=== PATIENT | male | born 1935 | race Caucasian/White ===

== ENCOUNTER 2020-02-01 17:57 | Emergency (ER) | payer MEDICARE, SELFPAY ==
[2020-02-01 18:55] VITALS: BP 141/71; PULSE 53; RESP 14; TEMP 37.4; O2SAT 97
--- NOTE | 2020-02-01 20:03 | ED.SKABFB ---
HPI - Skin/Abscess/Foreign Bdy General Chief complaint: Skin/Abscess/Foreign Body Stated complaint: bug bite, left arm Source: patient Mode of arrival: ambulatory Limitations: no limitations History of Present Illness HPI narrative: Bit yesterday by an insect while picking vegetables in his garden yesterday. He had 2 puncture pena by several mm where he was bit. There was immediate swelling, pt describing a bump of about 4 mm high and several centimeters wide. This AM the bump is almost flat, it's minimally tender, but his forearm is bruised. He's wondering if he has an infection. He takes Xeralto for a. fib. He denies fever, chills pain in the forearm or arm. Related Data Home Medications Medication Instructions Recorded Confirmed diltiazem HCl 180 mg PO DAILY 02/01/20 02/01/20 hydrocortisone 1 applic TOPICAL PRN 02/01/20 02/01/20 hydroxyurea 500 mg PO DAILY 02/01/20 02/01/20 lisinopril 20 mg PO DAILY 02/01/20 02/01/20 metoprolol tartrate 25 mg PO BID 02/01/20 02/01/20 omeprazole 20 mg PO DAILY 02/01/20 02/01/20 oxybutynin chloride 10 mg PO BID 02/01/20 02/01/20 rivaroxaban [Xarelto] 15 mg PO DAILY 02/01/20 02/01/20 Allergies Allergy/AdvReac Type Severity Reaction Status Date / Time bee venom protein (honey bee) Allergy Unknown Verified 02/01/20 19:10 [bees] morphine Allergy Unknown Verified 02/01/20 19:10 Review of Systems Constitutional: Constitutional: Denies chills and Denies fever(s) [facility] Past Medical History Medical History (Updated 02/02/20 @ 00:00 by Background Daemon) Atrial fibrillation GERD (gastroesophageal reflux disease) Hypertension Exam Const: General: no acute distress Skin: Other: There is a palpable, minimally tender, 4 mm intradermal nodule over the left mid-radius. No eschar or puncture pena. There is no redness, warmth, tenderness or induration. Almost all of the left anterior forearm is ecchymotic with well demarcated borders. No red steaking of the left arm. Extrem: General: other (no left axillary lymph node. ) Course Vital Signs Vital signs: Vital Signs Temperature 37.4 C 02/01/20 18:55 Pulse Rate 53 L 02/01/20 18:55 Respiratory Rate 14 02/01/20 18:55 Blood Pressure 141/71 H 02/01/20 18:55 Pulse Oximetry 97 02/01/20 18:55 Temperature 37.4 C 02/01/20 18:55 Pulse Rate 53 L 02/01/20 18:55 Respiratory Rate 15 02/01/20 20:17 Blood Pressure 141/71 H 02/01/20 18:55 Pulse Oximetry 99 02/01/20 20:17 Discharge Plan Discharge Clinical Impression: Insect bites, Bruising Patient Disposition: Home, Self-Care Condition: Stable Instructions: Cellulitis (ED), Insect Bite or Sting (ED), Abscess (ED) Additional Instructions: Look for signs of infection. Return if worsening. Read information on cellulitis to know what to look for. See Dr. Watts at any point there is increased swelling, tenderness, pain or bruising Prescriptions: No Action hydroxyurea 500 mg capsule 500 mg PO DAILY RF: 0 diltiazem HCl 180 mg capsule,extended release 24hr 180 mg PO DAILY RF: 0 lisinopril 20 mg tablet 20 mg PO DAILY RF: 0 hydrocortisone 2.5 % cream with perineal applicator 1 applic topical PRN RF: 0 omeprazole 20 mg capsule,delayed release(DR/EC) 20 mg PO DAILY RF: 0 oxybutynin chloride 5 mg tablet 10 mg PO BID RF: 0 metoprolol tartrate 25 mg tablet 25 mg PO BID RF: 0 Xarelto 15 mg tablet 15 mg PO DAILY RF: 0 Follow-up/Referrals: Mac,Lakhwinder Sousa MD [Primary Care Provider] - Time of Disposition: 20:13 Discharge Date/Time: 02/01/20 20:23
[2020-02-01 20:17] VITALS: RESP 15; O2SAT 99
== END 2020-02-01 20:23 | disposition home or self-care (01) ==
PROVIDERS: Emergency Provider Family Medicine; PCP Internal Medicine
DX: T14.8XXA Other injury of unspecified body region, initial encounter (principal)
CPT/HCPCS: 99281

== ENCOUNTER 2023-03-01 14:01 | Inpatient (IN) | payer MEDICARE, SELFPAY ==
[2023-03-01] VITALS (49 sets, daily range): BP systolic 66–139; BP diastolic 33–90; PULSE 36–97; RESP 13–31; TEMP 35.4–36.6; O2SAT 92–100; BMI 24.3
--- NOTE | ~2023-03-01 | XR_ITS ---
XR chest 1V portable DATE: 03/04/2023 06:16 INDICATION: Intubation TECHNIQUE: Portable AP chest on 03/04/2023 at 0544 hours COMPARISON: 03/03/2023 portable AP chest at 0526 hours FINDINGS: ET tube in satisfactory position 2.3 cm above malgorzata. NG tube in gastric fundus. No central lines. There is cardiomegaly. There is pulmonary vascular redistribution suggesting pulmonary venous hyperte nsion. There is prominence of the minor fissure consistent with subpleural edema. Some Carlos B-lines are noted consistent with pulmonary interstitial edema. Aortic calcification. Mild infiltrate or atelectasis in the lower lung zones, greater on the left, improved on the left sin ce 03/03/2023 IMPRESSION: Interval congestive changes including subpleural and pulmonary interstitial edema Mild improvement of left lower lobe infiltrate or atelectasis Reviewed, dictated and finalized at location A. IMPRESSION: Interval congestive changes including subpleural and pulmonary inte rstitial edema Mild improvement of left lower lobe infiltrate or atelectasis
--- NOTE | ~2023-03-01 | XR_ITS ---
EXAMINATION: [id number] INDICATION: OG placement TECHNIQUE: Supine AP view of the abdomen is obtained. COMPARISON: None available FINDINGS: The OG tube ends in the stomach. Cardiomegaly is noted. There is mild pulmonary edema of th e visualized lung bases. A cardiac pacemaker lead from an IVC approach is noted. The bowel gas patter n is nonspecific. IMPRESSION: 1. OG tube in the stomach. Reviewed, dictated and finalized at location F. IMPRESSION: 1. OG tube in the stomach.
--- NOTE | ~2023-03-01 | XR_ITS ---
XR chest 1V portable 03/01/2023 15:52 Indication: Postintubation. Procedure: AP portable chest Comparison: No prior studies for comparison. Findings: Endotracheal tube tip 2.8 cm above the malgorzata. Cardiomegaly. Mild interstitial edema. No pl eural effusion or pneumothorax. Impression: 1: Cardiomegaly with mild interstitial edema. Reviewed, dictated and finalized at location L. Impression: 1: Cardiomegaly with mild interstitial edema.
--- NOTE | ~2023-03-01 | XR_ITS ---
Portable chest x-ray Comparison: 03/04/2023 Clinical History: Tube placement Findings: Previously noted support tubes have been removed. Lungs are clear, without focal consolida tion or pleural effusion. Cardiomediastinal silhouette is stable. Bones and soft tissues are unremar kable. Impression: Clear lungs. Reviewed, dictated and finalized at location . Impression: Clear lungs.
--- NOTE | ~2023-03-01 | US_ITS ---
EXAMINATION: US abdomen complete DATE: 03/07/2023 11:18 INDICATION: Pancytopenia TECHNIQUE: Multiple grayscale and Doppler ultrasound images of the abdomen were obtained. COMPARISON: None FINDINGS: Abdominal aorta is normal in caliber measuring 2.6 cm approximately, 2.0 cm mid aorta and 2.6 cm in t he distal aorta. This is proximal to mid inferior vena cava is normal. The pancreatic head and body a re normal in appearance. The pancreatic tail is not visualized. Liver has normal echogenicity and co ntour, with a smooth surface. No liver lesion identified. No intrahepatic biliary duct dilation suspe cted. Portal venous flow was seen in the hepatopetal, normal direction and has normal Doppler wavefor m. There are some hypoechoic sludge layering in the dependent aspect of the nondilated gallbladder. T here are couple tiny echogenic foci along the normal thickness gallbladder wall with posterior comet tail and twinkle artifact consistent with likely intramural cholesterol crystals in the setting of ad enomyomatosis. No shadowing cholelithiasis. Sonographic Yan sign was reported as negative by the s onographer. The common bile duct measures 2 mm in maximal diameter which is normal. The right kidney measures 10.0 x 4.8 x 5.3 cm and the left 10.0 x 5.1 x 6.1 cm. There is diffuse increased renal corti edi collection is seen consistent with medical renal disease. Bilateral anechoic renal cysts, the lar gest measuring 4.7 cm with some peripheral echogenic shadowing calcification at the left kidney. Ther e are a few additional echogenic and shadowing calcifications in the kidneys. There is indeterminate 2.0 cm hypoechoic lesion at the lower pole of the right kidney. There is no hydronephrosis. IMPRESSION: 1. Indeterminate 2.0 cm hypoechoic lesion in the right kidney which could represent either a solid re nal cell carcinoma or a complex cyst. Recommend further evaluation with pre and postcontrast MRI or C T. 2. Bilateral mild likely age-related renal atrophy with increased echogenicity consistent with medica l renal disease. 3. Gallbladder sludge and adenomyomatosis. Reviewed, dictated and finalized at location A. IMPRESSION: 1. Indeterminate 2.0 cm hypoechoic lesion in the right kidney which could repre sent either a solid renal cell carcinoma or a complex cyst. Recommend further e valuation with pre and postcontrast MRI or CT. 2. Bilateral mild likely age-related renal atrophy with increased echogenicity consistent with medical renal disease. 3. Gallbladder sludge and adenomyomatosis.
--- NOTE | ~2023-03-01 | US_ITS ---
EXAMINATION: US renal BI DATE: 03/02/2023 16:24 INDICATION: Acute kidney injury TECHNIQUE: Multiple grayscale and Doppler ultrasound images of the kidneys were obtained. COMPARISON: None. FINDINGS: The right kidney measures 9.5 x 5.2 x 5.4 cm. There are multiple cysts of the right kidney which measure up to 2.4 cm. The left kidney measures 10.6 x 5.3 x 6.1 cm. There is a 4.4 cm cyst of t he left kidney. The kidneys demonstrate increased parenchymal echogenicity. There is cortical thinnin g of the kidneys. There is no hydronephrosis. The bladder is decompressed by Chris catheter.. IMPRESSION: 1. Mild bilateral renal atrophy with medical renal disease. Reviewed, dictated and finalized at location F.
--- NOTE | ~2023-03-01 | XR_ITS ---
Portable chest x-ray Comparison: 03/01/2023 Clinical History: Respiratory failure Findings: Endotracheal tube and NG tube are in satisfactory positions. There is extensive hazy pulmo nary disease bilaterally, relatively sparing the lung apices. No pleural effusion. No pneumothorax. Cardiomediastinal silhouette is stable. Bones and soft tissues are unremarkable. Impression: Extensive hazy pulmonary disease. Correlate for pulmonary edema or infection. Support tubes, as above. Reviewed, dictated and finalized at location . Impression: Extensive hazy pulmonary disease. Correlate for pulmonary edema or infection. Support tubes, as above.
--- NOTE | ~2023-03-01 | XR_ITS ---
Portable chest x-ray Comparison: 03/05/2023 Clinical History: Respiratory failure Findings: Lungs are clear, without focal consolidation or pleural effusion. Cardiomediastinal silho uette is stable. Bones and soft tissues are unremarkable. Impression: Clear lungs. Reviewed, dictated and finalized at location . Impression: Clear lungs.
--- NOTE | ~2023-03-01 | XR_ITS ---
EXAMINATION: XR chest ET placement INDICATION: Endotracheal tube insertion TECHNIQUE: Portable AP chest at 1753 hours COMPARISON: 1548 hours FINDINGS: The endotracheal tube ends approximately 4 cm above the malgorzata. A nasogastric tube has been inserted which is in the stomach. Cardiomegaly is noted. There is a mild diffuse interstitial patter n. No pleural effusion or pneumothorax. There appears to be interval insertion of a pacemaker lead fr om an inferior vena cava approach. IMPRESSION: 1. Endotracheal tube approximately 4 cm above the malgorzata. 2. Inserted nasogastric tube in the stomach. 3. Cardiomegaly with mild pulmonary edema. Reviewed, dictated and finalized at location F.
--- NOTE | ~2023-03-01 | XR_ITS ---
XR chest 1V portable DATE: 03/03/2023 05:43 INDICATION: Respiratory failure TECHNIQUE: Portable AP chest on 03/03/2023 at 0526 hours COMPARISON: 03/02/2023 portable AP chest at 0528 hours FINDINGS: ET and NG tubes are unchanged in position, the NG tube overlying the gastric fundus. No central lines. Right ventricular lead entering from inferior vena cava. Cardiomegaly. Aortic calcification. There is left lower lobe infiltrate and/or atelectasis. There is otherwise improvement of bilateral p ulmonary infiltrates since 03/02/2023, suggesting probable mild improvement of pulmonary edema IMPRESSION: Probable interval mild improvement of pulmonary edema. Left lower lobe infiltrate and/atelectasis Cardiomegaly, aortic atherosclerosis Reviewed, dictated and finalized at location A.
--- NOTE | 2023-03-01 14:00 | ECG_ITS ---
Measurements Intervals [place] Rate: 36 P: MA: 0 QRS: -58 QRSD: 95 T: -27 QT: 526 QTc: 409 Interpretive Statements ATRIAL FIBRILLATION WITH SLOW VENTRICULAR RESPONSE LOW QRS VOLTAGE IN LIMB LEADS INCOMPLETE RIGHT BUNDLE BRANCH BLOCK BORDERLINE R WAVE PROGRESSION, ANTERIOR LEADS INFERIOR INFARCT, AGE INDETERMINATE T WAVE ABNORMALITY IN ANTERIOR LEADS- CONSIDER ISCHEMIA BASELINE ARTIFACT- I, II, III, V2-V6 ABNORMAL ECG NO PREVIOUS ECG AVAILABLE FOR COMPARISON Electronically Signed On 03-02-2023 6:28:28 CDT by Francis Pate D.O.
--- NOTE | 2023-03-01 14:14 | PC.NURSE ---
ERP orders for a 1mg of atropine to be administered IV push as pacer pads are applied to pt.
[2023-03-01] MEDS: ATROPINE SULFATE 1 MG/10 ML SYRINGE IV PUSH (14:17)
--- NOTE | 2023-03-01 14:20 | PC.NURSE ---
Pt was on NSS running at a slowed rate. Pt has received around 200mls. Due to low blood pressure ERP wants to continue the bag at 100mls/hr.
--- NOTE | 2023-03-01 14:36 | ED.SYNCOPE ---
HPI - Syncope General Chief Complaint: Syncope Stated Complaint: syncopal episode Time Seen by Provider: 03/01/23 14:09 History of Present Illness HPI narrative: Pt presents from home after apparent syncopal episode. Pt was minimally responsive on EMS arrival. Pt had HR in 30's and low BP. Pt given atropine x 1 dose and pressure improved and HR increased and pt became more responsive but then effects wore off. Pt has extensive cardiac history and is usually seen by Eder Cordoba per EMS. Related Data Home Medications Medication Instructions Recorded Confirmed diltiazem HCl 180 mg 180 mg PO DAILY 02/01/20 02/01/20 capsule,extended release 24 hr hydrocortisone 2.5 % topical cream 1 applic topical PRN 02/01/20 02/01/20 with perineal applicator hydroxyurea 500 mg capsule 500 mg PO DAILY 02/01/20 02/01/20 lisinopril 20 mg tablet 20 mg PO DAILY 02/01/20 02/01/20 metoprolol tartrate 25 mg tablet 25 mg PO BID 02/01/20 02/01/20 omeprazole 20 mg capsule,delayed 20 mg PO DAILY 02/01/20 02/01/20 release oxybutynin chloride 5 mg tablet 10 mg PO BID 02/01/20 02/01/20 rivaroxaban 15 mg tablet (Xarelto) 15 mg PO DAILY 02/01/20 02/01/20 Allergies Allergy/AdvReac Type Severity Reaction Status Date / Time bee venom protein (honey bee) Allergy Unknown Verified 03/01/23 14:22 [bees] morphine Allergy Unknown Verified 03/01/23 14:22 Review of Systems Review of Systems: ROS unobtainable: Yes unobtainable due to mental status [facility] Past Medical History Medical History Atrial fibrillation GERD (gastroesophageal reflux disease) Hypertension Exam Const: Nutritional Appearance: thin Limitations: altered mental status Other: minimall responsive Eyes: Pupils: Equal, round and reactive pupils present Chest: Chest palpation & inspection: normal inspection of the chest Resp: Auscultation: clear to auscultation bilaterally Cardio: Rate: bradycardic GI: GI Palp: Yes Soft to palpation Auscultation: normal bowel sounds Skin: General skin exam: pallor Neuro: General: no focal motor deficits Other: minimally responsive Extrem: General: normal to inspection and no clubbing, cyanosis or edema Course Vital Signs Vital signs: Vital Signs Temperature 97.6 F 03/01/23 14:03 Pulse Rate 42 L 03/01/23 14:03 Respiratory Rate 24 H 03/01/23 14:03 Blood Pressure 75/49 L 03/01/23 14:03 Pulse Oximetry 98 03/01/23 14:03 Oxygen Delivery Nasal Cannula 03/01/23 14:03 Oxygen Flow Rate 3 03/01/23 14:03 Temperature 97.6 F 03/01/23 14:03 Pulse Rate 80 03/01/23 17:45 Respiratory Rate 24 H 03/01/23 17:45 Blood Pressure 139/35 L 03/01/23 16:27 Pulse Oximetry 100 03/01/23 17:41 Oxygen Delivery Mechanical Ventilation 03/01/23 17:41 Oxygen Flow Rate 2 03/01/23 15:00 Fraction of Inspired Oxygen 70 03/01/23 17:41 MDM - Syncope MDM Narrative Medical decision making narrative: Pt having syncope and now minimally responsive Pt very hypotensive and HR is in 30's. Pacer pads placed. Pt given atropine 1 mg x 1 dose. Discussed with Bridget Bruner in bundle tier and labeler and she spoke with Dr Mireles about a pacemaker. She recommended starting low dose dopamine for now and she will see pt. Pt became less responsive. Pacer started and captured with rate in 70's. BP still low and pt minimally responsive and now patient in respiratory distress. Pt intubated by Luciana Woods with me standing by to assist if needed. Pt intubated easily (see procedure note). Pt K 6.2. Treated with Calcium Gluconate, sodium bicarb, Insulin 10 U, and D50 [address] Nguyen, recommended pacer and 1L bolus of fluid. Dr Mireles came and saw pt and took bundle tier and labeler for pacemaker then to ICU. Jennifer Woods also aware of pt and Agrees to admit for HM. Differential Diagnosis Differential diagnosis: Likely complete atrioventricular block and other
[2023-03-01] MEDS: DOPamine 400 MG/D5W 250 ML 400 MG/250 ML BAG 15.73 MG IV CONT (14:55)
--- NOTE | 2023-03-01 15:11 | PC.NURSE ---
Pt is being externally paced. ERP states that he wants to secure an airway and decides to intubate. 1512 25MCG of fentanyl IV push. ERP orders for 25mg of etomidate and 100 mg of succinylcholine. BVM is at bedside ready. 1516 pt is started to be bagged. 1518 Dentures have been removed and are being placed in a denture cup 1520 25mg of Etomidate IV push. 1521 100mg of succinylcholine IV push. 1522 7.5 e-tube 22 at the lips. Pt is having color change.
[2023-03-01] MEDS: fentaNYL CITRATE INJ (*CRX) 100 MCG/2 ML VIAL (15:12)
[2023-03-01 15:14] LABS: Basophils Absolute Auto 0.1 K/mm3 (0.0-0.1); Eosinophils Absolute Auto 0.2 K/mm3 (0-0.3); Eosinophils Percent Auto 1.5 % (0-4.4); Hemoglobin 8.2 g/dL (14.0-18.0); Immature Granulocyte Absolute 0.82 K/mm3 (0.00-0.031); Immature Granulocyte Percent A 7.2 % (0-0.5); Lymphocytes Absolute Auto 1.23 K/mm3 (0.9-3.2); Lymphocytes Percent Auto 10.7 % (18.3-44.2); Mean Corpuscular HGB Conc 30.4 g/dl (32-36); Mean Corpuscular Hemoglobin 34.3 pg (26-34); Mean Platelet Volume 11.4 fl (7.4-10.4); Monocytes Absolute Auto 0.9 K/mm3 (0.1-0.6); Monocytes Percent Auto 7.9 % (2.6-8.5); Neutrophils Absolute Auto 8.2 K/mm3 (1.3-6.7); Neutrophils Percent Auto 71.7 % (45.5-73.1); Nucleated Red Blood Cells Absolute Auto 0.3 K/mm3 (0.0-0.012); Nucleated Red Blood Cells Perc 2.5 % (0.0-0.2); Platelet Count Result 133 k/mm3 (150-375); Red Blood Count 2.39 M/mm3 (4.6-6.20); Red Cell Distribution Width 21.1 % (11.5-14.5); White Blood Count 11.5 K/mm3 (4.5-10.0)
[2023-03-01 15:17] LABS: NT Pro B Type Natriuretic Pept 8000 pg/mL (19.9-100); Troponin I < 0.012 ng/mL (0.000-0.034)
[2023-03-01 15:21] LABS: Alanine Aminotransferase 23 U/L (6-50); Albumin Level 3.6 g/dL (3.5-5.1); Alkaline Phosphatase 67 U/L (38-126); Anion Gap 16 mmol/L (8-16); Aspartate Amino Transferase 23 U/L (17-59); Bilirubin,Total 1.7 mg/dL (0.2-1.3); Blood Urea Nitrogen 43 mg/dL (9-20); Calcium 7.7 mg/dL (8.4-10.2); Carbon Dioxide 13 mmol/L (22-30); Chloride 101 mmol/L (98-107); Estimated CRCL calculation 19 ml/min; Estimated Glomerular Filt Rate 23; Glucose 216 mg/dL (65-110); Magnesium 2.3 mg/dL (1.6-2.3); Potassium 6.2 mmol/L (3.4-5.0); Sodium 130 mmol/L (137-145)
[2023-03-01] MEDS: RAPID SEQUENCE INTUBATION KIT 1 EACH (15:21)
[2023-03-01 15:32] LABS: INR 2.4; Prothrombin Time 27.6 Seconds (11.1-14.7)
--- NOTE | 2023-03-01 15:33 | PC.NURSE ---
1536 calcium gluconate 1000mg ivp 1537 Sodium bicarb 1amp 50meq ivp 1540 Dextrose 25gm ivp 1543 human insulin 10units IVP
[2023-03-01] MEDS: CALCIUM GLUCONATE 1,000 MG/10 ML VIAL 1000 MG (15:36)
[2023-03-01] MEDS: SODIUM BICARBONATE 8.4% 50 MEQ/50 ML SYRINGE (15:37)
[2023-03-01 15:38] LABS: Anisocytosis 1+ (NORMAL); Macrocytosis 1+ (NORMAL); Ovalocytes 1+ (NORMAL); Platelet Estimate Decreased (Adequate); Schistocytes None Seen (NORMAL)
[2023-03-01] MEDS: DEXTROSE 50% 25 GM/50 ML SYRINGE (15:40)
[2023-03-01] MEDS: INSULIN HUMAN REGULAR (*BKC) 100 UNITS/ML 10 UNITS (15:43)
--- NOTE | 2023-03-01 15:54 | PM.CNCAR ---
Assessment and Plan Assessment and plan (1) Atrial fibrillation: Code(s): I48.91 - Unspecified atrial fibrillation Status: Acute Assessment and Plan: History of atrial fibrillation on diltiazem and metoprolol for rate control. He comes to the hospital following a syncopal episode and was bradycardic and hypotensive. He is hyperkalemic with K+ 6.2 which may be contributing to his bradycardia. However, as he is hemodynamically unstable with MAPs in the 50's despite dopamine gtt, will proceed with transvenous pacemaker. After correction of electrolytes and observing his clinical course over the weekend will determine if permanent pacemaker is indicated. Last dose DOAC this morning. History of Present Illness History of Present Illness Consult date/time: 03/01/23 15:54 Requesting physician: Tori Barker III, DO Consult reason: Other (syncope, bradycardia) Reason For Visit: syncopal episode Narrative: Mr. Greene is an 87 year old male with a history of atrial fibrillation/flutter. He follows with [facility], Dr. Serrano. He comes to the hospital today after having a syncopal event at home. In the emergency department he was noted to be bradycardic with a heart rate in the 30's. EKG demonstrates atrial fibrillation with slow ventricular response. Because of this any hypotension he was started on a dopamine drip and had improvement of his heart rate, but blood pressure remains soft. He is now intubated at the time of this consultation, so details surrounding his syncope are unknown to me at this time. Cardiology is being asked to see him for consideration of transvenous pacing. Review of Systems Review of Systems: ROS unobtainable: Yes unobtainable due to endotracheal tube PMFSH Past Medical History Medical History Atrial fibrillation GERD (gastroesophageal reflux disease) Hypertension Meds Home Medications and Allergies Home Medications Medication Instructions Recorded Confirmed Type diltiazem HCl 180 mg 180 mg PO DAILY 02/01/20 02/01/20 History capsule,extended release 24 hr hydrocortisone 2.5 % topical cream 1 applic topical PRN 02/01/20 02/01/20 History with perineal applicator hydroxyurea 500 mg capsule 500 mg PO DAILY 02/01/20 02/01/20 History lisinopril 20 mg tablet 20 mg PO DAILY 02/01/20 02/01/20 History metoprolol tartrate 25 mg tablet 25 mg PO BID 02/01/20 02/01/20 History omeprazole 20 mg capsule,delayed 20 mg PO DAILY 02/01/20 02/01/20 History release oxybutynin chloride 5 mg tablet 10 mg PO BID 02/01/20 02/01/20 History rivaroxaban 15 mg tablet (Xarelto) 15 mg PO DAILY 02/01/20 02/01/20 History Allergies Allergy/AdvReac Type Severity Reaction Status Date / Time bee venom protein (honey bee) Allergy Unknown Verified 03/01/23 14:22 [bees] morphine Allergy Unknown Verified 03/01/23 14:22 Vital Signs Vital Signs - 24 hr 03/01/23 14:03 03/01/23 14:55 03/01/23 15:06 Temperature 36.4 C Pulse Rate 42 L 53 L 69 Respiratory Rate 24 H Blood Pressure 75/49 L 66/45 L Pulse Oximetry 98 Oxygen Delivery Nasal Cannula Oxygen Flow Rate 3 03/01/23 15:24 03/01/23 15:48 03/01/23 15:51 Temperature Pulse Rate 39 L 55 L 58 L Respiratory Rate 16 Blood Pressure 68/33 L 84/39 L 86/56 L Pulse Oximetry Oxygen Delivery Oxygen Flow Rate 03/01/23 14:20 03/01/23 14:30 03/01/23 14:32 Temperature Pulse Rate 39 L 37 L 36 L Respiratory Rate 27 H 21 H 26 H Blood Pressure 66/45 L Pulse Oximetry 100 99 96 Oxygen Delivery Oxygen Flow Rate 03/01/23 14:51 03/01/23 15:00 03/01/23 15:16 Temperature Pulse Rate 61 55 L 52 L Respiratory Rate 30 H 31 H 26 H Blood Pressure Pulse Oximetry Oxygen Delivery Oxygen Flow Rate 03/01/23 15:30 03/01/23 15:32 03/01/23 15:45 Temperature Pulse Rate 65 70 64 Respiratory Rate 13 20 22 H Blood Pr
[2023-03-01] MEDS: SODIUM CHLORIDE 0.9% IV 1,000 ML 999 ML IV CONT (15:57)
--- NOTE | 2023-03-01 16:07 | PC.NURSE ---
Pt is bucking and seems uncomfortable with the etube. RN reports to ERP who orders for 3mg of versed IVP. RN confirms order and administers 3mg of versed IVP at 1609.
[2023-03-01] MEDS: MIDAZOLAM HCL (*CRX) 2 MG/2 ML VIAL 3 MG IV PUSH (16:09)
--- NOTE | 2023-03-01 17:12 | P.PCNCC_ITS ---
Cardiac Cath Procedure Note Date of procedure:: 03/01/23 Performing physician:: CATHETERIZATION LABORATORY REPORT Procedure Date: 03/01/2023 Online Merchandiser: Bella Mireles M.D., [facility]? Referring Physician: Dr. Barker ([facility]) ? Anesthesia: Versed and Fentanyl were ordered and given in my presence at 16:54, procedure ended at 17:07. Supervision of nurse monitored moderate sedation with Versed and Fentanyl was provided for 13 minutes. Total of Versed 2mg and Fentanyl 50mcg were administered by the Regional Retail Sales Manager RN Benita Khan. Pre-op Diagnosis: Bradycardia, slow atrial fibrillation Post-op Diagnosis: Successful placement of temporary transvenous pacer Procedure(s): 1. Moderate sedation 2. Ultrasound-guided access of the right femoral vein 3. Placement of temporary transvenous pacer Access Site: Right femoral vein Brief History and Clinical Indications: Patient is an 87 year old male referred for temporary transvenous pacer for bradycardia. All risks, benefits and alternatives to temporary transvenous pacer was discussed at length with the patient's family. Risk of complications including but not limited to bleeding, infection, arrhythmia, blood loss, groin hematoma, emergency surgery, and even were discussed with the patient's family and all questions were answered. The patient's family understood and wished to proceed. Time out called, patient name, date of , medical record number, allergies, procedure performed, identify Online Merchandiser, patient and staff member concurred with accurate data, procedure carried on. Description of Procedure: Informed consent signed and placed in the chart. Patient transferred to mobile lab technician room. Prepped and draped in usual sterile fashion. 2% lidocaine injected subcutaneously in right groin area. Right femoral vein was accessed using micropuncture technique under ultrasound guidance. 5-FR sheath placed. 5F transvenous pacer was advanced into the right ventricle and connected to the pacer box. Appropriate capture confirmed. Ventricular rate set at 80bpm. The pacer loses capture at 8mA, set at 9mA. The sheath was sutured in place. ? Assessment: Successful placement of temporary transvenous pacer Post Operative Condition: Stable No significant blood loss Disposition: ICU Plan: The patient will be transferred to the ICU. The above findings were discussed with the Project Associate. Obtain daily CXRs while transvenous pacer is in place. ? Bella Mireles M.D. Interventional Cardiology
[2023-03-01] MEDS: FENTANYL 2,500MCG/NS250ML(*CRX 2,500 MCG/250 ML BAG IV CONT (17:45)
--- NOTE | 2023-03-01 19:16 | PC.NURSE ---
This patient, Wes Greene, was admitted to Intensive Care Unit-5. Patient/family oriented to hospital policies and general routines including ID bracelet, bed and alarms, visiting hours, pain management, procedures, bathroom and other care routines, personal items, smoking policy, room service/diet, and visiting hours. Information on how to activate the Rapid Response Team has been discussed. Patient/Family are encouraged to report perceived risks to care and to ask questions if they do not understand what they are told or what they should do.
[2023-03-01] MEDS: MINERAL OIL/WHITE PETROLATUM OINTMENT 1 APPLIC EACH EYE (20:38)
[2023-03-01 21:42] LABS: Troponin I < 0.012 ng/mL (0.000-0.034)
[2023-03-01 23:23] LABS: Glucose Point of Care 98 mg/dl (65-105)
[2023-03-02] VITALS (29 sets, daily range): BP systolic 92–134; BP diastolic 45–78; PULSE 80–111; RESP 14–15; TEMP 36.3–37.2; O2SAT 91–100; BMI 25.4
--- NOTE | 2023-03-02 | ECHO_ITS ---
Patient Info Name: Wes Greene Age: 87 years : 1935 Gender: Male Ht: 70 in Wt: 177 lbs BSA: 2.00 m2 HR: 100 bpm BP: 96 / 63 mmHg Heart Rhythm: Paced Technical Quality: Fair Exam Date: 03/02/2023 9:38 AM Exam Location: [facility] Patient Status: Inpatient Admit Date: 03/01/2023 Staff Ordering Physician: Justino Atkins MD Pairer: Peggy Antoine RDCS Attending Provider: Drake Dennis MD Exam Type: CA echo dop color flow w con Study Info Indications - ?clot - CHF R00.1 - Bradycardia, unspecified Complete two-dimensional, color flow and Doppler transthoracic echocardiogram is performed with contrast to opacify the left ventricle and to improve the deliniation of the left ventricle endocardial borders. Contrast/Agitated Saline Contrast/Ag. Saline: Definity Amount: 3.00 ml Administered By: Peggy Antoine RDCS Existing IV Access: Yes IV Access Condition: patent with no signs of infiltration Summary 1. Four-chamber cardiac dilation with moderate left and right ventricular systolic dysfunction. 2. Moderate biatrial dilation. 3. Calcified mitral valve annulus. 4. Sclerotic but not stenotic aortic valve. 5. Small amount of MR. 6. Transvenous pacemaker lead is seen in the IVC, RA, RV. Left Ventricle Left ventricular chamber dimension is moderately enlarged. Left ventricular systolic function is moderately reduced, estimated at 30-35%. The left ventricular diastolic function is indeterminate. Right Ventricle Right ventricular chamber dimension is moderately enlarged. Right ventricular systolic function is reduced. Linear artifact in right ventricle suggestive of catheter(s), pacemaker lead(s), or ICD lead(s). Left Atria Left atrial chamber dimension is moderately enlarged. Right Atria Right atrial chamber dimension is moderately enlarged. Linear artifact in the right atrium suggestive of catheter(s), pacemaker lead(s), or ICD lead(s). Aortic Valve The aortic valve is trileaflet. There is mild aortic valve sclerosis. Pulmonic Valve The pulmonic valve is not well visualized. Mitral Valve The mitral valve has normal leaflets. There is mild mitral valve regurgitation. Tricuspid Valve The tricuspid valve leaflets are normal. Pericardium/Pleural The pericardium appears normal. Aorta The aortic root size at the sinus of Valsalva is normal. Left Ventricular Outflow Tract Name Value Normal LVOT 2D LVOT Diameter 2.03 cm LVOT Doppler LVOT Peak Gradient 2 mmHg LVOT Mean Gradient 1 mmHg LVOT VTI 10.94 cm LVOT VTI/AV VTI Ratio 0.54 LVOT Stroke Volume 35.55 ml LVOT CO 3.48 l/min LVOT CI 1.74 L/min/m2 Pulmonic Valve Name Value Normal RVOT Doppler
[2023-03-02 03:58] LABS: Hematocrit 23.8 % (42.0-52.0); Hemoglobin 7.5 g/dL (14.0-18.0); Immature Platelet Fraction Pct 3.7 % (0.9-11.2); Mean Corpuscular HGB Conc 31.5 g/dl (32-36); Mean Corpuscular Hemoglobin 33.8 pg (26-34); Mean Corpuscular Volume 107.2 fl (80-100); Mean Platelet Volume 9.6 fl (7.4-10.4); Platelet Count Result 125 k/mm3 (150-375); Red Blood Count 2.22 M/mm3 (4.6-6.20); Red Cell Distribution Width 20.6 % (11.5-14.5); White Blood Count 5.7 K/mm3 (4.5-10.0)
[2023-03-02 04:07] LABS: Anion Gap 10 mmol/L (8-16); Blood Urea Nitrogen 50 mg/dL (9-20); Calcium 7.6 mg/dL (8.4-10.2); Carbon Dioxide 21 mmol/L (22-30); Chloride 102 mmol/L (98-107); Estimated CRCL calculation 17 ml/min; Estimated Glomerular Filt Rate 20; Glucose 80 mg/dL (65-110); Magnesium 2.2 mg/dL (1.6-2.3); Phosphorus 6.5 mg/dL (2.5-4.5); Potassium 5.7 mmol/L (3.4-5.0); Sodium 133 mmol/L (137-145)
[2023-03-02 05:20] LABS: Base Excess ABG -5.3 mEq/l (+/-2.0); Carboxyhemoglobin 0.3 % THb (0-2.0); Device VENTILATOR; Fractional Inspired Oxygen 35 %; HCO3 ABG 20.6 mEq/l (22.0-26.0); Methemoglobin ABG 0.5 %THb (0-1.5); Modified Allen's Test Pass; Oxygen Content ABG 12.8 %vol (16.0-22.0); Oxygen Saturation ABG 96.3 % (95.0-100.0); Oxyhemoglobin 93.6 % THb (90.0-100.0); PCO2 ABG 41.7 mmHg (35.0-45.0); PO2 ABG 91.1 mmHg (80.0-100.0); Reduced Hemoglobin 5.6 %THb (0-5.0); Site Drawn RIGHT RADIAL; Total Hemoglobin 9.6 g/dL (12.0-18.0); pH ABG 7.311 (7.350-7.450)
[2023-03-02 05:21] LABS: Arterial Blood Gas PEEP 5 cmH2O; Arterial Blood Gas Tidal Volume 480 ml; Arterial Blood Gas Vent Mode CMV; Arterial Blood Gas Ventilator rate 14 /MIN
[2023-03-02 06:00] LABS: Add Urine Microscopic? YES; Appearance Urine Cloudy (Clear); Bacteria Urine None Seen /hpf; Bilirubin Urine 1+ (Negative); Blood Urine 2+ (Negative); Color Urine Dark Yellow (Yellow); Glucose Urine UA Negative (Negative); Hyaline Casts Urine Present /lpf; Ketones Urine Trace mg/dL (Negative); Leukocyte Esterase Ur 2+ LEU/UL (NEGATIVE); Mucus Urine Present /lpf; Nitrate Urine Negative (Negative); Non Pathogenic Casts >20; Protein Urine Trace mg/dL (Negative); Specific Grav Ur 1.017 (1.001-1.035); Squamous Epithelial Cell Urine Many /hpf (Few); WBC Clumps Urine Present /HPF; WBC Urine 51-100 /hpf (0-3)
--- NOTE | 2023-03-02 08:36 | PM.IMHP ---
H&P: HPI History of Present Illness Date/Time: 03/02/23 08:36 Chief Complaint: Syncope Narrative: 87yo male with AFib on anticoagulation, HTN and GERD brought in by EMS for syncopal episode. Patient is currently intubated and sedated so hx unable to be provided. No EMS report but notes in the chart states that EMS responded for syncopal episode and patient had poor color. BP 90/52 and heart rate 30. Glucose was 328. Atropine 0.5mg was given once and heart rate improved to 50. His condition improved and patient became more responsive until the affects of the atrophy more off. He does take diltiazem and metoprolol at home. He is brought to the ED for evaluation. In the ED, his blood pressure was 75/49 and pulse was 42. He was tachypneic and was 98% on 3 L. blood pressure dropped to 66/45. Pacer pads were placed. He was given atropine 1 mg. Cardiology was consulted pre pacemaker. Dopamine was started. External pacemaker was captured with rate of 70. However blood pressure remained low and developed respiratory distress. Patient was intubated in the emergency room. Patient's potassium was 6.2 and this was treated appropriately. He had metabolic acidosis and anion gap of 16. He was noted to have renal failure. Baseline creatinine is unknown. Patient was given IV fluid bolus. He was taken to the starch factory laborer for temporary pacemaker placement. Patient was admitted to the ICU post temporary pacemaker placement. Spoke with daughter by phone. Patient has been in and out of hospitals over the past month. His most recent hospitalization was on February 02 for blood loss anemia at [facility]. Hemoglobin was 7.2. EGD and colonoscopy performed without clear source. Daughter states the procedure which sounds like a RAYMOND and that they ?found a blood clot? in that the physician told the family that they would not want to shock the heart because of this reason. She also mentions that the heart was working ?at 30%?. Patient does have chronic CHF. He also has coronary disease with history of NV but no stents. Family is also with the patient does have underlying kidney disease. Patient was discharged on February 09. Since that time he has been in to the ED 3 separate times for CHF symptoms. His most recent ED visit was 911 at [facility] where he was found to have high potassium which was treated. He was discharged home. Patient has been very tired with lack of energy. On the day of admission, while eating lunch, patient was became lethargic and then unresponsive when EMS was called. This been no fever or chills. Patient has been having feelings of impending doom. Review of Systems Review of Systems: ROS unobtainable: Yes unobtainable due to endotracheal tube and unobtainable due to medical condition PMFSH Past Medical History Medical History (Updated 03/03/23 @ 09:33 by Pedrito Nguyen MD) Atrial fibrillation CAD (coronary artery disease) CHF (congestive heart failure) CKD (chronic kidney disease) GERD (gastroesophageal reflux disease) Hypertension Surgical History Surgical History Surgical history unknown Family History Family History Other Family history unknown Social History Social History Social History: Lives at home with . Full code. Smoking status: Current every day smoker Tobacco type: pipe Alcohol intake: current Drinks per week: 1 Substance use: never Substance use type: does not use Spiritual care concerns: No Meds Home Medications and Allergies Home Medications Medication Instructions Recorded Confirmed Type diltiazem HCl 180 mg 240 mg PO DAILY 02/01/20 03/01/23 History capsule,extended release 24 hr hydroxyurea 500 mg capsule 500 mg PO DAILY 02/01/20 03/01/23 History lisinopril 20 mg tablet 20 m
--- NOTE | 2023-03-02 08:53 | ECG_ITS ---
Measurements Intervals [address] Rate: 101 P: HI: 0 QRS: -63 QRSD: 92 T: 48 QT: 367 QTc: 477 Interpretive Statements ECTOPIC ATRIAL TACHYCARDIA LOW QRS VOLTAGE IN LIMB LEADS INCOMPLETE RIGHT BUNDLE BRANCH BLOCK INFERIOR INFARCT, AGE INDETERMINATE BORDERLINE ST-T WAVE ABNORMALITY- HIGH LATERAL LEADS BASELINE ARTIFACT- I, II, III, AVR, AVL, AVF, V1-V6 ABNORMAL ECG COMPARED TO ECG 03/01/2023 14:09:41 ECTOPIC ATRIAL TACHYCARDIA NOW PRESENT Electronically Signed On 03-02-2023 10:42:41 CDT by Francis Pate D.O.
[2023-03-02] MEDS: PANTOPRAZOLE SODIUM IV 40 MG VIAL IV PUSH ×2 (09:54→20:30)
[2023-03-02] MEDS: DEXTROSE 50% 25 GM/50 ML SYRINGE IV PUSH (09:54)
[2023-03-02] MEDS: SODIUM ZIRCONIUM CYCLOSILICATE 10 GM POWD.PACK FEED TUBE ×2 (09:54→17:25)
[2023-03-02] MEDS: FUROSEMIDE INJ 100 MG/10 ML VIAL 80 MG IV PUSH (09:54)
[2023-03-02] MEDS: INSULIN HUMAN REGULAR (*BKC) 100 UNITS/ML 10 UNITS IV PUSH (09:55)
[2023-03-02] MEDS: MINERAL OIL/WHITE PETROLATUM OINTMENT 1 APPLIC EACH EYE ×2 (09:55→20:28)
[2023-03-02 09:56] LABS: Iron 41 ug/dL (49-181)
[2023-03-02 10:05] LABS: Percent Iron Saturation 17 % (20-50)
--- NOTE | 2023-03-02 10:08 | P.CONNP_ITS ---
Assessment and Plan Assessment and plan (1) DENISHA (acute kidney injury): Code(s): N17.9 - Acute kidney failure, unspecified Status: Acute Assessment and Plan: * secondary to shock/hypotension in association with bradycardia * hemodynamics better sp IVFs and pacing * follow-up on urine studies, renal ultrasound, and CPK level * remains at risk for requiring CUTTER OPERATOR ASBESTOS SHINGLE/dialysis * follow trend of repeat labs and UOP (2) Stage 3b chronic kidney disease: Code(s): N18.32 - Chronic kidney disease, stage 3b Status: Chronic Assessment and Plan: * present since 2020 from review of electronic records (from [facility] and [facility]) * baseline creatinine runs ~ 1.4 - 1.9mg/dl * more recently (last several months with recent hospitalizations), running closer to 1.6 - 1.9mg/dl * presumably secondary to HTN, vascular disease, BPH, and recent diagnosed cardiomyopathy in January 2023 (EF 30 - 35%) (3) Hyperkalemia: Code(s): E87.5 - Hyperkalemia Status: Acute Assessment and Plan: * due to DENISHA/ARF, metabolic acidosis, and SENIA-I use * s/p medical management * follow trend of repeatK+ levels (4) Acute respiratory failure: Code(s): J96.00 - Acute respiratory failure, unspecified whether with hypoxia or hypercapnia Status: Acute Assessment and Plan: * presumably due to shock/hypotension and pulmonary edema/CHF * intubated and on mechanical ventilation * agree with diuresis as tolerated by hemodynamics * weaning once more stable (5) Bradycardia: Code(s): R00.1 - Bradycardia, unspecified Status: Acute Assessment and Plan: * as noted on presentation * complicated by diltiazem and metoprolol use prior to admission * s/p transvenous pacemaker placement * Cardiology following (6) CHF (congestive heart failure): Code(s): I50.9 - Heart failure, unspecified Status: Acute Assessment and Plan: * acute on chronic issue * echo on previous hospitalization noted - EF 30 - 35%Acute on chronic congestive heart failure * repeat echo ordered * diuresis as tolerated (7) Shock: Code(s): R57.9 - Shock, unspecified Status: Acute Assessment and Plan: * significant/severe hypotension felt to be cardiogenic in etiology from bradycardia and congestive heart failure * improvement in bradycardia has resulted in improvement in blood pressure * no need for vasopressor therapy at this time * follow trend of hemodynamics (8) Anemia: Code(s): D64.9 - Anemia, unspecified Status: Acute Assessment and Plan: * due to acute illness coupled with chronic issue and CKD * noted on previous admission to OSH * s/p EGD with esophagitis + gastritis * complicated by need for anticoagulation due to left atrial thrombus * follow H/H * on anticoagulation with heparin gtt (9) UTI (urinary tract infection): Code(s): N39.0 - Urinary tract infection, site not specified Status: Acute Assessment and Plan: * suggestive by admission UA * follow culture data * on antibiotics Long and extensive discussion (greater than 20 min) with the patient's family at bedside regarding his acute kidney injury on top of his baseline kidney disease along with his other multitude of issues/problems as noted above along with extensive review of his records from here at [facility] as well as previous hospitalizations at [facility] as well as [facility] in [place]. I will continue to the patient with you while he
--- NOTE | 2023-03-02 10:08 | PM.CNNEP ---
Assessment and Plan Assessment and plan (1) DENISHA (acute kidney injury): Code(s): N17.9 - Acute kidney failure, unspecified Status: Acute Assessment and Plan: secondary to shock/hypotension in association with bradycardia hemodynamics better sp IVFs and pacing follow-up on urine studies, renal ultrasound, and CPK level remains at risk for requiring NEGATIVE SPOTTER/dialysis follow trend of repeat labs and UOP (2) Stage 3b chronic kidney disease: Code(s): N18.32 - Chronic kidney disease, stage 3b Status: Chronic Assessment and Plan: present since 2020 from review of electronic records (from [facility]) baseline creatinine runs ~ 1.4 - 1.9mg/dl more recently (last several months with recent hospitalizations), running closer to 1.6 - 1.9mg/dl presumably secondary to HTN, vascular disease, BPH, and recent diagnosed cardiomyopathy in January 2023 (EF 30 - 35%) (3) Hyperkalemia: Code(s): E87.5 - Hyperkalemia Status: Acute Assessment and Plan: due to DENISHA/ARF, metabolic acidosis, and SENIA-I use s/p medical management follow trend of repeatK+ levels (4) Acute respiratory failure: Code(s): J96.00 - Acute respiratory failure, unspecified whether with hypoxia or hypercapnia Status: Acute Assessment and Plan: presumably due to shock/hypotension and pulmonary edema/CHF intubated and on mechanical ventilation agree with diuresis as tolerated by hemodynamics weaning once more stable (5) Bradycardia: Code(s): R00.1 - Bradycardia, unspecified Status: Acute Assessment and Plan: as noted on presentation complicated by diltiazem and metoprolol use prior to admission s/p transvenous pacemaker placement Cardiology following (6) CHF (congestive heart failure): Code(s): I50.9 - Heart failure, unspecified Status: Acute Assessment and Plan: acute on chronic issue echo on previous hospitalization noted - EF 30 - 35%Acute on chronic congestive heart failure repeat echo ordered diuresis as tolerated (7) Shock: Code(s): R57.9 - Shock, unspecified Status: Acute Assessment and Plan: significant/severe hypotension felt to be cardiogenic in etiology from bradycardia and congestive heart failure improvement in bradycardia has resulted in improvement in blood pressure no need for vasopressor therapy at this time follow trend of hemodynamics (8) Anemia: Code(s): D64.9 - Anemia, unspecified Status: Acute Assessment and Plan: due to acute illness coupled with chronic issue and CKD noted on previous admission to OSH s/p EGD with esophagitis + gastritis complicated by need for anticoagulation due to left atrial thrombus follow H/H on anticoagulation with heparin gtt (9) UTI (urinary tract infection): Code(s): N39.0 - Urinary tract infection, site not specified Status: Acute Assessment and Plan: suggestive by admission UA follow culture data on antibiotics Long and extensive discussion (greater than 20 min) with the patient's family at bedside regarding his acute kidney injury on top of his baseline kidney disease along with his other multitude of issues/problems as noted above along with extensive review of his records from here at [facility] as well as previous hospitalizations at [facility] as well as [facility] in [place]. I will continue to the patient with you while he remains hospitalized and make further recommendations as needed. Thank you for allowing me to participate in the care this patient. History of Present Illness Reason for Consult Consult date: 03/02/23 Reason for consult: acute renal failure (on chronic kidney disease) Chief Complaint Chief complaint: bradycardia,hypotension/renal failure,hyperkalemia History of Present Illness Narrative: All the information I have obtained is from review of th
[2023-03-02 10:27] LABS: Hematocrit 26.5 % (42.0-52.0); Hemoglobin 8.3 g/dL (14.0-18.0)
[2023-03-02 10:32] LABS: INR 1.5; Prothrombin Time 19.3 Seconds (11.1-14.7)
--- NOTE | 2023-03-02 10:35 | WPDCNINT ---
Assessment and Plan Assessment and plan (1) Acute respiratory failure: Code(s): J96.00 - Acute respiratory failure, unspecified whether with hypoxia or hypercapnia Status: Acute Assessment and Plan: Acute Respiratory failure secondary to cardiogenic shock and pulmonary edema Chest x-ray this morning shows bilateral hazy pulmonary disease Continue full mechanical ventilation support to prevent hypoxemia/hypercarbia and end organ damage. ABG reviewed Will start diuretics Weaning will depend on his hemodynamic status He has some wheezing on exam but this may be secondary to CHF or may patient have underlying COPD as patient does have heavy history of smoking in the past. Will order bronchodilators (2) Bradycardia: Code(s): R00.1 - Bradycardia, unspecified Status: Acute Assessment and Plan: Patient presented with atrial fibrillation with slow ventricular response. He was on extended release diltiazem and metoprolol as an outpatient. Status post transvenous pacemaker placement Patient now in sinus rhythm Monitor (3) CHF (congestive heart failure): Code(s): I50.9 - Heart failure, unspecified Status: Acute Assessment and Plan: Acute on chronic congestive heart failure patient's daughter reports EF of 30% on echocardiogram done on last admission Repeat echo ordered Lasix IV ordered (4) Thrombus of left atrial appendage: Code(s): I51.3 - Intracardiac thrombosis, not elsewhere classified Status: Acute Assessment and Plan: Darwin done at [facility] in [place] showed left atrial appendage thrombus as per records obtained from [facility]. He was discharged on Xarelto. I will start him on heparin infusion considering patient may need pacemaker or other invasive procedures like hemodialysis. Monitor hemoglobin closely. Protonix (5) Atrial fibrillation: Code(s): I48.91 - Unspecified atrial fibrillation Status: Acute Assessment and Plan: Currently in sinus rhythm Anticoagulation as below (6) Shock: Code(s): R57.9 - Shock, unspecified Status: Acute Assessment and Plan: Patient presented with shock which was likely cardiogenic from bradycardia and congestive heart failure With improvement in bradycardia his blood pressures improved Not requiring any vasopressors at this time Monitor (7) Acute on chronic renal failure: Code(s): N17.9 - Acute kidney failure, unspecified; N18.9 - Chronic kidney disease, unspecified Status: Acute Assessment and Plan: Patient's baseline creatinine is 1.7 and patient presented with creatinine of 2.2 which today has increased to 3.0. This is likely secondary to cardiogenic shock came in with. Blood pressures improved with IV fluids and pacing Check urine electrolytes renal ultrasound and CK level Monitor urine output electrolytes and creatinine Hyperkalemia treatment as below Nephrology consult Patient is at risk of requiring UI DEVELOPER DESIGNER (8) Hyperkalemia: Code(s): E87.5 - Hyperkalemia Status: Acute Assessment and Plan: Hyperkalemia secondary to DENISHA and metabolic acidosis. Potassium improved to 5.7 from 6.2 but still above normal range I ordered insulin D50, Lasix and Lokelma Recheck BMP later in the day (9) GERD (gastroesophageal reflux disease): Code(s): K21.9 - Gastro-esophageal reflux disease without esophagitis Status: Acute Assessment and Plan: Protonix IV (10) Anemia: Code(s): D64.9 - Anemia, unspecified Status: Acute Assessment and Plan: Patient appears to have chronic anemia and may have myeloproliferative disorder. Per records he had EGD which showed esophagitis and gastritis and had negative colonoscopy on 02/05. Will start anticoagulation at this time due to history of left atrial thrombus Workup for anemia has been ordered Serial hemoglobins will be checked Heparin infusion as long as maxime
[2023-03-02 11:08] LABS: Folic Acid > 20.0 ng/mL (2.76->20)
[2023-03-02] MEDS: HEPARIN SOD/D5W 100 UNITS/ML 25,000 UNITS/250 ML BAG 15 UNITS IV CONT (11:16)
[2023-03-02] MEDS: FENTANYL 2,500MCG/NS250ML(*CRX 2,500 MCG/250 ML BAG 17.5 MCG IV CONT (11:18)
[2023-03-02 11:28] LABS: Creatinine Urine 240.4 mg/dL
[2023-03-02 11:30] LABS: Sodium Urine Random 16 meq/L
[2023-03-02 11:53] LABS: Glucose Point of Care 115 mg/dl (65-105)
[2023-03-02 11:57] LABS: Creatine Kinase 84 U/L (55-170)
[2023-03-02] MEDS: PERFLUTREN LIPID MICROSPHERES 1.5 ML VIAL DILUTED TO 10 ML TOTAL VOLUME IV PUSH (12:02)
--- NOTE | 2023-03-02 12:14 | PM.PNCARD ---
Progress Note: A&P Assessment and Plan (1) Atrial fibrillation: Code(s): I48.91 - Unspecified atrial fibrillation Status: Acute Plan This is an 87-year-old man with a long history of atrial fibrillation presented with a syncopal event at home. He also apparently is known to have some LV systolic dysfunction. According to the family he is not known to have coronary artery disease. Patient's rhythm is no longer bradycardic with withdrawal of his diltiazem and beta-raghavendra. At the moment he does not likely require implantation of a pacemaker device. The temporary wire will be left in at least till tomorrow until he is stable for at least another 24 hours. Yrn Murphy MD [facility] Subjective Date/time seen: Date of service: 03/02/23 12:14 Interval history: Follow-up visit in this 87-year-old man with: 10-12 year history of atrial fibrillation who presented here yesterday with syncopal episode that occurred at home. He was brought here by ambulance and found to have AFib with slow ventricular response. Temporary transvenous pacemaker was placed from the right femoral vein. Patient was intubated and is in the ICU. According to the family he has a history of atrial fibrillation and a history of systolic left ventricular dysfunction that was identified during a recent hospitalization up in [place]. The patient remains intubated on ventilator support in the ICU. Current rhythm appears to be a regular atrial rhythm, there appeared to be P-wave was not clear that there sinus P waves. Pacemaker is sensing and pacing appropriately. Exam Const: Other: Intubated elderly man HENMT: Mouth: Yes moist mucous membranes Eyes: Sclera: sclerae normal Neck: Neck: supple and no JVD Resp: Other: Central rhonchi noted Cardio: Rate: regular rate Rhythm: regular rhythm GI: GI Palp: Yes Soft to palpation Auscultation: normal bowel sounds Skin: General skin exam: normal color Neuro: Other: Sedated on ventilator Objective Data Vital Signs Vital Signs: Vital Signs - 24 hr 03/01/23 14:03 03/01/23 14:55 03/01/23 15:06 Temperature 36.4 C Pulse Rate 42 L 53 L 69 Respiratory Rate 24 H Blood Pressure 75/49 L 66/45 L Pulse Oximetry 98 Oxygen Delivery Nasal Cannula Oxygen Flow Rate 3 Fraction of Inspired Oxygen 03/01/23 15:24 03/01/23 15:48 03/01/23 15:51 Temperature Pulse Rate 39 L 55 L 58 L Respiratory Rate 16 Blood Pressure 68/33 L 84/39 L 86/56 L Pulse Oximetry Oxygen Delivery Oxygen Flow Rate Fraction of Inspired Oxygen 03/01/23 15:55 03/01/23 15:56 03/01/23 14:20 Temperature Pulse Rate 58 L 45 L 39 L Respiratory Rate 18 27 H Blood Pressure 106/79 106/79 Pulse Oximetry 100 100 Oxygen Delivery Oxygen Flow Rate Fraction of Inspired Oxygen 03/01/23 14:30 03/01/23 14:32 03/01/23 14:51 Temperature Pulse Rate 37 L 36 L 61 Respiratory Rate 21 H 26 H 30 H Blood Pressure 66/45 L Pulse Oximetry 99 96 Oxygen Delivery Oxygen Flow Rate Fraction of Inspired Oxygen 03/01/23 15:00 03/01/23 15:16 03/01/23 15:30 Temperature Pulse Rate 55 L 52 L 65 Respiratory Rate 31 H 26 H 13 Blood Pressure Pulse Oximetry Oxygen Delivery Oxygen Flow Rate Fraction of Inspired Oxygen 03/01/23 15:32 03/01/23 15:45 03/01/23 15:46 Temperature Pulse Rate 70 64 55 L Respiratory Rate 20 22 H 25 H Blood Pressure 70/47 L 84/39 L Pulse Oximetry 100 Oxygen Delivery Oxygen Flow Rate Fraction of Inspired Oxygen 03/01/23 16:01 03/01/23 15:47 03/01/23 15:52 Temperature Pulse Rate 47 L 57 L 60 Respiratory Rate 22 H 16 Blood Pressure 111/90 86/56 L Pulse Oximetry Oxygen Delivery Oxygen Flow Rate Fraction of Inspired Oxygen 03/01/23 15:56 03/01/23 16:00 03/01/23 16:02 Temperature Pulse Rate 60 58 L 47 L Respiratory Rate 22 H 23 H 14 Blood Pressure 106/79 111/9
--- NOTE | 2023-03-02 12:15 | PM.IMHP ---
H&P: HPI History of Present Illness Date/Time: 03/02/23 12:15 Chief Complaint: Syncope Narrative: LATE ENTRY DUE TO DOWNTIME - seen on 03/01/23. 87 y/o M presented to ED with syncope and altered consciousness with PMH of A-Fib, GERD, and HTN. Limited HPI due to patient condition, information obtained through chart review. Patient arrived to ED intermittently responsive, bradycardiac in the 30's and hypotensive. Patient given atropine x1 with brief positive response, more awake and improvement in vitals. However effects were brief and patient became minimally responsive. Cardiology consulted, dobutamine gtt initiated, and transcutaneous pacing initiated - captured, rate of 70. Patient remained minimally responsive after interventions and patient was intubated. Sent to cath lab tech for transvenous pacing [facility] Past Medical History Medical History (Updated 03/02/23 @ 10:53 by Pedrito Nguyen MD) Atrial fibrillation CAD (coronary artery disease) CHF (congestive heart failure) CKD (chronic kidney disease) GERD (gastroesophageal reflux disease) Hypertension Surgical History Surgical History Surgical history unknown Family History Family History Other Family history unknown Social History Social History Social History: Lives at home with . Full code. Smoking status: Current every day smoker Tobacco type: pipe Alcohol intake: current Drinks per week: 1 Substance use: never Substance use type: does not use Spiritual care concerns: No Meds Home Medications and Allergies Home Medications Medication Instructions Recorded Confirmed Type diltiazem HCl 180 mg 240 mg PO DAILY 02/01/20 03/01/23 History capsule,extended release 24 hr hydroxyurea 500 mg capsule 500 mg PO DAILY 02/01/20 03/01/23 History lisinopril 20 mg tablet 20 mg PO DAILY 02/01/20 03/01/23 History metoprolol tartrate 25 mg tablet 100 mg PO BID 02/01/20 03/01/23 History omeprazole 20 mg capsule,delayed 20 mg PO DAILY 02/01/20 03/01/23 History release oxybutynin chloride 5 mg tablet 10 mg PO BID 02/01/20 03/01/23 History rivaroxaban 15 mg tablet (Xarelto) 15 mg PO DAILY 02/01/20 03/01/23 History amlodipine 5 mg tablet 5 mg PO DAILY 03/01/23 03/01/23 History ferrous sulfate 325 mg (65 mg 325 mg PO DAILY 03/01/23 03/01/23 History iron) tablet (Iron (ferrous sulfate)) tamsulosin 0.4 mg capsule 0.4 mg PO DAILY 03/01/23 03/01/23 History Allergies Allergy/AdvReac Type Severity Reaction Status Date / Time bee venom protein (honey bee) Allergy Unknown Verified 03/01/23 14:22 [bees] morphine Allergy Unknown Verified 03/01/23 14:22 Vital Signs Vital Signs - 24 hr 03/01/23 14:03 03/01/23 14:55 03/01/23 15:06 Temperature 97.6 F Pulse Rate 42 L 53 L 69 Respiratory Rate 24 H Blood Pressure 75/49 L 66/45 L Pulse Oximetry 98 Oxygen Delivery Nasal Cannula Oxygen Flow Rate 3 Fraction of Inspired Oxygen 03/01/23 15:24 03/01/23 15:48 03/01/23 15:51 Temperature Pulse Rate 39 L 55 L 58 L Respiratory Rate 16 Blood Pressure 68/33 L 84/39 L 86/56 L Pulse Oximetry Oxygen Delivery Oxygen Flow Rate Fraction of Inspired Oxygen 03/01/23 15:55 03/01/23 15:56 03/01/23 14:20 Temperature Pulse Rate 58 L 45 L 39 L Respiratory Rate 18 27 H Blood Pressure 106/79 106/79 Pulse Oximetry 100 100 Oxygen Delivery Oxygen Flow Rate Fraction of Inspired Oxygen 03/01/23 14:30 03/01/23 14:32 03/01/23 14:51 Temperature Pulse Rate 37 L 36 L 61 Respiratory Rate 21 H 26 H 30 H Blood Pressure 66/45 L Pulse Oximetry 99 96 Oxygen Delivery Oxygen Flow Rate Fraction of Inspired Oxygen 03/01/23 15:00 03/01/23 15:16 03/01/23 15:30 Temperature Pulse Rate 55 L 52 L 65 Respiratory Rate 31 H 26 H 13 Blood P
[2023-03-02 12:25] LABS: Ferritin > 2000.00 ng/mL (11.1-264)
--- NOTE | 2023-03-02 12:40 | PCDIET ---
Tube feedings recommendations: Vital AF 1.2 at 20 ml/hr advance by 10 ml q 4 hours to goal rate of 60 ml/hr. Tube feedings at goal rate providing 1584 kcals/99 gms protein/1160 ml water. Flush 30 ml q 4 hours. Will continue to monitor every 3 days.
--- NOTE | 2023-03-02 13:54 | IVDEFINITY ---
Prior to administration of IV Definity the patient was educated on the risks and benefits of the imaging enhancing agent including potential adverse side effects. The patient verbalized understanding. Allergies were verified. No exclusion criteria were identified and at least one of the following inclusion criteria were met: 1) physician request, 2) patient technically difficult to image (per the [employer] guidelines of two or more segments not discernable within the apical view), or 3) questionable left ventricular function. ?
[2023-03-02 14:58] LABS: Anion Gap 7 mmol/L (8-16); Blood Urea Nitrogen 53 mg/dL (9-20); Calcium 7.8 mg/dL (8.4-10.2); Carbon Dioxide 25 mmol/L (22-30); Chloride 102 mmol/L (98-107); Estimated CRCL calculation 17 ml/min; Estimated Glomerular Filt Rate 21; Glucose 96 mg/dL (65-110); Potassium 5.1 mmol/L (3.4-5.0); Sodium 134 mmol/L (137-145)
[2023-03-02 17:03] LABS: Hematocrit 26.1 % (42.0-52.0); Hemoglobin 8.2 g/dL (14.0-18.0)
[2023-03-02 17:12] LABS: Glucose Point of Care 115 mg/dl (65-105)
[2023-03-02 18:15] LABS: Partial Thromboplastin Time 149.6 SECONDS (22.3-36.8)
[2023-03-02] MEDS: IPRATROPIUM BR 0.02% INH SOLN 0.5 MG/2.5 ML VIAL INHALATION (20:45)
[2023-03-02] MEDS: ALBUTEROL SULFATE NEB 2.5 MG/3 ML INH INHALATION (20:45)
[2023-03-02 22:21] LABS: Hematocrit 24.7 % (42.0-52.0); Hemoglobin 7.7 g/dL (14.0-18.0)
[2023-03-02 23:55] LABS: Glucose Point of Care 114 mg/dl (65-105)
[2023-03-03] VITALS (50 sets, daily range): BP systolic 63–138; BP diastolic 43–89; PULSE 96–160; RESP 14–22; TEMP 37.2–37.9; O2SAT 92–99
[2023-03-03 00:57] LABS: Partial Thromboplastin Time 125.9 SECONDS (22.3-36.8)
[2023-03-03] MEDS: FENTANYL 2,500MCG/NS250ML(*CRX 2,500 MCG/250 ML BAG 17.5 MCG IV CONT (01:25)
[2023-03-03] MEDS: IPRATROPIUM BR 0.02% INH SOLN 0.5 MG/2.5 ML VIAL INHALATION ×3 (02:05→13:09)
[2023-03-03] MEDS: ALBUTEROL SULFATE NEB 2.5 MG/3 ML INH INHALATION ×3 (02:05→13:10)
[2023-03-03] MEDS: HEPARIN SOD/D5W 100 UNITS/ML 25,000 UNITS/250 ML BAG 11 UNITS IV CONT (04:22)
[2023-03-03 04:54] LABS: Basophils Absolute Auto 0.1 K/mm3 (0.0-0.1); Basophils Percent Auto 0.8 % (0.2-1.2); Eosinophils Absolute Auto 0.1 K/mm3 (0-0.3); Eosinophils Percent Auto 0.8 % (0-4.4); Immature Granulocyte Absolute 0.47 K/mm3 (0.00-0.031); Immature Granulocyte Percent A 7.2 % (0-0.5); Immature Platelet Fraction Pct 3.2 % (0.9-11.2); Lymphocytes Absolute Auto 0.26 K/mm3 (0.9-3.2); Mean Corpuscular Hemoglobin 34.2 pg (26-34); Mean Corpuscular Volume 106.8 fl (80-100); Monocytes Absolute Auto 0.7 K/mm3 (0.1-0.6); Monocytes Percent Auto 9.9 % (2.6-8.5); Neutrophils Absolute Auto 5.1 K/mm3 (1.3-6.7); Neutrophils Percent Auto 77.3 % (45.5-73.1); Nucleated Red Blood Cells Absolute Auto 0.1 K/mm3 (0.0-0.012); Platelet Count Result 121 k/mm3 (150-375); Red Blood Count 2.34 M/mm3 (4.6-6.20); Red Cell Distribution Width 20.3 % (11.5-14.5); White Blood Count 6.6 K/mm3 (4.5-10.0)
[2023-03-03 05:03] LABS: Alanine Aminotransferase 54 U/L (6-50); Albumin Level 3.4 g/dL (3.5-5.1); Alkaline Phosphatase 68 U/L (38-126); Anion Gap 9 mmol/L (8-16); Aspartate Amino Transferase 34 U/L (17-59); Bilirubin,Total 1.3 mg/dL (0.2-1.3); Blood Urea Nitrogen 51 mg/dL (9-20); Calcium 7.8 mg/dL (8.4-10.2); Carbon Dioxide 22 mmol/L (22-30); Chloride 102 mmol/L (98-107); Estimated CRCL calculation 20 ml/min; Estimated Glomerular Filt Rate 25; Glucose 97 mg/dL (65-110); Magnesium 2.3 mg/dL (1.6-2.3); Potassium 4.9 mmol/L (3.4-5.0); Sodium 133 mmol/L (137-145)
[2023-03-03 05:26] LABS: Poikilocytosis 1+ (NORMAL)
[2023-03-03 05:27] LABS: Anisocytosis 2+ (NORMAL); Tear Drop Cells 2+ (NORMAL)
[2023-03-03 05:28] LABS: Microcytosis 1+ (NORMAL); Schistocytes Rare (NORMAL)
[2023-03-03 05:57] LABS: Alveolar/Arterial O2 Gradient 71.3 mmHg; Arterial Blood Gas PEEP 5 cmH2O; Arterial Blood Gas Vent Mode CMV; Arterial Blood Gas Ventilator rate 14 /MIN; Base Excess ABG -2.8 mEq/l (+/-2.0); Carboxyhemoglobin 0.3 % THb (0-2.0); Device VENTILATOR; Fractional Inspired Oxygen 30 %; HCO3 ABG 22.5 mEq/l (22.0-26.0); Methemoglobin ABG 0.6 %THb (0-1.5); Modified Allen's Test Unable to perform; Oxygen Saturation ABG 96.9 % (95.0-100.0); Oxyhemoglobin 94.7 % THb (90.0-100.0); PCO2 ABG 41.3 mmHg (35.0-45.0); PO2 ABG 94.1 mmHg (80.0-100.0); PO2 FiO2 Ratio Arterial Blood 3.14 %; Reduced Hemoglobin 4.4 %THb (0-5.0); Site Drawn RIGHT RADIAL; Total Hemoglobin 8.9 g/dL (12.0-18.0); pH ABG 7.354 (7.350-7.450)
[2023-03-03 05:58] LABS: Arterial Blood Gas Tidal Volume 480 ml
[2023-03-03 07:23] LABS: Partial Thromboplastin Time 80.9 SECONDS (22.3-36.8)
[2023-03-03] MEDS: FUROSEMIDE INJ 100 MG/10 ML VIAL 80 MG IV PUSH (08:10)
[2023-03-03] MEDS: PANTOPRAZOLE SODIUM IV 40 MG VIAL IV PUSH ×2 (08:10→20:25)
[2023-03-03] MEDS: LORazepam INJ (*CRX) 2 MG/ML VIAL 1 MG IV PUSH ×2 (08:10→21:20)
--- NOTE | 2023-03-03 08:10 | ECG_ITS ---
Measurements Intervals Show Low Rate: 117 P: WA: 0 QRS: -46 QRSD: 86 T: 0 QT: 307 QTc: 429 Interpretive Statements ATRIAL FLUTTER/TACHYCARDIA WITH RAPID VENTRICULAR RESPONSE INCOMPLETE RIGHT BUNDLE BRANCH BLOCK DELAYED PRECORDIAL R/S TRANSITION LOW QRS VOLTAGE IN LIMB LEADS BORDERLINE ST-T WAVE ABNORMALITY- ANTEROLATERAL LEADS ABNORMAL ECG COMPARED TO ECG 03/02/2023 10:27:05 HEART RATE HAS INCREASED Electronically Signed On 03-03-2023 16:52:03 CDT by Francis Pate D.O.
--- NOTE | 2023-03-03 09:10 | PM.IMPN ---
Progress Note: A&P Assessment and Plan (1) Acute respiratory failure: Code(s): J96.00 - Acute respiratory failure, unspecified whether with hypoxia or hypercapnia Status: Acute Assessment and Plan: Patient brought in by EMS for syncopal episode. He developed respiratory distress in the ED requiring intubation on 03/01. Acute Respiratory failure secondary to cardiogenic shock, bradycardia and pulmonary edema. He had internal temporary PM placed and home metoprolol and diltiazem stopped. HR better and no longer requiriing pacer. Also being treated with intermittent Lasix. Chest x-ray this morning shows pulmonary edema with improvement. (imaging personally reviewed) ABG 7.35/41/94 on MV 30% FiO2. Continue full mechanical ventilation support and being managed by radiology interventional physician. Lasix given yesterday and again this morning. (2) Bradycardia: Code(s): R00.1 - Bradycardia, unspecified Status: Acute Assessment and Plan: Patient presented with atrial fibrillation with bradycardic response. Home meds include extended release diltiazem and metoprolol. Etiology unclear but felt related to his medications possibly made worse by the hyperkalemia.?? Atropine given in the field with good response but then worsened requiring temporary transvenous PM placement 03/01 Patient now in sinus rhythm vs AFlutter. EKG today reviewed personally and probably sinus Discussed with craps manager with plans for metoprolol. BP dropped this morning so metoprolol will not be given until this improves If able to toelrate low dose metoprolol, removed PM (3) CHF (congestive heart failure): Code(s): I50.9 - Heart failure, unspecified Status: Acute Assessment and Plan: Patient presents with Acute on chronic systolic congestive heart failure. Per notes from outside hospital showing RAYMOND Echo in January showing EF 30-35% with left atrial appendage thrombus. Repeat echo ordered. Lasix given yesterday and today but BP now has dropped. Proceed with more gentle diuresis once BP improved (4) Shock: Code(s): R57.9 - Shock, unspecified Status: Acute Assessment and Plan: Patient presented with shock felt related to cardiogenic shock from bradycardia and CHF. He was of dopamine but has since stopped. Blood pressures improved with improvement of bradycardia BP dropped this morning after dose of Lasix. Monitor. May need fluids. (5) Thrombus of left atrial appendage: Code(s): I51.3 - Intracardiac thrombosis, not elsewhere classified Status: Acute Assessment and Plan: RAYMOND Echo in January showing EF 30-35% with left atrial appendage thrombus done at [facility] in [place]. He was discharged on Xarelto. Xarelto held and he has been started on heparin infusion. Echo repeated (6) Atrial fibrillation: Code(s): I48.91 - Unspecified atrial fibrillation Status: Acute Assessment and Plan: As above. (7) Acute on chronic renal failure: Code(s): N17.9 - Acute kidney failure, unspecified; N18.9 - Chronic kidney disease, unspecified Status: Acute Assessment and Plan: Patient's baseline creatinine is 1.7 noted by old records. Cr elevated on admission and climbed to 3.0 due to shock, CHF, bradycardia. Renal US showing mild bilateral renal atrophy. TCK normal. Ashly 16, UCr 240. Nephrology consulted Good UOP. Cr better at 2.5 Follow urine output, electrolytes and renal function (8) Hyperkalemia: Code(s): E87.5 - Hyperkalemia Status: Acute Assessment and Plan: Hyperkalemia secondary to medications, shock, DENISHA/CKD and metabolic acidosis. Potassium was 6.2 and was treated appropriately. Potassium normal now. Follow (9) Anemia: Code(s): D64.9 - Anemia, unspecified Status: Acute Assessment and Plan: Hgb 8.2 on admisison. Patient appears to have chronic anemia and has myeloproliferative disorder.
--- NOTE | 2023-03-03 09:22 | PM.PNCARD ---
Progress Note: A&P Assessment and Plan (1) Atrial fibrillation: Code(s): I48.91 - Unspecified atrial fibrillation Status: Acute Assessment and Plan: Now with rapid ventricular response. On heparin. 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 Will be difficult to treat his tachycardia without having to protection of the pacemaker to prevent bradycardia and syncope. (2) Chronic anticoagulation: Code(s): Z79.01 - residential (current) use of anticoagulants Status: Acute Assessment and Plan: Continue heparin (3) Bradycardia: Code(s): R00.1 - Bradycardia, unspecified Status: Acute Assessment and Plan: Now resolved. Off of diltiazem and metoprolol. Discussed with hospitalist and ICU team. Will resume low-dose metoprolol 12.5 mg p.o. b.i.d.. I will DC his temporary pacer today. Plan He will need diuresis also. Subjective Date/time seen: 03/03/23 09:22 Interval history: Follow-up visit in this 87-year-old man with syncope: Date of service 03/03/2023: He still intubated sedated. He is not tachycardic and is likely in atrial flutter with rapid ventricular response. He is not pacing. Has little bit of lower extremity swelling also Review of Systems Review of Systems: ROS unobtainable: Yes unobtainable due to endotracheal tube Respiratory: Respiratory: Denies hemoptysis Gastrointestinal: Gastrointestinal: Denies hematochezia Exam Const: Orientation/consciousness: No patient oriented x3 Other: Intubated elderly man HENMT: Head: normal to inspection Mouth: Yes moist mucous membranes Other: OETT in place Eyes: General: appearance normal, both eyes and all related structures Sclera: sclerae normal Neck: Neck: normal visual inspection, supple and no JVD Carotids: normal carotid upstroke Resp: Effort & Inspection: normal respiratory effort Other: Central rhonchi noted Cardio: Rate: tachycardic Rhythm: abnormal rhythm GI: Auscultation: normal bowel sounds Skin: General skin exam: normal color Neuro: General: No patient oriented x3 Cranial nerves: Yes Equal, round and reactive pupils present Other: Sedated on ventilator Extrem: General: normal to inspection Psych: Appearance: grossly normal Mental Status: mental status grossly abnormal Objective Data Vital Signs Vital Signs: Vital Signs - 24 hr 09/15/23 10:00 03/02/23 11:09 03/02/23 11:18 Temperature Pulse Rate 102 H 100 99 Pulse Rate [Left Pedal (Dorsalis Pedis) Doppler] Pulse Rate [Right Pedal (Dorsalis Pedis) Doppler] Respiratory Rate 15 14 Blood Pressure Pulse Oximetry 97 Oxygen Delivery Mechanical Ventilation Fraction of Inspired Oxygen 30 03/02/23 11:18 03/02/23 10:00 03/02/23 12:00 Temperature 36.5 C 36.4 C Pulse Rate 99 102 H 93 Pulse Rate [Left Pedal (Dorsalis Pedis) Doppler] Pulse Rate [Right Pedal (Dorsalis Pedis) Doppler] Respiratory Rate 14 15 14 Blood Pressure 115/70 92/66 L Pulse Oximetry 97 100 Oxygen Delivery Fraction of Inspired Oxygen 03/02/23 10:00 03/02/23 12:00 03/02/23 12:00 Temperature Pulse Rate 105 H 91 Pulse Rate [Left Pedal (Dorsalis Pedis) Doppler] Pulse Rate [Right Pedal (Dorsalis Pedis) Doppler] Respiratory Rate Blood Pressure Pulse Oximetry 100 Oxygen Delivery Mechanical Ventilation Fraction of Inspired Oxygen 30 03/02/23 12:00 03/02/23 14:00 03/02/23 14:00 Temperature 36.6 C Pulse Rate 105 H 105 H Pulse Rate [Left Pedal (Dorsalis Pedis) Doppler] Pulse Rate [Right Pedal (Dorsalis Pedis) Doppler] Respiratory Rate 14 Blood Pressure 122/73 Pulse Oximetry 97 Oxygen Delivery Fraction of Inspired Oxygen 30 03/02/23 14:23 03/02/23 16:00 03/02/23 16:00 Temperature Pulse Rate 104 H 106 H Pulse Rate [Left Pedal (Dorsalis Pedis) Doppler] Pulse Rate [Right Pedal (Dorsalis Pedis) Doppler] Respiratory Rate
[2023-03-03] MEDS: MINERAL OIL/WHITE PETROLATUM OINTMENT 1 APPLIC EACH EYE ×2 (09:23→20:25)
--- NOTE | 2023-03-03 09:26 | WPDINTPN ---
Progress Note: A&P Assessment and Plan (1) Acute respiratory failure: Code(s): J96.00 - Acute respiratory failure, unspecified whether with hypoxia or hypercapnia Status: Acute Assessment and Plan: Acute Respiratory failure secondary to cardiogenic shock and pulmonary edema Chest x-ray this morning reviewed Continue full mechanical ventilation support to prevent hypoxemia/hypercarbia and end organ damage. ABG reviewed Continue diuretics Once transvenous pacemaker is removed I will attempt a weaning trial He has some wheezing on exam but this may be secondary to CHF or may patient have underlying COPD as patient does have heavy history of smoking in the past. Continue bronchodilators (2) Bradycardia: Code(s): R00.1 - Bradycardia, unspecified Status: Acute Assessment and Plan: Patient presented with atrial fibrillation with slow ventricular response. He was on extended release diltiazem and metoprolol as an outpatient. Status post transvenous pacemaker placement and heart rate is improved and he is not requiring any pacing at this time Patient now in sinus rhythm Cardiology plans to removed transvenous pacemaker today if patient can tolerate beta-raghavendra (3) CHF (congestive heart failure): Code(s): I50.9 - Heart failure, unspecified Status: Acute Assessment and Plan: Acute on chronic congestive heart failure patient's daughter reports EF of 30% on echocardiogram done on last admission TTE 03/02 1. Four-chamber cardiac dilation with moderate left and right ventricular systolic dysfunction. ? 2. Moderate biatrial dilation. ? 3. Calcified mitral valve annulus. ? 4. Sclerotic but not stenotic aortic valve. ? 5. Small amount of MR. ? 6. Transvenous pacemaker lead is seen in the IVC, RA, RV. Lasix IV ordered (4) Thrombus of left atrial appendage: Code(s): I51.3 - Intracardiac thrombosis, not elsewhere classified Status: Acute Assessment and Plan: RAYMOND done at [facility] in [place] showed left atrial appendage thrombus as per records obtained from [facility]. He was discharged on Xarelto. Patient was started on heparin infusion which will be continued at this time. TTE done yesterday did not show any thrombus. Monitor hemoglobin closely. Protonix (5) Atrial fibrillation: Code(s): I48.91 - Unspecified atrial fibrillation Status: Acute Assessment and Plan: Currently in sinus tachycardia Anticoagulation as below (6) Shock: Code(s): R57.9 - Shock, unspecified Status: Acute Assessment and Plan: Patient presented with shock which was likely cardiogenic from bradycardia and congestive heart failure With improvement in bradycardia his blood pressures improved This morning patient received Ativan and his blood pressure has dropped. Will give fluid bolus. May need a Constantino-Synephrine infusion Monitor (7) Acute on chronic renal failure: Code(s): N17.9 - Acute kidney failure, unspecified; N18.9 - Chronic kidney disease, unspecified Status: Acute Assessment and Plan: Patient's baseline creatinine is 1.7 and patient presented with creatinine of 2.2 which increased to 3.0. This is likely secondary to cardiogenic shock came in with. Blood pressures improved with IV fluids and pacing Renal ultrasound showed ?Mild bilateral renal atrophy with medical renal disease. Normal cK level Creatinine improved to 2.5 today. Improved urine output with diuretics Monitor urine output electrolytes and creatinine Hyperkalemia treatment as below Nephrology following Patient is at risk of requiring NET WEB DEVELOPER (8) Hyperkalemia: Code(s): E87.5 - Hyperkalemia Status: Acute Assessment and Plan: Hyperkalemia secondary to DENISHA and metabolic acidosis. Potassium improved to 5.7 from 6.2 but still above normal range 03/02 patient was given insulin D50, Lasix and Lokelma Hyperkalemia has resolved (9) GERD (
[2023-03-03] MEDS: ALBUMIN HUMAN 5% 250 ML IV CONT (09:46)
--- NOTE | 2023-03-03 11:13 | P.PNNP_ITS ---
Progress Note: A&P Assessment and Plan (1) DENISHA (acute kidney injury): Code(s): N17.9 - Acute kidney failure, unspecified Status: Acute Assessment and Plan: * Acute kidney injury * Renal ultrasound shows mild bilateral renal atrophy with medical renal disease. * Urine electrolytes are pre renal * Total CK is normal * Secondary to shock/hypotension in association with bradycardia and pre renal azotemia * Blood pressure did drop briefly this morning after some Ativan. Then received albumin in the blood pressure is back up to 100. * remains at risk for requiring VARNISH INSPECTOR/dialysis * Continue supportive care. * Labs in the morning (2) Stage 3b chronic kidney disease: Code(s): N18.32 - Chronic kidney disease, stage 3b Status: Chronic Assessment and Plan: * present since 2020 from review of electronic records (from [facility] and [facility]) * baseline creatinine runs ~ 1.4 - 1.9mg/dl * more recently (last several months with recent hospitalizations), running closer to 1.6 - 1.9mg/dl * presumably secondary to HTN, vascular disease, BPH, and recent diagnosed cardiomyopathy in January 2023 (EF 30 - 35%) (3) Hyperkalemia: Code(s): E87.5 - Hyperkalemia Status: Acute Assessment and Plan: * due to DENISHA/ARF, metabolic acidosis, and SENIA-I use * s/p medical management * Potassium down to normal now (4) Acute respiratory failure: Code(s): J96.00 - Acute respiratory failure, unspecified whether with hypoxia or hypercapnia Status: Acute Assessment and Plan: * presumably due to shock/hypotension and pulmonary edema/CHF * intubated and on mechanical ventilation * agree with diuresis as tolerated by hemodynamics * He received a dose of Lasix this morning. * weaning once more stable (5) Bradycardia: Code(s): R00.1 - Bradycardia, unspecified Status: Acute Assessment and Plan: * as noted on presentation * complicated by diltiazem and metoprolol use prior to admission * s/p transvenous pacemaker placement * Cardiology following (6) CHF (congestive heart failure): Code(s): I50.9 - Heart failure, unspecified Status: Acute Assessment and Plan: * acute on chronic issue * echo on previous hospitalization noted - EF 30 - 35%Acute on chronic congestive heart failure * repeat echo again shows 30-35% ejection fraction. * diuresis as tolerated (7) Shock: Code(s): R57.9 - Shock, unspecified Status: Acute Assessment and Plan: * Gradually improved. (8) Anemia: Code(s): D64.9 - Anemia, unspecified Status: Acute Assessment and Plan: * due to acute illness coupled with chronic issue and CKD * noted on previous admission to OSH * s/p EGD with esophagitis + gastritis * complicated by need for anticoagulation due to left atrial thrombus * Hemoglobin stable at around 8. * Check another 1 tomorrow. (9) UTI (urinary tract infection): Code(s): N39.0 - Urinary tract infection, site not specified Status: Acute Assessment and Plan: * suggestive by admission UA * Urine culture pending. * on ceftriaxone Subjective Date/time seen: 03/03/23 11:13 Interval history: and daughter are in the room. The patient is sedated and on the ventilator. Exam Narrative: WDWN male in NAD on the ventilator and sedated skin no rash head ncat lungs mildly coarse upper airway noise. cor reg no rub abd BS+ non
--- NOTE | 2023-03-03 11:13 | PM.PNNEP ---
Progress Note: A&P Assessment and Plan (1) DENISHA (acute kidney injury): Code(s): N17.9 - Acute kidney failure, unspecified Status: Acute Assessment and Plan: Acute kidney injury Renal ultrasound shows mild bilateral renal atrophy with medical renal disease. Urine electrolytes are pre renal Total CK is normal Secondary to shock/hypotension in association with bradycardia and pre renal azotemia Blood pressure did drop briefly this morning after some Ativan. Then received albumin in the blood pressure is back up to 100. remains at risk for requiring RESPIRATORY THERAPY MANAGER/dialysis Continue supportive care. Labs in the morning (2) Stage 3b chronic kidney disease: Code(s): N18.32 - Chronic kidney disease, stage 3b Status: Chronic Assessment and Plan: present since 2020 from review of electronic records (from [facility]) baseline creatinine runs ~ 1.4 - 1.9mg/dl more recently (last several months with recent hospitalizations), running closer to 1.6 - 1.9mg/dl presumably secondary to HTN, vascular disease, BPH, and recent diagnosed cardiomyopathy in January 2023 (EF 30 - 35%) (3) Hyperkalemia: Code(s): E87.5 - Hyperkalemia Status: Acute Assessment and Plan: due to DENISHA/ARF, metabolic acidosis, and SENIA-I use s/p medical management Potassium down to normal now (4) Acute respiratory failure: Code(s): J96.00 - Acute respiratory failure, unspecified whether with hypoxia or hypercapnia Status: Acute Assessment and Plan: presumably due to shock/hypotension and pulmonary edema/CHF intubated and on mechanical ventilation agree with diuresis as tolerated by hemodynamics He received a dose of Lasix this morning. weaning once more stable (5) Bradycardia: Code(s): R00.1 - Bradycardia, unspecified Status: Acute Assessment and Plan: as noted on presentation complicated by diltiazem and metoprolol use prior to admission s/p transvenous pacemaker placement Cardiology following (6) CHF (congestive heart failure): Code(s): I50.9 - Heart failure, unspecified Status: Acute Assessment and Plan: acute on chronic issue echo on previous hospitalization noted - EF 30 - 35%Acute on chronic congestive heart failure repeat echo again shows 30-35% ejection fraction. diuresis as tolerated (7) Shock: Code(s): R57.9 - Shock, unspecified Status: Acute Assessment and Plan: Gradually improved. (8) Anemia: Code(s): D64.9 - Anemia, unspecified Status: Acute Assessment and Plan: due to acute illness coupled with chronic issue and CKD noted on previous admission to OSH s/p EGD with esophagitis + gastritis complicated by need for anticoagulation due to left atrial thrombus Hemoglobin stable at around 8. Check another 1 tomorrow. (9) UTI (urinary tract infection): Code(s): N39.0 - Urinary tract infection, site not specified Status: Acute Assessment and Plan: suggestive by admission UA Urine culture pending. on ceftriaxone Subjective Date/time seen: 03/03/23 11:13 Interval history: and daughter are in the room. The patient is sedated and on the ventilator. Exam Narrative: WDWN male in NAD on the ventilator and sedated skin no rash head ncat lungs mildly coarse upper airway noise. cor reg no rub abd BS+ nontender and soft ext 1+ bilateral edema. Objective Data Vital Signs Vital Signs: Vital Signs - 24 hr 03/02/23 11:18 03/02/23 11:18 03/02/23 12:00 Temperature 97.6 F Pulse Rate 99 99 93 Pulse Rate [Left Pedal (Dorsalis Pedis) Doppler] Pulse Rate [Right Pedal (Dorsalis Pedis) Doppler] Respiratory Rate 14 14 14 Blood Pressure 92/66 L Pulse Oximetry 100 Oxygen Delivery Fraction of Inspired Oxygen 03/02/23 12:00 03/02/23 12:00 03/02/23 12:00 Temperature Pulse Rate 91 Pulse Rate [Left Peda
[2023-03-03 12:40] LABS: Glucose Point of Care 94 mg/dl (65-105)
--- NOTE | 2023-03-03 13:21 | PC.NURSE ---
At 1300 Dr. Cobian at bedside to disconnect transvenous pacemaker and remove pacer from sheath. Dr. Cobian disconnected pacer and removed pacer from sheath at 1303 without complications. RN at bedside monitoring patient. Sheath remains in place.
[2023-03-03 13:28] LABS: Partial Thromboplastin Time 79.2 SECONDS (22.3-36.8)
[2023-03-03] MEDS: METOPROLOL TARTRATE 12.5 MG TABLET PO ×2 (13:39→20:25)
[2023-03-03] MEDS: dexmedeTOMIDine 400 MCG/100 ML 400 MCG/100 ML BAG IV CONT (14:20)
[2023-03-03 18:29] LABS: Glucose Point of Care 115 mg/dl (65-105)
--- NOTE | 2023-03-03 20:25 | ECG_ITS ---
Measurements Intervals [place] Rate: 138 P: SC: 0 QRS: -60 QRSD: 94 T: 38 QT: 313 QTc: 475 Interpretive Statements ATRIAL FIBRILLATION WITH RAPID VENTRICULAR RESPONSE LOW QRS VOLTAGE IN LIMB LEADS INCOMPLETE RIGHT BUNDLE BRANCH BLOCK DELAYED PRECORDIAL R/S TRANSITION INFERIOR INFARCT, AGE INDETERMINATE BORDERLINE ST-T WAVE ABNORMALITY- ANTEROLAT/HIGH LAT LEADS BASELINE ARTIFACT- I, II, V2 ABNORMAL ECG COMPARED TO ECG 03/03/2023 09:05:16 ATRIAL FIBRILLATION NOW PRESENT MYOCARDIAL INFARCT FINDING NOW PRESENT Electronically Signed On 03-04-2023 7:46:15 CDT by Francis Pate D.O.
[2023-03-03 23:56] LABS: Glucose Point of Care 122 mg/dl (65-105)
[2023-03-04] VITALS (36 sets, daily range): BP systolic 101–129; BP diastolic 61–74; PULSE 92–121; RESP 11–24; TEMP 37.1–37.6; O2SAT 94–99
[2023-03-04] MEDS: HEPARIN SOD/D5W 100 UNITS/ML 25,000 UNITS/250 ML BAG 11 UNITS IV CONT (02:12)
[2023-03-04] MEDS: dexmedeTOMIDine 400 MCG/100 ML 400 MCG/100 ML BAG 8.02 MCG IV CONT (03:48)
[2023-03-04 04:20] LABS: Hematocrit 22.8 % (42.0-52.0); Hemoglobin 7.1 g/dL (14.0-18.0); Immature Platelet Fraction Pct 2.9 % (0.9-11.2); Mean Corpuscular HGB Conc 31.1 g/dl (32-36); Mean Corpuscular Hemoglobin 33.8 pg (26-34); Mean Corpuscular Volume 108.6 fl (80-100); Mean Platelet Volume 11.5 fl (7.4-10.4); Platelet Count Result 90 k/mm3 (150-375); Red Cell Distribution Width 20.6 % (11.5-14.5)
[2023-03-04 04:33] LABS: Partial Thromboplastin Time 96.4 SECONDS (22.3-36.8)
[2023-03-04 04:36] LABS: Alanine Aminotransferase 38 U/L (6-50); Albumin Level 3.3 g/dL (3.5-5.1); Alkaline Phosphatase 65 U/L (38-126); Anion Gap 5 mmol/L (8-16); Aspartate Amino Transferase 26 U/L (17-59); Bilirubin,Total 1.2 mg/dL (0.2-1.3); Blood Urea Nitrogen 50 mg/dL (9-20); Calcium 7.8 mg/dL (8.4-10.2); Carbon Dioxide 30 mmol/L (22-30); Chloride 100 mmol/L (98-107); Estimated CRCL calculation 23 ml/min; Estimated Glomerular Filt Rate 29; Glucose 148 mg/dL (65-110); Magnesium 2.3 mg/dL (1.6-2.3); Potassium 4.4 mmol/L (3.4-5.0); Sodium 135 mmol/L (137-145)
[2023-03-04 05:05] LABS: Alveolar/Arterial O2 Gradient 68.1 mmHg; Base Excess ABG 1.6 mEq/l (+/-2.0); Carboxyhemoglobin 0.4 % THb (0-2.0); Fractional Inspired Oxygen 30 %; HCO3 ABG 27.1 mEq/l (22.0-26.0); Methemoglobin ABG 0.5 %THb (0-1.5); Oxygen Content ABG 16.2 %vol (16.0-22.0); Oxygen Saturation ABG 96.9 % (95.0-100.0); Oxyhemoglobin 94.9 % THb (90.0-100.0); PCO2 ABG 46.1 mmHg (35.0-45.0); PO2 ABG 91.6 mmHg (80.0-100.0); PO2 FiO2 Ratio Arterial Blood 3.05 %; Reduced Hemoglobin 4.2 %THb (0-5.0); Total Hemoglobin 12.1 g/dL (12.0-18.0); pH ABG 7.387 (7.350-7.450)
[2023-03-04 05:06] LABS: Device VENTILATOR; Modified Allen's Test Pass; Site Drawn RIGHT RADIAL
[2023-03-04 05:09] LABS: Arterial Blood Gas PEEP 5 cmH2O; Arterial Blood Gas Tidal Volume 480 ml; Arterial Blood Gas Vent Mode CMV; Arterial Blood Gas Ventilator rate 14 /MIN
--- NOTE | 2023-03-04 07:37 | WPDINTPN ---
Progress Note: A&P Assessment and Plan (1) Acute respiratory failure: Code(s): J96.00 - Acute respiratory failure, unspecified whether with hypoxia or hypercapnia Status: Acute Assessment and Plan: Acute Respiratory failure secondary to cardiogenic shock and pulmonary edema Chest x-ray this morning reviewed Continue full mechanical ventilation support to prevent hypoxemia/hypercarbia and end organ damage. ABG reviewed Continue diuretics Will plan for sedation holiday and weaning trial today Continue bronchodilators (2) Bradycardia: Code(s): R00.1 - Bradycardia, unspecified Status: Acute Assessment and Plan: Patient presented with atrial fibrillation with slow ventricular response. He was on extended release diltiazem and metoprolol as an outpatient. Status post transvenous pacemaker placement and heart rate is improved and he is not requiring any pacing at this time Patient now in sinus rhythm 03/03 transvenous pacemaker removed. Patient started on a beta-raghavendra (3) CHF (congestive heart failure): Code(s): I50.9 - Heart failure, unspecified Status: Acute Assessment and Plan: Acute on chronic congestive heart failure patient's daughter reports EF of 30% on echocardiogram done on last admission TTE 03/02 1. Four-chamber cardiac dilation with moderate left and right ventricular systolic dysfunction. ? 2. Moderate biatrial dilation. ? 3. Calcified mitral valve annulus. ? 4. Sclerotic but not stenotic aortic valve. ? 5. Small amount of MR. ? 6. Transvenous pacemaker lead is seen in the IVC, RA, RV. Lasix IV ordered (4) Thrombus of left atrial appendage: Code(s): I51.3 - Intracardiac thrombosis, not elsewhere classified Status: Acute Assessment and Plan: RAYMOND done at [facility] in [place] showed left atrial appendage thrombus as per records obtained from [facility]. He was discharged on Xarelto. Patient was started on heparin infusion which will be continued at this time. TTE done yesterday did not show any thrombus. Monitor hemoglobin closely. Protonix (5) Atrial fibrillation: Code(s): I48.91 - Unspecified atrial fibrillation Status: Acute Assessment and Plan: Currently in sinus tachycardia Anticoagulation as below (6) Shock: Code(s): R57.9 - Shock, unspecified Status: Acute Assessment and Plan: Patient presented with shock which was likely cardiogenic from bradycardia and congestive heart failure With improvement in bradycardia his blood pressures improved 03/03 This morning patient received Ativan and his blood pressure has dropped. Blood pressure improved with a small fluid bolus. Monitor (7) Acute on chronic renal failure: Code(s): N17.9 - Acute kidney failure, unspecified; N18.9 - Chronic kidney disease, unspecified Status: Acute Assessment and Plan: Patient's baseline creatinine is 1.7 and patient presented with creatinine of 2.2 which increased to 3.0. This is likely secondary to cardiogenic shock came in with. Blood pressures improved with IV fluids and pacing Renal ultrasound showed ?Mild bilateral renal atrophy with medical renal disease. Normal cK level Creatinine appears to have improved and stabilized at 2.5 at this time. Improved urine output with diuretics Monitor urine output electrolytes and creatinine Hyperkalemia resolved treatment Nephrology following Patient is at risk of requiring SHOE REPAIRER (8) Hyperkalemia: Code(s): E87.5 - Hyperkalemia Status: Acute Assessment and Plan: Hyperkalemia secondary to DENISHA and metabolic acidosis. Potassium improved to 5.7 from 6.2 but still above normal range 03/02 patient was given insulin D50, Lasix and Lokelma Hyperkalemia has resolved (9) GERD (gastroesophageal reflux disease): Code(s): K21.9 - Gastro-esophageal reflux disease without esophagitis Status: Acute Assessment and Pl
--- NOTE | 2023-03-04 08:45 | PM.PNCARD ---
Progress Note: A&P Assessment and Plan (1) Atrial fibrillation: Code(s): I48.91 - Unspecified atrial fibrillation Status: Acute Assessment and Plan: Now with rapid ventricular response. On heparin. 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 Will be difficult to treat his tachycardia without having to protection of the pacemaker to prevent bradycardia and syncope. Low-dose metoprolol has been started. DC venous sheath today. Heparin on hold temporarily in order to pull sheath (2) Chronic anticoagulation: Code(s): Z79.01 - [facility] (current) use of anticoagulants Status: Acute Assessment and Plan: Continue heparin (3) Bradycardia: Code(s): R00.1 - Bradycardia, unspecified Status: Acute Assessment and Plan: Now resolved. Off of diltiazem and metoprolol. Discussed with hospitalist and ICU team. Continue low-dose metoprolol 12.5 mg p.o. b.i.d.. Subjective Date/time seen: 03/04/23 08:45 Interval history: Follow-up visit in this 87-year-old man with syncope: Date of service 03/03/2023: He still intubated sedated. He is not tachycardic and is likely in atrial flutter with rapid ventricular response. He is not pacing. Has little bit of lower extremity swelling also Date of service 03/04/2023: Still intubated and sedated. Blood pressures are stable. Rate is consistently in the 1 teens. Review of Systems Review of Systems: ROS unobtainable: Yes unobtainable due to endotracheal tube Respiratory: Respiratory: Denies hemoptysis Gastrointestinal: Gastrointestinal: Denies hematochezia Exam Const: Orientation/consciousness: No patient oriented x3 Other: Intubated elderly man HENMT: Head: normal to inspection Mouth: Yes moist mucous membranes Other: OETT in place Eyes: General: appearance normal, both eyes and all related structures Sclera: sclerae normal Pupils: Equal, round and reactive pupils present Neck: Neck: normal visual inspection, supple and no JVD Carotids: normal carotid upstroke Resp: Effort & Inspection: normal respiratory effort Other: Central rhonchi noted Cardio: Rate: regular rate and tachycardic Rhythm: regular rhythm and abnormal rhythm GI: Auscultation: normal bowel sounds Skin: General skin exam: normal color Neuro: General: No patient oriented x3 Cranial nerves: Yes Equal, round and reactive pupils present Other: Sedated on ventilator Extrem: General: normal to inspection Psych: Appearance: grossly normal Mental Status: mental status grossly abnormal Objective Data Vital Signs Vital Signs: Vital Signs - 24 hr 03/03/23 09:00 03/03/23 09:10 03/03/23 09:11 Temperature Pulse Rate Respiratory Rate Blood Pressure 66/46 L 63/43 L 67/47 L Pulse Oximetry Oxygen Delivery Fraction of Inspired Oxygen 03/03/23 09:20 03/03/23 09:40 03/03/23 10:00 Temperature 37.2 C Pulse Rate 116 H 107 H Respiratory Rate 14 14 Blood Pressure 76/52 L 91/56 L Pulse Oximetry 96 Oxygen Delivery Fraction of Inspired Oxygen 03/03/23 10:30 03/03/23 09:46 03/03/23 10:10 Temperature Pulse Rate 115 H 115 H Respiratory Rate Blood Pressure 105/70 83/53 L Pulse Oximetry 96 Oxygen Delivery Mechanical Ventilation Fraction of Inspired Oxygen 30 03/03/23 12:00 03/03/23 12:00 03/03/23 13:20 Temperature 37.3 C Pulse Rate 114 H Respiratory Rate 14 Blood Pressure 96/56 L Pulse Oximetry 94 Oxygen Delivery Fraction of Inspired Oxygen 30 30 03/03/23 13:39 03/03/23 13:40 03/03/23 13:40 Temperature Pulse Rate 123 H 117 H 118 H Respiratory Rate 14 Blood Pressure 119/68 Pulse Oximetry Oxygen Delivery Fraction of Inspired Oxygen 03/03/23 14:20 03/03/23 13:10 03/03/23 13:10 Temperature Pulse Rate 117 H 122 H 122 H Respiratory Rate 14 14 Blood Pressure Pulse Oximetry 94 Oxygen Delivery Mechanica
[2023-03-04] MEDS: FUROSEMIDE INJ 40 MG/4 ML VIAL IV PUSH (08:49)
[2023-03-04] MEDS: METOPROLOL TARTRATE 25 MG TABLET PO ×2 (08:49→21:17)
[2023-03-04] MEDS: PANTOPRAZOLE SODIUM IV 40 MG VIAL IV PUSH ×2 (08:49→21:17)
[2023-03-04] MEDS: MINERAL OIL/WHITE PETROLATUM OINTMENT 1 APPLIC EACH EYE (08:50)
[2023-03-04 11:48] LABS: Alveolar/Arterial O2 Gradient 117.3 mmHg; Base Excess ABG 1.1 mEq/l (+/-2.0); Fractional Inspired Oxygen 30 %; HCO3 ABG 25.4 mEq/l (22.0-26.0); Oxygen Content ABG 10.5 %vol (16.0-22.0); PCO2 ABG 39.4 mmHg (35.0-45.0); PO2 ABG 50.3 mmHg (80.0-100.0); PO2 FiO2 Ratio Arterial Blood 1.68 %; pH ABG 7.428 (7.350-7.450)
[2023-03-04 11:50] LABS: Device VENTILATOR; Modified Allen's Test Pass; Oxygen Saturation ABG 86.7 % (95.0-100.0); Site Drawn LEFT RADIAL
[2023-03-04 11:51] LABS: Arterial Blood Gas PEEP 5 cmH2O; Arterial Blood Gas Pressure Support 5 cmH2O; Arterial Blood Gas Vent Mode SPONTANEOUS
--- NOTE | 2023-03-04 12:01 | P.PNNP_ITS ---
Progress Note: A&P Assessment and Plan (1) DENISHA (acute kidney injury): Code(s): N17.9 - Acute kidney failure, unspecified Status: Acute Assessment and Plan: * Acute kidney injury * Renal ultrasound shows mild bilateral renal atrophy with medical renal disease. * Urine electrolytes are pre renal * Total CK is normal * Secondary to shock/hypotension in association with bradycardia and pre renal azotemia * Blood pressure is better. * Continue supportive care. * Creatinine has improved with the better blood pressure. He has a good urine output. Creatinine not quite back down to baseline. * Check labs in the morning (2) Stage 3b chronic kidney disease: Code(s): N18.32 - Chronic kidney disease, stage 3b Status: Chronic Assessment and Plan: * present since 2020 from review of electronic records (from [facility] and [facility]) * baseline creatinine runs ~ 1.4 - 1.9mg/dl * more recently (last several months with recent hospitalizations), running closer to 1.6 - 1.9mg/dl * presumably secondary to HTN, vascular disease, BPH, and recent diagnosed cardiomyopathy in January 2023 (EF 30 - 35%) (3) Hyperkalemia: Code(s): E87.5 - Hyperkalemia Status: Acute Assessment and Plan: * Resolved (4) Acute respiratory failure: Code(s): J96.00 - Acute respiratory failure, unspecified whether with hypoxia or hypercapnia Status: Acute Assessment and Plan: * presumably due to shock/hypotension and pulmonary edema/CHF * intubated and on mechanical ventilation * Getting Lasix 40mg IV per day. * Intake/output is negative. And the creatinine is better. (5) Bradycardia: Code(s): R00.1 - Bradycardia, unspecified Status: Acute Assessment and Plan: * as noted on presentation * complicated by diltiazem and metoprolol use prior to admission * s/p transvenous pacemaker placement * Now in a flutter with a mildly high heart rate. * Cardiology following (6) CHF (congestive heart failure): Code(s): I50.9 - Heart failure, unspecified Status: Acute Assessment and Plan: * acute on chronic issue * echo on previous hospitalization noted - EF 30 - 35%Acute on chronic congestive heart failure * repeat echo again shows 30-35% ejection fraction. * diuresis as tolerated. Getting routine loop diuretics. (7) Shock: Code(s): R57.9 - Shock, unspecified Status: Acute Assessment and Plan: * Gradually improved. (8) Anemia: Code(s): D64.9 - Anemia, unspecified Status: Acute Assessment and Plan: * due to acute illness coupled with chronic issue and CKD * noted on previous admission to OSH * s/p EGD with esophagitis + gastritis * complicated by need for anticoagulation due to left atrial thrombus * Hemoglobin lower today at 7.1. * Will check a reticulocyte count and start EPO. * Check another 1 tomorrow. (9) UTI (urinary tract infection): Code(s): N39.0 - Urinary tract infection, site not specified Status: Acute Assessment and Plan: * suggestive by admission UA * Urine culture pending. * on ceftriaxone Subjective Date/time seen: 03/04/23 12:01 Interval history: , granddaughter, and daughter are in the room. The patient is sedated and on the ventilator. Exam 2 Narrative: WDWN male in NAD on the ventilator and sedated skin no rash or subQ nodules head ncat lungs mildly coarse upper airway noise. cor r
--- NOTE | 2023-03-04 12:01 | PM.PNNEP ---
Progress Note: A&P Assessment and Plan (1) DENISHA (acute kidney injury): Code(s): N17.9 - Acute kidney failure, unspecified Status: Acute Assessment and Plan: Acute kidney injury Renal ultrasound shows mild bilateral renal atrophy with medical renal disease. Urine electrolytes are pre renal Total CK is normal Secondary to shock/hypotension in association with bradycardia and pre renal azotemia Blood pressure is better. Continue supportive care. Creatinine has improved with the better blood pressure. He has a good urine output. Creatinine not quite back down to baseline. Check labs in the morning (2) Stage 3b chronic kidney disease: Code(s): N18.32 - Chronic kidney disease, stage 3b Status: Chronic Assessment and Plan: present since 2020 from review of electronic records (from [facility] and [facility]) baseline creatinine runs ~ 1.4 - 1.9mg/dl more recently (last several months with recent hospitalizations), running closer to 1.6 - 1.9mg/dl presumably secondary to HTN, vascular disease, BPH, and recent diagnosed cardiomyopathy in January 2023 (EF 30 - 35%) (3) Hyperkalemia: Code(s): E87.5 - Hyperkalemia Status: Acute Assessment and Plan: Resolved (4) Acute respiratory failure: Code(s): J96.00 - Acute respiratory failure, unspecified whether with hypoxia or hypercapnia Status: Acute Assessment and Plan: presumably due to shock/hypotension and pulmonary edema/CHF intubated and on mechanical ventilation Getting Lasix 40mg IV per day. Intake/output is negative. And the creatinine is better. (5) Bradycardia: Code(s): R00.1 - Bradycardia, unspecified Status: Acute Assessment and Plan: as noted on presentation complicated by diltiazem and metoprolol use prior to admission s/p transvenous pacemaker placement Now in a flutter with a mildly high heart rate. Cardiology following (6) CHF (congestive heart failure): Code(s): I50.9 - Heart failure, unspecified Status: Acute Assessment and Plan: acute on chronic issue echo on previous hospitalization noted - EF 30 - 35%Acute on chronic congestive heart failure repeat echo again shows 30-35% ejection fraction. diuresis as tolerated. Getting routine loop diuretics. (7) Shock: Code(s): R57.9 - Shock, unspecified Status: Acute Assessment and Plan: Gradually improved. (8) Anemia: Code(s): D64.9 - Anemia, unspecified Status: Acute Assessment and Plan: due to acute illness coupled with chronic issue and CKD noted on previous admission to OSH s/p EGD with esophagitis + gastritis complicated by need for anticoagulation due to left atrial thrombus Hemoglobin lower today at 7.1. Will check a reticulocyte count and start EPO. Check another 1 tomorrow. (9) UTI (urinary tract infection): Code(s): N39.0 - Urinary tract infection, site not specified Status: Acute Assessment and Plan: suggestive by admission UA Urine culture pending. on ceftriaxone Subjective Date/time seen: 03/04/23 12:01 Interval history: , granddaughter, and daughter are in the room. The patient is sedated and on the ventilator. Exam Narrative: WDWN male in NAD on the ventilator and sedated skin no rash or subQ nodules head ncat lungs mildly coarse upper airway noise. cor reg no rub gallop abd BS+ nontender and soft ext 1+ bilateral pre sacral edema. Objective Data Vital Signs Vital Signs: Vital Signs - 24 hr 03/03/23 13:20 03/03/23 13:39 03/03/23 13:40 Temperature Pulse Rate 123 H 117 H Respiratory Rate Blood Pressure 119/68 Pulse Oximetry Oxygen Delivery Fraction of Inspired Oxygen 30 03/03/23 13:40 03/03/23 14:20 03/03/23 13:10 Temperature Pulse Rate 118 H 117 H 122 H Respiratory Rate 14 14 Blood Pressure Pulse Oximetry 94 Oxygen Delive
--- NOTE | 2023-03-04 12:08 | PC.NURSE ---
Patient extubated at 1200 per RT per MD verbal orders. RN at bedside. Patient placed on 4L NC. Oxygen saturations 96%.
[2023-03-04 12:36] LABS: Glucose Point of Care 154 mg/dl (65-105)
[2023-03-04 14:26] LABS: Hematocrit 24.2 % (42.0-52.0); Hemoglobin 7.7 g/dL (14.0-18.0); Immature Platelet Fraction Pct 2.9 % (0.9-11.2); Mean Corpuscular HGB Conc 31.8 g/dl (32-36); Mean Corpuscular Hemoglobin 33.9 pg (26-34); Mean Corpuscular Volume 106.6 fl (80-100); Mean Platelet Volume 10.8 fl (7.4-10.4); Platelet Count Result 89 k/mm3 (150-375); Red Blood Count 2.27 M/mm3 (4.6-6.20); Red Cell Distribution Width 20.2 % (11.5-14.5)
[2023-03-04 14:35] LABS: Anion Gap 7 mmol/L (8-16); Blood Urea Nitrogen 45 mg/dL (9-20); Calcium 8.3 mg/dL (8.4-10.2); Carbon Dioxide 29 mmol/L (22-30); Chloride 99 mmol/L (98-107); Estimated CRCL calculation 26 ml/min; Estimated Glomerular Filt Rate 34; Glucose 143 mg/dL (65-110); Potassium 4.2 mmol/L (3.4-5.0); Sodium 135 mmol/L (137-145)
--- NOTE | 2023-03-04 15:14 | PM.IMPN ---
Progress Note: A&P Assessment and Plan (1) Acute respiratory failure: Code(s): J96.00 - Acute respiratory failure, unspecified whether with hypoxia or hypercapnia Status: Acute Assessment and Plan: Patient brought in by EMS for syncopal episode. He developed respiratory distress in the ED requiring intubation on 03/01. Acute Respiratory failure secondary to cardiogenic shock, bradycardia and pulmonary edema. He had internal temporary PM placed. and home metoprolol and diltiazem stopped. HR better and no longer requiring pacer and this was removed 03/03. Tolerating Lasix. Chest x-ray this morning before extubation shows congestive changes. ABG 7.43/39/50 on MV during spontaneous trial - extubated today. Discussed with chimney builder. (2) Bradycardia: Code(s): R00.1 - Bradycardia, unspecified Status: Acute Assessment and Plan: Patient presented with atrial fibrillation with bradycardic response.? Home meds include extended release diltiazem and metoprolol. Etiology unclear but felt related to his medications possibly made worse by the hyperkalemia.?? Atropine given in the field with good response but then worsened requiring temporary transvenous PM placement 03/01 Patient in AFib/Flutter. HR improved and no longer requiring pacemaker which was remove 03/03. Metoprolol added 03/03 and advanced. Continue to advance medications to control rate. Remains on Heparin drip (3) CHF (congestive heart failure): Code(s): I50.9 - Heart failure, unspecified Status: Acute Assessment and Plan: Patient presents with Acute on chronic systolic congestive heart failure. Per notes from outside hospital showing RAYMOND Echo in January showing EF 30-35% with left atrial appendage thrombus. Echo here showing 4-chamber dilatoin with moderate LV and RV systolic dysfunction, EF30-35% and indeterminate diast fxn Lasix given intermittently. Renal function tolerating this. Lasix now scheduled. No obvious thrombus seen but does not exclude this. Continue Heparin drip. (4) Shock: Code(s): R57.9 - Shock, unspecified Status: Acute Assessment and Plan: Patient presented with shock felt related to cardiogenic shock from bradycardia and CHF. He was of dopamine but weaned off quickly Blood pressures improved with improvement of bradycardia BP dropped yesterday morning after dose of Lasix but was transient Continue to monitor (5) Thrombus of left atrial appendage: Code(s): I51.3 - Intracardiac thrombosis, not elsewhere classified Status: Acute Assessment and Plan: RAYMOND Echo in January showing EF 30-35% with left atrial appendage thrombus done at [facility] in [place].?Echo here as mentioned above. He was discharged on Xarelto. Xarelto held and he has been started on heparin infusion. Follow (6) Atrial fibrillation: Code(s): I48.91 - Unspecified atrial fibrillation Status: Acute Assessment and Plan: As above. (7) Acute on chronic renal failure: Code(s): N17.9 - Acute kidney failure, unspecified; N18.9 - Chronic kidney disease, unspecified Status: Acute Assessment and Plan: Patient's baseline creatinine is 1.7 noted by old records. Cr elevated on admission and climbed to 3.0 due to shock, CHF, bradycardia. Renal US showing mild bilateral renal atrophy.? TCK normal. Ashly 16, UCr 240. Nephrology consulted [facility]. Cr better at 1.9 Follow urine output, electrolytes and renal function (8) Hyperkalemia: Code(s): E87.5 - Hyperkalemia Status: Acute Assessment and Plan: Hyperkalemia secondary to medications, shock, DENISHA/CKD and metabolic acidosis.? Potassium was 6.2 and was treated appropriately. May have contributed to his bradycardia. Potassium normal now. Follow (9) Anemia: Code(s): D64.9 - Anemia, unspecified Status: Acute Assessment and Plan: Hgb 8.2 on admisison. Patient appear
[2023-03-04 19:05] LABS: Glucose Point of Care 145 mg/dl (65-105)
[2023-03-04] MEDS: MELATONIN 5 MG TABLET PO (23:54)
[2023-03-05] VITALS (24 sets, daily range): BP systolic 111–134; BP diastolic 59–92; PULSE 91–138; RESP 14–20; TEMP 35.9–37.3; O2SAT 91–99
[2023-03-05 01:57] LABS: Glucose Point of Care 156 mg/dl (65-105)
[2023-03-05 04:37] LABS: Hematocrit 22.9 % (42.0-52.0); Hemoglobin 7.3 g/dL (14.0-18.0); Immature Platelet Fraction Pct 3.2 % (0.9-11.2); Immature Reticulocyte Fraction 28.1 % (3.0-15.9); Mean Corpuscular HGB Conc 31.9 g/dl (32-36); Mean Corpuscular Hemoglobin 34.1 pg (26-34); Mean Platelet Volume 10.6 fl (7.4-10.4); Platelet Count Result 77 k/mm3 (150-375); Red Blood Count 2.14 M/mm3 (4.6-6.20); Red Cell Distribution Width 19.9 % (11.5-14.5); Reticulocyte Hemoglobin Conten 31.4 pg (28.2-35.7); Reticulocyte Percent 3.87 % (0.7-4.3); Reticulocytes Absolute 0.08 M/mm3 (0.02-0.1)
[2023-03-05 04:47] LABS: Alanine Aminotransferase 32 U/L (6-50); Albumin Level 3.3 g/dL (3.5-5.1); Alkaline Phosphatase 64 U/L (38-126); Anion Gap 3 mmol/L (8-16); Aspartate Amino Transferase 21 U/L (17-59); Bilirubin,Total 1.3 mg/dL (0.2-1.3); Blood Urea Nitrogen 41 mg/dL (9-20); Calcium 8.2 mg/dL (8.4-10.2); Carbon Dioxide 33 mmol/L (22-30); Chloride 99 mmol/L (98-107); Estimated CRCL calculation 28 ml/min; Estimated Glomerular Filt Rate 36; Glucose 113 mg/dL (65-110); Magnesium 2.2 mg/dL (1.6-2.3); Potassium 3.8 mmol/L (3.4-5.0); Sodium 135 mmol/L (137-145)
[2023-03-05] MEDS: METOPROLOL TARTRATE 25 MG TABLET PO ×3 (06:35→21:49)
[2023-03-05 06:40] LABS: Glucose Point of Care 127 mg/dl (65-105)
[2023-03-05 07:02] LABS: Partial Thromboplastin Time 41.4 SECONDS (22.3-36.8)
[2023-03-05] MEDS: HEPARIN SODIUM 5,000 UNITS/ML VIAL 6500 UNITS IV PUSH (07:10)
[2023-03-05] MEDS: PANTOPRAZOLE SODIUM IV 40 MG VIAL IV PUSH ×2 (08:45→21:49)
[2023-03-05] MEDS: FUROSEMIDE INJ 40 MG/4 ML VIAL IV PUSH (08:46)
[2023-03-05] MEDS: EPOETIN ALFA-EPBX 10,000 UNITS/ML VIAL 10000 UNITS SUB-Q (09:33)
--- NOTE | 2023-03-05 09:53 | WPDINTPN ---
Progress Note: A&P Assessment and Plan (1) Acute respiratory failure: Code(s): J96.00 - Acute respiratory failure, unspecified whether with hypoxia or hypercapnia Status: Acute Assessment and Plan: Acute Respiratory failure secondary to cardiogenic shock and pulmonary edema 03/04 extubated after a successful weaning trial. Patient has done well and is on nasal cannula. Continue to wean oxygen chest x-ray this morning reviewed which show significant improvement pulmonary edema Continue diuretics as he still has lower extremity edema Continue bronchodilators Incentive spirometry (2) Bradycardia: Code(s): R00.1 - Bradycardia, unspecified Status: Acute Assessment and Plan: Patient presented with atrial fibrillation with slow ventricular response. He was on extended release diltiazem and metoprolol as an outpatient. Status post transvenous pacemaker placement and heart rate is improved and he is not requiring any pacing at this time Patient now in sinus rhythm 03/03 transvenous pacemaker removed. Patient started on a beta-raghavendra Currently in AFib with controlled ventricular rate. Continue p.o. beta-raghavendra (3) CHF (congestive heart failure): Code(s): I50.9 - Heart failure, unspecified Status: Acute Assessment and Plan: Acute on chronic congestive heart failure patient's daughter reports EF of 30% on echocardiogram done on last admission TTE 03/02 1. Four-chamber cardiac dilation with moderate left and right ventricular systolic dysfunction. ? 2. Moderate biatrial dilation. ? 3. Calcified mitral valve annulus. ? 4. Sclerotic but not stenotic aortic valve. ? 5. Small amount of MR. ? 6. Transvenous pacemaker lead is seen in the IVC, RA, RV. Lasix IV ordered (4) Thrombus of left atrial appendage: Code(s): I51.3 - Intracardiac thrombosis, not elsewhere classified Status: Acute Assessment and Plan: RAYMOND done at [facility] in [place] showed left atrial appendage thrombus as per records obtained from [facility]. He was discharged on Xarelto. Patient was started on heparin infusion which will be continued at this time. TTE done yesterday did not show any thrombus. Monitor hemoglobin closely. Protonix Will discuss with Cardiology regarding switching him back to Xarelto (5) Atrial fibrillation: Code(s): I48.91 - Unspecified atrial fibrillation Status: Acute Assessment and Plan: Rate control. Continue metoprolol Anticoagulation as below (6) Shock: Code(s): R57.9 - Shock, unspecified Status: Acute Assessment and Plan: Patient presented with shock which was likely cardiogenic from bradycardia and congestive heart failure With improvement in bradycardia his blood pressures improved 03/03 This morning patient received Ativan and his blood pressure has dropped. Blood pressure improved with a small fluid bolus. Monitor Resolved and blood pressure adequate at this time (7) Acute on chronic renal failure: Code(s): N17.9 - Acute kidney failure, unspecified; N18.9 - Chronic kidney disease, unspecified Status: Acute Assessment and Plan: Patient's baseline creatinine is 1.7 and patient presented with creatinine of 2.2 which increased to 3.0. This is likely secondary to cardiogenic shock came in with. Blood pressures improved with IV fluids and pacing Renal ultrasound showed ?Mild bilateral renal atrophy with medical renal disease. Normal cK level Creatinine appears to be improving and close to baseline. Improved urine output with diuretics Monitor urine output electrolytes and creatinine Hyperkalemia resolved treatment Nephrology following (8) Hyperkalemia: Code(s): E87.5 - Hyperkalemia Status: Acute Assessment and Plan: Hyperkalemia secondary to DENISHA and metabolic acidosis. Potassium improved to 5.7 from 6.2 but still above normal range 03/02 patient was given insul
--- NOTE | 2023-03-05 10:08 | PM.PNNEP ---
Progress Note: A&P Assessment and Plan (1) DENISHA (acute kidney injury): Code(s): N17.9 - Acute kidney failure, unspecified Status: Acute Assessment and Plan: slow and steady improvement presumably secondary to shock/hypotension in association with bradycardia and pre renal azotemia evaluation to date: renal ultrasound shows mild bilateral renal atrophy with medical renal disease urine electrolytes are pre renal total CK is normal reasonable urine output at this time follow trend of repeat labs and UOP continue supportive therapy (2) Stage 3b chronic kidney disease: Code(s): N18.32 - Chronic kidney disease, stage 3b Status: Chronic Assessment and Plan: present since 2020 from review of electronic records (from [facility] and [facility]) baseline creatinine runs ~ 1.4 - 1.9mg/dl more recently (last several months with recent hospitalizations), running closer to 1.6 - 1.9mg/dl presumably secondary to HTN, vascular disease, BPH, and recent diagnosed cardiomyopathy in January 2023 (EF 30 - 35%) (3) Acute respiratory failure: Code(s): J96.00 - Acute respiratory failure, unspecified whether with hypoxia or hypercapnia Status: Acute Assessment and Plan: resolved -- extubated presumably due to shock/hypotension and pulmonary edema/CHF diuresis as needed (4) Bradycardia: Code(s): R00.1 - Bradycardia, unspecified Status: Resolved Assessment and Plan: resolved back on low dose metoprololas noted on presentation (5) Atrial fibrillation: Code(s): I48.91 - Unspecified atrial fibrillation Status: Acute Assessment and Plan: rate control strategy on anticoagulation Cardiology following (6) CHF (congestive heart failure): Code(s): I50.9 - Heart failure, unspecified Status: Acute Assessment and Plan: acute on chronic issue echo on previous hospitalization noted -- EF 30 - 35% repeat echo again shows 30-35% ejection fraction again diuresis as tolerated (7) Anemia: Code(s): D64.9 - Anemia, unspecified Status: Acute Assessment and Plan: due to acute illness coupled with chronic issue and CKD noted on previous admission to OSH s/p EGD with esophagitis + gastritis complicated by need for anticoagulation due to left atrial thrombus follow H/H Will continue to follow. Subjective Date/time seen: 03/05/23 10:08 Interval history: Follow-up acute kidney injury/acute renal failure on chronic kidney disease. Extubated yesterday and weaned to room air earlier today; good urine output noted with diuretic therapy with improvement in renal function/creatinine; overall, he seems to be feeling better in general, issues/events overnight or earlier this morning. Exam Narrative: General: elderly but WD/WN male in NAD Heart: normal S1 and S2; no rub Lungs: coarse breath sounds Abdomen: soft, nontender, nondistended, positive bowel sounds Extremities: no cyanosis or clubbing; 1+ edema Skin: warm and dry Objective Data Vital Signs Vital Signs: Vital Signs Temp Pulse Pulse Resp BP Pulse Ox O2 Del Method 03/05/23 10:00 98.8 F 125 H 18 123/92 H 92 03/05/23 09:53 Room Air 03/05/23 08:15 94 Room Air 03/05/23 08:00 96 Nasal Cannula 03/05/23 08:28 93 Room Air 03/05/23 08:14 94 Nasal Cannula 03/05/23 07:46 98.6 F 109 H 16 124/83 94 03/05/23 06:00 98.4 F 100 16 111/67 91 03/05/23 06:35 104 H 03/05/23 06:00 115 H 03/05/23 04:00 107 H 03/05/23 04:00 98.2 F 96 15 119/59 L 94 03/05/23 02:00 92 03/05/23 02:00 98.2 F 92 14 113/65 93 03/05/23 00:00 93 03/05/23 00:00 98.8 F 91 15 121/62 95 03/04/23 22:00 102 H 03/04/23 20:00 120 H 03/04/23 22:00 99.0 F 102 H 12 117/74 95 03/04/23 21:17 107 H 03/04/23 20:00 99.0 F
--- NOTE | 2023-03-05 10:08 | P.PNNP_ITS ---
Progress Note: A&P Assessment and Plan (1) DENISHA (acute kidney injury): Code(s): N17.9 - Acute kidney failure, unspecified Status: Acute Assessment and Plan: * slow and steady improvement * presumably secondary to shock/hypotension in association with bradycardia and pre renal azotemia * evaluation to date: * renal ultrasound shows mild bilateral renal atrophy with medical renal disease * urine electrolytes are pre renal * total CK is normal * reasonable urine output at this time * follow trend of repeat labs and UOP * continue supportive therapy (2) Stage 3b chronic kidney disease: Code(s): N18.32 - Chronic kidney disease, stage 3b Status: Chronic Assessment and Plan: * present since 2020 from review of electronic records (from [facility]) * baseline creatinine runs ~ 1.4 - 1.9mg/dl * more recently (last several months with recent hospitalizations), running closer to 1.6 - 1.9mg/dl * presumably secondary to HTN, vascular disease, BPH, and recent diagnosed cardiomyopathy in January 2023 (EF 30 - 35%) (3) Acute respiratory failure: Code(s): J96.00 - Acute respiratory failure, unspecified whether with hypoxia or hypercapnia Status: Acute Assessment and Plan: * resolved -- extubated * presumably due to shock/hypotension and pulmonary edema/CHF * diuresis as needed (4) Bradycardia: Code(s): R00.1 - Bradycardia, unspecified Status: Resolved Assessment and Plan: * resolved * back on low dose metoprololas noted on presentation (5) Atrial fibrillation: Code(s): I48.91 - Unspecified atrial fibrillation Status: Acute Assessment and Plan: * rate control strategy * on anticoagulation * Cardiology following (6) CHF (congestive heart failure): Code(s): I50.9 - Heart failure, unspecified Status: Acute Assessment and Plan: * acute on chronic issue * echo on previous hospitalization noted -- EF 30 - 35% * repeat echo again shows 30-35% ejection fraction again * diuresis as tolerated (7) Anemia: Code(s): D64.9 - Anemia, unspecified Status: Acute Assessment and Plan: * due to acute illness coupled with chronic issue and CKD * noted on previous admission to OSH * s/p EGD with esophagitis + gastritis * complicated by need for anticoagulation due to left atrial thrombus * follow H/H Will continue to follow. Subjective Date/time seen: 03/05/23 10:08 Interval history: Follow-up acute kidney injury/acute renal failure on chronic kidney disease. Extubated yesterday and weaned to room air earlier today; good urine output noted with diuretic therapy with improvement in renal function/creatinine; overall, he seems to be feeling better in general, issues/events overnight or earlier this morning. Exam Narrative: General: elderly but WD/WN male in NAD Heart: normal S1 and S2; no rub Lungs: coarse breath sounds Abdomen: soft, nontender, nondistended, positive bowel sounds Extremities: no cyanosis or clubbing; 1+ edema Skin: warm and dry Objective Data Vital Signs Vital Signs: Vital Signs Temp Pulse Pulse Resp BP Pulse Ox O2 Del Method 03/05/23 10:00 98.8 F 125 H 18 123/92 H 92 03/05/23 09:53 Room Air 03/05/23 08:15 94 Room Air 03/05/23 08:00
--- NOTE | 2023-03-05 10:25 | PM.PNCARD ---
Progress Note: A&P Assessment and Plan (1) Atrial fibrillation: Code(s): I48.91 - Unspecified atrial fibrillation Status: Acute Assessment and Plan: Now with rapid ventricular response. On heparin, but will shift back to DOAC today. 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 Will be difficult to treat his tachycardia without having to protection of the pacemaker to prevent bradycardia and syncope. I discussed this with the patient and family members at the bedside. Patient verbalizes understanding. Low-dose metoprolol has been started and is being tolerated, no bradycardia or pauses on telemetry. OK to downgrade to IMU (2) Chronic anticoagulation: Code(s): Z79.01 - [facility] (current) use of anticoagulants Status: Acute Assessment and Plan: Shift back to Xarelto (3) Bradycardia: Code(s): R00.1 - Bradycardia, unspecified Status: Acute Assessment and Plan: Now resolved. As above, tolerating low dose metoprolol 25mg q8h with no bradycardia. Subjective Date/time seen: 03/05/23 10:25 Interval history: Cardiology follow up for bradycardia He was extubated and is breathing comfortably on room air. Denies any chest pain or palpitations. He remains in atrial fibrillation with rate generally controlled around 100-110. Review of Systems Review of Systems: All systems reviewed & are unremarkable except as noted in HPI and below Respiratory: Respiratory: Denies hemoptysis Gastrointestinal: Gastrointestinal: Denies hematochezia Exam Const: General: comfortable, no acute distress, alert and awake Orientation/consciousness: patient oriented x3 HENMT: Head: normal to inspection Mouth: Yes moist mucous membranes Eyes: General: appearance normal, both eyes and all related structures Sclera: sclerae normal Pupils: Equal, round and reactive pupils present Neck: Neck: normal visual inspection, supple and no JVD Carotids: normal carotid upstroke Resp: Effort & Inspection: normal respiratory effort Auscultation: clear to auscultation bilaterally, no crackles, no rales and no rhonchi Cardio: Rate: regular rate and tachycardic Rhythm: abnormal rhythm irregularly irregular GI: Auscultation: normal bowel sounds Skin: General skin exam: normal color Neuro: General: patient oriented x3 Cranial nerves: Yes Equal, round and reactive pupils present Extrem: General: normal to inspection Psych: Appearance: grossly normal Mental Status: mental status grossly normal Objective Data Vital Signs Vital Signs: Vital Signs - 24 hr 03/04/23 10:46 03/04/23 10:50 03/04/23 12:13 Temperature Pulse Rate 119 H 121 H 120 H Respiratory Rate 15 11 L Blood Pressure Pulse Oximetry 96 Oxygen Delivery Mechanical Ventilation Oxygen Flow Rate Fraction of Inspired Oxygen 30 03/04/23 12:00 03/04/23 12:00 03/04/23 12:00 Temperature 37.6 C Pulse Rate 119 H 119 H Respiratory Rate 16 Blood Pressure 129/71 Pulse Oximetry 96 96 Oxygen Delivery Nasal Cannula Oxygen Flow Rate 4 Fraction of Inspired Oxygen 03/04/23 13:13 03/04/23 12:00 03/04/23 14:13 Temperature Pulse Rate 118 H 106 H Respiratory Rate 15 12 Blood Pressure Pulse Oximetry 96 Oxygen Delivery Nasal Cannula Oxygen Flow Rate 4 Fraction of Inspired Oxygen 03/04/23 14:00 03/04/23 14:30 03/04/23 14:00 Temperature 37.3 C Pulse Rate 118 H 106 H 119 H Respiratory Rate 14 Blood Pressure 124/74 Pulse Oximetry 97 Oxygen Delivery Oxygen Flow Rate Fraction of Inspired Oxygen 03/04/23 16:00 03/04/23 15:13 03/04/23 16:13 Temperature Pulse Rate 109 H 119 H 98 Respiratory Rate 15 12 Blood Pressure Pulse Oximetry Oxygen Delivery Oxygen Flow Rate Fraction of Inspired Oxygen 03/04/23 17:13 03/04/23 18:00 03/04/23 16:00 Temperature 37.2 C Pulse Rate 102 H 99 96 Respiratory Rate 12 13 Blood Pressu
--- NOTE | 2023-03-05 10:50 | ECG_ITS ---
Measurements Intervals [place] Rate: 125 P: [place]: 0 QRS: -53 QRSD: 95 T: 48 QT: 308 QTc: 445 Interpretive Statements ATRIAL FLUTTER/TACHYCARDIA WITH RAPID VENTRICULAR RESPONSE LEFT AXIS DEVIATION INCOMPLETE RIGHT BUNDLE BRANCH BLOCK BORDERLINE R WAVE PROGRESSION, ANTERIOR LEADS BORDERLINE ST-T WAVE ABNORMALITY- HIGH LATERAL LEADS ABNORMAL ECG COMPARED TO ECG 03/03/2023 20:34:36 ATRIAL FLUTTER NOW PRESENT Electronically Signed On 03-05-2023 12:13:36 CDT by Francis Pate D.O.
--- NOTE | 2023-03-05 12:15 | PCFNICU ---
ICU Rounding Note: Pt current nutrition is Heart healthy diet. Nutrition recommendation: Continue with curent orders for heart healthy diet. Will add supplement later if needed. Last recorded weight is 75.7 kg. Bowel Motility: No BMs are charted at this time. Labs Reviewed: Hgb 7.3, Hct 22.9, Alb 3.3, Na 135, GFR 36, BUN 41, Cre 1.8 Meds Noted: Lasix, protonix Skin: WNL Additional Notes: Was extubated yesterday 02/01/23. Clear liquids this morning, advanced to heart healthy diet for lunch. Pt was eating lunch with good appetite when seen. Has never tried Ensure and does not want to unless he is not eating. He wants coffee. Following daily in ICU rounds. Will reassess every Sunday and Sunday. Every 5 days
[2023-03-05 13:24] LABS: Partial Thromboplastin Time 106.8 SECONDS (22.3-36.8)
--- NOTE | 2023-03-05 14:06 | PM.IMPN ---
Progress Note: A&P Assessment and Plan (1) Acute respiratory failure: Code(s): J96.00 - Acute respiratory failure, unspecified whether with hypoxia or hypercapnia Status: Acute Assessment and Plan: Patient brought in by EMS for syncopal episode. He developed respiratory distress in the ED requiring intubation on 03/01. Acute Respiratory failure secondary to cardiogenic shock, bradycardia and pulmonary edema. He had internal temporary PM placed and home metoprolol and diltiazem stopped. HR better and no longer requiring pacer and this was removed 03/03. Tolerating Lasix. Extubated 03/04. Weaned to room air now. Chest x-ray this morning is clear. Discussed with harp regulator. (2) Bradycardia: Code(s): R00.1 - Bradycardia, unspecified Status: Resolved Assessment and Plan: Patient presented with atrial fibrillation with bradycardic response.? Home meds include extended release diltiazem and metoprolol. 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 Atropine given in the field with good response but then worsened requiring temporary transvenous PM placement 03/01 Patient in AFib/Flutter. HR improved and no longer requiring pacemaker which was remove 03/03. Metoprolol added 03/03 and advanced. Continue to advance medications to control rate. On Heparin drip which will be changed to Xarelto. (3) CHF (congestive heart failure): Code(s): I50.9 - Heart failure, unspecified Status: Acute Assessment and Plan: Patient presents with acute on chronic systolic congestive heart failure. Per notes from outside hospital showing [facility] Echo in January showing EF 30-35% with left atrial appendage thrombus. Echo here showing 4-chamber dilation with moderate LV and RV systolic dysfunction, EF30-35% and indeterminate diast fxn Lasix intermittent and now scheduled. Renal function tolerating this. CXR clear but with mild pedal edema No obvious thrombus seen by echo but does not exclude this. Continue Heparin drip. Stop lasix? (4) Shock: Code(s): R57.9 - Shock, unspecified Status: Acute Assessment and Plan: Patient presented with shock felt related to cardiogenic shock from bradycardia and CHF. He was of dopamine but weaned off quickly Blood pressures improved with improvement of bradycardia Continue to monitor (5) Thrombus of left atrial appendage: Code(s): I51.3 - Intracardiac thrombosis, not elsewhere classified Status: Acute Assessment and Plan: [facility] Echo in January showing EF 30-35% with left atrial appendage thrombus done at [facility] in [place].?Echo here as mentioned above. He was discharged on Xarelto. Xarelto held and he has been started on heparin infusion. Changing back to Xarelto Follow (6) Atrial fibrillation: Code(s): I48.91 - Unspecified atrial fibrillation Status: Acute Assessment and Plan: As above. (7) Acute on chronic renal failure: Code(s): N17.9 - Acute kidney failure, unspecified; N18.9 - Chronic kidney disease, unspecified Status: Acute Assessment and Plan: Patient's baseline creatinine is 1.7 noted by old records. Cr elevated on admission and climbed to 3.0 due to shock, CHF, bradycardia. Renal US showing mild bilateral renal atrophy.? TCK normal. Ashly 16, UCr 240. Nephrology consulted Good UOP of 3200mL. Cr better at 1.8 Follow urine output, electrolytes and renal function (8) Hyperkalemia: Code(s): E87.5 - Hyperkalemia Status: Acute Assessment and Plan: Hyperkalemia secondary to medications, shock, DENISHA/CKD and metabolic acidosis.? Potassium was 6.2 and was treated appropriately. May have contributed to his bradycardia. Potassium normal now. Follow (9) Myeloproliferative disorder: Code(s): D47.1 - Chronic myeloproliferati
[2023-03-05] MEDS: RIVAROXABAN 15 MG TABLET PO (16:29)
--- NOTE | 2023-03-05 20:10 | PC.NURSE ---
This patient, Wes Greene, was received from [ICU 5 ] on 03/05/23 at 2009. Patient/family oriented to unit policies and routines
--- NOTE | 2023-03-05 20:10 | PC.NURSE ---
María Elena, the patient's daughter was notified of move to room 214. She acknowledged the move and thanked this RN.
[2023-03-05] MEDS: MELATONIN 5 MG TABLET PO (21:49)
[2023-03-06] VITALS (20 sets, daily range): BP systolic 101–120; BP diastolic 52–75; PULSE 101–127; RESP 18–20; TEMP 35.8–36.4; O2SAT 97–100
[2023-03-06 05:03] LABS: Hematocrit 23.4 % (42.0-52.0); Hemoglobin 7.5 g/dL (14.0-18.0); Immature Platelet Fraction Pct 2.7 % (0.9-11.2); Mean Corpuscular HGB Conc 32.1 g/dl (32-36); Mean Corpuscular Hemoglobin 33.8 pg (26-34); Mean Corpuscular Volume 105.4 fl (80-100); Mean Platelet Volume 8.7 fl (7.4-10.4); Platelet Count Result 74 k/mm3 (150-375); Red Blood Count 2.22 M/mm3 (4.6-6.20); Red Cell Distribution Width 19.2 % (11.5-14.5); White Blood Count 4.3 K/mm3 (4.5-10.0)
[2023-03-06] MEDS: METOPROLOL TARTRATE 25 MG TABLET PO (05:10)
[2023-03-06 05:13] LABS: Alanine Aminotransferase 28 U/L (6-50); Albumin Level 3.4 g/dL (3.5-5.1); Alkaline Phosphatase 65 U/L (38-126); Anion Gap 4 mmol/L (8-16); Aspartate Amino Transferase 22 U/L (17-59); Bilirubin,Total 1.4 mg/dL (0.2-1.3); Blood Urea Nitrogen 34 mg/dL (9-20); Calcium 8.3 mg/dL (8.4-10.2); Carbon Dioxide 32 mmol/L (22-30); Chloride 99 mmol/L (98-107); Estimated CRCL calculation 33 ml/min; Estimated Glomerular Filt Rate 44; Glucose 119 mg/dL (65-110); Magnesium 2.1 mg/dL (1.6-2.3); Potassium 3.7 mmol/L (3.4-5.0); Sodium 135 mmol/L (137-145)
[2023-03-06] MEDS: guaiFENesin/DEXTROMETHORPHAN 10 ML UDC 5 ML PO ×3 (05:18→20:11)
--- NOTE | 2023-03-06 10:02 | P.PNNP_ITS ---
Progress Note: A&P Assessment and Plan (1) DENISHA (acute kidney injury): Code(s): N17.9 - Acute kidney failure, unspecified Status: Acute Assessment and Plan: * slow improvement (back to baseline) * presumably secondary to shock/hypotension in association with bradycardia and pre-renal azotemia * evaluation to date: * renal ultrasound shows mild bilateral renal atrophy with medical renal disease * urine electrolytes are pre renal * total CK is normal * reasonable urine output * follow trend of repeat labs and UOP * continue supportive therapy (2) Stage 3b chronic kidney disease: Code(s): N18.32 - Chronic kidney disease, stage 3b Status: Chronic Assessment and Plan: * present since 2020 from review of electronic records (from [facility]) * baseline creatinine runs ~ 1.4 - 1.9mg/dl * more recently (last several months with recent hospitalizations), running closer to 1.6 - 1.9mg/dl * presumably secondary to HTN, vascular disease, BPH, and recent diagnosed cardiomyopathy in January 2023 (EF 30 - 35%) (3) Acute respiratory failure: Code(s): J96.00 - Acute respiratory failure, unspecified whether with hypoxia or hypercapnia Status: Acute Assessment and Plan: * resolved * presumably due to shock/hypotension and pulmonary edema/CHF * diuresis as needed (4) Bradycardia: Code(s): R00.1 - Bradycardia, unspecified Status: Resolved Assessment and Plan: * resolved * back on low dose metoprolol (5) Atrial fibrillation: Code(s): I48.91 - Unspecified atrial fibrillation Status: Acute Assessment and Plan: * rate control strategy * on anticoagulation * Cardiology following (6) CHF (congestive heart failure): Code(s): I50.9 - Heart failure, unspecified Status: Acute Assessment and Plan: * acute on chronic issue * echo on previous hospitalization noted -- EF 30 - 35% * repeat echo again shows 30-35% ejection fraction again * diuresis as tolerated (7) Anemia: Code(s): D64.9 - Anemia, unspecified Status: Acute Assessment and Plan: * due to acute illness coupled with chronic issue and CKD * noted on previous admission to OSH * s/p EGD with esophagitis + gastritis * complicated by need for anticoagulation due to left atrial thrombus * follow H/H Not much else to add -- will continue to follow intermittently. Subjective Date/time seen: 03/06/23 10:02 Interval history: Follow-up acute kidney injury/acute renal failure on chronic kidney disease. Transferred out of the ICU yesterday; respiratory status/breathing remains stable and he voices no other complaints other than mild fatigue/weakness on my visit; renal function stable if not improved; no other issues/events overnight; family at bedside and we discussed the situation. Exam Narrative: General: elderly but WD/WN male in NAD Heart: normal S1 and S2; no rub Lungs: clear anteriorly Abdomen: soft, nontender, nondistended, positive bowel sounds Extremities: no cyanosis or clubbing; trace edema Skin: warm and intact Objective Data Vital Signs Vital Signs: Vital Signs Temp Pulse Resp BP Pulse Ox O2 Del Method FiO2 03/06/23 08:19 97.0 F L 112 H 18 117/63 100 03/06/23 06:00 106 H 03/06/23 05:10 118 H
--- NOTE | 2023-03-06 10:02 | PM.PNNEP ---
Progress Note: A&P Assessment and Plan (1) DENISHA (acute kidney injury): Code(s): N17.9 - Acute kidney failure, unspecified Status: Acute Assessment and Plan: slow improvement (back to baseline) presumably secondary to shock/hypotension in association with bradycardia and pre-renal azotemia evaluation to date: renal ultrasound shows mild bilateral renal atrophy with medical renal disease urine electrolytes are pre renal total CK is normal reasonable urine output follow trend of repeat labs and UOP continue supportive therapy (2) Stage 3b chronic kidney disease: Code(s): N18.32 - Chronic kidney disease, stage 3b Status: Chronic Assessment and Plan: present since 2020 from review of electronic records (from [facility]) baseline creatinine runs ~ 1.4 - 1.9mg/dl more recently (last several months with recent hospitalizations), running closer to 1.6 - 1.9mg/dl presumably secondary to HTN, vascular disease, BPH, and recent diagnosed cardiomyopathy in January 2023 (EF 30 - 35%) (3) Acute respiratory failure: Code(s): J96.00 - Acute respiratory failure, unspecified whether with hypoxia or hypercapnia Status: Acute Assessment and Plan: resolved presumably due to shock/hypotension and pulmonary edema/CHF diuresis as needed (4) Bradycardia: Code(s): R00.1 - Bradycardia, unspecified Status: Resolved Assessment and Plan: resolved back on low dose metoprolol (5) Atrial fibrillation: Code(s): I48.91 - Unspecified atrial fibrillation Status: Acute Assessment and Plan: rate control strategy on anticoagulation Cardiology following (6) CHF (congestive heart failure): Code(s): I50.9 - Heart failure, unspecified Status: Acute Assessment and Plan: acute on chronic issue echo on previous hospitalization noted -- EF 30 - 35% repeat echo again shows 30-35% ejection fraction again diuresis as tolerated (7) Anemia: Code(s): D64.9 - Anemia, unspecified Status: Acute Assessment and Plan: due to acute illness coupled with chronic issue and CKD noted on previous admission to OSH s/p EGD with esophagitis + gastritis complicated by need for anticoagulation due to left atrial thrombus follow H/H Not much else to add -- will continue to follow intermittently. Subjective Date/time seen: 03/06/23 10:02 Interval history: Follow-up acute kidney injury/acute renal failure on chronic kidney disease. Transferred out of the ICU yesterday; respiratory status/breathing remains stable and he voices no other complaints other than mild fatigue/weakness on my visit; renal function stable if not improved; no other issues/events overnight; family at bedside and we discussed the situation. Exam Narrative: General: elderly but WD/WN male in NAD Heart: normal S1 and S2; no rub Lungs: clear anteriorly Abdomen: soft, nontender, nondistended, positive bowel sounds Extremities: no cyanosis or clubbing; trace edema Skin: warm and intact Objective Data Vital Signs Vital Signs: Vital Signs Temp Pulse Resp BP Pulse Ox O2 Del Method FiO2 03/06/23 08:19 97.0 F L 112 H 18 117/63 100 03/06/23 06:00 106 H 03/06/23 05:10 118 H 03/06/23 05:08 96.9 F L 118 H 20 114/75 99 03/06/23 04:00 Room Air 03/06/23 04:00 118 H 03/06/23 02:00 122 H 03/05/23 23:00 98 Room Air 21 03/06/23 00:00 111 H 03/06/23 00:00 Room Air 03/05/23 23:28 96.7 F L 106 H 20 119/75 99 03/05/23 22:00 123 H 03/05/23 20:00 125 H 03/05/23 21:49 124 H 03/05/23 20:10 Room Air 03/05/23 20:10 97.4 F L 101 H 18 134/59 L 97 03/05/23 18:00 113 H 03/05/23 16:00 97 03/05/23 16:00 92 Room Air 21 03/05/23 16:00 99.1 F 97 19 130/81 92 03/05/23 14:00 123
[2023-03-06] MEDS: PANTOPRAZOLE 40 MG TABLET PO (10:16)
[2023-03-06] MEDS: FUROSEMIDE 40 MG TABLET PO (10:16)
--- NOTE | 2023-03-06 10:26 | PM.PNCARD ---
Progress Note: A&P Assessment and Plan (1) Atrial fibrillation: Code(s): I48.91 - Unspecified atrial fibrillation Status: Acute Assessment and Plan: Now with rapid ventricular response. 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 Will be difficult to treat his tachycardia without having to protection of the pacemaker to prevent bradycardia and syncope. This was discussed this with the patient and family members at the bedside yesterday. Low-dose metoprolol has been started and is being tolerated, no bradycardia or pauses on telemetry. HR generally in the 120's - 130's today. Will increase metoprolol to 37.5mg q8h. (2) Chronic anticoagulation: Code(s): Z79.01 - intermediate (current) use of anticoagulants Status: Acute Assessment and Plan: Continue Xarelto (3) Bradycardia: Code(s): R00.1 - Bradycardia, unspecified Status: Resolved Assessment and Plan: Now resolved. As above, tolerating metoprolol with no bradycardia. Subjective Date/time seen: 03/06/23 10:26 Interval history: Cardiology follow up for bradycardia He was extubated and is breathing comfortably on room air. Denies any chest pain or palpitations. He remains in atrial fibrillation with rate generally controlled around 100-110. Date of service 03/06/2023: Continues to feel well. No palpitations, shortness of breath, chest pain, syncope. Review of Systems Review of Systems: All systems reviewed & are unremarkable except as noted in HPI and below Exam Const: General: comfortable, no acute distress, alert and awake Orientation/consciousness: patient oriented x3 Other: Intubated elderly man HENMT: Head: normal to inspection Mouth: Yes moist mucous membranes Other: OETT in place Eyes: General: appearance normal, both eyes and all related structures Sclera: sclerae normal Pupils: Equal, round and reactive pupils present Neck: Neck: normal visual inspection, supple and no JVD Carotids: normal carotid upstroke Resp: Effort & Inspection: normal respiratory effort Auscultation: clear to auscultation bilaterally, no crackles, no rales and no rhonchi Other: Cardio: Rate: regular rate and tachycardic Rhythm: regular rhythm and abnormal rhythm irregularly irregular GI: Auscultation: normal bowel sounds Skin: General skin exam: normal color Neuro: General: patient oriented x3 Cranial nerves: Yes Equal, round and reactive pupils present Other: Sedated on ventilator Extrem: General: normal to inspection Psych: Appearance: grossly normal Mental Status: mental status grossly normal Objective Data Vital Signs Vital Signs: Vital Signs - 24 hr 03/05/23 10:54 03/05/23 12:00 03/05/23 13:07 Temperature 37.2 C Pulse Rate 125 H Pulse Rate [With Activity During Therapy Session] 138 H Respiratory Rate 16 Blood Pressure 123/66 Pulse Oximetry 93 93 Oxygen Delivery Room Air Room Air Fraction of Inspired Oxygen 03/05/23 13:43 03/05/23 12:00 03/05/23 12:00 Temperature Pulse Rate 124 H 125 H Pulse Rate [With Activity During Therapy Session] Respiratory Rate Blood Pressure Pulse Oximetry 93 Oxygen Delivery Room Air Fraction of Inspired Oxygen 03/05/23 14:00 03/05/23 16:00 03/05/23 16:00 Temperature 37.3 C Pulse Rate 123 H 97 Pulse Rate [With Activity During Therapy Session] Respiratory Rate 19 Blood Pressure 130/81 Pulse Oximetry 92 92 Oxygen Delivery Room Air Fraction of Inspired Oxygen 03/05/23 16:00 03/05/23 18:00 03/05/23 20:10 Temperature 36.3 C L Pulse Rate 97 113 H 101 H Pulse Rate [With Activity During Therapy Session] Respiratory Rate 18 Blood Pressure 134/59 L Pulse Oximetry 97 Oxygen Delivery Fraction of Inspired Oxygen 03/05/23 20:10 03/05/23 21:49 03/05/23 20:00 Temperature Pulse Rate 124 H 125 H Pulse Rate [With Activity During T
[2023-03-06] MEDS: METOPROLOL TARTRATE 12.5 MG TABLET 37.5 MG PO ×2 (14:21→22:02)
--- NOTE | 2023-03-06 14:39 | PM.IMPN ---
Progress Note: A&P Assessment and Plan (1) Acute respiratory failure: Code(s): J96.00 - Acute respiratory failure, unspecified whether with hypoxia or hypercapnia Status: Acute Assessment and Plan: Patient brought in by EMS for syncopal episode. He developed respiratory distress in the ED requiring intubation on 03/01. Acute Respiratory failure secondary to cardiogenic shock, bradycardia and pulmonary edema. He had internal temporary PM placed and home metoprolol and diltiazem stopped. HR better and no longer requiring pacer and this was removed 03/03. Tolerating Lasix. Extubated 03/04. Weaned to room air now. Chest x-ray this morning is clear. Discussed with fisher lobster. (2) Bradycardia: Code(s): R00.1 - Bradycardia, unspecified Status: Resolved Assessment and Plan: Patient presented with atrial fibrillation with bradycardic response.? Home meds include extended release diltiazem and metoprolol. 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 Atropine given in the field with good response but then worsened requiring temporary transvenous PM placement 03/01 Patient in AFib/Flutter. HR improved and no longer requiring pacemaker which was remove 03/03. Metoprolol added 03/03 and advanced. Continue to advance medications to control rate. On Heparin drip which was changed to Xarelto. (3) CHF (congestive heart failure): Code(s): I50.9 - Heart failure, unspecified Status: Acute Assessment and Plan: Patient presents with acute on chronic systolic congestive heart failure. Per notes from outside hospital showing [facility] Echo in January showing EF 30-35% with left atrial appendage thrombus. Echo here showing 4-chamber dilation with moderate LV and RV systolic dysfunction, EF30-35% and indeterminate diast fxn Lasix intermittent and now scheduled. Renal function tolerating this. CXR clear but with mild pedal edema No obvious thrombus seen by echo but does not exclude this. Changed to Xarelto. Change Lasix to oral route (family state the patietn was recently started on scheduled Lasix) Monitor renal function closely. (4) Shock: Code(s): R57.9 - Shock, unspecified Status: Acute Assessment and Plan: Patient presented with shock felt related to cardiogenic shock from bradycardia and CHF. He was of dopamine but weaned off quickly Blood pressures improved with improvement of bradycardia Continue to monitor (5) Thrombus of left atrial appendage: Code(s): I51.3 - Intracardiac thrombosis, not elsewhere classified Status: Acute Assessment and Plan: [facility] Echo in January showing EF 30-35% with left atrial appendage thrombus done at [facility] in [place].?Echo here as mentioned above. He was discharged on Xarelto. Xarelto held and he was started on heparin infusion. More stable. Changed back to Xarelto Follow (6) Atrial fibrillation: Code(s): I48.91 - Unspecified atrial fibrillation Status: Acute Assessment and Plan: As above. (7) Acute on chronic renal failure: Code(s): N17.9 - Acute kidney failure, unspecified; N18.9 - Chronic kidney disease, unspecified Status: Acute Assessment and Plan: Patient's baseline creatinine is 1.7 noted by old records. Cr elevated on admission and climbed to 3.0 due to shock, CHF, bradycardia. Renal US showing mild bilateral renal atrophy.? TCK normal. Ashly 16, UCr 240. Nephrology consulted Good UOP of 2900mL. Cr better at 1.5 Follow urine output, electrolytes and renal function (8) Hyperkalemia: Code(s): E87.5 - Hyperkalemia Status: Acute Assessment and Plan: Hyperkalemia secondary to medications, shock, DENISHA/CKD and metabolic acidosis.? Potassium was 6.2 and was treated appropriately. May have contributed to his bradycardia. Jenna
[2023-03-06] MEDS: RIVAROXABAN 15 MG TABLET PO (18:22)
--- NOTE | 2023-03-06 18:35 | PDONCCN ---
HPI - Date of Consult Date/Time: 03/06/23 18:35 Requesting Physician: Drake Dennis MD Primary Care Provider: Lakhwinder Watts, - Consult Narrative Reason for consult: Pancytopenia Narrative: Wes Greene is a 87 year old male with history of chronic atrial fibrillation, GERD and hypertension brought into the hospital by EMS for syncopal episode. According to the he was having lower abdominal pain without any melena hematochezia. On arrival to the ER he was found to be hypotensive with bradycardia. Patient was taken to the pathology laboratory director for temporary pacemaker placement. Patient was subsequently admitted to ICU. Patient was subsequently intubated due to respiratory distress. His WBC was elevated at 11.5 and hemoglobin was 8.2. Platelet count was 315673 which subsequently dropped to 74,000. Creatinine was elevated at 2.7. Echo showed EF of 30-35% with left atrial appendage thrombus. He was already on anticoagulation therapy for AFib. He was started on Xarelto. Patient denies any history of bone marrow disorder but the chart review showed there is a possibility of myeloproliferative disorder and use of hydroxyurea in the past. Patient is now feeling better. CBC showed low platelet and hemoglobin but stable. Review of Systems - Review of Systems All systems reviewed & are unremarkable except as noted in [facility] and [facility] Medical History: Medical History (Last Updated 03/05/23 @ 14:16 by Justino Atkins MD) Atrial fibrillation CAD (coronary artery disease) CHF (congestive heart failure) CKD (chronic kidney disease) GERD (gastroesophageal reflux disease) Hypertension Myeloproliferative disorder Surgical History: Surgical History (Last Reviewed 03/02/23 @ 10:37 by Pedrito Nguyen MD) Surgical history unknown Family History: Family History (Last Reviewed 03/02/23 @ 10:37 by Pedrito Nguyen MD) Other Family history unknown - Social History Social History: Social History (Last Reviewed 03/02/23 @ 10:37 by Pedrito Nguyen MD) Alcohol Use: Alcohol intake: current Drinks per week: 1 Substance Use: Substance use: never Substance use type: does not use Others: Spiritual care concerns: No Smoking Status: Smoking status: Current every day smoker Tobacco type: pipe Exam - Vital Signs Vital Signs - 24 hr 03/05/23 20:10 03/05/23 20:10 03/05/23 21:49 Temperature 36.3 C L Pulse Rate 101 H 124 H Respiratory Rate 18 Blood Pressure 134/59 L Pulse Oximetry 97 Oxygen Delivery Room Air Fraction of Inspired Oxygen 03/05/23 20:00 03/05/23 22:00 03/05/23 23:28 Temperature 35.9 C L Pulse Rate 125 H 123 H 106 H Respiratory Rate 20 Blood Pressure 119/75 Pulse Oximetry 99 Oxygen Delivery Fraction of Inspired Oxygen 03/06/23 00:00 03/06/23 00:00 03/05/23 23:00 Temperature Pulse Rate 111 H Respiratory Rate Blood Pressure Pulse Oximetry 98 Oxygen Delivery Room Air Room Air Fraction of Inspired Oxygen 21 03/06/23 02:00 03/06/23 04:00 03/06/23 04:00 Temperature Pulse Rate 122 H 118 H Respiratory Rate Blood Pressure Pulse Oximetry Oxygen Delivery Room Air Fraction of Inspired Oxygen 03/06/23 05:08 03/06/23 05:10 03/06/23 06:00 Temperature 36.1 C L Pulse Rate 118 H 118 H 106 H Respiratory Rate 20 Blood Pressure 114/75 Pulse Oximetry 99 Oxygen Delivery Fraction of Inspired Oxygen 03/06/23 08:19 03/06/23 11:58 03/06/23 14:21 Temperature 36.1 C L 35.8 C L Pulse Rate 112 H 115 H 127 H Respiratory Rate 18 18 Blood Pressure 117/63 110/69 Pulse Oximetry 100 100 Oxygen Delivery Fraction of Inspired Oxygen 03/06/23 08:00 03/06/23 10:00 03/06/23 12:00 Temperature Pulse Rate 121 H 122 H 122 H Respiratory Rate Blood Pressure Pulse Oximetry Oxygen Delivery Fraction of Inspired Oxygen 03/06/23 16:35 Tem
[2023-03-06] MEDS: MELATONIN 5 MG TABLET PO (22:02)
[2023-03-07] VITALS (16 sets, daily range): BP systolic 107–125; BP diastolic 55–71; PULSE 70–127; RESP 18–22; TEMP 35.8–36.6; O2SAT 99–100
[2023-03-07 05:17] LABS: Hematocrit 23.5 % (42.0-52.0); Hemoglobin 7.5 g/dL (14.0-18.0); Immature Platelet Fraction Pct 3.5 % (0.9-11.2); Mean Corpuscular HGB Conc 31.9 g/dl (32-36); Mean Corpuscular Hemoglobin 33.9 pg (26-34); Mean Corpuscular Volume 106.3 fl (80-100); Platelet Count Result 78 k/mm3 (150-375); Red Blood Count 2.21 M/mm3 (4.6-6.20); Red Cell Distribution Width 19.5 % (11.5-14.5)
[2023-03-07 05:26] LABS: Alanine Aminotransferase 28 U/L (6-50); Albumin Level 3.5 g/dL (3.5-5.1); Alkaline Phosphatase 65 U/L (38-126); Anion Gap 3 mmol/L (8-16); Aspartate Amino Transferase 26 U/L (17-59); Bilirubin,Total 1.4 mg/dL (0.2-1.3); Blood Urea Nitrogen 30 mg/dL (9-20); Calcium 8.5 mg/dL (8.4-10.2); Carbon Dioxide 34 mmol/L (22-30); Chloride 99 mmol/L (98-107); Estimated CRCL calculation 32 ml/min; Estimated Glomerular Filt Rate 44; Glucose 107 mg/dL (65-110); Magnesium 2.1 mg/dL (1.6-2.3); Potassium 3.6 mmol/L (3.4-5.0); Sodium 136 mmol/L (137-145)
[2023-03-07] MEDS: METOPROLOL TARTRATE 12.5 MG TABLET 37.5 MG PO (05:38)
--- NOTE | 2023-03-07 08:30 | PM.IMPN ---
Progress Note: A&P Assessment and Plan (1) Acute respiratory failure: Code(s): J96.00 - Acute respiratory failure, unspecified whether with hypoxia or hypercapnia Status: Acute Assessment and Plan: Patient brought in by EMS for syncopal episode. He developed respiratory distress in the ED requiring intubation on 03/01. Acute Respiratory failure secondary to cardiogenic shock, bradycardia and pulmonary edema. He had internal temporary PM placed and home metoprolol and diltiazem stopped. HR better and no longer requiring pacer and this was removed 03/03. Tolerating Lasix. Extubated 03/04. Weaned to room air now. Chest x-ray 03/06 clear Discussed with sales consultant insurance. Resolved (2) Bradycardia: Code(s): R00.1 - Bradycardia, unspecified Status: Resolved Assessment and Plan: Patient presented with atrial fibrillation with bradycardic response.? Home meds include extended release diltiazem and metoprolol. 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 Atropine given in the field with good response but then worsened requiring temporary transvenous PM placement 03/01 Patient in AFib/Flutter. HR improved and no longer requiring pacemaker which was remove 03/03. Metoprolol added 03/03 and advanced. Continue to advance medications to control rate. On Heparin drip which was changed to Xarelto. Resolved, now tachycardic (3) CHF (congestive heart failure): Code(s): I50.9 - Heart failure, unspecified Status: Acute Assessment and Plan: Patient presents with acute on chronic systolic congestive heart failure. Per notes from outside hospital showing [facility] Echo in January showing EF 30-35% with left atrial appendage thrombus. Echo here showing 4-chamber dilation with moderate LV and RV systolic dysfunction, EF30-35% and indeterminate diast fxn Lasix intermittent and now scheduled. Renal function tolerating this. CXR clear but with mild pedal edema No obvious thrombus seen by echo but does not exclude this. Changed to Xarelto. Change Lasix to oral route (family state the patient was recently started on scheduled Lasix) Monitor renal function closely. (4) Shock: Code(s): R57.9 - Shock, unspecified Status: Acute Assessment and Plan: Patient presented with shock felt related to cardiogenic shock from bradycardia and CHF. He was of dopamine but weaned off quickly Blood pressures improved with improvement of bradycardia Continue to monitor (5) Thrombus of left atrial appendage: Code(s): I51.3 - Intracardiac thrombosis, not elsewhere classified Status: Acute Assessment and Plan: [facility] Echo in January showing EF 30-35% with left atrial appendage thrombus done at [facility] in [place].?Echo here as mentioned above. He was discharged on Xarelto. Xarelto held and he was started on heparin infusion. More stable. Changed back to Xarelto Follow (6) Atrial fibrillation: Code(s): I48.91 - Unspecified atrial fibrillation Status: Acute Assessment and Plan: As above. (7) Acute on chronic renal failure: Code(s): N17.9 - Acute kidney failure, unspecified; N18.9 - Chronic kidney disease, unspecified Status: Acute Assessment and Plan: Patient's baseline creatinine is 1.7 noted by old records. Cr elevated on admission and climbed to 3.0 due to shock, CHF, bradycardia. Renal US showing mild bilateral renal atrophy.? TCK normal. Ashly 16, UCr 240. Nephrology consulted Good UOP of 2900mL. Cr better at 1.5, unchanged 03/07 Follow urine output, electrolytes and renal function (8) Hyperkalemia: Code(s): E87.5 - Hyperkalemia Status: Acute Assessment and Plan: Hyperkalemia secondary to medications, shock, DENISHA/CKD and metabolic acidosis.? Potassium was 6.2 and was treated appropriately. M
[2023-03-07] MEDS: EPOETIN ALFA-EPBX 10,000 UNITS/ML VIAL 10000 UNITS SUB-Q (11:05)
[2023-03-07] MEDS: FUROSEMIDE 40 MG TABLET PO (11:06)
[2023-03-07] MEDS: TAMSULOSIN HCL 0.4 MG CAPSULE PO (11:06)
[2023-03-07] MEDS: PANTOPRAZOLE 40 MG TABLET PO (11:06)
[2023-03-07] MEDS: HYDROXYUREA (*CHEMO) 500 MG CAPSULE PO (11:06)
--- NOTE | 2023-03-07 11:43 | PM.PNCARD ---
Progress Note: A&P Assessment and Plan (1) Atrial fibrillation: Code(s): I48.91 - Unspecified atrial fibrillation Status: Acute Assessment and Plan: Now with rapid ventricular response. 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 Will be difficult to treat his tachycardia without having to protection of the pacemaker to prevent bradycardia and syncope. This was discussed this with the patient and family members at the bedside. Will increase his metoprolol to 100 mg p.o. b.i.d. his heart rate is typically elevated. While in atrial flutter, heart rate is consistently in the 120s. He does deteriorate atrial fibrillation at times but heart rate is better controlled while in AFib (2) Chronic anticoagulation: Code(s): Z79.01 - roasterman (current) use of anticoagulants Status: Acute Assessment and Plan: Continue Xarelto (3) Bradycardia: Code(s): R00.1 - Bradycardia, unspecified Status: Resolved Assessment and Plan: Now resolved. As above, tolerating metoprolol with no bradycardia. Subjective Date/time seen: 03/07/23 11:43 Interval history: Cardiology follow up for bradycardia He was extubated and is breathing comfortably on room air. Denies any chest pain or palpitations. He remains in atrial fibrillation with rate generally controlled around 100-110. Date of service 03/07/2023: Continues to feel well. Anxious to go home. Recovering nicely at this point. No palpitations, shortness of breath, chest pain, syncope. Review of Systems Review of Systems: All systems reviewed & are unremarkable except as noted in HPI and below Cardiovascular: Cardiovascular: Denies chest pain Respiratory: Respiratory: Denies hemoptysis and Denies dyspnea on exertion Gastrointestinal: Gastrointestinal: Denies hematochezia Exam Const: General: comfortable, no acute distress, alert and awake Orientation/consciousness: patient oriented x3 HENMT: Head: normal to inspection Mouth: Yes moist mucous membranes Eyes: General: appearance normal, both eyes and all related structures Sclera: sclerae normal Neck: Neck: normal visual inspection, supple and no JVD Carotids: normal carotid upstroke Resp: Effort & Inspection: normal respiratory effort Auscultation: clear to auscultation bilaterally, no crackles, no rales and no rhonchi Other: Cardio: Rate: regular rate and tachycardic Rhythm: abnormal rhythm irregularly irregular GI: Auscultation: normal bowel sounds Skin: General skin exam: normal color Neuro: General: patient oriented x3 Speech: normal speech Other: Sedated on ventilator Extrem: General: normal to inspection Psych: Appearance: grossly normal Mental Status: mental status grossly normal Objective Data Vital Signs Vital Signs: Vital Signs - 24 hr 03/06/23 11:58 03/06/23 14:21 03/06/23 12:00 Temperature 35.8 C L Pulse Rate 115 H 127 H 122 H Respiratory Rate 18 Blood Pressure 110/69 Pulse Oximetry 100 Oxygen Delivery 03/06/23 16:35 03/06/23 14:00 03/06/23 16:00 Temperature 35.8 C L Pulse Rate 101 H 126 H 123 H Respiratory Rate 18 Blood Pressure 104/65 Pulse Oximetry 100 Oxygen Delivery 03/06/23 18:00 03/06/23 20:00 03/06/23 22:02 Temperature 36.3 C L Pulse Rate 118 H 110 H 127 H Respiratory Rate 18 Blood Pressure 120/70 Pulse Oximetry 100 Oxygen Delivery 03/06/23 20:00 03/06/23 22:00 03/06/23 20:00 Temperature Pulse Rate 119 H 127 H Respiratory Rate Blood Pressure Pulse Oximetry Oxygen Delivery Room Air 03/06/23 23:34 03/07/23 00:00 03/07/23 00:00 Temperature 36.4 C Pulse Rate 105 H 89 Respiratory Rate 18 Blood Pressure 101/52 L Pulse Oximetry 97 Oxygen Delivery Room Air 03/07/23 04:00 03/07/23 02:00 03/07/23 04:00 Temperature 36.6 C Pulse Rate 102 H 96 121 H Respiratory Rate 18 Blood Pressure 107/59 L Pulse Oxi
[2023-03-07] MEDS: FERROUS SULFATE 325 MG TABLET DR BY MOUTH (16:03)
[2023-03-07] MEDS: guaiFENesin/DEXTROMETHORPHAN 10 ML UDC 5 ML PO (16:03)
[2023-03-07] MEDS: RIVAROXABAN 15 MG TABLET PO (16:03)
[2023-03-07] MEDS: METOPROLOL TARTRATE 50 MG TAB 100 MG PO (20:49)
[2023-03-08] VITALS (17 sets, daily range): BP systolic 101–120; BP diastolic 62–78; PULSE 106–124; RESP 16–20; TEMP 35.8–36.5; O2SAT 98–100
[2023-03-08 05:58] LABS: Hematocrit 21.6 % (42.0-52.0); Immature Platelet Fraction Pct 3.6 % (0.9-11.2); Mean Corpuscular HGB Conc 31.5 g/dl (32-36); Mean Corpuscular Hemoglobin 33.3 pg (26-34); Mean Corpuscular Volume 105.9 fl (80-100); Mean Platelet Volume 9.2 fl (7.4-10.4); Platelet Count Result 82 k/mm3 (150-375); Red Blood Count 2.04 M/mm3 (4.6-6.20); Red Cell Distribution Width 19.1 % (11.5-14.5)
[2023-03-08 06:32] LABS: Alanine Aminotransferase 25 U/L (6-50); Albumin Level 3.3 g/dL (3.5-5.1); Alkaline Phosphatase 58 U/L (38-126); Anion Gap 4 mmol/L (8-16); Aspartate Amino Transferase 23 U/L (17-59); Bilirubin,Total 1.4 mg/dL (0.2-1.3); Blood Urea Nitrogen 28 mg/dL (9-20); Calcium 8.2 mg/dL (8.4-10.2); Carbon Dioxide 31 mmol/L (22-30); Chloride 100 mmol/L (98-107); Estimated CRCL calculation 30 ml/min; Estimated Glomerular Filt Rate 41; Glucose 99 mg/dL (65-110); Potassium 3.8 mmol/L (3.4-5.0); Sodium 135 mmol/L (137-145)
[2023-03-08 06:42] LABS: Hemoglobin 6.8 g/dL (14.0-18.0)
[2023-03-08 06:55] LABS: Band Neutrophils Percent 5 % (0-6); Basophils Percent Manual 2 % (0-1); Eosinophils Absolute Manual 0.05 K/mm3 (0.02-0.5); Eosinophils Percent Manual 1 % (0-4); Metamyelocytes Percent 2 %; Monocytes Percent Manual 4 % (3-9); Neutrophils Absolute Manual 4.35 K/mm3 (1.3-6.7); Neutrophils Percent Manual 82 % (46-73); Total Cells Counted 100
[2023-03-08 06:56] LABS: Anisocytosis 3+ (NORMAL); Large Platelets Present; Platelet Estimate Decreased (Adequate); Tear Drop Cells 1+ (NORMAL)
[2023-03-08 06:57] LABS: Hypochromasia 1+ (NORMAL); Ovalocytes 1+ (NORMAL); Schistocytes None Seen (NORMAL)
[2023-03-08] MEDS: TAMSULOSIN HCL 0.4 MG CAPSULE PO (09:14)
[2023-03-08] MEDS: FUROSEMIDE 40 MG TABLET PO (09:15)
[2023-03-08] MEDS: FERROUS SULFATE 325 MG TABLET DR BY MOUTH (09:15)
[2023-03-08] MEDS: METOPROLOL TARTRATE 50 MG TAB 100 MG PO (09:15)
[2023-03-08] MEDS: PANTOPRAZOLE 40 MG TABLET PO (09:15)
[2023-03-08] MEDS: HYDROXYUREA (*CHEMO) 500 MG CAPSULE PO (09:21)
--- NOTE | 2023-03-08 10:28 | PCNWS ---
Weekly nutritional screen. Patient is tolerating current Heart healthy diet with adequate intake at 50-100%. No nutritional needs at this time.
--- NOTE | 2023-03-08 11:14 | PM.IMPN ---
Progress Note: A&P Assessment and Plan (1) Acute respiratory failure: Code(s): J96.00 - Acute respiratory failure, unspecified whether with hypoxia or hypercapnia Status: Acute Assessment and Plan: Patient brought in by EMS for syncopal episode. He developed respiratory distress in the ED requiring intubation on 03/01. Acute Respiratory failure secondary to cardiogenic shock, bradycardia and pulmonary edema. He had internal temporary PM placed and home metoprolol and diltiazem stopped. HR better and no longer requiring pacer and this was removed 03/03. Tolerating Lasix. Extubated 03/04. Weaned to room air now. Chest x-ray 03/06 clear Discussed with bundle tier. Resolved (2) Bradycardia: Code(s): R00.1 - Bradycardia, unspecified Status: Resolved Assessment and Plan: Patient presented with atrial fibrillation with bradycardic response.? Home meds include extended release diltiazem and metoprolol. 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 Atropine given in the field with good response but then worsened requiring temporary transvenous PM placement 03/01 Patient in AFib/Flutter. HR improved and no longer requiring pacemaker which was remove 03/03. Metoprolol added 03/03 and advanced. Continue to advance medications to control rate. On Heparin drip which was changed to Xarelto. Resolved, now tachycardic, appreciate cardiology consultation, continuing to manage medications, likely need pacemaker, refer to EP at discharge (3) CHF (congestive heart failure): Code(s): I50.9 - Heart failure, unspecified Status: Acute Assessment and Plan: Patient presents with acute on chronic systolic congestive heart failure. Per notes from outside hospital showing [facility] Echo in January showing EF 30-35% with left atrial appendage thrombus. Echo here showing 4-chamber dilation with moderate LV and RV systolic dysfunction, EF30-35% and indeterminate diast fxn Lasix intermittent and now scheduled. Renal function tolerating this. CXR clear but with mild pedal edema No obvious thrombus seen by echo but does not exclude this. Changed to Xarelto. Change Lasix to oral route (family state the patient was recently started on scheduled Lasix) Monitor renal function closely. (4) Shock: Code(s): R57.9 - Shock, unspecified Status: Acute Assessment and Plan: Patient presented with shock felt related to cardiogenic shock from bradycardia and CHF. He was of dopamine but weaned off quickly Blood pressures improved with improvement of bradycardia Continue to monitor (5) Thrombus of left atrial appendage: Code(s): I51.3 - Intracardiac thrombosis, not elsewhere classified Status: Acute Assessment and Plan: [facility] Echo in January showing EF 30-35% with left atrial appendage thrombus done at [facility] in [place].?Echo here as mentioned above. He was discharged on Xarelto. Xarelto held and he was started on heparin infusion. More stable. Changed back to Xarelto Follow (6) Atrial fibrillation: Code(s): I48.91 - Unspecified atrial fibrillation Status: Acute Assessment and Plan: As above. (7) Acute on chronic renal failure: Code(s): N17.9 - Acute kidney failure, unspecified; N18.9 - Chronic kidney disease, unspecified Status: Acute Assessment and Plan: Patient's baseline creatinine is 1.7 noted by old records. Cr elevated on admission and climbed to 3.0 due to shock, CHF, bradycardia. Renal US showing mild bilateral renal atrophy.? TCK normal. Ashly 16, UCr 240. Nephrology consulted Good UOP of 2900mL. Cr better at 1.5, unchanged 03/07 Follow urine output, electrolytes and renal function (8) Hyperkalemia: Code(s): E87.5 - Hyperkalemia Status: Acute Assessment and Plan: Hyperkalemi
--- NOTE | 2023-03-08 11:24 | PM.PNCARD ---
Progress Note: A&P Assessment and Plan (1) Atrial fibrillation: Code(s): I48.91 - Unspecified atrial fibrillation Status: Acute Assessment and Plan: Now with rapid ventricular response. 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 Will be difficult to treat his tachycardia without having to protection of the pacemaker to prevent bradycardia and syncope. This was discussed this with the patient and family members at the bedside. Discussion with patient, , and daughter at the bedside regarding EP follow up as he will likely need ICD as well because of his low EF. He would like to follow up with Dr. Parkinson. Will send referral. Will increase his metoprolol to 125 mg p.o. b.i.d. his heart rate is typically elevated. While in atrial flutter, heart rate is consistently in the 120s. 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 As above, tolerating metoprolol with no bradycardia. Subjective Date/time seen: 03/08/23 11:24 Interval history: Cardiology follow up for bradycardia He was extubated and is breathing comfortably on room air. Denies any chest pain or palpitations. He remains in atrial fibrillation with rate generally controlled around 100-110. Date of service 03/07/2023: Continues to feel well. Anxious to go home. Recovering nicely at this point. No palpitations, shortness of breath, chest pain, syncope. Date of service 03/08/2023: Feels well. No palpitations, chest pain, shortness of breath. No syncope or pre-syncope. Review of Systems Review of Systems: All systems reviewed & are unremarkable except as noted in HPI and below ROS unobtainable: Yes unobtainable due to endotracheal tube Cardiovascular: Cardiovascular: Denies chest pain and Denies dyspnea on exertion Respiratory: Respiratory: Denies hemoptysis and Denies dyspnea on exertion Gastrointestinal: Gastrointestinal: Denies hematochezia Exam Const: General: comfortable, no acute distress, alert and awake Orientation/consciousness: patient oriented x3 Other: Intubated elderly man HENMT: Head: normal to inspection Mouth: Yes moist mucous membranes Other: OETT in place Eyes: General: appearance normal, both eyes and all related structures Sclera: sclerae normal Pupils: Equal, round and reactive pupils present Neck: Neck: normal visual inspection, supple and no JVD Carotids: normal carotid upstroke Resp: Effort & Inspection: normal respiratory effort Auscultation: clear to auscultation bilaterally, no crackles, no rales and no rhonchi Other: Cardio: Rate: regular rate and tachycardic Rhythm: regular rhythm and abnormal rhythm irregularly irregular GI: Auscultation: normal bowel sounds Skin: General skin exam: normal color Neuro: General: patient oriented x3 Cranial nerves: Yes Equal, round and reactive pupils present Speech: normal speech Other: Sedated on ventilator Extrem: General: normal to inspection Psych: Appearance: grossly normal Mental Status: mental status grossly normal Objective Data Vital Signs Vital Signs: Vital Signs - 24 hr 03/07/23 11:39 03/07/23 12:00 03/07/23 14:00 Temperature 35.8 C L Pulse Rate 110 H 105 H 126 H Respiratory Rate 20 Blood Pressure 125/71 Pulse Oximetry 100 Oxygen Delivery 03/07/23 16:00 03/07/23 18:00 03/07/23 16:00 Temperature 36.1 C L Pulse Rate 108 H 127 H 100 Respiratory Rate 20 Blood Pressure 108/66 Pulse Oximetry 99 Oxygen Delivery 03/07/23 20:00 03/07/23 20:49 03/07/23 20:00 Temperature 36.4 C L Pulse Rate 111 H 123 H 114 H Respiratory Rate 20 Blood Pressure 109/55 L Pulse Oximetry 100 Oxygen Delivery 03/07/23 20:00
[2023-03-08 11:51] LABS: Hematocrit 25.6 % (42.0-52.0); Hemoglobin 7.7 g/dL (14.0-18.0)
--- NOTE | 2023-03-08 12:28 | PC.NURSE ---
Notified Dr. Dominguez of the repeat H&H results of .01/09.6. RN had not given blood yet at the time of the redraw. New order to hold the blood transfusion at this moment. Blood bank notified.
[2023-03-08] MEDS: RIVAROXABAN 15 MG TABLET PO (17:37)
[2023-03-08] MEDS: MELATONIN 5 MG TABLET PO (20:44)
[2023-03-08] MEDS: METOPROLOL TARTRATE 25 MG TABLET 125 MG PO (20:44)
[2023-03-09] VITALS (9 sets, daily range): BP systolic 105–116; BP diastolic 66–70; PULSE 82–123; RESP 18–20; TEMP 35.7–36.6; O2SAT 97–100
[2023-03-09 05:15] LABS: Basophils Absolute Auto 0.1 K/mm3 (0.0-0.1); Basophils Percent Auto 0.9 % (0.2-1.2); Eosinophils Absolute Auto 0.1 K/mm3 (0-0.3); Eosinophils Percent Auto 1.7 % (0-4.4); Immature Granulocyte Absolute 0.34 K/mm3 (0.00-0.031); Immature Granulocyte Percent A 6.4 % (0-0.5); Immature Platelet Fraction Pct 3.8 % (0.9-11.2); Lymphocytes Absolute Auto 0.23 K/mm3 (0.9-3.2); Lymphocytes Percent Auto 4.3 % (18.3-44.2); Mean Corpuscular HGB Conc 31.8 g/dl (32-36); Mean Corpuscular Volume 106.8 fl (80-100); Mean Platelet Volume 9.1 fl (7.4-10.4); Monocytes Absolute Auto 0.4 K/mm3 (0.1-0.6); Monocytes Percent Auto 8.3 % (2.6-8.5); Neutrophils Absolute Auto 4.1 K/mm3 (1.3-6.7); Neutrophils Percent Auto 78.4 % (45.5-73.1); Nucleated Red Blood Cells Absolute Auto 0.1 K/mm3 (0.0-0.012); Nucleated Red Blood Cells Perc 2.3 % (0.0-0.2); Platelet Count Result 95 k/mm3 (150-375); Red Blood Count 2.06 M/mm3 (4.6-6.20); Red Cell Distribution Width 19.1 % (11.5-14.5); White Blood Count 5.3 K/mm3 (4.5-10.0)
[2023-03-09 05:30] LABS: Alanine Aminotransferase 23 U/L (6-50); Albumin Level 3.4 g/dL (3.5-5.1); Alkaline Phosphatase 56 U/L (38-126); Anion Gap 5 mmol/L (8-16); Aspartate Amino Transferase 23 U/L (17-59); Bilirubin,Total 1.4 mg/dL (0.2-1.3); Blood Urea Nitrogen 28 mg/dL (9-20); Calcium 8.3 mg/dL (8.4-10.2); Carbon Dioxide 29 mmol/L (22-30); Chloride 101 mmol/L (98-107); Estimated CRCL calculation 30 ml/min; Estimated Glomerular Filt Rate 41; Glucose 97 mg/dL (65-110); Sodium 135 mmol/L (137-145)
[2023-03-09 05:43] LABS: Polychromasia 1+ (NORMAL)
[2023-03-09 05:44] LABS: Anisocytosis 2+ (NORMAL); Hypochromasia 1+ (NORMAL); Tear Drop Cells 2+ (NORMAL)
[2023-03-09 05:45] LABS: Schistocytes Rare (NORMAL)
[2023-03-09] MEDS: HYDROXYUREA (*CHEMO) 500 MG CAPSULE PO (09:04)
[2023-03-09] MEDS: PANTOPRAZOLE 40 MG TABLET PO (09:04)
[2023-03-09] MEDS: METOPROLOL TARTRATE 25 MG TABLET 125 MG PO (09:04)
[2023-03-09] MEDS: TAMSULOSIN HCL 0.4 MG CAPSULE PO (09:04)
[2023-03-09] MEDS: FUROSEMIDE 40 MG TABLET PO (09:05)
[2023-03-09] MEDS: FERROUS SULFATE 325 MG TABLET DR BY MOUTH (09:05)
[2023-03-09] MEDS: EPOETIN ALFA-EPBX 10,000 UNITS/ML VIAL 10000 UNITS SUB-Q (09:08)
--- NOTE | 2023-03-09 11:48 | PM.PNCARD ---
Progress Note: A&P Assessment and Plan (1) Atrial fibrillation: Code(s): I48.91 - Unspecified atrial fibrillation Status: Acute Assessment and Plan: Now with rapid ventricular response. 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 Will be difficult to treat his tachycardia without having to protection of the pacemaker to prevent bradycardia and syncope. This was discussed this with the patient and family members at the bedside. Discussion with patient, , and daughter at the bedside regarding EP follow up as he will likely need ICD as well because of his low EF. He would like to follow up with Dr. Parkinson. Will send referral. Continue metoprolol to 125 mg p.o. b.i.d. HR generally not elevating above 120, acceptable for discharge in this situation pending referral to EP for consideration for pacemaker implantation and aim to avoid bradycardia given presentation. 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 As above, tolerating metoprolol with no bradycardia. Subjective Date/time seen: 03/09/23 11:48 Interval history: Cardiology follow up for bradycardia He was extubated and is breathing comfortably on room air. Denies any chest pain or palpitations. He remains in atrial fibrillation with rate generally controlled around 100-110. Date of service 03/07/2023: Continues to feel well. Anxious to go home. Recovering nicely at this point. No palpitations, shortness of breath, chest pain, syncope. Date of service 03/08/2023: Feels well. No palpitations, chest pain, shortness of breath. No syncope or pre-syncope. Date of service 03/09/2023: Continues to feel well. No complaints. Wants to go home. Review of Systems Review of Systems: All systems reviewed & are unremarkable except as noted in HPI and below ROS unobtainable: Yes unobtainable due to endotracheal tube Cardiovascular: Cardiovascular: Denies chest pain and Denies dyspnea on exertion Respiratory: Respiratory: Denies hemoptysis and Denies dyspnea on exertion Gastrointestinal: Gastrointestinal: Denies hematochezia Exam Const: General: comfortable, no acute distress, alert and awake Orientation/consciousness: patient oriented x3 Other: Intubated elderly man HENMT: Head: normal to inspection Mouth: Yes moist mucous membranes Other: OETT in place Eyes: General: appearance normal, both eyes and all related structures Sclera: sclerae normal Pupils: Equal, round and reactive pupils present Neck: Neck: normal visual inspection, supple and no JVD Carotids: normal carotid upstroke Resp: Effort & Inspection: normal respiratory effort Auscultation: clear to auscultation bilaterally, no crackles, no rales and no rhonchi Other: Cardio: Rate: regular rate and tachycardic Rhythm: regular rhythm and abnormal rhythm irregularly irregular GI: Auscultation: normal bowel sounds Skin: General skin exam: normal color Neuro: General: patient oriented x3 Cranial nerves: Yes Equal, round and reactive pupils present Speech: normal speech Other: Sedated on ventilator Extrem: General: normal to inspection Psych: Appearance: grossly normal Mental Status: mental status grossly normal Objective Data Vital Signs Vital Signs: Vital Signs - 24 hr 03/08/23 12:00 03/08/23 12:00 03/08/23 16:00 Temperature 36.2 C L Pulse Rate 121 H 123 H Respiratory Rate 18 Blood Pressure 115/69 Pulse Oximetry 98 100 Oxygen Delivery Room Air 03/08/23 14:00 03/08/23 16:00 03/08/23 16:00 Temperature Pulse Rate 111 H 122 H Respiratory Rate Blood Pressure Pulse Oximetry 100 Oxygen Delivery Room Air 03/08/23 18:00 03/08/23 19:19
--- NOTE | 2023-03-09 13:11 | PM.DS ---
DS: Admitting Diagnosis Discharge Date 03/09/23 Admitting Diagnosis Shortness of breath DS: Discharge Diagnosis Discharge Diagnosis (1) Acute respiratory failure: Code(s): J96.00 - Acute respiratory failure, unspecified whether with hypoxia or hypercapnia Status: Acute Assessment and Plan: Patient brought in by EMS for syncopal episode. He developed respiratory distress in the ED requiring intubation on 03/01. Acute Respiratory failure secondary to cardiogenic shock, bradycardia and pulmonary edema. He had internal temporary PM placed and home metoprolol and diltiazem stopped. HR better and no longer requiring pacer and this was removed 03/03. Tolerating Lasix. Extubated 03/04. Weaned to room air now. Chest x-ray 03/06 clear Discussed with loft worker apprentice. Resolved (2) Bradycardia: Code(s): R00.1 - Bradycardia, unspecified Status: Resolved Assessment and Plan: Patient presented with atrial fibrillation with bradycardic response.? Home meds include extended release diltiazem and metoprolol. 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 Atropine given in the field with good response but then worsened requiring temporary transvenous PM placement 03/01 Patient in AFib/Flutter. HR improved and no longer requiring pacemaker which was remove 03/03. Metoprolol added 03/03 and advanced. Continue to advance medications to control rate. On Heparin drip which was changed to Xarelto. Resolved, now tachycardic, appreciate cardiology consultation, continuing to manage medications, likely need pacemaker, refer to EP at discharge (3) CHF (congestive heart failure): Code(s): I50.9 - Heart failure, unspecified Status: Acute Assessment and Plan: Patient presents with acute on chronic systolic congestive heart failure. Per notes from outside hospital showing [facility] Echo in January showing EF 30-35% with left atrial appendage thrombus. Echo here showing 4-chamber dilation with moderate LV and RV systolic dysfunction, EF30-35% and indeterminate diast fxn Lasix intermittent and now scheduled. Renal function tolerating this. CXR clear but with mild pedal edema No obvious thrombus seen by echo but does not exclude this. Changed to Xarelto. Change Lasix to oral route (family state the patient was recently started on scheduled Lasix) Monitor renal function closely. (4) Shock: Code(s): R57.9 - Shock, unspecified Status: Acute Assessment and Plan: Patient presented with shock felt related to cardiogenic shock from bradycardia and CHF. He was of dopamine but weaned off quickly Blood pressures improved with improvement of bradycardia Continue to monitor (5) Thrombus of left atrial appendage: Code(s): I51.3 - Intracardiac thrombosis, not elsewhere classified Status: Acute Assessment and Plan: [facility] Echo in January showing EF 30-35% with left atrial appendage thrombus done at [facility] in [place].?Echo here as mentioned above. He was discharged on Xarelto. Xarelto held and he was started on heparin infusion. More stable. Changed back to Xarelto Follow (6) Atrial fibrillation: Code(s): I48.91 - Unspecified atrial fibrillation Status: Acute Assessment and Plan: As above. (7) Acute on chronic renal failure: Code(s): N17.9 - Acute kidney failure, unspecified; N18.9 - Chronic kidney disease, unspecified Status: Acute Assessment and Plan: Patient's baseline creatinine is 1.7 noted by old records. Cr elevated on admission and climbed to 3.0 due to shock, CHF, bradycardia. Renal US showing mild bilateral renal atrophy.? TCK normal. Ashly 16, UCr 240. Nephrology consulted Good UOP of 2900mL. Cr better at 1.5, unchanged 03/07 Follow urine output, electrolytes and renal function (8) Hyperkalemia:
[2023-03-10 13:40] LABS: Heparin Induced Platelet Antib Negative (Negative)
== END 2023-03-09 14:51 | disposition home health service (06) | DRG 260 ==
LOC: ANHED 16:08 → ANHICU 16:23 → ANHIMU 03-05 20:11
PROVIDERS: Internal Medicine; Internal Medicine Hematology & Oncology; Admitting Provider Hospitalist; Emergency Provider Emergency Medicine; PCP Internal Medicine; Visit Provider Student in an Organized Health Care Education/Training Program
PROC: 02HK3JZ Insertion of Pacemaker Lead into Right Ventricle, Percutaneous Approach (ICD-10-PCS; CPT 33210; principal; 2023-03-01 16:20)
DX: R00.1 Bradycardia, unspecified (principal); I50.23 Acute on chronic systolic (congestive) heart failure; J96.00 Acute respiratory failure, unspecified whether with hypoxia or hypercapnia; R57.0 Cardiogenic shock; I13.0 Hypertensive heart and chronic kidney disease with heart failure and stage 1 through stage 4 chronic kidney disease, or unspecified chronic kidney disease; N17.9 Acute kidney failure, unspecified; N39.0 Urinary tract infection, site not specified; D47.1 Chronic myeloproliferative disease; E87.21 Acute metabolic acidosis; T50.995A Adverse effect of other drugs, medicaments and biological substances, initial encounter; I48.91 Unspecified atrial fibrillation; Z23 Encounter for immunization; I48.92 Unspecified atrial flutter; I95.9 Hypotension, unspecified; N18.32 Chronic kidney disease, stage 3b; I51.3 Intracardiac thrombosis, not elsewhere classified; E87.5 Hyperkalemia; K21.9 Gastro-esophageal reflux disease without esophagitis; I25.10 Atherosclerotic heart disease of native coronary artery without angina pectoris; D63.1 Anemia in chronic kidney disease; D69.59 Other secondary thrombocytopenia; F17.210 Nicotine dependence, cigarettes, uncomplicated; Z79.01 Long term (current) use of anticoagulants; I25.2 Old myocardial infarction
CPT/HCPCS: 31500; 33210; 36415; 36600; 71045; 76700; 76775; 80048; 80053; 81001; 82375; 82550; 82570; 82607; 82728; 82746; 82805; 82948; 83050; 83540; 83550; 83735; 83880; 84100; 84300; 84484; 85014; 85018; 85025; 85027; 85046; 85055; 85610; 85730; 86022; 86850; 86900; 86901; 86923; 87040; 87086; 90471; 90694; 93005; 94003; 94640; 94667; 96365; 96375; 97110; 97116; 97161; 97165; 97530; 97535; 99291; A9270; C1894; C8929; C9113; G0008; J0330; J0461; J0612; J0696; J1265; J1644; J1815; J1940; J2060; J2250; J3010; J7030; J7040; P9041; Q5105; Q9957

== ENCOUNTER 2023-06-25 10:49 | Outpatient (RCR) | payer MEDICARE, SELFPAY ==
[2023-04-02 10:43] LABS: Hemoglobin 7.1 g/dL (12.4-15.3); Mean Corpuscular HGB Conc 30.9 g/dL (32.0-36.0); Mean Corpuscular Hemoglobin 33.5 pg (27.0-31.0); Mean Corpuscular Volume 108.5 fL (78.0-102.0); Mean Platelet Volume 10.4 fl (8.7-11.0); Platelet Count Result 114 K/mm3 (150-420); Red Blood Count 2.12 M/mm3 (4.70-6.10); Red Cell Distribution Width 20.6 % (11.6-14.4); White Blood Count 3.4 K/mm3 (4.8-10.8)
[2023-04-02 11:08] LABS: Band Neutrophils Percent 2 % (0-6); Basophils Percent Manual 0 % (0-1); Eosinophils Absolute Manual 0.06 K/mm3 (0.02-0.5); Eosinophils Percent Manual 2 % (1-6); Lymphocytes Percent Manual 6 % (18-44); Monocytes Absolute Manual 0.23 K/mm3 (0.1-0.90); Monocytes Percent Manual 7 % (3-9); Neutrophils Absolute Manual 2.89 K/mm3 (1.3-6.7); Neutrophils Percent Manual 83 % (46-73); Platelet Estimate Adequate (Adequate); Total Cells Counted 100
[2023-04-02 11:47] LABS: Ferritin 186 ng/mL (26-388); Iron 63 ug/dL (65-175); Percent Iron Saturation 30 % (12-57)
[2023-05-01 08:28] LABS: Hematocrit 24.8 % (37.0-46.0); Hemoglobin 7.7 g/dL (12.4-15.3); Mean Corpuscular Hemoglobin 32.4 pg (27.0-31.0); Mean Corpuscular Volume 104.2 fL (78.0-102.0); Mean Platelet Volume 9.9 fl (8.7-11.0); Platelet Count Result 130 K/mm3 (150-420); Red Blood Count 2.38 M/mm3 (4.70-6.10); Red Cell Distribution Width 19.6 % (11.6-14.4); White Blood Count 6.6 K/mm3 (4.8-10.8)
[2023-05-01 08:49] LABS: Band Neutrophils Percent 3 % (0-6); Basophils Percent Manual 0 % (0-1); Eosinophils Absolute Manual 0.13 K/mm3 (0.02-0.5); Eosinophils Percent Manual 2 % (1-6); Lymphocytes Absolute Manual 0.79 K/mm3 (1.1-4.5); Lymphocytes Percent Manual 12 % (18-44); Metamyelocytes Percent 1 %; Monocytes Absolute Manual 0.59 K/mm3 (0.1-0.90); Monocytes Percent Manual 9 % (3-9); Myelocytes Percent 0 %; Neutrophils Absolute Manual 5.01 K/mm3 (1.3-6.7); Neutrophils Percent Manual 73 % (46-73); Platelet Estimate Adequate (Adequate); Total Cells Counted 100
[2023-05-01 08:50] LABS: Nucleated Red Blood Cells 4 %
[2023-05-01 09:10] LABS: Ferritin 308 ng/mL (26-388); Iron 45 ug/dL (65-175); Percent Iron Saturation 25 % (12-57)
[2023-05-04 09:27] LABS: Transferrin 141 mg/dL (188-341)
[2023-05-07 16:05] LABS: Basophils Absolute Auto 0.03 K/mm3 (0.00-0.10); Basophils Percent Auto 0.6 % (0.0-1.0); Hematocrit 25.2 % (37.0-46.0); Hemoglobin 7.8 g/dL (12.4-15.3); Lymphocytes Absolute Auto 0.31 K/mm3 (1.10-4.50); Lymphocytes Percent Auto 6.2 % (18.0-42.0); Mean Corpuscular Hemoglobin 32.4 pg (27.0-31.0); Mean Corpuscular Volume 104.6 fL (78.0-102.0); Monocytes Percent Auto 10.1 % (2.0-11.0); Neutrophils Absolute Auto 3.6 K/mm3 (1.7-7.2); Neutrophils Percent Auto 73.1 % (50.0-70.0); Nucleated Red Blood Cells Absolute Auto 0.23 K/mm3 (0.00-0.00); Nucleated Red Blood Cells Perc 4.6 % (0-0.0); Platelet Count Result 136 K/mm3 (150-420); Red Blood Count 2.41 M/mm3 (4.70-6.10); Red Cell Distribution Width 19.4 % (11.6-14.4)
[2023-05-14 14:29] LABS: Hematocrit 25.4 % (37.0-46.0); Hemoglobin 7.8 g/dL (12.4-15.3); Immature Platelet Fraction Pct 3.2 % (1.0-7.0); Mean Corpuscular HGB Conc 30.7 g/dL (32.0-36.0); Mean Corpuscular Volume 104.1 fL (78.0-102.0); Mean Platelet Volume 9.5 fl (8.7-11.0); Platelet Count Result 118 K/mm3 (150-420); Red Blood Count 2.44 M/mm3 (4.70-6.10); Red Cell Distribution Width 19.8 % (11.6-14.4); White Blood Count 4.2 K/mm3 (4.8-10.8)
[2023-05-14 14:58] LABS: Ferritin 214 ng/mL (26-388); Iron 46 ug/dL (65-175); Percent Iron Saturation 26 % (12-57)
[2023-05-14 15:14] LABS: Band Neutrophils Percent 4 % (0-6); Basophils Percent Manual 0 % (0-1); Eosinophils Percent Manual 0 % (1-6); Lymphocytes Absolute Manual 0.54 K/mm3 (1.1-4.5); Lymphocytes Percent Manual 13 % (18-44); Metamyelocytes Percent 2 %; Monocytes Absolute Manual 0.16 K/mm3 (0.1-0.90); Monocytes Percent Manual 4 % (3-9); Myelocytes Percent 3 %; Neutrophils Absolute Manual 3.27 K/mm3 (1.3-6.7); Neutrophils Percent Manual 74 % (46-73); Nucleated Red Blood Cells 5 %; Platelet Estimate Adequate (Adequate); Total Cells Counted 100
[2023-05-17 10:05] LABS: Transferrin 144 mg/dL (188-341)
[2023-05-29 09:50] LABS: Basophils Absolute Auto 0.01 K/mm3 (0.00-0.10); Basophils Percent Auto 0.2 % (0.0-1.0); Eosinophils Absolute Auto 0.08 K/mm3 (0.02-0.50); Eosinophils Percent Auto 1.8 % (1.0-6.0); Hemoglobin 8.1 g/dL (12.4-15.3); Immature Granulocyte Absolute 0.38 K/mm3 (0.00-0.00); Immature Granulocyte Percent A 8.6 % (0.0-0.0); Immature Platelet Fraction Pct 3.8 % (1.0-7.0); Lymphocytes Absolute Auto 0.34 K/mm3 (1.10-4.50); Lymphocytes Percent Auto 7.7 % (18.0-42.0); Mean Corpuscular HGB Conc 31.2 g/dL (32.0-36.0); Mean Corpuscular Hemoglobin 31.3 pg (27.0-31.0); Mean Corpuscular Volume 100.4 fL (78.0-102.0); Mean Platelet Volume 9.8 fl (8.7-11.0); Monocytes Absolute Auto 0.45 K/mm3 (0.10-0.90); Monocytes Percent Auto 10.2 % (2.0-11.0); Neutrophils Absolute Auto 3.2 K/mm3 (1.7-7.2); Neutrophils Percent Auto 71.5 % (50.0-70.0); Nucleated Red Blood Cells Absolute Auto 0.14 K/mm3 (0.00-0.00); Nucleated Red Blood Cells Perc 3.2 % (0-0.0); Platelet Count Result 99 K/mm3 (150-420); Red Blood Count 2.59 M/mm3 (4.70-6.10); Red Cell Distribution Width 20.3 % (11.6-14.4); White Blood Count 4.4 K/mm3 (4.8-10.8)
[2023-06-25 11:17] LABS: Hematocrit 26.8 % (37.0-46.0); Immature Platelet Fraction Pct 3.7 % (1.0-7.0); Mean Corpuscular HGB Conc 29.9 g/dL (32.0-36.0); Mean Corpuscular Hemoglobin 29.4 pg (27.0-31.0); Mean Corpuscular Volume 98.5 fL (78.0-102.0); Mean Platelet Volume 10.2 fl (8.7-11.0); Platelet Count Result 85 K/mm3 (150-420); Red Blood Count 2.72 M/mm3 (4.70-6.10); Red Cell Distribution Width 20.1 % (11.6-14.4); White Blood Count 3.8 K/mm3 (4.8-10.8)
[2023-06-25 11:27] LABS: Band Neutrophils Percent 3 % (0-6); Lymphocytes Percent Manual 8 % (18-44); Metamyelocytes Percent 2 %; Monocytes Absolute Manual 0.49 K/mm3 (0.1-0.90); Monocytes Percent Manual 13 % (3-9); Myelocytes Percent 2 %; Neutrophils Absolute Manual 2.85 K/mm3 (1.3-6.7); Neutrophils Percent Manual 72 % (46-73); Nucleated Red Blood Cells 2 %; Platelet Estimate Decreased (Adequate); Total Cells Counted 100
[2023-06-25 12:16] LABS: Ferritin 178 ng/mL (26-388); Iron 35 ug/dL (65-175); Percent Iron Saturation 20 % (12-57)
[2023-06-27 19:42] LABS: Transferrin 135 mg/dL (188-341)
== END 2023-07-01 23:59 | disposition home or self-care (01) ==
LOC: CHSLAB 10:49
PROVIDERS: PCP Internal Medicine; Visit Provider Internal Medicine
DX: D47.1 Chronic myeloproliferative disease (principal); D47.3 Essential (hemorrhagic) thrombocythemia; D75.89 Other specified diseases of blood and blood-forming organs
CPT/HCPCS: 36415; 82728; 83540; 83550; 84466; 85025; 85055

== ENCOUNTER 2023-08-10 21:32 | Emergency (ER) | payer MEDICARE, SELFPAY ==
[2023-08-10] VITALS (7 sets, daily range): BP systolic 90–99; BP diastolic 49–58; PULSE 110–116; RESP 16–35; TEMP 36.6; O2SAT 90–94
--- NOTE | 2023-08-10 23:27 | PC.NURSE ---
pt family at bedside and verbalized that patient did have an ulcer in january 2023 that was treated in [facility].
[2023-08-11] VITALS (11 sets, daily range): BP systolic 90–116; BP diastolic 54–74; PULSE 68–201; RESP 0–29; O2SAT 92–97
--- NOTE | 2023-08-11 00:40 | PC.NURSE ---
ok to hold afrin per erp dr bolton
[2023-08-11 01:22] LABS: Basophils Percent Auto 0.5 % (0.2-1.2); Eosinophils Absolute Auto 0.1 K/mm3 (0-0.3); Eosinophils Percent Auto 2.2 % (0-4.4); Hematocrit 26.8 % (42.0-52.0); Immature Granulocyte Absolute 0.48 K/mm3 (0.00-0.031); Immature Granulocyte Percent A 8.6 % (0-0.5); Immature Platelet Fraction Pct 4.1 % (0.9-11.2); Lymphocytes Absolute Auto 0.22 K/mm3 (0.9-3.2); Mean Corpuscular HGB Conc 29.9 g/dl (32-36); Mean Corpuscular Hemoglobin 28.7 pg (26-34); Mean Corpuscular Volume 96.1 fl (80-100); Mean Platelet Volume 9.5 fl (7.4-10.4); Monocytes Absolute Auto 0.8 K/mm3 (0.1-0.6); Monocytes Percent Auto 13.7 % (2.6-8.5); Nucleated Red Blood Cells Absolute Auto 0.3 K/mm3 (0.0-0.012); Nucleated Red Blood Cells Perc 5.4 % (0.0-0.2); Platelet Count Result 58 k/mm3 (150-375); Red Blood Count 2.79 M/mm3 (4.6-6.20); Red Cell Distribution Width 21.6 % (11.5-14.5); White Blood Count 5.6 K/mm3 (4.5-10.0)
[2023-08-11 01:31] LABS: Alanine Aminotransferase 12 U/L (6-50); Albumin Level 3.5 g/dL (3.5-5.1); Alkaline Phosphatase 93 U/L (38-126); Anion Gap 6 mmol/L (8-16); Aspartate Amino Transferase 21 U/L (17-59); Bilirubin,Total 2.2 mg/dL (0.2-1.3); Blood Urea Nitrogen 37 mg/dL (9-20); Calcium 8.3 mg/dL (8.4-10.2); Carbon Dioxide 26 mmol/L (22-30); Chloride 104 mmol/L (98-107); Estimated CRCL calculation 29 ml/min; Estimated Glomerular Filt Rate 38; Glucose 117 mg/dL (65-110); Potassium 4.9 mmol/L (3.4-5.0); Sodium 136 mmol/L (137-145)
[2023-08-11 02:10] LABS: Anisocytosis 1+ (NORMAL); Platelet Estimate Decreased (Adequate); Polychromasia 1+ (NORMAL); Schistocytes Rare (NORMAL); Tear Drop Cells 2+ (NORMAL)
--- NOTE | 2023-08-11 04:16 | ED.GENADULT ---
HPI - General Adult General Chief complaint: Epistaxis Stated complaint: spitting blood Time Seen by Provider: 08/11/23 00:36 History of Present Illness HPI narrative: This is an 87-year-old male presenting ED with chief of coughing up blood. Patient has had frequent nose bleeds over the last several months. Originally were unable to get the bleeding controlled. By time he arrived in the emergency department the bleeding had stopped. No other complaints this time. Related Data Home Medications Medication Instructions Recorded Confirmed hydroxyurea 500 mg capsule 500 mg PO DAILY 02/01/20 03/01/23 omeprazole 20 mg capsule,delayed 20 mg PO DAILY 02/01/20 03/01/23 release oxybutynin chloride 5 mg tablet 10 mg PO BID 02/01/20 03/01/23 rivaroxaban 15 mg tablet (Xarelto) 15 mg PO DAILY 02/01/20 03/01/23 ferrous sulfate 325 mg (65 mg 325 mg PO DAILY 03/01/23 03/01/23 iron) tablet (Iron (ferrous sulfate)) tamsulosin 0.4 mg capsule 0.4 mg PO DAILY 03/01/23 03/01/23 docusate sodium 50 mg capsule mg PO 08/10/23 (Stool Softener) metoprolol succinate 50 mg 50 mg PO DAILY 08/10/23 tablet,extended release 24 hr multivitamin tablet 08/10/23 spironolactone 25 mg tablet 25 mg PO DAILY 08/10/23 Allergies Allergy/AdvReac Type Severity Reaction Status Date / Time bee venom protein (honey bee) Allergy Unknown Verified 08/10/23 21:43 [bees] morphine Allergy Unknown Verified 08/10/23 21:43 [facility] Past Medical History Medical History (Updated 08/11/23 @ 04:22 by Ernie Rubio MD) Atrial fibrillation CAD (coronary artery disease) CHF (congestive heart failure) CKD (chronic kidney disease) GERD (gastroesophageal reflux disease) Hypertension Myeloproliferative disorder Surgical History Surgical History (Updated 03/06/23 @ 18:43 by Taj Lubin MD) Surgical history unknown Family History Family History Other Family history unknown Social History Social History Social History: Lives at home with . Full code. Smoking status: Current every day smoker Tobacco type: pipe Alcohol intake: current Drinks per week: 1 Substance use: never Substance use type: does not use Spiritual care concerns: No Exam Narrative: APPEARANCE: No apparent distress. Head: atraumatic. EYES: EOMI, NOSE: Atraumatic NECK: Trachea midline RESPIRATORY: No increased rate of breathing , clear to auscultation CARDIOVASCULAR: irregular and tachycardic, no peripheral edema ABDOMINAL: Non-distended MUSCULOSKELETAl: No obvious deformities NEURO: Alert. Moving 4/4 extremities SKIN:: Warm, dry. Normal color PSYCHIATRIC: Normal affect Course Vital Signs Vital signs: Vital Signs Temperature 97.9 F 08/10/23 21:33 Pulse Rate 110 H 08/10/23 21:33 Respiratory Rate 16 08/10/23 21:33 Blood Pressure 99/54 L 08/10/23 21:33 Pulse Oximetry 90 08/10/23 21:33 Oxygen Delivery Room Air 08/10/23 21:33 Temperature 97.9 F 08/10/23 21:33 Pulse Rate 112 H 08/11/23 00:46 Respiratory Rate 27 H 08/11/23 00:46 Blood Pressure 116/68 08/11/23 01:21 Pulse Oximetry 97 08/11/23 00:46 Oxygen Delivery Room Air 08/10/23 21:33 Medical Decision Making [facility] Narrative Medical decision making narrative: -Course: 87-year-old male on Eliquis presenting for nose bleeds. Patient's symptoms had resolved by time he arrived to the emergency department. He was initially tachycardic. After speaking with family he has been persistently tachycardic for quite some time has been on escalating doses of metoprolol. They are not concerned about his elevated heart rate at this time. Patient's hemoglobin is 8.0. this is in line with previous studies. Patient gets weekly hemoglobins and has appointment next . Patient will be discharged to a monitored setting return if his condition
== END 2023-08-11 04:52 | disposition home or self-care (01) ==
PROVIDERS: Emergency Provider Emergency Medicine; PCP Internal Medicine
DX: R04.0 Epistaxis (principal); D64.9 Anemia, unspecified; I48.91 Unspecified atrial fibrillation; I25.10 Atherosclerotic heart disease of native coronary artery without angina pectoris; I13.0 Hypertensive heart and chronic kidney disease with heart failure and stage 1 through stage 4 chronic kidney disease, or unspecified chronic kidney disease; N18.9 Chronic kidney disease, unspecified; I50.9 Heart failure, unspecified; D47.1 Chronic myeloproliferative disease; K21.9 Gastro-esophageal reflux disease without esophagitis; F17.290 Nicotine dependence, other tobacco product, uncomplicated; Z79.01 Long term (current) use of anticoagulants
CPT/HCPCS: 36415; 80053; 85025; 85055; 99284

== ENCOUNTER 2023-10-02 09:42 | Outpatient (RCR) | payer MEDICARE, SELFPAY ==
[2023-07-10 11:20] LABS: Hematocrit 27.9 % (37.0-46.0); Hemoglobin 8.2 g/dL (12.4-15.3); Immature Platelet Fraction Pct 3.3 % (1.0-7.0); Mean Corpuscular HGB Conc 29.4 g/dL (32.0-36.0); Mean Corpuscular Hemoglobin 28.7 pg (27.0-31.0); Mean Corpuscular Volume 97.6 fL (78.0-102.0); Mean Platelet Volume 9.7 fl (8.7-11.0); Platelet Count Result 65 K/mm3 (150-420); Red Blood Count 2.86 M/mm3 (4.70-6.10); Red Cell Distribution Width 20.9 % (11.6-14.4); White Blood Count 4.6 K/mm3 (4.8-10.8)
[2023-07-10 11:57] LABS: Band Neutrophils Percent 1 % (0-6); Basophils Absolute Manual 0.18 K/mm3 (0-0.1); Basophils Percent Manual 4 % (0-1); Eosinophils Absolute Manual 0.04 K/mm3 (0.02-0.5); Eosinophils Percent Manual 1 % (1-6); Lymphocytes Absolute Manual 0.41 K/mm3 (1.1-4.5); Lymphocytes Percent Manual 9 % (18-44); Monocytes Absolute Manual 0.36 K/mm3 (0.1-0.90); Monocytes Percent Manual 8 % (3-9); Neutrophils Absolute Manual 3.45 K/mm3 (1.3-6.7); Neutrophils Percent Manual 74 % (46-73); Total Cells Counted 100
[2023-07-10 11:58] LABS: Anisocytosis 2+ (NORMAL); Metamyelocytes Percent 1 %; Myelocytes Percent 2 %; Nucleated Red Blood Cells 9 %; Platelet Estimate Decreased (Adequate); Polychromasia 1+ (NORMAL)
[2023-07-10 11:59] LABS: Schistocytes None Seen (NORMAL); Tear Drop Cells 1+ (NORMAL)
[2023-07-10 12:45] LABS: Ferritin 155 ng/mL (26-388); Iron 63 ug/dL (65-175); Percent Iron Saturation 38 % (12-57)
[2023-07-12 20:01] LABS: Transferrin 142 mg/dL (188-341)
[2023-07-24 16:18] LABS: Hematocrit 28.3 % (37.0-46.0); Hemoglobin 8.4 g/dL (12.4-15.3); Immature Platelet Fraction Pct 3.9 % (1.0-7.0); Mean Corpuscular HGB Conc 29.7 g/dL (32.0-36.0); Mean Corpuscular Hemoglobin 28.2 pg (27.0-31.0); Mean Platelet Volume 11.4 fl (8.7-11.0); Platelet Count Result 71 K/mm3 (150-420); Red Blood Count 2.98 M/mm3 (4.70-6.10); Red Cell Distribution Width 21.4 % (11.6-14.4); White Blood Count 4.4 K/mm3 (4.8-10.8)
[2023-07-24 17:08] LABS: Ferritin 144 ng/mL (26-388); Iron 45 ug/dL (65-175); Percent Iron Saturation 26 % (12-57)
[2023-07-24 17:10] LABS: Band Neutrophils Percent 1 % (0-6); Basophils Percent Manual 0 % (0-1); Eosinophils Percent Manual 0 % (1-6); Lymphocytes Absolute Manual 0.44 K/mm3 (1.1-4.5); Lymphocytes Percent Manual 10 % (18-44); Metamyelocytes Percent 7 %; Monocytes Absolute Manual 0.52 K/mm3 (0.1-0.90); Monocytes Percent Manual 12 % (3-9); Myelocytes Percent 7 %; Neutrophils Absolute Manual 2.81 K/mm3 (1.3-6.7); Neutrophils Percent Manual 63 % (46-73); Nucleated Red Blood Cells 10 %; Platelet Estimate Decreased (Adequate); Total Cells Counted 100
[2023-07-27 19:49] LABS: Transferrin 148 mg/dL (188-341)
[2023-08-07 15:53] LABS: Hematocrit 30.5 % (37.0-46.0); Immature Platelet Fraction Pct 3.3 % (1.0-7.0); Mean Corpuscular HGB Conc 29.5 g/dL (32.0-36.0); Mean Corpuscular Hemoglobin 28.1 pg (27.0-31.0); Mean Corpuscular Volume 95.3 fL (78.0-102.0); Mean Platelet Volume 9.5 fl (8.7-11.0); Platelet Count Result 65 K/mm3 (150-420); Red Cell Distribution Width 21.5 % (11.6-14.4); White Blood Count 5.7 K/mm3 (4.8-10.8)
[2023-08-07 16:26] LABS: Ferritin 128 ng/mL (26-388); Iron 49 ug/dL (65-175); Percent Iron Saturation 30 % (12-57)
[2023-08-07 17:16] LABS: Band Neutrophils Percent 1 % (0-6); Basophils Absolute Manual 0.05 K/mm3 (0-0.1); Basophils Percent Manual 1 % (0-1); Eosinophils Percent Manual 0 % (1-6); Lymphocytes Absolute Manual 0.91 K/mm3 (1.1-4.5); Lymphocytes Percent Manual 16 % (18-44); Metamyelocytes Percent 3 %; Monocytes Absolute Manual 0.28 K/mm3 (0.1-0.90); Monocytes Percent Manual 5 % (3-9); Myelocytes Percent 3 %; Neutrophils Percent Manual 71 % (46-73); Nucleated Red Blood Cells 10 %; Platelet Estimate Decreased (Adequate); Total Cells Counted 100
[2023-08-12 08:20] LABS: Transferrin 150 mg/dL (188-341)
[2023-08-21 16:37] LABS: Hematocrit 27.6 % (37.0-46.0); Hemoglobin 8.2 g/dL (12.4-15.3); Immature Platelet Fraction Pct 3.9 % (1.0-7.0); Mean Corpuscular HGB Conc 29.7 g/dL (32.0-36.0); Mean Corpuscular Hemoglobin 28.1 pg (27.0-31.0); Mean Corpuscular Volume 94.5 fL (78.0-102.0); Mean Platelet Volume 9.7 fl (8.7-11.0); Platelet Count Result 59 K/mm3 (150-420); Red Blood Count 2.92 M/mm3 (4.70-6.10); Red Cell Distribution Width 21.5 % (11.6-14.4); White Blood Count 5.7 K/mm3 (4.8-10.8)
[2023-08-21 17:44] LABS: Total Cells Counted 100
[2023-08-21 17:45] LABS: Band Neutrophils Percent 3 % (0-6); Basophils Absolute Manual 0.17 K/mm3 (0-0.1); Basophils Percent Manual 3 % (0-1); Eosinophils Absolute Manual 0.22 K/mm3 (0.02-0.5); Eosinophils Percent Manual 4 % (1-6); Lymphocytes Absolute Manual 0.57 K/mm3 (1.1-4.5); Lymphocytes Percent Manual 10 % (18-44); Metamyelocytes Percent 6 %; Monocytes Absolute Manual 0.22 K/mm3 (0.1-0.90); Monocytes Percent Manual 4 % (3-9); Myelocytes Percent 4 %; Neutrophils Absolute Manual 3.93 K/mm3 (1.3-6.7); Neutrophils Percent Manual 66 % (46-73); Nucleated Red Blood Cells 3 %
[2023-08-21 17:46] LABS: Atypical Lymphocytes Present; Ferritin 140 ng/mL (26-388); Iron 47 ug/dL (65-175); Percent Iron Saturation 28 % (12-57); Platelet Estimate Decreased (Adequate)
[2023-08-25 20:36] LABS: Transferrin 150 mg/dL (188-341)
[2023-09-04 16:52] LABS: Basophils Absolute Auto 0.05 K/mm3 (0.00-0.10); Basophils Percent Auto 0.9 % (0.0-1.0); Eosinophils Absolute Auto 0.18 K/mm3 (0.02-0.50); Eosinophils Percent Auto 3.3 % (1.0-6.0); Hematocrit 26.4 % (37.0-46.0); Hemoglobin 7.9 g/dL (12.4-15.3); Immature Granulocyte Absolute 0.79 K/mm3 (0.00-0.00); Immature Granulocyte Percent A 14.5 % (0.0-0.0); Immature Platelet Fraction Pct 4.5 % (1.0-7.0); Lymphocytes Absolute Auto 0.25 K/mm3 (1.10-4.50); Lymphocytes Percent Auto 4.6 % (18.0-42.0); Mean Corpuscular HGB Conc 29.9 g/dL (32-36); Mean Corpuscular Hemoglobin 28.1 pg (27.0-31.0); Mean Platelet Volume 10.7 fl (8.7-11.0); Monocytes Absolute Auto 0.74 K/mm3 (0.10-0.90); Monocytes Percent Auto 13.6 % (2.0-11.0); Neutrophils Absolute Auto 3.45 K/mm3 (1.70-7.20); Neutrophils Percent Auto 63.1 % (50.0-70.0); Nucleated Red Blood Cells Absolute Auto 0.62 K/mm3 (0.00-0.00); Nucleated Red Blood Cells Perc 11.4 % (0-0.0); Platelet Count Result 51 K/mm3 (150-420); Red Blood Count 2.81 M/mm3 (4.70-6.10); Red Cell Distribution Width 21.4 % (11.6-14.4); White Blood Count 5.5 K/mm3 (4.8-10.8)
[2023-09-04 17:43] LABS: Alanine Aminotransferase 14 U/L (16-63); Alkaline Phosphatase 91 U/L (46-116); Anion Gap 9 mmol/L (8-16); Aspartate Amino Transferase 16 U/L (15-37); Bilirubin,Total 1.9 mg/dL (0.00-1.00); Blood Urea Nitrogen 31 mg/dL (7-18); Calcium 7.7 mg/dL (8.5-10.1); Carbon Dioxide 27 mmol/L (21-32); Chloride 104 mmol/L (98-108); Estimated Glomerular Filt Rate 31; Ferritin 147 ng/mL (26-388); Glucose 118 mg/dL (70-99); Iron 41 ug/dL (65-175); Osmolality Calculated 297 mOsm/kg (285-295); Percent Iron Saturation 23 % (12-57); Potassium 4.4 mmol/L (3.5-5.1); Sodium 140 mmol/L (136-145); Total Protein 5.5 g/dL (6.4-8.2)
[2023-09-07 10:08] LABS: Transferrin 148 mg/dL (188-341)
[2023-09-17 09:47] LABS: Hematocrit 27.2 % (37.0-46.0); Immature Platelet Fraction Pct 3.4 % (1.0-7.0); Mean Corpuscular HGB Conc 29.4 g/dL (32-36); Mean Corpuscular Hemoglobin 28.3 pg (27.0-31.0); Mean Corpuscular Volume 96.1 fL (78.0-102.0); Mean Platelet Volume 8.3 fl (8.7-11.0); Platelet Count Result 45 K/mm3 (150-420); Red Blood Count 2.83 M/mm3 (4.70-6.10); Red Cell Distribution Width 21.6 % (11.6-14.4); White Blood Count 5.6 K/mm3 (4.8-10.8)
[2023-09-17 10:33] LABS: Ferritin 152 ng/mL (26-388); Iron 32 ug/dL (65-175); Percent Iron Saturation 20 % (12-57)
[2023-09-17 10:35] LABS: Band Neutrophils Percent 2 % (0-6); Basophils Percent Manual 0 % (0-1); Eosinophils Absolute Manual 0.05 K/mm3 (0.02-0.50); Eosinophils Percent Manual 1 % (1-6); Lymphocytes Absolute Manual 0.22 K/mm3 (1.1-4.5); Lymphocytes Percent Manual 4 % (18-44); Metamyelocytes Percent 2 %; Monocytes Absolute Manual 0.78 K/mm3 (0.1-0.90); Monocytes Percent Manual 14 % (3-9); Myelocytes Percent 2 %; Neutrophils Absolute Manual 4.31 K/mm3 (1.3-6.7); Neutrophils Percent Manual 75 % (46-73); Total Cells Counted 100
[2023-09-17 10:36] LABS: Nucleated Red Blood Cells 1 %; Platelet Estimate Decreased (Adequate)
[2023-09-19 20:06] LABS: Transferrin 141 mg/dL (188-341)
[2023-10-02 10:10] LABS: Hematocrit 27.3 % (37.0-46.0); Hemoglobin 8.2 g/dL (12.4-15.3); Immature Platelet Fraction Pct 4.2 % (1.0-7.0); Mean Corpuscular Hemoglobin 28.7 pg (27.0-31.0); Mean Corpuscular Volume 95.5 fL (78.0-102.0); Mean Platelet Volume 8.9 fl (8.7-11.0); Platelet Count Result 44 K/mm3 (150-420); Red Blood Count 2.86 M/mm3 (4.70-6.10); Red Cell Distribution Width 21.5 % (11.6-14.4); White Blood Count 5.3 K/mm3 (4.8-10.8)
[2023-10-02 10:32] LABS: Band Neutrophils Percent 2 % (0-6); Basophils Percent Manual 0 % (0-1); Eosinophils Absolute Manual 0.15 K/mm3 (0.02-0.50); Eosinophils Percent Manual 3 % (1-6); Lymphocytes Absolute Manual 0.53 K/mm3 (1.1-4.5); Lymphocytes Percent Manual 10 % (18-44); Monocytes Absolute Manual 0.53 K/mm3 (0.1-0.90); Monocytes Percent Manual 10 % (3-9); Neutrophils Percent Manual 66 % (46-73); Total Cells Counted 100
[2023-10-02 10:33] LABS: Myelocytes Percent 9 %; Nucleated Red Blood Cells 5 %; Platelet Estimate Decreased (Adequate); Promyelocytes Percent 1 %
[2023-10-02 10:45] LABS: Ferritin 162 ng/mL (26-388); Iron 50 ug/dL (65-175); Percent Iron Saturation 29 % (12-57)
[2023-10-04 10:24] LABS: Transferrin 140 mg/dL (188-341)
== END 2023-10-08 23:59 | disposition home or self-care (01) ==
LOC: CHSLAB 09:42
PROVIDERS: PCP Internal Medicine; Visit Provider Internal Medicine
DX: D47.1 Chronic myeloproliferative disease (principal); D47.3 Essential (hemorrhagic) thrombocythemia; D75.89 Other specified diseases of blood and blood-forming organs
CPT/HCPCS: 36415; 80053; 82728; 83540; 83550; 84466; 85025; 85055

== ENCOUNTER 2023-10-23 21:03 | Emergency (ER) | payer MEDICARE, SELFPAY ==
--- NOTE | ~2023-10-23 | XR_ITS ---
EXAMINATION: XR chest 1V portable Exam Date/Time: 10/23/2023 21:21 CDT HISTORY: cp Comparison: None. RESULT: Lines, tubes, and devices: None. Lungs and pleura: Slight rightward rotation. Mild diffuse reticular opacities. Left basilar scar. In creasing subsegmental and streaky right basilar opacities. Minimal bilateral costophrenic angle blunt ing Multiple skin folds create additional opacification of the right chest. Cardiomediastinal silhouette: Stable. Other: No acute osseous or upper abdominal finding. IMPRESSION: Subsegmental right basilar atelectasis/consolidation. Mild interstitial edema. Possible minimal bilat eral pleural effusions. Reviewed, dictated and finalized at location K. IMPRESSION: Subsegmental right basilar atelectasis/consolidation. Mild interstitial edema. Possible minimal bilateral pleural effusions.
[2023-10-23 21:03] VITALS: BP 104/69; PULSE 110; RESP 20; TEMP 37.2; O2SAT 95
--- NOTE | 2023-10-23 21:09 | ED.CHESTPAIN ---
HPI - Chest Pain General Chief Complaint: Chest Pain Stated Complaint: indigestion, unable to lay down Time Seen by Provider: 10/23/23 21:08 Source: patient and family Mode of arrival: ambulatory Limitations: no limitations History of Present Illness HPI narrative: Patient is an 88-year-old male with some right sided chest discomfort this evening after eating dinner. It hurts with breathing. Minimal cough and minimal shortness of breath. He is not having chest pain per se but having chest discomfort on the right side with breathing. MD complaint: chest discomfort Pertinent past history: coronary artery disease ( No stents or CABG) Onset (ago): hour(s) (3) Timing of current episode: episodic Prior episodes: No Onset: after eating Pain location: right chest and epigastric Pain radiation: none Severity: mild Pain scale (0-10): 2 Quality: tightness and dull Relieving factors: nothing Exacerbating factors: inspiration Context: other ( coronary disease, AFib, anemia, thrombocytopenia, CHF, GERD) Treatment prior to arrival: none Risk Factors Thoracic aortic dissection risk factors: none Related Data Home Medications Medication Instructions Recorded Confirmed hydroxyurea 500 mg capsule 500 mg PO DAILY 02/01/20 10/23/23 omeprazole 20 mg capsule,delayed 20 mg PO DAILY 02/01/20 10/23/23 release oxybutynin chloride 5 mg tablet 10 mg PO BID 02/01/20 10/23/23 rivaroxaban 15 mg tablet (Xarelto) 15 mg PO DAILY 02/01/20 10/23/23 ferrous sulfate 325 mg (65 mg 325 mg PO DAILY 03/01/23 10/23/23 iron) tablet (Iron (ferrous sulfate)) tamsulosin 0.4 mg capsule 0.4 mg PO DAILY 03/01/23 10/23/23 docusate sodium 50 mg capsule 50 mg PO PRN 08/10/23 10/23/23 (Stool Softener) metoprolol succinate 50 mg 50 mg PO DAILY 08/10/23 10/23/23 tablet,extended release 24 hr multivitamin 1 tablet PO DAILY 08/10/23 10/23/23 spironolactone 25 mg tablet 25 mg PO DAILY 08/10/23 10/23/23 Allergies Allergy/AdvReac Type Severity Reaction Status Date / Time bee venom protein (honey bee) Allergy Unknown Verified 10/23/23 21:50 [bees] morphine Allergy Unknown Verified 10/23/23 21:50 Review of Systems Review of Systems: All systems reviewed & are unremarkable except as noted in HPI and below Constitutional: Constitutional: Reports no additional constitutional complaints Eyes: Eyes: Reports no additional eye complaints ENT: Reports system reviewed and no additional complaints, except as documented Cardiovascular: Cardiovascular: Reports no additional cardiovascular complaints Respiratory: Respiratory: Reports no additional respiratory complaints Gastrointestinal: Gastrointestinal: Reports no additional gastrointestinal complaints Genitourinary: Genitourinary: Reports no additional male genitourinary complaints Musculoskeletal: Musculoskeletal: Reports no additional musculoskeletal complaints Integumentary/Breasts: Skin/Breast: Reports system reviewed and no additional complaints, except as docu Neurologic: Reports system reviewed and no additional complaints, except as documented Psychiatric: Psychiatric: Reports no additional psychiatric complaints Endocrine: Endocrine: Reports no additional endocrine complaints Hematologic/Lymphatic: Hematologic/Lymphatic: Reports no additional hematologic/lymphatic complaints Allergic/Immunologic: Allergic/Immunologic: Reports no additional allergic/immunologic complaints PMFSH Past Medical History Medical History Atrial fibrillation CAD (coronary artery disease) CHF (congestive heart failure) CKD (chronic kidney disease) GERD (gastroesophageal reflux disease) Hypertension Myeloproliferative disorder Surgical History Surgical History Surgical history unknown Family History Family History Other Family history unkno
--- NOTE | 2023-10-23 21:11 | ECG_ITS ---
SEE SCANNED COPY FOR CONFIRMED REPORT MTDD
[2023-10-23 21:42] LABS: Hematocrit 29.2 % (37.0-46.0); Hemoglobin 8.8 g/dL (12.4-15.3); Mean Corpuscular HGB Conc 30.1 g/dL (32-36); Mean Corpuscular Hemoglobin 28.4 pg (27.0-31.0); Mean Corpuscular Volume 94.2 fL (78.0-102.0); Platelet Count Result 49 K/mm3 (150-420); Red Cell Distribution Width 21.6 % (11.6-14.4)
[2023-10-23 21:52] LABS: Appearance Urine Clear (Clear); Bilirubin Urine Negative (Negative); Blood Urine Negative (Negative); Color Urine Yellow (Yellow); Glucose Urine UA Negative (Negative); Ketones Urine Negative (Negative); Leukocyte Esterase Ur Trace LEU/UL (Negative); Nitrate Urine Negative (Negative); Protein Urine Negative (Negative); Specific Grav Ur <= 1.005 (1.010-1.020)
[2023-10-23 21:59] LABS: Add Urine Microscopic? YES; Bacteria Urine Trace /hpf; RBC Urine 0-2 /hpf (0-2); Squamous Epithelial Cell Urine Rare /hpf (Few)
[2023-10-23 22:00] LABS: Band Neutrophils Percent 6 % (0-6); Basophils Percent Manual 0 % (0-1); Eosinophils Absolute Manual 0.14 K/mm3 (0.02-0.50); Eosinophils Percent Manual 2 % (1-6); Lymphocytes Absolute Manual 0.42 K/mm3 (1.1-4.5); Lymphocytes Percent Manual 6 % (18-44); Metamyelocytes Percent 4 %; Monocytes Percent Manual 10 % (3-9); Myelocytes Percent 2 %; Neutrophils Absolute Manual 5.32 K/mm3 (1.3-6.7); Neutrophils Percent Manual 70 % (46-73); Total Cells Counted 100
[2023-10-23 22:01] LABS: Nucleated Red Blood Cells 5 %; Platelet Estimate Decreased (Adequate)
[2023-10-23 22:02] LABS: Alanine Aminotransferase 12 U/L (16-63); Alkaline Phosphatase 85 U/L (46-116); Anion Gap 9 mmol/L (4-12); Aspartate Amino Transferase 15 U/L (15-37); Bilirubin,Total 2.2 mg/dL (0.00-1.00); Blood Urea Nitrogen 34 mg/dL (7-18); Calcium 8.4 mg/dL (8.5-10.1); Carbon Dioxide 27 mmol/L (21-32); Chloride 101 mmol/L (98-108); Estimated CRCL calculation 20 ml/min; Estimated Glomerular Filt Rate 28; Glucose 117 mg/dL (70-99); Lipase 11 U/L (16-77); NT Pro B Type Natriuretic Pept 16453 pg/mL (0-450); Osmolality Calculated 292 mOsm/kg (285-295); Potassium 5.1 mmol/L (3.5-5.1); Sodium 137 mmol/L (136-145); Troponin I 5.8 ng/L (0.00-60.4)
--- NOTE | 2023-10-23 22:15 | ECG_ITS ---
SEE SCANNED COPY FOR CONFIRMED REPORT MTDD
[2023-10-23 22:48] LABS: Magnesium 2.1 mg/dL (1.8-2.4)
[2023-10-23] MEDS: FUROSEMIDE INJ 20 MG/2 ML VIAL 10 MG IV PUSH (23:20)
[2023-10-23] MEDS: AZITHROMYCIN 500 MG/NS 250 ML 500 MG/250 ML BAG 250 MG IVPB (23:22)
[2023-10-23 23:51] LABS: Troponin I 5.3 ng/L (0.00-60.4)
[2023-10-24] VITALS (61 sets, daily range): BP systolic 94–118; BP diastolic 62–88; PULSE 103–114; RESP 8–32; O2SAT 92–100
[2023-10-24] MEDS: ONDANSETRON INJ 4 MG/2 ML VIAL IV PUSH (00:25)
--- NOTE | 2023-10-24 00:37 | ECG_ITS ---
SEE SCANNED COPY FOR CONFIRMED REPORT MTDD
--- NOTE | 2023-10-24 01:14 | PC.NURSE ---
Spoke in detail with patient, and daughter about code status. Patient states that he currently wants to be a DNR. Patient and family educated on differences in code status, all persons agree that patient will be a DNR unless otherwise stated. Patient understands prognosis and education provided by HAYLEE Goyal.
[2023-10-24 03:00] LABS: Troponin I 4.9 ng/L (0.00-60.4)
[2023-10-24] MEDS: PANTOPRAZOLE 40 MG TABLET PO (06:36)
[2023-10-24] MEDS: SPIRONOLACTONE 25 MG TABLET PO (06:36)
[2023-10-24] MEDS: TAMSULOSIN HCL 0.4 MG CAPSULE PO (06:36)
[2023-10-24] MEDS: FUROSEMIDE INJ 20 MG/2 ML VIAL IV PUSH (06:37)
--- NOTE | 2023-10-24 07:12 | PC.NURSE ---
assumed care. report received from destiny marvin
--- NOTE | 2023-10-24 07:31 | PC.NURSE ---
resting on hospital bed. call light is in reach. patient currently denies any needs. right sided chest pain. alert and oriented x 4. verbalized understanding to call out when needing assitance.
--- NOTE | 2023-10-24 08:10 | PC.NURSE ---
breakfast taken to room by pato Lester
--- NOTE | 2023-10-24 08:13 | PC.NURSE ---
spoke with pharmacy. they will bring down medications as per MAR
[2023-10-24] MEDS: RIVAROXABAN 15 MG TABLET PO (08:29)
[2023-10-24] MEDS: HYDROXYUREA (*CHEMO) 500 MG CAPSULE PO (08:30)
--- NOTE | 2023-10-24 08:31 | PC.NURSE ---
sitting on the side of the bed eating breakfast. meds taken without difficulty. denies any needs. call light is in reach
--- NOTE | 2023-10-24 10:11 | PC.NURSE ---
patient called out. patient started to bleed from left elbow. states i dont know what happened. i saw a spot of blood on the floor and realized it was my arm . pressure applied with gauze. when bleeding stopped, placed non adherent dressing with coban to keep dressing in place. continues to sit on the side of the bed. denies any other needs
--- NOTE | 2023-10-24 10:40 | PC.NURSE ---
family member has arrived and is at the bedside
--- NOTE | 2023-10-24 11:00 | PC.NURSE ---
daughter requested and update on transfer. spoke with Cheng FRIEND, powerhouse electrician at [facility]. No change at this time. Unknown what time patient will get bed for transfer. Daughter has been notified. No other needs voiced.
--- NOTE | 2023-10-24 11:05 | PC.NURSE ---
while talking with patient, he reports that he no longer takes hydroxyurea 500mg. i haven't been on that for several months now . looked at pharmacy list and saw that it was last refilled end of September. Updated daughter and patient on the refill. 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 I didn't even think about that. I have two full bottles of that at home . Next placed call to Dr Watts's office. Confirmation was made that he is no longer taking Hydroxyurea. Requested that a med list be faxed to our department to verify all home medications.
--- NOTE | 2023-10-24 11:57 | PC.NURSE ---
lunch tray taken to room. daughter continues to be at the bedside. call light is in reach. denies any other needs
--- NOTE | 2023-10-24 13:54 | PC.NURSE ---
dressing to left elbow started to become saturated with blood. new pressure dressing placed. held in place with coban. patient denies that the coban is too tight
--- NOTE | 2023-10-24 14:03 | PC.NURSE ---
Nurse from Dr Watts's office called back. She reports that the Hydroxyurea was prescribed by patients lab instructor. Sees Consuelo SANCHEZ at [phone]. Will call and clarify
--- NOTE | 2023-10-24 14:10 | PC.NURSE ---
spoke with at [facility]. She reports that Hydroxyurea has been discontinued since March 2023 due to anemia. Medication has been removed from med list.
--- NOTE | 2023-10-24 15:20 | PC.NURSE ---
patient called out. stateshe needs to go to the regular bathroom to have a bowel movement. patient ambulated with cane and assist of the RN to restroom. instructed to pull assist cord when he is finished
--- NOTE | 2023-10-24 15:43 | PC.NURSE ---
ambulated back to room with cane and this rn. requested new depends. given.
--- NOTE | 2023-10-24 16:16 | PC.NURSE ---
daughter and patients have arrived. resting on hospital bed. denies any needs. call light in reach
--- NOTE | 2023-10-24 16:49 | PC.NURSE ---
and daughter have left for the evening. patient requested decaf coffee. given. sitting up on the side of the bed. call light in reach
--- NOTE | 2023-10-24 16:56 | PC.NURSE ---
Spoke with Cheng FRIEND at [facility]. No plans for a bed at [facility]
--- NOTE | 2023-10-24 17:03 | ED.PROGRESS ---
Subjective Date/time seen: 10/24/23 (0700) I received report on this patient at shift change. Patient is 88 y/o male who presented to the ED for right lower chest pain. He was found to have pneumonia. He was given Rocephin and Zithromax and arrangements for transfer to [facility] made. Awaiting bed assignment. PE: decreased breath sounds, no acute distress. No complaints at this time. CBC: H/H 8.8/29.2, Plt 49; wbc 7 with 63 S, 5 L, 14 M CMP: Na 137, K 4.1, Cl 101, CO2 27, Glc 117, BUN 34, Cr 2.24; LFT's normal; eGFR 28 TNI: 5.8 / 2 Hr TNI: 5.3 / 5 Hr TNI: 4.9 EKG: BNP: 16,453 Lactic: 1 M.1 Lipase: 11 UA: SG <1.005, 4-6 wbc, trace LE CXR: R basilar atelect/consolidation, mild interstitial edema, trace pleural effusion *multiple calls to [place] throughout day for update. Still on hold (1700) patient states he has been feeling good all day. No complaints. His right lower chest pains are gone. He has no shortness of breath. Patient advised still on hold for transfer and he will be staying in ED tonight. Patient states that is fine. PE: decreased breath sounds, no respiratory distress Tx: will continue IV Rocephin and Zithromax and await transfer. I believe if patient continues to rest comfortably without complaints by tomorrow morning, he can probably go home and treat outpatient. He will have received 48 hours of IV antibiotics, has no O2 requirement and no complaints. No vomiting or diarrhea. He is eating well. Review of Systems Review of Systems All systems reviewed & are unremarkable except as noted in HPI and below Constitutional Constitutional: Reports as per HPI and Reports no additional constitutional complaints Eyes Eyes: Reports as per HPI and Reports no additional eye complaints ENT Reports system reviewed and no additional complaints, except as documented Cardiovascular Cardiovascular: Reports as per HPI and Denies chest pain Respiratory Respiratory: Reports as per HPI, Reports no additional respiratory complaints and Denies dyspnea Gastrointestinal Gastrointestinal: Reports as per HPI, Reports no additional gastrointestinal complaints, Denies diarrhea, Denies nausea and Denies vomiting Genitourinary Genitourinary: Reports no additional male genitourinary complaints Musculoskeletal Musculoskeletal: Reports no additional musculoskeletal complaints Integumentary/Breasts Skin/Breast: Reports system reviewed and no additional complaints, except as docu Neurologic Reports system reviewed and no additional complaints, except as documented Psychiatric Psychiatric: Reports no additional psychiatric complaints Exam Const General: comfortable and no acute distress HENMT Mouth: Yes moist mucous membranes Eyes Pupils: Equal, round and reactive pupils present EOM: EOMs intact bilaterally Neck Neck: supple and no JVD Resp Effort & Inspection: normal respiratory effort Auscultation: clear to auscultation bilaterally and diminished lung sounds Cardio Rate: regular rate Rhythm: regular rhythm GI Inspection: non-distended GI Palp: Yes Soft to palpation and No Tenderness to palpation present (GI) Skin General skin exam: normal color Neuro Speech: normal speech Motor exam (neuro): 5/5 motor strength present throughout Sensory Exam: normal sensation Extrem General: normal to inspection Psych Mental Status: mental status grossly normal Affect: normal affect Objective Data Vital Signs Vital Signs: Vital Signs - 24 hr 10/24/23 07:15 10/24/23 07:30 10/24/23 08:00 Pulse Rate 109 H 106 H 109 H Respiratory Rate 26 H 26 H 24 H Blood Pressure 96/64 L 99/68 L Pulse Oximetry 94 96 Oxygen Delivery 10/24/23 09:15 10/24/23 09:45 10/24/23 10:15 Pulse Rate 111 H 110 H 110 H Respiratory Rate 20 22 H 23 H Blood Pressure Pulse Oximetry 93 96 94 Oxygen Delivery 10/24/23 10:30 10/24/23 10:45 10/24/23 11:00 Pulse Rate 108 H 109 H 110 H Respiratory Rate 27 H 24 H 23 H Blood
--- NOTE | 2023-10-24 17:05 | PC.NURSE ---
Dinner tray taken to room
--- NOTE | 2023-10-24 17:54 | PC.NURSE ---
patient placed back on cardiac cath tech. denture cup given
[2023-10-24] MEDS: oxyBUTYnin CHLORIDE 5 MG TABLET 10 MG PO (18:14)
--- NOTE | 2023-10-24 18:38 | PC.NURSE ---
helped patient get his flannel shirt off so he could start getting ready for bed. asked ot have air in room turned down. done.
--- NOTE | 2023-10-24 18:59 | PC.NURSE ---
report given to destiny marvin
[2023-10-24] MEDS: AZITHROMYCIN 500 MG/NS 250 ML 500 MG/250 ML BAG 250 MG IVPB (23:01)
[2023-10-25] VITALS (21 sets, daily range): BP systolic 92–100; BP diastolic 63–65; PULSE 95–118; RESP 17–37; TEMP 36.9; O2SAT 92–99
--- NOTE | 2023-10-25 07:32 | PC.NURSE ---
spoke with daughter, no opposition to DCing this patient at this time. She will have him follow up with his asp net c developer once DC.
--- NOTE | 2023-10-25 07:44 | PC.NURSE ---
report from yon dixon. resumed care. introduced self to pt. no needs at this time. awaiting breakfast and daughter arrival for discharge. call norton in reach.
--- NOTE | 2023-10-30 13:00 | PC.NURSE ---
FINAL BLOOD CULTURE RESULTS X2: NO GROWTH AFTER 5 DAYS
== END 2023-10-25 08:20 | disposition home or self-care (01) ==
PROVIDERS: Emergency Medicine; Emergency Provider Emergency Medicine; PCP Internal Medicine
DX: J18.9 Pneumonia, unspecified organism (principal); I50.9 Heart failure, unspecified; N39.0 Urinary tract infection, site not specified; R07.9 Chest pain, unspecified; I48.91 Unspecified atrial fibrillation; I25.10 Atherosclerotic heart disease of native coronary artery without angina pectoris; N18.9 Chronic kidney disease, unspecified; K21.9 Gastro-esophageal reflux disease without esophagitis; I13.0 Hypertensive heart and chronic kidney disease with heart failure and stage 1 through stage 4 chronic kidney disease, or unspecified chronic kidney disease; F17.210 Nicotine dependence, cigarettes, uncomplicated
CPT/HCPCS: 36415; 71045; 80053; 81001; 83605; 83690; 83735; 83880; 84484; 85025; 85055; 87040; 93005; 96365; 96366; 96368; 96375; 96376; 99284; A9270; J0456; J0696; J1940; J2405

== ENCOUNTER 2023-11-26 10:37 | Outpatient (RCR) | payer MEDICARE, SELFPAY ==
[2023-10-15 11:37] LABS: Hematocrit 27.3 % (37.0-46.0); Immature Platelet Fraction Pct 3.9 % (1.0-7.0); Mean Corpuscular HGB Conc 29.3 g/dL (32-36); Mean Corpuscular Hemoglobin 28.4 pg (27.0-31.0); Mean Corpuscular Volume 96.8 fL (78.0-102.0); Mean Platelet Volume 9.2 fl (8.7-11.0); Platelet Count Result 42 K/mm3 (150-420); Red Blood Count 2.82 M/mm3 (4.70-6.10); Red Cell Distribution Width 21.6 % (11.6-14.4); White Blood Count 5.1 K/mm3 (4.8-10.8)
[2023-10-15 12:21] LABS: Band Neutrophils Percent 1 % (0-6); Basophils Absolute Manual 0.05 K/mm3 (0-0.1); Basophils Percent Manual 1 % (0-1); Eosinophils Percent Manual 0 % (1-6); Hypochromasia 2+; Lymphocytes Percent Manual 6 % (18-44); Metamyelocytes Percent 2 %; Monocytes Absolute Manual 0.86 K/mm3 (0.1-0.90); Monocytes Percent Manual 17 % (3-9); Myelocytes Percent 6 %; Neutrophils Absolute Manual 3.41 K/mm3 (1.3-6.7); Neutrophils Percent Manual 66 % (46-73); Nucleated Red Blood Cells 9 %; Platelet Estimate Decreased (Adequate); Polychromasia 1+; Promyelocytes Percent 1 %; Total Cells Counted 100
[2023-10-15 12:42] LABS: Ferritin 165 ng/mL (26-388); Iron 34 ug/dL (65-175)
[2023-10-15 15:03] LABS: Percent Iron Saturation 19 % (12-57)
[2023-10-17 11:44] LABS: Transferrin 140 mg/dL (188-341)
[2023-11-13 11:46] LABS: Hematocrit 25.6 % (37.0-46.0); Hemoglobin 7.8 g/dL (12.4-15.3); Immature Platelet Fraction Pct 3.5 % (1.0-7.0); Mean Corpuscular HGB Conc 30.5 g/dL (32-36); Mean Corpuscular Volume 95.2 fL (78.0-102.0); Mean Platelet Volume 9.4 fl (8.7-11.0); Platelet Count Result 48 K/mm3 (150-420); Red Blood Count 2.69 M/mm3 (4.70-6.10); Red Cell Distribution Width 21.6 % (11.6-14.4); White Blood Count 5.4 K/mm3 (4.8-10.8)
[2023-11-13 12:24] LABS: Ferritin 253 ng/mL (26-388); Iron 67 ug/dL (65-175); Percent Iron Saturation 36 % (12-57)
[2023-11-13 13:14] LABS: Band Neutrophils Percent 2 % (0-6); Eosinophils Percent Manual 2 % (1-6); Lymphocytes Absolute Manual 0.59 K/mm3 (1.1-4.5); Lymphocytes Percent Manual 11 % (18-44); Monocytes Absolute Manual 0.37 K/mm3 (0.1-0.90); Monocytes Percent Manual 7 % (3-9); Myelocytes Percent 7 %; Neutrophils Absolute Manual 3.94 K/mm3 (1.3-6.7); Neutrophils Percent Manual 71 % (46-73); Platelet Estimate Decreased (Adequate); Total Cells Counted 100
[2023-11-19 14:12] LABS: Transferrin 162 (L) mg/dL
[2023-11-26 11:28] LABS: Ferritin 315 ng/mL (26-388); Iron 61 ug/dL (65-175); Percent Iron Saturation 35 % (12-57)
[2023-11-26 13:26] LABS: Hematocrit 23.4 % (37.0-46.0); Immature Platelet Fraction Pct 4.7 % (1.0-7.0); Mean Corpuscular HGB Conc 29.9 g/dL (32-36); Mean Corpuscular Volume 97.1 fL (78.0-102.0); Mean Platelet Volume 8.8 fl (8.7-11.0); Platelet Count Result 37 K/mm3 (150-420); Red Blood Count 2.41 M/mm3 (4.70-6.10); Red Cell Distribution Width 22.2 % (11.6-14.4); White Blood Count 5.1 K/mm3 (4.8-10.8)
[2023-11-26 13:41] LABS: Total Cells Counted 100
[2023-11-26 13:42] LABS: Band Neutrophils Percent 0 % (0-6); Basophils Absolute Manual 0.05 K/mm3 (0-0.1); Basophils Percent Manual 1 % (0-1); Eosinophils Absolute Manual 0.15 K/mm3 (0.02-0.50); Eosinophils Percent Manual 3 % (1-6); Lymphocytes Absolute Manual 0.56 K/mm3 (1.1-4.5); Lymphocytes Percent Manual 11 % (18-44); Metamyelocytes Percent 3 %; Monocytes Percent Manual 6 % (3-9); Myelocytes Percent 3 %; Neutrophils Absolute Manual 3.72 K/mm3 (1.3-6.7); Neutrophils Percent Manual 73 % (46-73)
[2023-11-26 13:43] LABS: Platelet Estimate Decreased (Adequate)
[2023-11-28 11:12] LABS: Transferrin 135 mg/dL (188-341)
== END 2024-01-13 23:59 | disposition home or self-care (01) ==
LOC: CHSLAB 10:37
PROVIDERS: PCP Internal Medicine; Visit Provider Internal Medicine
DX: D47.1 Chronic myeloproliferative disease (principal); D47.3 Essential (hemorrhagic) thrombocythemia; D75.89 Other specified diseases of blood and blood-forming organs
CPT/HCPCS: 36415; 82728; 83540; 83550; 84466; 85025; 85055

== ENCOUNTER 2023-12-04 19:18 | Observation (INO) | payer MEDICARE, SELFPAY ==
[2023-12-04] VITALS (8 sets, daily range): BP systolic 98–111; BP diastolic 59–72; PULSE 103–112; RESP 16–30; TEMP 36.8–37; O2SAT 98–100
--- NOTE | ~2023-12-04 | XR_ITS ---
EXAMINATION: XR chest 1V portable Exam Date/Time: 12/04/2023 19:39 CDT HISTORY: sob Comparison: None. RESULT: Lines, tubes, and devices: None. Lungs and pleura: Graded opacification in the right mid and lower lung. Obscuration of the right hem idiaphragm. Mild right costophrenic angle blunting with minor fissure fluid. Cardiomediastinal silhouette: Stable. Other: No acute osseous or upper abdominal finding. IMPRESSION: Small right pleural effusion, likely with adjacent atelectasis. Infection is not excluded Reviewed, dictated and finalized at location K. IMPRESSION: Small right pleural effusion, likely with adjacent atelectasis. Infection is no t excluded
--- NOTE | ~2023-12-04 | BM_ITS ---
EXAMINATION: CCL bone marrow asp w bx diag DATE: 12/07/2023 12:04 INDICATION: Anemia and thrombocytopenia. TECHNIQUE: A time-out was performed to verify the patient's name, date of , and procedure to b e performed. The procedure including the risks, benefits, and alternatives was discussed with the pat ient. Risks discussed included bleeding and infection. The patient understood the risks and agreed to proceed. The skin overlying the left ilium was prepped and draped in usual sterile fashion. Anesth etic was administered with 1% lidocaine subcutaneously. An 11 gauge needle was inserted into the iliu m with fluoroscopic guidance. Bone marrow was aspirated. An 8 gauge needle was then inserted into the ilium with fluoroscopic guidance. A core bone marrow biopsy was obtained. There were no immediate co mplications. Fluoroscopy exposure time was 0.0 minutes. The total number of images was 28. FINDINGS: Real-time fluoroscopy demonstrates a marker overlying the left posterior superior iliac spi ne. IMPRESSION: 1. Fluoro-guided bone marrow aspiration. 2. Fluoro-guided bone marrow core biopsy. Reviewed, dictated and finalized at location A.
--- NOTE | 2023-12-04 19:33 | ECG_ITS ---
Test Date: 2023-12-04 19:37:46 Measurements Intervals Natalia Rate: 110 P: -90 MN: 147 QRS: 254 QRSD: 102 T: 127 QT: 348 QTc: 472 Interpretive Statements ATRIAL FIBRILLATION MARKED RIGHT AXIS DEVIATION [QRS AXIS > 100] LOW QRS VOLTAGE IN EXTREMITY LEADS [QRS DEFLECTION < 0.5 mV IN LIMB LEADS] INCOMPLETE RIGHT BUNDLE BRANCH BLOCK [90+ ms QRS DURATION, TERMINAL R IN V1/V2, 40+ ms S IN I/aVL/V4/V5/V6] INFERIOR MYOCARDIAL INFARCTION , PROBABLY OLD [40+ ms Q WAVE AND/OR ST/T ABNORMALITY IN II/aVF] No previous ECG available for comparison Electronically Signed On 12-05-2023 14:36:51 CDT by Bella Mireles M.D.
[2023-12-04 19:56] LABS: Hemoglobin 7.1 g/dL (14.0-18.0); Immature Platelet Fraction Pct 4.6 % (0.9-11.2); Mean Corpuscular HGB Conc 32.3 g/dl (32-36); Mean Corpuscular Hemoglobin 31.3 pg (26-34); Mean Corpuscular Volume 96.9 fl (80-100); Mean Platelet Volume 9.7 fl (7.4-10.4); Platelet Count Result 29 k/mm3 (150-375); Red Blood Count 2.27 M/mm3 (4.6-6.20); Red Cell Distribution Width 22.1 % (11.5-14.5); White Blood Count 4.8 K/mm3 (4.5-10.0)
[2023-12-04 20:04] LABS: Alanine Aminotransferase 9 U/L (6-50); Albumin Level 3.3 g/dL (3.5-5.1); Alkaline Phosphatase 82 U/L (38-126); Anion Gap 9 mmol/L (4-12); Aspartate Amino Transferase 17 U/L (17-59); Bilirubin,Total 2.1 mg/dL (0.2-1.3); Blood Urea Nitrogen 40 mg/dL (9-20); Calcium 8.1 mg/dL (8.4-10.2); Carbon Dioxide 21 mmol/L (22-30); Chloride 109 mmol/L (98-107); Estimated CRCL calculation 23 ml/min; Estimated Glomerular Filt Rate 30; Glucose 117 mg/dL (65-110); Potassium 4.4 mmol/L (3.4-5.0); Sodium 139 mmol/L (137-145)
[2023-12-04 20:10] LABS: Lymphocytes Absolute Manual 0.38 K/mm3 (1.1-4.5); Lymphocytes Percent Manual 8 % (18-44); Monocytes Absolute Manual 0.72 K/mm3 (0.1-0.90); Monocytes Percent Manual 15 % (3-9); Neutrophils Percent Manual 69 % (46-73); Total Cells Counted 100
[2023-12-04 20:11] LABS: Anisocytosis 2+; Metamyelocytes Percent 3 %; Myelocytes Percent 5 %; Nucleated Red Blood Cells 7 %; Ovalocytes 1+; Platelet Estimate Decreased (Adequate); Schistocytes None Seen
[2023-12-04 20:16] LABS: NT Pro B Type Natriuretic Pept 18400 pg/mL (19.9-100); Troponin I < 0.012 ng/mL (0.000-0.034)
[2023-12-04] MEDS: FUROSEMIDE INJ 40 MG/4 ML VIAL IV PUSH (20:37)
--- NOTE | 2023-12-04 20:41 | ED.GENADULT ---
HPI - General Adult General Chief complaint: Shortness of Breath/Dyspnea Stated complaint: edema to legs Time Seen by Provider: 12/04/23 20:01 History of Present Illness HPI narrative: patient a 8-year-old gentleman the department chief complaint of shortness of breath weakness and increasing peripheral edema. Patient has history of peripheral edema and congestive heart failure sees cardiology at our facility patient reports that he has been having increasing peripheral edema to the point that his legs have been weeping fluid from them patient also has noticed that his abdomen has become progressively more distended of the family reports that they thought his abdomen was full of blood but it sounds more like the patient has had ascites from his congestive heart failure. The patient has history of anemia and is followed by Hematology and [facility] patient has had outpatient iron infusion and also blood transfusion recently. Related Data Home Medications Medication Instructions Recorded Confirmed omeprazole 20 mg capsule,delayed 20 mg PO DAILY 02/01/20 12/04/23 release oxybutynin chloride 5 mg tablet 10 mg PO BID 02/01/20 12/04/23 rivaroxaban 15 mg tablet (Xarelto) 15 mg PO DAILY 02/01/20 12/04/23 ferrous sulfate 325 mg (65 mg 325 mg PO DAILY 03/01/23 12/04/23 iron) tablet (Iron (ferrous sulfate)) tamsulosin 0.4 mg capsule 0.4 mg PO DAILY 03/01/23 12/04/23 docusate sodium 50 mg capsule 50 mg PO PRN 08/10/23 12/04/23 (Stool Softener) metoprolol succinate 50 mg 50 mg PO DAILY 08/10/23 12/04/23 tablet,extended release 24 hr multivitamin 1 tablet PO DAILY 08/10/23 12/04/23 spironolactone 25 mg tablet 25 mg PO DAILY 08/10/23 12/04/23 amlodipine 5 mg tablet 5 mg PO DAILY 12/04/23 12/04/23 diltiazem HCl 240 mg 240 mg PO DAILY 12/04/23 12/04/23 capsule,extended release 24 hr, controlled Allergies Allergy/AdvReac Type Severity Reaction Status Date / Time bee venom protein (honey bee) Allergy Unknown Verified 12/04/23 22:45 [bees] morphine Allergy Unknown Verified 12/04/23 22:45 naproxen AdvReac Unknown Verified 06/18/24 22:45 Review of Systems Review of Systems: A 10 system review of systems was completed on the patient and is negative except for what is stated in the HPI. Nursing and ancillary documentation was reviewed. [facility] Past Medical History Medical History Atrial fibrillation CAD (coronary artery disease) CHF (congestive heart failure) CKD (chronic kidney disease) GERD (gastroesophageal reflux disease) Hypertension Myeloproliferative disorder Surgical History Surgical History Surgical history unknown Family History Family History Other Family history unknown Social History Social History Social History: Lives at home with . Full code. Smoking status: Current some day smoker Tobacco type: pipe Alcohol intake: former Drinks per week: 1 Substance use: never Substance use type: does not use Do You Feel Safe in your Home?: Yes Lack of Transportation: No Lack of Food: Never True Current Housing: I Have Housing Concerned About Future Housing: No Difficulty Paying Gas/Electric Bills: No Difficulty Paying for Meds: No Currently Unemployed: No Education: High School Diploma/GED Difficulty w/ Childcare or Family Care: No Spiritual care concerns: No Exam Narrative: GENERAL: Well-appearing, well-nourished, and in no acute distress. HEAD: Normocephalic, atraumatic. EYES: PERRLA and EOMI. ENT: Nares clear, no rhinorrhea or epistaxis. Mucous membranes moist. NECK: Supple. CHEST: Clear to auscultation. No respiratory distress. HEART: Regular rate and rhythm. No murmur heard. Normal peripheral pulses. ABDOMEN: Soft, nontender,
[2023-12-04 21:20] LABS: Appearance Urine Clear (Clear); Bacteria Urine None Seen /hpf; Bilirubin Urine Negative (Negative); Blood Urine 2+ (Negative); Color Urine Yellow (Yellow); Glucose Urine UA Negative (Negative); Ketones Urine Negative (Negative); Leukocyte Esterase Ur Trace LEU/UL (Negative); Nitrate Urine Negative (Negative); Non Pathogenic Casts 0-2; Protein Urine Negative (Negative); RBC Urine 21-50 /hpf (0-2); Squamous Epithelial Cell Urine None Seen /hpf (Few); Urobilinogen Urine 0.2 mg/dL (<2.0); pH Urine 5.5 (5.0-9.0)
[2023-12-04 21:25] LABS: Add Urine Microscopic? YES
--- NOTE | 2023-12-04 22:48 | PM.IMHP ---
H&P: HPI History of Present Illness Date/Time: 12/04/23 22:48 Chief Complaint: Shortness of breath leg swelling Narrative: Patient is 88-year-old male admitted the hospital history of shortness of breath and increased lower extremity swelling. Patient has history of congestive heart failure with reduced ejection fraction seen by Cardiology routinely. Patient states the shortness of breath no worse the last few days he also has noted some weeping fluid from the extremity and also felt that his abdominal girth has increased. Patient has history of anemia and follows a gypsum calciner at [place] and has had transfusion in the past. At the emergency room patient noted to have hemoglobin of 7.1 and also the chest x-ray showed pleural effusion. Patient denies fever chills nausea vomiting diarrhea no chest pain no orthopnea no dizziness no palpitation. Patient has history of atrial fibrillation and is on Xarelto denies any hematuria Review of Systems Review of Systems: All systems reviewed & are unremarkable except as noted in HPI and below PMFSH Past Medical History Medical History Atrial fibrillation CAD (coronary artery disease) CHF (congestive heart failure) CKD (chronic kidney disease) GERD (gastroesophageal reflux disease) Hypertension Myeloproliferative disorder Surgical History Surgical History Surgical history unknown Family History Family History Other Family history unknown Social History Social History Social History: Lives at home with . Full code. Smoking status: Current some day smoker Tobacco type: pipe Alcohol intake: former Drinks per week: 1 Substance use: never Substance use type: does not use Do You Feel Safe in your Home?: Yes Lack of Transportation: No Lack of Food: Never True Current Housing: I Have Housing Concerned About Future Housing: No Difficulty Paying Gas/Electric Bills: No Difficulty Paying for Meds: No Currently Unemployed: No Education: High School Diploma/GED Difficulty w/ Childcare or Family Care: No Spiritual care concerns: No Meds Home Medications and Allergies Home Medications Medication Instructions Recorded Confirmed Type omeprazole 20 mg capsule,delayed 20 mg PO DAILY 02/01/20 12/04/23 History release oxybutynin chloride 5 mg tablet 10 mg PO BID 02/01/20 12/04/23 History rivaroxaban 15 mg tablet (Xarelto) 15 mg PO DAILY 02/01/20 12/04/23 History ferrous sulfate 325 mg (65 mg 325 mg PO DAILY 03/01/23 12/04/23 History iron) tablet (Iron (ferrous sulfate)) tamsulosin 0.4 mg capsule 0.4 mg PO DAILY 03/01/23 12/04/23 History furosemide 40 mg tablet 40 mg PO DAILY 1 month #30 tabs 03/09/23 12/04/23 Rx metoprolol succinate 200 mg 250 mg PO DAILY 1 month #38 tabs 03/09/23 12/04/23 Rx tablet,extended release 24 hr pantoprazole 40 mg tablet,delayed 40 mg PO QAM 1 month #30 tabs 03/09/23 12/04/23 Rx release docusate sodium 50 mg capsule 50 mg PO PRN 08/10/23 12/04/23 History (Stool Softener) metoprolol succinate 50 mg 50 mg PO DAILY 08/10/23 12/04/23 History tablet,extended release 24 hr multivitamin 1 tablet PO DAILY 08/10/23 12/04/23 History spironolactone 25 mg tablet 25 mg PO DAILY 08/10/23 12/04/23 History amlodipine 5 mg tablet 5 mg PO DAILY 12/04/23 12/04/23 History diltiazem HCl 240 mg 240 mg PO DAILY 12/04/23 12/04/23 History capsule,extended release 24 hr, controlled Allergies Allergy/AdvReac Type Severity Reaction Status Date / Time bee venom protein (honey bee) Allergy Unknown Verified 12/04/23 22:45 [bees] morphine Allergy Unknown Verified 12/04/23 22:45 naproxen AdvReac Unknown Verified 12/04/23 22:45 Vital Signs Vital Signs - 24
[2023-12-05] VITALS (18 sets, daily range): BP systolic 84–124; BP diastolic 54–86; PULSE 47–111; RESP 14–22; TEMP 35.9–36.7; O2SAT 97–100
--- NOTE | 2023-12-05 06:00 | ECHO_ITS ---
Patient Info Name: Wes Greene Age: 88 years : 1935 Gender: Male Ht: 70 in Wt: 159 lbs BSA: 1.89 m2 HR: 94 bpm BP: 111 / 66 mmHg Technical Quality: Fair Exam Date: 12/05/2023 8:09 AM Exam Location: Echo Lab Patient Status: Outpatient Admit Date: 12/04/2023 Staff Ordering Physician: Justino Ambrose MD Nursing Student: Henry Cooper RDCS Attending Provider: Fran Otoole MD Referring Physician: Halie LAL; Exam Type: CA echo doppler color flow Study Info Indications R06.00 - Dyspnea, unspecified I50.20 - Unspecified systolic (congestive) heart failure Complete two-dimensional, color flow and Doppler transthoracic echocardiogram is performed. Summary 1. Left ventricular chamber dimension is normal. 2. Left ventricular systolic function is moderately reduced, estimated at 35-40%. 3. Right ventricular chamber dimension is normal. 4. Right ventricular systolic function is reduced. 5. Left atrial chamber dimension is moderately enlarged. 6. Right atrial chamber dimension is severely enlarged. 7. There is moderate to severe mitral valve regurgitation. 8. There is moderate to severe tricuspid valve regurgitation. 9. There is mild pulmonic regurgitation. 10. There is small anterior pericardial effusion. Left Ventricle Left ventricular chamber dimension is normal. Left ventricular systolic function is moderately reduced, estimated at 35-40%. There is no increased left ventricular wall thickness. Left ventricular septal wall motion is abnormal with septal motion related to bundle branch block. The left ventricular diastolic function is indeterminate. Right Ventricle Right ventricular chamber dimension is normal. Right ventricular systolic function is reduced. Left Atria Left atrial chamber dimension is moderately enlarged. Right Atria Right atrial chamber dimension is severely enlarged. Atrial Septum Intact interatrial septum visualized by color flow imaging. Aortic Valve The aortic valve is trileaflet. There is moderate aortic valve sclerosis. There is no aortic valve stenosis. There is no aortic valve regurgitation. Pulmonic Valve The pulmonic valve is not well visualized. There is mild pulmonic regurgitation. Mitral Valve There is moderate to severe mitral valve regurgitation. The mitral valve annulus is mildly calcified. Tricuspid Valve There is moderate to severe tricuspid valve regurgitation. Pericardium/Pleural There is small anterior pericardial effusion. Inferior Vena Cava Normal inferior vena cava with >50% collapse upon inspiration consistent with normal right atrial pressure, 3 mmHg. Aorta The aortic root size at the sinus of Valsalva is normal. Left Ventricular Outflow Tract Name Value Normal LVOT 2D LVOT Diameter 2.0 cm LVOT Doppler LVOT Peak Gradient 4 mmHg LVOT Mean Gradient 2 mmHg LVOT VTI 15 cm LVOT VTI/AV VTI Ratio 0.7 LVOT Stroke Volume 49 ml LVOT CO 4.4 l/min LVOT CI 2.4 l/min/m2 Pulmonic Valve --------
[2023-12-05 08:56] LABS: Hematocrit 21.7 % (42.0-52.0); Immature Platelet Fraction Pct 4.9 % (0.9-11.2); Mean Corpuscular HGB Conc 31.8 g/dl (32-36); Mean Corpuscular Hemoglobin 30.9 pg (26-34); Mean Corpuscular Volume 97.3 fl (80-100); Platelet Count Result 26 k/mm3 (150-375); Red Blood Count 2.23 M/mm3 (4.6-6.20); Red Cell Distribution Width 22.4 % (11.5-14.5); White Blood Count 4.9 K/mm3 (4.5-10.0)
[2023-12-05 09:05] LABS: Alanine Aminotransferase 7 U/L (6-50); Albumin Level 3.3 g/dL (3.5-5.1); Alkaline Phosphatase 63 U/L (38-126); Anion Gap 8 mmol/L (4-12); Aspartate Amino Transferase 16 U/L (17-59); Bilirubin,Total 2.2 mg/dL (0.2-1.3); Blood Urea Nitrogen 42 mg/dL (9-20); Calcium 8.1 mg/dL (8.4-10.2); Carbon Dioxide 24 mmol/L (22-30); Chloride 108 mmol/L (98-107); Estimated CRCL calculation 24 ml/min; Estimated Glomerular Filt Rate 32; Glucose 89 mg/dL (65-110); Potassium 4.2 mmol/L (3.4-5.0); Sodium 140 mmol/L (137-145)
[2023-12-05] MEDS: dilTIAZem HCL CD 240 MG CAP.24HR PO (09:06)
[2023-12-05] MEDS: SPIRONOLACTONE 25 MG TABLET PO (09:07)
[2023-12-05] MEDS: PANTOPRAZOLE 40 MG TABLET PO (09:07)
[2023-12-05] MEDS: TAMSULOSIN HCL 0.4 MG CAPSULE PO (09:07)
[2023-12-05] MEDS: oxyBUTYnin CHLORIDE 5 MG TABLET 10 MG PO ×2 (09:07→16:08)
[2023-12-05] MEDS: FERROUS SULFATE 325 MG TABLET DR PO (09:07)
[2023-12-05] MEDS: RIVAROXABAN 15 MG TABLET PO (09:07)
[2023-12-05] MEDS: BUMETANIDE INJ 1 MG/4 ML VIAL IV PUSH ×2 (09:08→16:08)
[2023-12-05 09:11] LABS: Hemoglobin 6.9 g/dL (14.0-18.0)
[2023-12-05 09:13] LABS: NT Pro B Type Natriuretic Pept 19600 pg/mL (19.9-100)
[2023-12-05] MEDS: METOPROLOL SUCCINATE EXT REL 100 MG TABCR 200 MG PO (10:20)
[2023-12-05 10:23] LABS: Folic Acid > 20.0 ng/mL (2.76->20)
--- NOTE | 2023-12-05 11:13 | PM.CNCAR ---
Assessment and Plan Assessment and plan (1) Acute on chronic heart failure with reduced ejection fraction and diastolic dysfunction: Code(s): I50.43 - Acute on chronic combined systolic (congestive) and diastolic (congestive) heart failure Status: Acute Assessment and Plan: Echocardiogram pending for re-evaluation of LVEF. Continue with IV Bumex. Please monitor strict I/Os. Continue Metoprolol. Continue Spironolactone. Will start low-dose Entresto and Jardiance and see how he tolerates this. Unable to undergo FOOT CASTER-D due to prohibitive risk from thrombocytopenia despite getting platelet transfusions (2) Atrial fibrillation: Code(s): I48.91 - Unspecified atrial fibrillation Status: Acute Assessment and Plan: Permanent atrial fibrillation pursuing rate control strategy. Unable to undergo FOOT CASTER-D and AV víctor ablation due to prohibitive risk from thrombocytopenia despite getting platelet transfusions. Continue Metoprolol and Diltiazem. Continue Xarelto for anticoagulation. (3) 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 Status: Acute Assessment and Plan: Has anemia and thrombocytopenia. Transfuse for Hgb <7. (4) Hypertension: Code(s): I10 - Essential (primary) hypertension Status: Acute Assessment and Plan: Stable. Continue Metoprolol, Diltiazem, Spironolactone. Stop Amlodipine. Will be starting Entresto instead. (5) CKD (chronic kidney disease): Code(s): N18.9 - Chronic kidney disease, unspecified Status: Acute Assessment and Plan: Closely monitor renal function given IV diuresis and addition of heart failure GDMT. (6) Chronic anticoagulation: Code(s): Z79.01 - shelter (current) use of anticoagulants Status: Acute Assessment and Plan: Continue Xarelto. History of Present Illness History of Present Illness Consult date/time: 12/05/23 11:13 Requesting physician: Justino Ambrose MD Consult reason: congestive heart failure Reason For Visit: edema to legs Narrative: This is an 88 year old patient who I see in clinic. He has a history of: 1. Heart failure with reduced LVEF of 30-35%. Unable to undergo FOOT CASTER-D and AV víctor ablation due to prohibitive risk from thrombocytopenia despite getting platelet transfusions 2. Permanent atrial fibrillation / atrial flutter on Xarelto 3. 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 History of left atrial appendage thrombus noted on [facility] in January 2023 5. Chronic kidney disease 6. Hypertension 7. History of GI bleeding 8. Myeloproliferative disorder with anemia and thrombocytopenia requiring intermittent blood transfusions Patient presented to [place] for worsening lower extremity edema and abdominal distension. We had last seen him in the office on November 13, 2023 and recommended paracentesis to help alleviate his ascites, however, not a candidate for outpatient paracentesis due to significant anemia and thrombocytopenia. Patient admitted for CHF. Has been started on IV Bumex and has had appropriate urine output in response. Reports that his abdomen does not feel as tight. Workup thus far shows: Hgb 7.1 Plt 29 SCr 2.1 NT pro BNP of 18,400 CXR with small pleural effusion Review of Systems Review of Systems: All systems reviewed & are unremarkable except as noted in HPI and below (HPI) PMFSH Past Medical History Medical History Atrial fibrillation CAD (coronary artery disease) CHF (congestive heart failure) CKD (chronic kidney disease) GERD (gastroesophageal reflux disease) Hypertension Myeloproliferative disorder Surgical History Surgical History Surgical history unknown Fam
[2023-12-05] MEDS: EMPAGLIFLOZIN 10 MG TABLET PO (12:01)
--- NOTE | 2023-12-05 12:29 | PDONCCN ---
[facility] - Date of Consult Date/Time: 12/05/23 12:29 Requesting Physician: Fran Otoole MD Primary Care Provider: Lakhwinder Watts, - Consult Narrative Reason for consult: Anemia and thrombocytopenia Narrative: Wes Greene is a 88 year old male with history of atrial fibrillation, chronic kidney disease, congestive heart failure and hypertension brought into the hospital with shortness of breath and increased patient has been seeing Dr. Husain in [place] for his anemia and thrombocytopenia. I have discussed this case with patient daughter María Elena in detail today. Patient is not able to give me much history about his hematology diagnosis. And he has been getting Procrit for a month duration his blood counts started dropping stuff last year. His hemoglobin his platelet was about 30,000. Last week he received iron infusion cell. Recent labs showed hemoglobin of 6.9 [place] [address]. He denies any easy a. Patient is on Xarelto for atrial fibrillation as well. Patient had abdominal ultrasound done in February of last year that showed normal liver and spleen. Review of Systems - Review of Systems All systems reviewed & are unremarkable except as noted in [facility] and [facility] Medical History: Medical History (Last Reviewed 12/05/23 @ 11:33 by Bella Mireles MD) Atrial fibrillation CAD (coronary artery disease) CHF (congestive heart failure) CKD (chronic kidney disease) GERD (gastroesophageal reflux disease) Hypertension Myeloproliferative disorder Surgical History: Surgical History (Last Reviewed 12/05/23 @ 11:33 by Bella Mireles MD) Surgical history unknown Family History: Family History (Last Reviewed 12/05/23 @ 11:33 by Bella Mireles MD) Other Family history unknown - Social History Social History: Social History (Last Reviewed 12/05/23 @ 11:33 by Bella Mireles MD) Alcohol Use: Alcohol intake: former Drinks per week: 1 Substance Use: Substance use: never Substance use type: does not use Others: Spiritual care concerns: No Smoking Status: Smoking status: Current some day smoker Tobacco type: pipe Social Determinants of Health: Do You Feel Safe in your Home?: Yes Has the Lack of Transportation Kept You From Medical Appointments or From Getting Medications?: No Within the Past 12 Months, Were You Worried Whether Your Food Would Run Out Before You Got Money to Buy More?: Never True What is Your Housing Situation Today?: I Have Housing Are You Worried That in the Next 2 Months, You May Not Have Your Own Housing to Live In?: No Do You Have Trouble Paying Your Heating Or Electricity Bill?: No Do You Have Trouble Paying For Medicines?: No Are You Currently Unemployed and Looking for Work?: No Highest Level of Education Completed: High School Diploma/GED Do You Have Trouble With Childcare or the Care of a Family Member?: No Exam - Vital Signs Vital Signs - 24 hr 12/04/23 19:19 12/04/23 19:34 12/04/23 19:53 Temperature 37.0 C Pulse Rate 110 H 112 H Respiratory Rate 22 H 28 H Blood Pressure 99/59 L 103/66 Pulse Oximetry 100 98 Oxygen Delivery Room Air Room Air 12/04/23 20:33 12/04/23 20:42 12/04/23 21:01 Temperature Pulse Rate 103 H 111 H 110 H Respiratory Rate 26 H 21 H 30 H Blood Pressure 98/68 L 100/64 110/66 Pulse Oximetry 98 99 99 Oxygen Delivery 12/04/23 21:50 12/04/23 22:30 12/04/23 22:51 Temperature 36.8 C Pulse Rate 109 H 109 H 109 H Respiratory Rate 22 H 16 Blood Pressure 106/72 111/66 Pulse Oximetry 100 99 Oxygen Delivery 12/05/23 00:03 12/05/23 04:01 12/05/23 06:00 Temperature 36.2 C L Pulse Rate 100 94 111 H Respiratory Rate 16 Blood Pressure 113/75 Pulse Oximetry 99 Oxygen Delivery 12/05/23 08:55 12/05/23 10:20 12/05/23 08:00 Temperature Pulse Rate 111 H 97 Respiratory Rate Blood Pressure Pulse Oximetry 98
[2023-12-05] MEDS: EPOETIN ALFA-EPBX 20,000 UNITS/ML VIAL 20000 UNITS SUB-Q (13:13)
--- NOTE | 2023-12-05 14:07 | PM.IMPN ---
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 on Xarelto, last dose was 0900 on 12/04--on hold for bone marrow biopsy Usually on metoprolol 300 mg daily and diltiazem 240 mg daily Blood pressure lower, metoprolol decreased to 200 mg daily for now Cardiology adding low dose Entresto starting 12/04 2100 (5) Thrombocytopenia: Code(s): D69.6 - Thrombocytopenia, unspecified Status: Acute Assessment and Plan: PLT 26 on 12/04 am labs (6) Chronic anticoagulation: Code(s): Z79.01 - wafer cutter (current) use of anticoagulants Status: Acute Assessment and Plan: on Xarelto, last dose was 0900 on 12/04--on hold for bone marrow biopsy (7) Acute on chronic anemia: Code(s): D64.9 - Anemia, unspecified Status: Acute Assessment and Plan: HGB 6.9 on 12/04 am labs 1 unit PRBC ordered by Dr. Lubin Plan Heart failure with reduced ejection fraction. EKG reviewed Chest x-ray reviewed TTE EF of 35% Daily weights Consider SGLT2 inhibitors if okay with Cards Loop diuretics as indicate Cardiology consulted Patient educated about titrating diuretics at home based on weight blood pressure and symptoms. Optimize blood pressure < 130/80 Fall risk assessment Pneumonia and flu vaccine advised Routine follow-up with the primary care physician and director digital catalogue recommended AFIB Optimize ARNI/ SENIA-inhibitor/Beta-blockers, continue metoprolol and spironolactone statin and antiplatelet therapy Xarelto Monitor for RVR and SOB Keeping BMI less than 25 Advised low-salt low carb diet. EDEMA Chronic venous insufficiency Recommended leg elevation, exercise, compression therapy. Watch for local infections and wound care CKD stage III cause heart failure/anemia serum creatinine 2.1 Avoid nephrotoxic drugs. Monitor antihypertensive drug therapy. Avoid NSAIDs. Routine CMP monitoring GFR. Monitor electrolytes especially potassium. Pharmacy does medications. ANEMIA Hgb POA secondary to myeloproliferative disorder No reports of bleeding Iron study TIBC and ferritin noted Hgb f/U daily H&H 7.07/09 Tranfuse if hemoglobin less than 7 Continue iron supplement p.o. Time Spent With Patient Time with patient: Greater than 35 minutes Subjective Date/time seen: 12/05/23 14:07 Interval history: Patient admitted due to swelling and dyspnea. He is feeling some improvement after diuresis. Hemoglobin and platelets low. Cardiology consulted on admit. Heme/Onc consulted for guidance, history of myeloproliferative disorder. Dr. Lubin ordered PRBC transfusion and wants Bone Marrow biopsy. Patient received Xarelto this morning and platelet count was 26. Xarelto on hold now. No active signs of bleeding. Heme/Onc also ordered epoetin. Recent iron studies show normal saturation, slight decrease iron levels and TIBC. Cardiology started Entresto which
[2023-12-05] MEDS: SACUBITRIL/VALSARTAN 12-13 MG TABLET 1 TAB PO (20:15)
[2023-12-05] MEDS: ACETAMINOPHEN 325 MG TABLET 650 MG PO (23:30)
[2023-12-06] VITALS (10 sets, daily range): BP systolic 84–99; BP diastolic 52–69; PULSE 53–100; RESP 12–16; TEMP 36–37.2; O2SAT 98–100
[2023-12-06 07:14] LABS: Hematocrit 24.7 % (42.0-52.0); Hemoglobin 7.8 g/dL (14.0-18.0); Immature Platelet Fraction Pct 5.3 % (0.9-11.2); Mean Corpuscular HGB Conc 31.6 g/dl (32-36); Mean Corpuscular Volume 101.2 fl (80-100); Mean Platelet Volume 9.8 fl (7.4-10.4); Platelet Count Result 27 k/mm3 (150-375); Red Blood Count 2.44 M/mm3 (4.6-6.20); Red Cell Distribution Width 22.9 % (11.5-14.5)
[2023-12-06 07:34] LABS: Alanine Aminotransferase 8 U/L (6-50); Albumin Level 3.6 g/dL (3.5-5.1); Alkaline Phosphatase 66 U/L (38-126); Anion Gap 11 mmol/L (4-12); Aspartate Amino Transferase 16 U/L (17-59); Bilirubin,Total 2.6 mg/dL (0.2-1.3); Blood Urea Nitrogen 46 mg/dL (9-20); Carbon Dioxide 23 mmol/L (22-30); Chloride 105 mmol/L (98-107); Estimated CRCL calculation 22 ml/min; Estimated Glomerular Filt Rate 28; Glucose 91 mg/dL (65-110); Potassium 4.3 mmol/L (3.4-5.0); Sodium 139 mmol/L (137-145)
[2023-12-06 07:48] LABS: Band Neutrophils Percent 4 % (0-6); Blastocytes 1 %; Metamyelocytes Percent 2 %; Monocytes Absolute Manual 0.55 K/mm3 (0.1-0.90); Monocytes Percent Manual 11 % (3-9); Neutrophils Absolute Manual 3.65 K/mm3 (1.3-6.7); Neutrophils Percent Manual 69 % (46-73); Nucleated Red Blood Cells 5 %; Promyelocytes Percent 1 %; Total Cells Counted 100
[2023-12-06 07:49] LABS: Ovalocytes 1+; Platelet Estimate Decreased (Adequate); Poikilocytosis 1+; Schistocytes None Seen
[2023-12-06 07:50] LABS: Hypochromasia 1+; Tear Drop Cells 2+
--- NOTE | 2023-12-06 08:22 | PM.IMPN ---
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: Code(s): I50.43 - Acute on chronic combined systolic (congestive) and diastolic (congestive) heart failure Status: Acute Assessment and Plan: IV Bumex 1 g BID Usually on metoprolol 300 mg daily and diltiazem 240 mg daily Blood pressure lower, metoprolol decreased to 200 mg daily for now Cardiology adding Jardiance starting 12/04 @ 1200 and low dose Entresto starting 12/04 @ 2100 12/05: Blood pressures in the 80s to 90s systolic over 50s, asymptomatic Atrial fibrillation on telemetry heart rate 40s to 110s consistent with history of tachy-khadra syndrome (2) 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 Status: Acute Assessment and Plan: Bone Marrow biopsy ordered by Dr. Lubin 12/05: Spoke to Dr. Husain at [facility] in [place], no need for bone marrow biopsy at this time. History of myelofibrosis. Transfuse HGB under 7. 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 due to thrombocytopenia on Xarelto, last dose was 0900 on 12/04--on hold for bone marrow biopsy Usually on metoprolol 300 mg daily and diltiazem 240 mg daily Blood pressure lower, metoprolol decreased to 200 mg daily for now Cardiology adding low dose Entresto starting 12/04 2099 (5) Thrombocytopenia: Code(s): D69.6 - Thrombocytopenia, unspecified Status: Acute Assessment and Plan: PLT 26 on 12/04 am labs 12/05: PLT 27 am labs (6) Chronic anticoagulation: Code(s): Z79.01 - [facility] (current) use of anticoagulants Status: Acute Assessment and Plan: on Xarelto, last dose was 0900 on 12/04--on hold for bone marrow biopsy (7) Acute on chronic anemia: Code(s): D64.9 - Anemia, unspecified Status: Acute Assessment and Plan: HGB 6.9 on 12/04 am labs 1 unit PRBC ordered by Dr. Lubin 12/05: HGB 7.8 post transfusion Plan Heart failure with reduced ejection fraction. EKG reviewed Chest x-ray reviewed TTE EF of 35% Daily weights Consider SGLT2 inhibitors if okay with Cards Loop diuretics as indicate Cardiology consulted Patient educated about titrating diuretics at home based on weight blood pressure and symptoms. Optimize blood pressure < 130/80 Fall risk assessment Pneumonia and flu vaccine advised Routine follow-up with the primary care physician and trimming cutter machine recommended AFIB Optimize ARNI/ SENIA-inhibitor/Beta-blockers, continue metoprolol and spironolactone statin and antiplatelet therapy Xarelto Monitor for RVR and SOB Keeping BMI less than 25 Advised low-salt low carb diet. EDEMA Chronic venous insufficiency Recommended leg elevation, exercise, compression therapy. Watch for local infections and wound care CKD stage III cause heart failure/anemia serum creatinine 2.1 Avoid nephrotoxic drugs. Monitor antihypertensive drug therapy. Avoid NSAIDs. Routine CMP monitoring GFR. Monitor electrolytes especially potassium. Pharmacy does medications. ANEMIA Hgb POA secondary to myeloproliferative disorder No reports of bleeding Iron study TIBC and ferritin noted Hgb f/U daily H&H 7.07/09 Tranfuse if hemoglobin less than 7 Continue iron supplement p.o. Time Spent With Patient Time with patient: Greater than 35 minutes Subjective Date/time seen: 12/06/23 08:22 Interval history: Patient reports that his swelling continues to improve. He does not have any lightheadedness or dizziness. His blood pressure has bee
[2023-12-06] MEDS: PANTOPRAZOLE 40 MG TABLET PO (08:25)
[2023-12-06] MEDS: SACUBITRIL/VALSARTAN 12-13 MG TABLET 1 TAB PO ×2 (08:25→20:07)
[2023-12-06] MEDS: dilTIAZem HCL CD 240 MG CAP.24HR PO (08:25)
[2023-12-06] MEDS: SPIRONOLACTONE 25 MG TABLET PO (08:25)
[2023-12-06] MEDS: EMPAGLIFLOZIN 10 MG TABLET PO (08:25)
[2023-12-06] MEDS: TAMSULOSIN HCL 0.4 MG CAPSULE PO (08:25)
[2023-12-06] MEDS: FERROUS SULFATE 325 MG TABLET DR PO (08:25)
[2023-12-06] MEDS: METOPROLOL SUCCINATE EXT REL 100 MG TABCR 200 MG PO (08:25)
[2023-12-06] MEDS: BUMETANIDE INJ 1 MG/4 ML VIAL IV PUSH ×2 (08:26→16:57)
[2023-12-06] MEDS: oxyBUTYnin CHLORIDE 5 MG TABLET 10 MG PO ×2 (08:26→16:57)
--- NOTE | 2023-12-06 15:20 | PM.PNCARD ---
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 Continue with IV Bumex. Please monitor strict I/Os. Continue Metoprolol. Continue Spironolactone. Started low-dose Entresto and Jardiance and will see how he tolerates this. Unable to undergo MIDDLE SCHOOL COACH-D due to prohibitive risk from thrombocytopenia despite getting platelet transfusions (2) Atrial fibrillation: Code(s): I48.91 - Unspecified atrial fibrillation Status: Acute Assessment and Plan: Permanent atrial fibrillation pursuing rate control strategy. Unable to undergo MIDDLE SCHOOL COACH-D and AV víctor ablation due to prohibitive risk from thrombocytopenia despite getting platelet transfusions. Continue Metoprolol and Diltiazem. Given his significant anemia requiring blood transfusion 12/04 and platelet count in the 20s, will discontinue Xarelto. (3) 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 Status: Acute Assessment and Plan: Has anemia and thrombocytopenia. Transfuse for Hgb <7. Oncology here has been consulted as well. (4) Hypertension: Code(s): I10 - Essential (primary) hypertension Status: Acute Assessment and Plan: Continue Metoprolol, Diltiazem, Spironolactone. Stopped Amlodipine. Started Entresto instead. (5) CKD (chronic kidney disease): Code(s): N18.9 - Chronic kidney disease, unspecified Status: Acute Assessment and Plan: Closely monitor renal function given IV diuresis and addition of heart failure GDMT. (6) Chronic anticoagulation: Code(s): Z79.01 - senior living (current) use of anticoagulants Status: Acute Assessment and Plan: Given his significant anemia requiring blood transfusion 12/04 and platelet count in the 20s, will discontinue Xarelto. Subjective Date/time seen: 12/06/23 15:20 Interval history: Reason for visit: CHF HPI: This is an 88 year old patient who I see in clinic. He has a history of: 1. Heart failure with reduced LVEF of 30-35%. Unable to undergo MIDDLE SCHOOL COACH-D and AV víctor ablation due to prohibitive risk from thrombocytopenia despite getting platelet transfusions 2. Permanent atrial fibrillation / atrial flutter on Xarelto 3. 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 History of left atrial appendage thrombus noted on RAYMOND in January 2023 5. Chronic kidney disease 6. Hypertension 7. History of GI bleeding 8. Myeloproliferative disorder with anemia and thrombocytopenia requiring intermittent blood transfusions Patient presented to [facility] for worsening lower extremity edema and abdominal distension. We had last seen him in the office on November 13, 2023 and recommended paracentesis to help alleviate his ascites, however, not a candidate for outpatient paracentesis due to significant anemia and thrombocytopenia. Patient admitted for CHF. Has been started on IV Bumex and has had appropriate urine output in response. Reports that his abdomen does not feel as tight. Workup thus far shows: Hgb 7.1. Plt 29. SCr 2.1. NT pro BNP of 18,400. CXR with small pleural effusion Date of service 12/05: Patient feels like his legs and belly are less swollen. Frequently urinating. Feels cold in the hospital. Review of Systems Review of Systems: All systems reviewed & are unremarkable except as noted in HPI and below (HPI) Exam Const: General: comfortable and no acute distress HENMT: Mouth: Yes moist mucous membranes Eyes: General: appearance normal, both eyes and all related structures Sclera: sclerae n
[2023-12-07] VITALS (10 sets, daily range): BP systolic 88–100; BP diastolic 50–63; PULSE 52–106; RESP 12–20; TEMP 36.2–36.6; O2SAT 98–100
[2023-12-07] MEDS: ACETAMINOPHEN 325 MG TABLET 650 MG PO (01:24)
[2023-12-07 06:49] LABS: Hematocrit 24.5 % (42.0-52.0); Hemoglobin 7.9 g/dL (14.0-18.0); Immature Platelet Fraction Pct 4.1 % (0.9-11.2); Mean Corpuscular HGB Conc 32.2 g/dl (32-36); Mean Corpuscular Hemoglobin 31.9 pg (26-34); Mean Corpuscular Volume 98.8 fl (80-100); Platelet Count Result 28 k/mm3 (150-375); Red Blood Count 2.48 M/mm3 (4.6-6.20); Red Cell Distribution Width 22.4 % (11.5-14.5); White Blood Count 4.7 K/mm3 (4.5-10.0)
[2023-12-07 06:53] LABS: Alanine Aminotransferase 8 U/L (6-50); Albumin Level 3.5 g/dL (3.5-5.1); Alkaline Phosphatase 64 U/L (38-126); Anion Gap 9 mmol/L (4-12); Aspartate Amino Transferase 15 U/L (17-59); Bilirubin,Total 2.1 mg/dL (0.2-1.3); Blood Urea Nitrogen 47 mg/dL (9-20); Carbon Dioxide 22 mmol/L (22-30); Chloride 105 mmol/L (98-107); Estimated CRCL calculation 20 ml/min; Estimated Glomerular Filt Rate 26; Glucose 87 mg/dL (65-110); Potassium 4.6 mmol/L (3.4-5.0); Sodium 136 mmol/L (137-145)
[2023-12-07 07:37] LABS: Anisocytosis 1+; Band Neutrophils Percent 4 % (0-6); Lymphocytes Absolute Manual 0.84 K/mm3 (1.1-4.5); Metamyelocytes Percent 2 %; Monocytes Absolute Manual 0.56 K/mm3 (0.1-0.90); Monocytes Percent Manual 12 % (3-9); Neutrophils Absolute Manual 3.14 K/mm3 (1.3-6.7); Neutrophils Percent Manual 63 % (46-73); Ovalocytes 1+; Platelet Estimate Decreased (Adequate); Promyelocytes Percent 1 %; Total Cells Counted 100
[2023-12-07 07:38] LABS: Schistocytes None Seen; Tear Drop Cells 1+
--- NOTE | 2023-12-07 11:06 | PM.IMPN ---
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: Code(s): I50.43 - Acute on chronic combined systolic (congestive) and diastolic (congestive) heart failure Status: Acute Assessment and Plan: IV Bumex 1 g BID Usually on metoprolol 300 mg daily and diltiazem 240 mg daily Blood pressure lower, metoprolol decreased to 200 mg daily for now Cardiology adding Jardiance starting 12/04 @ 1200 and low dose Entresto starting 12/04 @ 2100 12/05: Blood pressures in the 80s to 90s systolic over 50s, asymptomatic Atrial fibrillation on telemetry heart rate 40s to 110s consistent with history of tachy-khadra syndrome 12/06: Cardiology monitoring, patient currently on metoprolol 200 mg daily, diltiazem 240 mg daily Jardiance 10 mg daily, Entresto 12/13 mg b.i.d. spironolactone and IV Bumex 1 mg daily renal slowly worsening IV Bumex was decreased from twice daily to once daily Blood pressures have remained stable and patient asymptomatic with lower readings Discharge anticipated in 1-2 days (2) 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 Status: Acute Assessment and Plan: Bone Marrow biopsy ordered by Dr. Lubin 12/05: Spoke to Dr. Husain at [facility] in [place], no need for bone marrow biopsy at this time. History of myelofibrosis. Transfuse HGB under 7. 12/06: Dr. Lubin disagrees with Dr. Husain's management and wanted bone marrow biopsy for definitive dx. Patient's daughter agrees. 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 due to thrombocytopenia on Xarelto, last dose was 0900 on 12/04--on hold for bone marrow biopsy Usually on metoprolol 300 mg daily and diltiazem 240 mg daily Blood pressure lower, metoprolol decreased to 200 mg daily for now Cardiology adding low dose Entresto starting 12/04 2100 12/06: Xarelto permanently discontinued by Cardiology due to low platelet count and low hemoglobin (5) Thrombocytopenia: Code(s): D69.6 - Thrombocytopenia, unspecified Status: Acute Assessment and Plan: PLT 26 on 12/04 am labs 12/05: PLT 27 am labs 12/06: PLT 28 am labs (6) Chronic anticoagulation: Code(s): Z79.01 - joint terminal attack controller (current) use of anticoagulants Status: Acute Assessment and Plan: on Xarelto, last dose was 0900 on 12/04--on hold for bone marrow biopsy 12/06: Xarelto permanently discontinued by Cardiology (7) Acute on chronic anemia: Code(s): D64.9 - Anemia, unspecified Status: Acute Assessment and Plan: HGB 6.9 on 12/04 am labs 1 unit PRBC ordered by Dr. Lubin 12/05: HGB 7.8 post transfusion 12/06: HGB 7.9 Plan Heart failure with reduced ejection fraction. EKG reviewed Chest x-ray reviewed TTE EF of 35% Daily weights Consider SGLT2 inhibitors if okay with Cards Loop diuretics as indicate Cardiology consulted Patient educated about titrating diuretics at home based on weight blood pressure and symptoms. Optimize blood pressure < 130/80 Fall risk assessment Pneumonia and flu vaccine advised Routine follow-up with the primary care physician and final cigar and box examiner recommended AFIB Optimize ARNI/ SENIA-inhibitor/Beta-blockers, continue metoprolol and spironolactone statin and antiplatelet therapy Xarelto Monitor for RVR and SOB Keeping BMI less than 25 Advised low-salt low carb diet. EDEMA Chronic rhina
--- NOTE | 2023-12-07 12:28 | PM.PNCARD ---
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 He does have worsening renal function. IV Bumex was stopped but hospitalist but I am going to restart at a lower dose which is 1 mg IV daily rather than b.i.d.. Will need to closely monitor his renal function. He may not tolerate further diuretics or use of GDMT Continue Metoprolol. Continue Spironolactone. Started low-dose Entresto and Jardiance and will see how he tolerates this. Unable to undergo ELECTRICAL POWER STATION TECHNICIAN-D due to prohibitive risk from thrombocytopenia despite getting platelet transfusions (2) Atrial fibrillation: Code(s): I48.91 - Unspecified atrial fibrillation Status: Acute Assessment and Plan: Permanent atrial fibrillation pursuing rate control strategy. Unable to undergo ELECTRICAL POWER STATION TECHNICIAN-D and AV víctor ablation due to prohibitive risk from thrombocytopenia despite getting platelet transfusions. Continue Metoprolol and Diltiazem. Given his significant anemia requiring blood transfusion 12/04 and platelet count in the 20s, will discontinue Xarelto. (3) 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 Status: Acute Assessment and Plan: Has anemia and thrombocytopenia. Transfuse for Hgb <7. Oncology here has been consulted as well. (4) Hypertension: Code(s): I10 - Essential (primary) hypertension Status: Acute Assessment and Plan: Continue Metoprolol, Diltiazem, Spironolactone. Stopped Amlodipine. Started Entresto instead. (5) CKD (chronic kidney disease): Code(s): N18.9 - Chronic kidney disease, unspecified Status: Acute Assessment and Plan: Closely monitor renal function given IV diuresis and addition of heart failure GDMT. (6) Chronic anticoagulation: Code(s): Z79.01 - residential (current) use of anticoagulants Status: Acute Assessment and Plan: Given his significant anemia requiring blood transfusion 12/04 and platelet count in the 20s, will discontinue Xarelto. Subjective Date/time seen: 12/07/23 12:28 Interval history: Reason for visit: CHF HPI: This is an 88 year old patient who I see in clinic. He has a history of: 1. Heart failure with reduced LVEF of 30-35%. Unable to undergo ELECTRICAL POWER STATION TECHNICIAN-D and AV víctor ablation due to prohibitive risk from thrombocytopenia despite getting platelet transfusions 2. Permanent atrial fibrillation / atrial flutter on Xarelto 3. 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 History of left atrial appendage thrombus noted on RAYMOND in January 2023 5. Chronic kidney disease 6. Hypertension 7. History of GI bleeding 8. Myeloproliferative disorder with anemia and thrombocytopenia requiring intermittent blood transfusions Patient presented to [facility] for worsening lower extremity edema and abdominal distension. We had last seen him in the office on November 13, 2023 and recommended paracentesis to help alleviate his ascites, however, not a candidate for outpatient paracentesis due to significant anemia and thrombocytopenia. Patient admitted for CHF. Has been started on IV Bumex and has had appropriate urine output in response. Reports that his abdomen does not feel as tight. Workup thus far shows: Hgb 7.1. Plt 29. SCr 2.1. NT pro BNP of 18,400. CXR with small pleural effusion Date of service 12/05: Patient feels like his legs and belly are less swollen. Frequently urinating. Feels cold in the hospital. Date of service 12/07/2023: Had a bone marrow biopsy today. He is hungry but otherwise feeling ?pret
[2023-12-07] MEDS: oxyBUTYnin CHLORIDE 5 MG TABLET 10 MG PO (15:04)
[2023-12-07] MEDS: SPIRONOLACTONE 25 MG TABLET PO (15:05)
[2023-12-07] MEDS: MULTIVITAMINS THERAPEUTIC TAB (*BKC) 1 TABLET PO (15:05)
[2023-12-07] MEDS: EMPAGLIFLOZIN 10 MG TABLET PO (15:05)
[2023-12-07] MEDS: SACUBITRIL/VALSARTAN 12-13 MG TABLET 1 TAB PO (15:05)
[2023-12-07] MEDS: dilTIAZem HCL CD 240 MG CAP.24HR PO (15:05)
[2023-12-07] MEDS: PANTOPRAZOLE 40 MG TABLET PO (15:05)
[2023-12-07] MEDS: TAMSULOSIN HCL 0.4 MG CAPSULE PO (15:05)
[2023-12-07] MEDS: METOPROLOL SUCCINATE EXT REL 100 MG TABCR 200 MG PO (15:05)
[2023-12-07] MEDS: FERROUS SULFATE 325 MG TABLET DR PO (15:05)
[2023-12-08] VITALS: PULSE 63
[2023-12-08] MEDS: ACETAMINOPHEN 325 MG TABLET 650 MG PO (00:28)
[2023-12-08 04:00] VITALS: BP 86/54; PULSE 71; PULSE 72; RESP 16; TEMP 36.7; O2SAT 94
[2023-12-08 05:53] LABS: Hematocrit 23.8 % (42.0-52.0); Hemoglobin 7.5 g/dL (14.0-18.0); Immature Platelet Fraction Pct 4.4 % (0.9-11.2); Mean Corpuscular HGB Conc 31.5 g/dl (32-36); Mean Corpuscular Hemoglobin 31.1 pg (26-34); Mean Corpuscular Volume 98.8 fl (80-100); Mean Platelet Volume 9.8 fl (7.4-10.4); Platelet Count Result 33 k/mm3 (150-375); Red Blood Count 2.41 M/mm3 (4.6-6.20); Red Cell Distribution Width 22.4 % (11.5-14.5); White Blood Count 4.6 K/mm3 (4.5-10.0)
[2023-12-08 06:04] LABS: Alanine Aminotransferase 8 U/L (6-50); Albumin Level 3.1 g/dL (3.5-5.1); Alkaline Phosphatase 63 U/L (38-126); Anion Gap 4 mmol/L (4-12); Aspartate Amino Transferase 17 U/L (17-59); Bilirubin,Total 1.9 mg/dL (0.2-1.3); Blood Urea Nitrogen 48 mg/dL (9-20); Calcium 7.9 mg/dL (8.4-10.2); Carbon Dioxide 25 mmol/L (22-30); Chloride 106 mmol/L (98-107); Estimated CRCL calculation 19 ml/min; Estimated Glomerular Filt Rate 23; Glucose 85 mg/dL (65-110); Magnesium 1.9 mg/dL (1.6-2.3); Potassium 4.5 mmol/L (3.4-5.0); Sodium 135 mmol/L (137-145)
[2023-12-08 07:01] LABS: Band Neutrophils Percent 10 % (0-6); Basophils Absolute Manual 0.04 K/mm3 (0.0-0.1); Basophils Percent Manual 1 % (0-1); Eosinophils Absolute Manual 0.04 K/mm3 (0.02-0.50); Eosinophils Percent Manual 1 % (0-4); Lymphocytes Absolute Manual 0.59 K/mm3 (1.1-4.5); Metamyelocytes Percent 2 %; Monocytes Absolute Manual 0.13 K/mm3 (0.1-0.90); Monocytes Percent Manual 3 % (3-9); Myelocytes Percent 2 %; Neutrophils Absolute Manual 3.54 K/mm3 (1.3-6.7); Neutrophils Percent Manual 67 % (46-73); Promyelocytes Percent 1 %; Total Cells Counted 100
[2023-12-08 07:02] LABS: Nucleated Red Blood Cells 6 %
[2023-12-08 07:12] LABS: Anisocytosis 2+; Microcytosis 1+ (NORMAL); Platelet Estimate Decreased (Adequate)
[2023-12-08 07:13] LABS: Ovalocytes 1+; Schistocytes None Seen; Tear Drop Cells 1+
[2023-12-08 07:14] LABS: Polychromasia 1+
[2023-12-08 08:00] VITALS: BP 91/53; PULSE 84; RESP 14; TEMP 36.4; O2SAT 99
[2023-12-08] MEDS: oxyBUTYnin CHLORIDE 5 MG TABLET 10 MG PO (08:13)
[2023-12-08 08:14] VITALS: PULSE 91
[2023-12-08] MEDS: METOPROLOL SUCCINATE EXT REL 100 MG TABCR 200 MG PO (08:14)
[2023-12-08] MEDS: BUMETANIDE INJ 1 MG/4 ML VIAL IV PUSH (08:14)
[2023-12-08] MEDS: dilTIAZem HCL CD 240 MG CAP.24HR PO (08:14)
[2023-12-08] MEDS: PANTOPRAZOLE 40 MG TABLET PO (08:14)
[2023-12-08] MEDS: EMPAGLIFLOZIN 10 MG TABLET PO (08:15)
[2023-12-08] MEDS: FERROUS SULFATE 325 MG TABLET DR PO (08:15)
[2023-12-08] MEDS: SPIRONOLACTONE 25 MG TABLET PO (08:15)
[2023-12-08] MEDS: MULTIVITAMINS THERAPEUTIC TAB (*BKC) 1 TABLET PO (08:15)
[2023-12-08] MEDS: TAMSULOSIN HCL 0.4 MG CAPSULE PO (08:15)
[2023-12-08] MEDS: SACUBITRIL/VALSARTAN 12-13 MG TABLET 1 TAB PO (08:16)
--- NOTE | 2023-12-08 09:57 | PM.DS ---
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: Code(s): I50.43 - Acute on chronic combined systolic (congestive) and diastolic (congestive) heart failure Status: Acute (2) 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 Status: Acute (3) Stage 3b chronic kidney disease: Code(s): N18.32 - Chronic kidney disease, stage 3b Status: Chronic (4) Atrial fibrillation: Code(s): I48.91 - Unspecified atrial fibrillation Status: Acute (5) Thrombocytopenia: Code(s): D69.6 - Thrombocytopenia, unspecified Status: Acute (6) Chronic anticoagulation: Code(s): Z79.01 - halfway (current) use of anticoagulants Status: Acute (7) Acute on chronic anemia: Code(s): D64.9 - Anemia, unspecified Status: Acute DS: Summary Hospital Course Hospital Course: This is an 88 year old male patient being treated for 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 Husain. Patient experiencing dyspnea, swelling/weeping from legs and low HGB/low PLTs. Patient admitted for treatment of CHF, initiated on IV Bumex instead of oral furosemide. He received improvement in breathing on first day and near complete resolution of lower extremity edema on discharge. HGB dropped and Heme/onc was consulted to see if we needed to transfuse at 6.9. Dr. Lubin ordered transfusion and epoetin 20,000 units. Bone marrow biopsy also ordered for diagnosis verification. Echocardiogram was checked and EF 35-40%. Cardiology initiated Entresto and Jardiance for goal directed medical therapy for CHF. Blood pressure has been high 80s to low 100s systolic but patient has been asymptomatic with these blood pressures. Renal function has moderately worsened with heavy diuresis but will hopefully improve after resumption of oral furosemide. We will plan to get weekly renal function panel drawn after discharge. Additionally patient has follow up with Dr. Husain on Sunday. Status at Discharge Cognitive/behavioral status at discharge: awake, alert, oriented and pleasant Functional status at discharge: independent ambulation Overall status at discharge: patient is back to baseline Time Spent with Patient Time attestation: Total time spent providing and/or coordinating discharge services: 50 minutes Time spent: Greater than 30 minutes Exam Narrative: GENERAL: Seated upright, no acute distress HEAD: Normocephalic, atraumatic. NECK: Supple. No adenopathy, no masses. RESPIRATORY: respirations nonlabored. , no rales, wheezing. CARDIOVASCULAR: Regular rate and irregularly irregular rhythm without murmurs, Peripheral pulses 2+ and equal bilaterally. 1+ edema bilaterally with chronic venous changes ABDOMINAL: Soft, nontender, distended, no hepatosplenomegaly. Normoactive BS. MUSCULOSKELETAL: no Epigastric and no hypochondrial tenderness. Pressure dressing over posterior left hip bone marrow biopsy site SKIN: Warm, dry, Mild blood weeping around IV site, scattered bruises NEURO: A&O X3. Moves all extremities DS: Data Data Completed and Pending Pending studies at discharge: Pending at discharge 12/05/23 12:36 Bone Marrow [PTH] Routine 12/06/23 17:17 Bone Marrow [PTH] Routine Labs on day of discharge: Labs from last 24 hours 12/08/23 05:39 WBC 4.6 RBC 2.41 L Hgb 7.5 L Hct 23.8 L MCV 98.8 MCH 31.1 MCHC 31.5 L RDW 22.4 H Plt Count 33 L MPV 9.8 Immature Gran % (Auto) Not Reportable Neut % (Auto) Not Reportable Lymph % (Auto) Not Reportable Dougherty % (Auto) Not Reportable Eos % (Auto) Not Reportable Baso % (Auto) Not Reportable Lymph # (Auto) Not Reportable Dougherty # (Auto) Not Reportabl
--- NOTE | 2023-12-08 11:24 | PM.PNCARD ---
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 His medical regimen has been advanced and he is improving clinically. He has significant anemia and thrombocytopenia because of myelodysplastic syndrome. His anticoagulation has appropriately been stopped for that reason. Patient is pleased regarding this decision. He appears to be stable enough for discharge today follow-up is with my partner, Dr. Mireles in the office. Will ensure that appropriate follow-up is arranged in the office on Sunday when the office is open again. Subjective Date/time seen: Date of service: 12/08/23 11:24 Interval history: Reason for visit: CHF HPI: This is an 88 year old patient who I see in clinic. He has a history of: 1. Heart failure with reduced LVEF of 30-35%. 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 Permanent atrial fibrillation / atrial flutter on Xarelto 3. 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 History of left atrial appendage thrombus noted on RAYMOND in January 2023 5. Chronic kidney disease 6. Hypertension 7. History of GI bleeding 8. Myeloproliferative disorder with anemia and thrombocytopenia requiring intermittent blood transfusions Patient presented to [place] [facility] for worsening lower extremity edema and abdominal distension. We had last seen him in the office on November 13, 2023 and recommended paracentesis to help alleviate his ascites, however, not a candidate for outpatient paracentesis due to significant anemia and thrombocytopenia. Patient admitted for CHF. Has been started on IV Bumex and has had appropriate urine output in response. Reports that his abdomen does not feel as tight. Workup thus far shows: Hgb 7.1. Plt 29. SCr 2.1. NT pro BNP of 18,400. CXR with small pleural effusion Date of service 12/05: Patient feels like his legs and belly are less swollen. Frequently urinating. Feels cold in the hospital. Date of service 12/07/2023: Had a bone marrow biopsy today. He is hungry but otherwise feeling ?pretty good?. He has lower extremity edema but weeping has stopped. No chest pain Date of service 12/08/2023: Patient is feeling improved the last couple of days anticipating discharge later today. He is concerned about his who apparently fell last night was evaluated in the emergency room elsewhere. Exam Const: General: comfortable and no acute distress HENMT: Mouth: Yes moist mucous membranes Eyes: General: appearance normal, both eyes and all related structures Sclera: sclerae normal Resp: Effort & Inspection: normal respiratory effort Auscultation: clear to auscultation bilaterally Cardio: Rhythm: abnormal rhythm irregularly irregular Heart sounds: Murmur heart sound present systolic Other: Bilateral lower extremity edema GI: Inspection: distended Skin: Other: Bruising on arms Neuro: Speech: normal speech Psych: Mental Status: mental status grossly normal Affect: normal affect Objective Data Vital Signs Vital Signs: Vital Signs - 24 hr 12/07/23 12:00 12/07/23 15:05 12/07/23 16:00 Temperature 36.3 C L Pulse Rate 106 H 100 88 Respiratory Rate 18 Blood Pressure 100/60 Pulse Oximetry 100 Oxygen Delivery 12/07/23 20:00 12/07/23 20:00 12/07/23 23:
[2023-12-08 12:00] VITALS: BP 85/55; PULSE 71; PULSE 79; RESP 18; TEMP 36.4; O2SAT 100
[2023-12-08] MEDS: NEOMYCIN/POLYMYXIN/BACITRACIN OINTMENT PACKET 1 PACKET (14:00)
== END 2023-12-08 14:10 ==
LOC: ANHED 20:25 → ANH3MEDSUR 23:02
PROVIDERS: Nurse Practitioner; Radiology Diagnostic Radiology; Admitting Provider Internal Medicine; Emergency Provider Emergency Medicine; PCP Internal Medicine; Visit Provider Internal Medicine
DX: I50.43 Acute on chronic combined systolic (congestive) and diastolic (congestive) heart failure (principal); D61.9 Aplastic anemia, unspecified; D47.1 Chronic myeloproliferative disease; D75.839 Thrombocytosis, unspecified; Z79.01 Long term (current) use of anticoagulants; I25.10 Atherosclerotic heart disease of native coronary artery without angina pectoris; K21.9 Gastro-esophageal reflux disease without esophagitis; I13.0 Hypertensive heart and chronic kidney disease with heart failure and stage 1 through stage 4 chronic kidney disease, or unspecified chronic kidney disease; I48.91 Unspecified atrial fibrillation; N18.32 Chronic kidney disease, stage 3b
CPT/HCPCS: 36415; 36430; 38222; 71045; 80053; 81001; 82607; 82746; 83735; 83880; 84484; 85025; 85027; 85055; 86850; 86900; 86901; 86923; 87086; 87088; 88305; 88311; 88313; 88342; 93005; 93306; 96374; 96375; 96376; 99285; A9270; G0378; J1642; J1939; J1940; J7040; P9016; Q5105

== ENCOUNTER 2023-12-10 09:54 | Outpatient (CLI) | payer MEDICARE, SELFPAY ==
[2023-12-10 10:40] LABS: Anion Gap 11 mmol/L (4-12); Blood Urea Nitrogen 47 mg/dL (7-18); Calcium 7.6 mg/dL (8.5-10.1); Carbon Dioxide 24 mmol/L (21-32); Chloride 103 mmol/L (98-108); Estimated Glomerular Filt Rate 21; Glucose 94 mg/dL (70-99); Osmolality Calculated 298 mOsm/kg (285-295); Phosphorus 4.6 mg/dL (2.6-4.7); Potassium 4.6 mmol/L (3.5-5.1); Sodium 138 mmol/L (136-145)
[2023-12-10 16:45] LABS: Basophils Absolute Auto 0.05 K/mm3 (0.00-0.10); Basophils Percent Auto 0.7 % (0.0-1.0); Eosinophils Absolute Auto 0.22 K/mm3 (0.02-0.50); Eosinophils Percent Auto 3.3 % (1.0-6.0); Hematocrit 27.1 % (37.0-46.0); Hemoglobin 8.6 g/dL (12.4-15.3); Immature Granulocyte Absolute 0.82 K/mm3 (0.00-0.00); Immature Granulocyte Percent A 12.3 % (0.0-0.0); Lymphocytes Absolute Auto 0.44 K/mm3 (1.10-4.50); Lymphocytes Percent Auto 6.6 % (18.0-42.0); Mean Corpuscular HGB Conc 31.7 g/dL (32-36); Mean Corpuscular Hemoglobin 31.7 pg (27.0-31.0); Mean Platelet Volume 10.8 fl (8.7-11.0); Monocytes Absolute Auto 0.71 K/mm3 (0.10-0.90); Monocytes Percent Auto 10.6 % (2.0-11.0); Neutrophils Absolute Auto 4.44 K/mm3 (1.70-7.20); Neutrophils Percent Auto 66.5 % (50.0-70.0); Nucleated Red Blood Cells Absolute Auto 0.26 K/mm3 (0.00-0.00); Nucleated Red Blood Cells Perc 3.9 % (0-0.0); Platelet Count Result 47 K/mm3 (150-420); Red Blood Count 2.71 M/mm3 (4.70-6.10); Red Cell Distribution Width 22.1 % (11.6-14.4); White Blood Count 6.7 K/mm3 (4.8-10.8)
[2023-12-10 17:04] LABS: Ferritin 533 ng/mL (26-388); Iron 66 ug/dL (65-175); Percent Iron Saturation 46 % (12-57)
[2023-12-12 17:38] LABS: Transferrin 127 mg/dL (188-341)
== END 2023-12-10 09:55 | disposition home or self-care (01) ==
PROVIDERS: PCP Internal Medicine; Visit Provider Nurse Practitioner
DX: I50.43 Acute on chronic combined systolic (congestive) and diastolic (congestive) heart failure (principal); N18.32 Chronic kidney disease, stage 3b; D47.1 Chronic myeloproliferative disease; D47.3 Essential (hemorrhagic) thrombocythemia; D75.89 Other specified diseases of blood and blood-forming organs
CPT/HCPCS: 36415; 80069; 82728; 83540; 83550; 84466; 85025; 85055

== ENCOUNTER 2023-12-17 16:07 | Outpatient (RCR) | payer MEDICARE, SELFPAY ==
[2023-12-17 16:47] LABS: Hematocrit 23.6 % (37.0-46.0); Hemoglobin 7.5 g/dL (12.4-15.3); Immature Platelet Fraction Pct 3.3 % (1.0-7.0); Mean Corpuscular HGB Conc 31.8 g/dL (32-36); Mean Corpuscular Hemoglobin 31.1 pg (27.0-31.0); Mean Corpuscular Volume 97.9 fL (78.0-102.0); Platelet Count Result 25 K/mm3 (150-420); Red Blood Count 2.41 M/mm3 (4.70-6.10); Red Cell Distribution Width 21.3 % (11.6-14.4); White Blood Count 4.7 K/mm3 (4.8-10.8)
[2023-12-17 16:51] LABS: Mean Platelet Volume 8.9 fl (8.7-11.0)
[2023-12-17 17:06] LABS: Ferritin 455 ng/mL (26-388); Iron 44 ug/dL (65-175); Percent Iron Saturation 31 % (12-57)
[2023-12-17 17:34] LABS: Band Neutrophils Percent 6 % (0-6); Basophils Absolute Manual 0.04 K/mm3 (0-0.1); Basophils Percent Manual 1 % (0-1); Eosinophils Absolute Manual 0.14 K/mm3 (0.02-0.50); Eosinophils Percent Manual 3 % (1-6); Lymphocytes Absolute Manual 0.23 K/mm3 (1.1-4.5); Lymphocytes Percent Manual 5 % (18-44); Metamyelocytes Percent 3 %; Monocytes Absolute Manual 0.79 K/mm3 (0.1-0.90); Monocytes Percent Manual 17 % (3-9); Myelocytes Percent 4 %; Neutrophils Percent Manual 60 % (46-73); Promyelocytes Percent 1 %; Total Cells Counted 100
[2023-12-17 17:35] LABS: Hyperchromasia 2+; Nucleated Red Blood Cells 12 %; Platelet Estimate Decreased (Adequate); Poikilocytosis 1+
[2023-12-18 14:44] LABS: Transferrin 115 mg/dL (188-341)
== END 2024-03-16 23:59 | disposition home or self-care (01) ==
LOC: CHSLAB 16:07
PROVIDERS: PCP Internal Medicine; Visit Provider Internal Medicine
DX: D47.1 Chronic myeloproliferative disease (principal); D47.3 Essential (hemorrhagic) thrombocythemia; D75.89 Other specified diseases of blood and blood-forming organs
CPT/HCPCS: 36415; 82728; 83540; 83550; 84466; 85025; 85055

== ENCOUNTER 2024-01-07 16:19 | Outpatient (CLI) | payer MEDICARE, SELFPAY ==
[2024-01-07 16:38] LABS: Hematocrit 22.7 % (37.0-46.0); Immature Platelet Fraction Pct 4.7 % (1.0-7.0); Mean Corpuscular HGB Conc 30.8 g/dL (32-36); Mean Corpuscular Hemoglobin 29.5 pg (27.0-31.0); Mean Corpuscular Volume 95.8 fL (78.0-102.0); Red Blood Count 2.37 M/mm3 (4.70-6.10); Red Cell Distribution Width 20.4 % (11.6-14.4); White Blood Count 4.9 K/mm3 (4.8-10.8)
[2024-01-07 16:54] LABS: Platelet Count Result 19 K/mm3 (150-420)
[2024-01-07 17:14] LABS: Ferritin 696 ng/mL (26-388); Iron 60 ug/dL (65-175); Percent Iron Saturation 55 % (12-57)
[2024-01-07 18:04] LABS: Band Neutrophils Percent 1 % (0-6); Basophils Percent Manual 0 % (0-1); Eosinophils Percent Manual 0 % (1-6); Lymphocytes Absolute Manual 0.73 K/mm3 (1.1-4.5); Lymphocytes Percent Manual 15 % (18-44); Metamyelocytes Percent 2 %; Monocytes Absolute Manual 0.49 K/mm3 (0.1-0.90); Monocytes Percent Manual 10 % (3-9); Myelocytes Percent 1 %; Neutrophils Absolute Manual 3.38 K/mm3 (1.3-6.7); Neutrophils Percent Manual 68 % (46-73); Promyelocytes Percent 3 %; Total Cells Counted 100
[2024-01-07 18:05] LABS: Nucleated Red Blood Cells 3 %; Platelet Estimate Decreased (Adequate)
[2024-01-08 11:59] LABS: Transferrin 102 mg/dL (188-341)
== END 2024-01-07 16:20 | disposition home or self-care (01) ==
LOC: CHSLAB 16:21
PROVIDERS: PCP Internal Medicine; Visit Provider Internal Medicine
DX: D47.1 Chronic myeloproliferative disease (principal); D47.3 Essential (hemorrhagic) thrombocythemia; D75.89 Other specified diseases of blood and blood-forming organs
CPT/HCPCS: 36415; 82728; 83540; 83550; 84466; 85025; 85055

== ENCOUNTER 2024-01-11 16:14 | Inpatient (IN) | payer MEDICARE, SELFPAY ==
[2024-01-11] VITALS (16 sets, daily range): BP systolic 91–118; BP diastolic 46–73; PULSE 103–114; RESP 14–29; TEMP 36.4–36.9; O2SAT 97–100; BMI 21.6
--- NOTE | ~2024-01-11 | US_ITS ---
US renal BI 01/12/2024 12:51 Procedure: Realtime transabdominal ultrasound of the kidneys and bladder. Indication: Elevated creatinine Comparison: Ultrasound dated 03/07/2023 Findings: Renal echotexture is normal bilaterally without hydronephrosis, contour deforming mass or r enal calculus. The right kidney measures 9.7 cm and left kidney measures 9.2 cm. Bladder within norm al limits. There is ascites in all 4 quadrants. Impression: 1: Unremarkable renal ultrasound. No stones, masses or hydronephrosis. 2: Ascites. Reviewed, dictated and finalized at location B. Impression: 1: Unremarkable renal ultrasound. No stones, masses or hydronephrosis. 2: Ascites.
--- NOTE | ~2024-01-11 | US_ITS ---
EXAMINATION: US paracentesis abd w/image DATE: 01/14/2024 11:23 INDICATION: Ascites. TECHNIQUE: The procedure and its risks, benefits, and alternatives were discussed with the patient. P otential risks discussed included bleeding and infection. The skin was prepped and draped in sterile fashion. 1% lidocaine was used for local anesthesia. Under ultrasound guidance, a 5 Fr catheter with trochar was advanced into the ascites in the left lower quadrant. Fluid was aspirated. The catheter w as removed, and a dressing was applied. There were no immediate complications. FINDINGS: Ultrasound images demonstrate ascites and the catheter within the fluid. IMPRESSION: 1. Successful ultrasound-guided paracentesis yielding 5000 mL of clear, yellow fluid. Reviewed, dictated and finalized at location A.
--- NOTE | ~2024-01-11 | XR_ITS ---
EXAMINATION: XR chest 2V Exam Date/Time: 01/11/2024 17:03 CDT HISTORY: SOB Comparison: 12/04/2023. RESULT: Lines, tubes, and devices: None. Lungs and pleura: Right basilar scarring. Mild bilateral costophrenic angle blunting. Cardiomediastinal silhouette: Stable. Other: No acute osseous or upper abdominal finding. IMPRESSION: Small bilateral pleural effusions. Reviewed, dictated and finalized at location K.
--- NOTE | 2024-01-11 16:59 | ECG_ITS ---
Test Date: 2024-01-11 17:15:31 Measurements Intervals [place] Rate: 112 P: 0 LA: 0 QRS: -71 QRSD: 107 T: 61 QT: 345 QTc: 473 Interpretive Statements ATRIAL FLUTTER/TACHYCARDIA WITH RAPID VENTRICULAR RESPONSE LEFT AXIS DEVIATION INCOMPLETE RIGHT BUNDLE BRANCH BLOCK LOW QRS VOLTAGE IN LIMB LEADS ANTEROLATERAL INFARCT, AGE INDETERMINATE INFERIOR INFARCT, AGE INDETERMINATE BORDERLINE ST-T WAVE ABNORMALITY- HIGH LATERAL LEADS BASELINE WANDER- V1-V6 ABNORMAL ECG Compared to ECG 12/04/2023 19:37:46 NO SIGNIFICANT CHANGE Electronically Signed On 01-11-2024 20:49:14 CDT by Francis Pate D.O.
[2024-01-11 17:46] LABS: Hematocrit 25.9 % (42.0-52.0); Immature Platelet Fraction Pct 6.2 % (0.9-11.2); Mean Corpuscular HGB Conc 30.9 g/dl (32-36); Mean Corpuscular Hemoglobin 29.9 pg (26-34); Mean Corpuscular Volume 96.6 fl (80-100); Red Blood Count 2.68 M/mm3 (4.6-6.20); Red Cell Distribution Width 19.5 % (11.5-14.5); White Blood Count 4.7 K/mm3 (4.5-10.0)
[2024-01-11 17:54] LABS: INR 1.3; Partial Thromboplastin Time 33.9 Seconds (22.3-36.8); Prothrombin Time 16.4 Seconds (11.1-14.7)
[2024-01-11 17:56] LABS: Alanine Aminotransferase 9 U/L (6-50); Albumin Level 3.3 g/dL (3.5-5.1); Alkaline Phosphatase 66 U/L (38-126); Anion Gap 11 mmol/L (4-12); Aspartate Amino Transferase 15 U/L (17-59); Bilirubin,Total 1.1 mg/dL (0.2-1.3); Blood Urea Nitrogen 59 mg/dL (9-20); Calcium 8.1 mg/dL (8.4-10.2); Carbon Dioxide 18 mmol/L (22-30); Chloride 106 mmol/L (98-107); Estimated CRCL calculation 18 ml/min; Estimated Glomerular Filt Rate 22; Glucose 115 mg/dL (65-110); Potassium 5.4 mmol/L (3.4-5.0); Sodium 135 mmol/L (137-145)
[2024-01-11 18:07] LABS: Platelet Count Result 16 k/mm3 (150-375)
[2024-01-11 18:08] LABS: NT Pro B Type Natriuretic Pept 21600 pg/mL (19.9-100); Troponin I < 0.012 ng/mL (0.000-0.034)
[2024-01-11 18:14] LABS: Band Neutrophils Percent 2 % (0-6); Eosinophils Absolute Manual 0.09 K/mm3 (0.02-0.50); Eosinophils Percent Manual 2 % (0-4); Lymphocytes Absolute Manual 0.37 K/mm3 (1.1-4.5); Monocytes Absolute Manual 0.79 K/mm3 (0.1-0.90); Monocytes Percent Manual 17 % (3-9); Neutrophils Absolute Manual 3.43 K/mm3 (1.3-6.7); Neutrophils Percent Manual 71 % (46-73); Nucleated Red Blood Cells 7 %; Platelet Estimate Decreased (Adequate); Total Cells Counted 100
[2024-01-11 18:15] LABS: Schistocytes Rare
[2024-01-11 18:16] LABS: Anisocytosis 3+; Hypochromasia 1+
[2024-01-11 18:18] LABS: Polychromasia 1+
--- NOTE | 2024-01-11 18:44 | ED.SOB ---
HPI - SOB/Dyspnea General Chief Complaint: Shortness of Breath/Dyspnea Stated Complaint: sob, chf exacerbation Time Seen by Provider: 01/11/24 18:02 History of Present Illness HPI Narrative: This is an 88-year-old male with a past medical history significant for chronic AFib/flutter with CHF and reduced ejection fraction. He has a history of decompensated heart failure episodes requiring aggressive IV diuresis. Patient also has a myelo dysplastic syndrome and profound thrombocytopenia and anemia intermittently requiring transfusions. 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 On my initial encounter patient states he is having some abdominal distension with a minimal nauseousness but no chest pain, shortness of breath, oxygen requirement, headache, vision changes. He is urinating frequently without any difficulties denies any infectious symptoms. He has not had a flare of paracentesis in the past she has a profound thrombocytopenia. Related Data Home Medications Medication Instructions Recorded Confirmed oxybutynin chloride 5 mg tablet 10 mg PO BID 02/01/20 12/04/23 ferrous sulfate 325 mg (65 mg 325 mg PO DAILY 03/01/23 12/04/23 iron) tablet (Iron (ferrous sulfate)) tamsulosin 0.4 mg capsule 0.4 mg PO DAILY 03/01/23 12/04/23 docusate sodium 50 mg capsule 50 mg PO PRN 08/10/23 12/04/23 (Stool Softener) multivitamin 1 tablet PO DAILY 08/10/23 12/04/23 spironolactone 25 mg tablet 25 mg PO DAILY 08/10/23 12/04/23 diltiazem HCl 240 mg 240 mg PO DAILY 12/04/23 12/04/23 capsule,extended release 24 hr, controlled Allergies Allergy/AdvReac Type Severity Reaction Status Date / Time bee venom protein (honey bee) Allergy Unknown Verified 01/11/24 22:10 [bees] morphine Allergy Unknown Verified 12/04/23 22:45 naproxen AdvReac Unknown Verified 12/04/23 22:45 Review of Systems Review of Systems: As reviewed above in the HPI. [facility] Past Medical History Medical History Atrial fibrillation CAD (coronary artery disease) CHF (congestive heart failure) CKD (chronic kidney disease) GERD (gastroesophageal reflux disease) Hypertension Myeloproliferative disorder Surgical History Surgical History Surgical history unknown Family History Family History Mother Cerebrovascular accident Sibling Cerebrovascular accident Father Congestive heart failure Sibling Parkinson disease Sibling Diabetes mellitus Other Hypertension Social History Social History Social History: Lives at home with . Full code. Years smoked: 74 Smoking status: Current every day smoker Tobacco type: pipe Additional smoking assessment comments: 2 pipes per day, smoked cigarettes for a few years then quit Alcohol intake: former Drinks per week: 1 Substance use: never Substance use type: does not use Do You Feel Safe in your Home?: Yes Lack of Transportation: No Lack of Food: Never True Current Housing: I Have Housing Concerned About Future Housing: No Difficulty Paying Gas/Electric Bills: No Difficulty Paying for Meds: No Currently Unemployed: No Education: High School Diploma/GED Difficulty w/ Childcare or Family Care: No Spiritual care concerns: No Exam Narrative: GENERAL: [Well-appearing, well-nourished, and in no acute distress.] HEAD: [Normocephalic, atraumatic.] EYES: [PERRLA and EOMI.] ENT: Nares clear, no rhinorrhea or epistaxis. Mucous membranes moist. NECK: Supple. CHEST: [Clear to auscultation. No respiratory distress.] HEART: [Regular rate and rhythm]. No murmur heard. [Normal peripheral pulses
[2024-01-11] MEDS: BUMETANIDE INJ 1 MG/4 ML VIAL 2 MG IV PUSH (19:44)
--- NOTE | 2024-01-11 20:09 | PM.IMHP ---
H&P: HPI History of Present Illness Date/Time: 01/11/24 20:09 Chief Complaint: Abdominal distension Narrative: this is an 88-year-old male with past medical history significant for congestive heart failure, ejection fraction 35-40%, atrial fibrillation, myeloproliferative / myelodysplastic syndrome, chronic kidney disease, thrombocytopenia, GERD. Patient came to the emergency room due to worsening abdominal distension bilateral lower extremity edema, shortness of breath. Patient denies any fevers rigors chills nausea vomiting or diarrhea. Patient has generalized weakness as well. Preliminary [place]up [place] [address], creatinine 2.8, BUN 59, brain atretic peptide 26,800, bicarb is 18 EXAMINATION: XR chest 2V Exam Date/Time: 01/11/2024 17:03 CDT HISTORY: SOB Comparison: 12/04/2023. RESULT: Lines, tubes, and devices: None. Lungs and pleura: Right basilar scarring. Mild bilateral costophrenic angle blunting. Cardiomediastinal silhouette: Stable. Other: No acute osseous or upper abdominal finding. IMPRESSION: Small bilateral pleural effusions. Review of Systems Review of Systems: sob, abdominal pain, distention, b/l le swelling PMFSH Past Medical History Medical History Atrial fibrillation CAD (coronary artery disease) CHF (congestive heart failure) CKD (chronic kidney disease) GERD (gastroesophageal reflux disease) Hypertension Myeloproliferative disorder Surgical History Surgical History Surgical history unknown Family History Family History Mother Cerebrovascular accident Sibling Cerebrovascular accident Father Congestive heart failure Sibling Parkinson disease Sibling Diabetes mellitus Other Hypertension Social History Social History Social History: Lives at home with . Full code. Years smoked: 74 Smoking status: Current every day smoker Tobacco type: pipe Additional smoking assessment comments: 2 pipes per day, smoked cigarettes for a few years then quit Alcohol intake: never Drinks per week: 1 Substance use: never Substance use type: does not use Do You Feel Safe in your Home?: Yes Lack of Transportation: No Lack of Food: Never True Current Housing: I Have Housing Concerned About Future Housing: No Difficulty Paying Gas/Electric Bills: No Difficulty Paying for Meds: No Currently Unemployed: No Education: Decline to Answer Difficulty w/ Childcare or Family Care: No Spiritual care concerns: No Meds Home Medications and Allergies Home Medications Medication Instructions Recorded Confirmed Type oxybutynin chloride 5 mg tablet 10 mg PO BID 02/01/20 01/11/24 History tamsulosin 0.4 mg capsule 0.4 mg PO HS 03/01/23 01/11/24 History furosemide 40 mg tablet 40 mg PO DAILY 1 month #30 tabs 03/09/23 01/11/24 Rx pantoprazole 40 mg tablet,delayed 40 mg PO QAM 1 month #30 tabs 03/09/23 01/11/24 Rx release multivitamin 1 tablet PO DAILY 08/10/23 01/11/24 History spironolactone 25 mg tablet 25 mg PO DAILY 08/10/23 01/11/24 History diltiazem HCl 240 mg 240 mg PO DAILY 12/04/23 01/11/24 History capsule,extended release 24 hr, controlled empagliflozin 10 mg tablet 10 mg PO DAILY #30 tabs 12/08/23 01/11/24 Rx (Jardiance) metoprolol succinate 200 mg 200 mg PO DAILY #30 tabs 12/08/23 01/11/24 Rx tablet,extended release 24 hr sacubitril 24 mg-valsartan 26 mg 0.5 tablet PO Q12HR #30 tabs 12/08/23 01/11/24 Rx tablet (Entresto) hydroxyurea 500 mg capsule 500 mg PO DAILY 01/11/24 01/11/24 History Allergies Allergy/AdvReac Type Severity Reaction Status Date / Time bee venom protein (honey bee) Allergy Unknown Verified 01/11/24
--- NOTE | 2024-01-11 21:59 | ADMGEN ---
This patient, Wes Greene, was admitted to [facility]. Patient/family oriented to hospital policies and general routines including ID bracelet, bed and alarms, visiting hours, pain management, procedures, bathroom and other care routines, personal items, smoking policy, room service/diet, and visiting hours. Information on how to activate the Rapid Response Team has been discussed. Patient/Family are encouraged to report perceived risks to care and to ask questions if they do not understand what they are told or what they should do. Patient arrived to the unit at 2156.
[2024-01-12] VITALS (26 sets, daily range): BP systolic 77–111; BP diastolic 40–65; PULSE 53–119; RESP 18–24; TEMP 36.4–37.3; O2SAT 97–100
[2024-01-12] MEDS: SODIUM CHLORIDE 0.9% IV 1,000 ML 50 ML IV CONT (03:57)
[2024-01-12 06:42] LABS: Glucose Point of Care 94 mg/dl (65-105)
[2024-01-12] MEDS: EMPAGLIFLOZIN 10 MG TABLET PO (08:08)
[2024-01-12] MEDS: dilTIAZem HCL CD 240 MG CAP.24HR PO (08:08)
[2024-01-12] MEDS: FUROSEMIDE INJ 40 MG/4 ML VIAL IV PUSH ×2 (08:09→16:38)
[2024-01-12] MEDS: METOPROLOL SUCCINATE EXT REL 100 MG TABCR 200 MG PO (08:09)
[2024-01-12] MEDS: SPIRONOLACTONE 25 MG TABLET PO (08:09)
[2024-01-12] MEDS: oxyBUTYnin CHLORIDE 5 MG TABLET 10 MG PO ×2 (08:09→16:38)
[2024-01-12] MEDS: PANTOPRAZOLE 40 MG TABLET PO (08:09)
[2024-01-12] MEDS: SACUBITRIL/VALSARTAN 12-13 MG TABLET 1 TAB PO ×2 (08:10→20:10)
[2024-01-12] MEDS: HYDROXYUREA (*CHEMO) 500 MG CAPSULE PO (08:10)
[2024-01-12 10:30] LABS: Toxigenic C. Diff NEGATIVE (NEGATIVE)
--- NOTE | 2024-01-12 10:48 | PM.IMPN ---
Progress Note: A&P Assessment and Plan (1) Acute exacerbation of CHF (congestive heart failure): Code(s): I50.9 - Heart failure, unspecified Status: Acute Assessment and Plan: 01/12/24: Chest x-ray showing small bilateral pleural effusions ProBNP 62290 Troponin negative Patient was given 2 mg IV push Bumex while in the ED He was restarted on his metoprolol, Jardiance, Entresto, Lasix Last echo was reviewed from 12/05/2023 which shown moderately reduced LV systolic function with an estimated EF of 35-40%, reduced right ventricular systolic function, moderate to severe mitral and tricuspid valve regurgitation. Cardiology consulted as well for further input (2) Ascites: Code(s): R18.8 - Other ascites Status: Acute Assessment and Plan: 01/12/24: Renal ultrasound was unremarkable however showed a large amount of ascites in all 4 quadrants Will await Cardiology versus Nephrology recommendations (3) Thrombocytopenia: Code(s): D69.6 - Thrombocytopenia, unspecified Status: Acute Assessment and Plan: 01/12/24: Patient has myelodysplastic syndrome and chronic thrombocytopenia Platelet count initially 16, no platelets were given at this time Platelet count 15 Will transfuse 2 units of platelets today (4) 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 Status: Acute Assessment and Plan: 01/12/24: See above (5) Atrial fibrillation: Code(s): I48.91 - Unspecified atrial fibrillation Status: Acute Assessment and Plan: 01/12/24: Patient was taken off Xarelto due to his myelodysplastic syndrome and severe thrombocytopenia Continue metoprolol (6) GERD (gastroesophageal reflux disease): Code(s): K21.9 - Gastro-esophageal reflux disease without esophagitis Status: Acute Assessment and Plan: 01/12/24: Continue Protonix (7) CKD (chronic kidney disease): Code(s): N18.9 - Chronic kidney disease, unspecified Status: Acute Assessment and Plan: 01/12/24: Initial creatinine 2.8 Baseline appears to be 2.2-2.6 Nephrology was consulted and adding sodium bicarb and will try high dose diuretics for the next few days. Time Spent With Patient Time with patient: Greater than 35 minutes Subjective Date/time seen: 01/12/24 10:48 Interval history: Interval history: This is an 88-year-old male who presented to the hospital on 01/11/2024 with shortness of breath/dyspnea. Patient has a significant past medical history of AFib, coronary artery disease, congestive heart failure, chronic kidney disease, GERD, hypertension, myeloproliferation disorder likely am myelodysplastic syndrome. He is not on any anticoagulation due to his chronic thrombocytopenia. Workup in the hospital included chest x-ray showed small bilateral pleural effusions. Initial labs showed a normal white blood cell count of 4.7, hemoglobin 8.0, platelet count 16, INR 1.3, sodium 135, potassium 5.4, bicarb 18, creatinine 2.8, EGFR 22, troponin was negative, proBNP 02638. EKG today showed a flutter with RVR with a rate of 112, QTC 473. Last echo from 12/05/2023 was reviewed which shown moderately reduced LV systolic function with an estimated EF of 35-40% right atrium severely enlarged, moderate to severe mitral and tricuspid valve regurgitation. Patient was given 2 mg IV push of Bumex while in the ED. 01/12/24: Patient denies any fever, chills, nausea, vomiting, diarrhea, abdominal pain, chest pain. Patient endorses shortness of breath on occasion. Plt count 15, Hgb 7.7, ESR 47, Na+ 135, K+ 5.2, bicarb 19, Creatinine 2.70, eGFR 22, random cortisol 23.50, protein/ creatinine ratio 0.62 Renal US was unremarkable other than ascites noted in all 4 quadrants. Review of Systems Review of Systems: All systems reviewed & are unremarkable except as noted in HPI and below Constitutional: Constitutional: Reports as per H
--- NOTE | 2024-01-12 11:13 | PM.CNNEP ---
Assessment and Plan Assessment and plan (1) CKD (chronic kidney disease): Code(s): N18.9 - Chronic kidney disease, unspecified Status: Acute Assessment and Plan: The patient has chronic kidney disease. His baseline seems to run around 2. Last time he was in the hospital because of diuretics his creatinine roberth to 2.8. I am not sure what happened between that discharge and this admission but the creatinine is stable. His creatinine is probably from a combination of parenchymal kidney disease from hypertension, and vascular disease. I do not think he has an outpatient embalmer apprentice. There are other things that can cause kidney disease 2. Rhabdomyolysis, obstruction, inflammation, or interstitial nephritis are possible diagnoses. Will get serology and immunofix. In addition to the above, the patient has tricuspid regurg which leads to the ascites and swelling. Diuretics to use to decrease his symptoms of the ascites and the swelling but that leads to prerenal factors because of his heart. So part of the high creatinine is hemodynamic. It is possible that high venous pressures may lead to renal insufficiency. This is especially true in people with tricuspid regurg. He has mitral regurg as well as mild pulmonary hypertension. Decreasing these pressures can reduce the amount of tricuspid regurg which could possibly reduce the amount of ascites and swelling and also improve forward flow. So will try high-dose diuretics for couple of days and see if we can get the fluid burden down and pressures down and thus the creatinine down. I wonder if the patient would benefit from paracentesis. (2) CHF (congestive heart failure): Code(s): I50.9 - Heart failure, unspecified Status: Acute Assessment and Plan: The patient has mitral regurg, tricuspid regurg, high pulmonary pressures, and reduced LVEF. He sees Dr. Mireles as an outpatient He is on Entresto and metoprolol as well as spironolactone Diltiazem has a negative chronotropic effect and hit the patient's heart rate is already high. It also has a negative inotrope effect so I will not hold this. I will leave this issue up to Cardiology. (3) Hypertension: Code(s): I10 - Essential (primary) hypertension Status: Acute Assessment and Plan: Blood pressure is a little bit soft. (4) GERD (gastroesophageal reflux disease): Code(s): K21.9 - Gastro-esophageal reflux disease without esophagitis Status: Acute Assessment and Plan: The patient is on pantoprazole (5) Atrial fibrillation: Code(s): I48.91 - Unspecified atrial fibrillation Status: Acute Assessment and Plan: Heart rate is a little bit on the high side Consider Cardiology input (6) Hyperkalemia: Code(s): E87.5 - Hyperkalemia Status: Acute Assessment and Plan: Potassium is borderline high. Will treat acidosis and see if the potassium gets better (7) Metabolic acidosis: Code(s): E87.20 - Acidosis, unspecified Status: Acute Assessment and Plan: Will add sodium bicarb (8) Anemia: Code(s): D64.9 - Anemia, unspecified Status: Acute Assessment and Plan: Hemoglobin is 8. TSAT is okay. Will look for trending and consider Epogen if it drops History of Present Illness Reason for Consult Consult date: 01/12/24 Chief Complaint Chief complaint: sob, chf exacerbation History of Present Illness Narrative: Wes is a very pleasant 88-year-old gentleman who has multiple medical problems including chronic kidney disease with a baseline creatinine of around 2-2.8, myeloproliferative disorder, hypertension, GERD, congestive heart failure with mitral regurg, tricuspid regurg, and mildly reduced ejection fraction, coronary disease, atrial fibrillation on Eliquis, and current smoker per pipes. Patient says he has had swelling and a distended abdomen for a few months. Sometimes he gets worse some
[2024-01-12 12:04] LABS: Hematocrit 24.8 % (42.0-52.0); Hemoglobin 7.7 g/dL (14.0-18.0); Immature Platelet Fraction Pct 6.6 % (0.9-11.2); Mean Corpuscular Volume 96.5 fl (80-100); Red Blood Count 2.57 M/mm3 (4.6-6.20); Red Cell Distribution Width 19.6 % (11.5-14.5); White Blood Count 5.1 K/mm3 (4.5-10.0)
[2024-01-12 12:18] LABS: Alanine Aminotransferase 9 U/L (6-50); Albumin Level 3.2 g/dL (3.5-5.1); Alkaline Phosphatase 62 U/L (38-126); Anion Gap 10 mmol/L (4-12); Aspartate Amino Transferase 14 U/L (17-59); Bilirubin,Total 1.1 mg/dL (0.2-1.3); Blood Urea Nitrogen 57 mg/dL (9-20); Calcium 8.3 mg/dL (8.4-10.2); Carbon Dioxide 19 mmol/L (22-30); Chloride 106 mmol/L (98-107); Estimated CRCL calculation 16 ml/min; Estimated Glomerular Filt Rate 22; Glucose 96 mg/dL (65-110); Potassium 5.2 mmol/L (3.4-5.0); Sodium 135 mmol/L (137-145)
[2024-01-12 12:27] LABS: Creatine Kinase 25 U/L (55-170)
[2024-01-12 12:37] LABS: Complement C3 90 mg/dL (88-165)
--- NOTE | 2024-01-12 12:45 | PC.NURSE ---
YAAN Funes at bedside. Plan of care reviewed. 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 Plan of care reviewed for HR less than 50.
[2024-01-12 12:49] LABS: Creatinine Urine 25.7 mg/dL; Total Protein Urine Random 16 mg/dL; Ur Ttl Prot Creatinine Ratio 0.62 mg/mg (0-0.20); Urea Random Urine 184 MG/DL
[2024-01-12 12:50] LABS: Sodium Urine Random 125 meq/L
[2024-01-12 13:01] LABS: Platelet Count Result 15 k/mm3 (150-375)
[2024-01-12 13:05] LABS: Erythrocyte Sedimentation Rate 47 mm/hr (0-20)
[2024-01-12 13:30] LABS: Band Neutrophils Percent 4 % (0-6); Eosinophils Absolute Manual 0.05 K/mm3 (0.02-0.50); Eosinophils Percent Manual 1 % (0-4); Lymphocytes Absolute Manual 0.35 K/mm3 (1.1-4.5); Metamyelocytes Percent 1 %; Monocytes Absolute Manual 0.45 K/mm3 (0.1-0.90); Monocytes Percent Manual 9 % (3-9); Neutrophils Absolute Manual 4.18 K/mm3 (1.3-6.7); Neutrophils Percent Manual 78 % (46-73); Nucleated Red Blood Cells 3 %; Platelet Estimate Decreased (Adequate); Schistocytes None Seen; Total Cells Counted 100
[2024-01-12 13:31] LABS: Anisocytosis 2+; Hypochromasia 1+; Tear Drop Cells 1+
[2024-01-12] MEDS: SODIUM BICARBONATE TAB 650 MG TABLET 1300 MG PO (18:09)
[2024-01-12] MEDS: ALBUMIN HUMAN 25% 25 GM/100 ML 200 ML IVPB (20:08)
[2024-01-12] MEDS: TAMSULOSIN HCL 0.4 MG CAPSULE PO (20:10)
[2024-01-13] VITALS (34 sets, daily range): BP systolic 72–98; BP diastolic 35–58; PULSE 53–115; RESP 14–22; TEMP 36.3–37.1; O2SAT 95–100
[2024-01-13] MEDS: SODIUM CHLORIDE 0.9% IV 250 ML 125 ML (01:20)
[2024-01-13] MEDS: TUBING, BLOOD PLUM PUMP TUBING 1 EACH XX ×3 (01:20→11:06)
[2024-01-13 04:48] LABS: Basophils Percent Auto 0.9 % (0.2-1.2); Eosinophils Absolute Auto 0.1 K/mm3 (0-0.3); Eosinophils Percent Auto 2.4 % (0-4.4); Immature Granulocyte Absolute 0.36 K/mm3 (0.00-0.031); Immature Granulocyte Percent A 10.9 % (0-0.5); Immature Platelet Fraction Pct 2.5 % (0.9-11.2); Lymphocytes Percent Auto 6.1 % (18.3-44.2); Mean Corpuscular HGB Conc 31.4 g/dl (32-36); Mean Corpuscular Hemoglobin 30.3 pg (26-34); Mean Corpuscular Volume 96.5 fl (80-100); Mean Platelet Volume 11.4 fl (7.4-10.4); Monocytes Absolute Auto 0.5 K/mm3 (0.1-0.6); Monocytes Percent Auto 14.9 % (2.6-8.5); Neutrophils Absolute Auto 2.1 K/mm3 (1.3-6.7); Neutrophils Percent Auto 64.8 % (45.5-73.1); Nucleated Red Blood Cells Perc 5.8 % (0.0-0.2); Platelet Count Result 39 k/mm3 (150-375); Red Blood Count 1.98 M/mm3 (4.6-6.20); Red Cell Distribution Width 19.3 % (11.5-14.5); White Blood Count 3.3 K/mm3 (4.5-10.0)
[2024-01-13 05:08] LABS: Alanine Aminotransferase 11 U/L (6-50); Albumin Level 3.2 g/dL (3.5-5.1); Alkaline Phosphatase 63 U/L (38-126); Anion Gap 10 mmol/L (4-12); Aspartate Amino Transferase 15 U/L (17-59); Bilirubin,Total 1.3 mg/dL (0.2-1.3); Blood Urea Nitrogen 53 mg/dL (9-20); Calcium 8.3 mg/dL (8.4-10.2); Carbon Dioxide 19 mmol/L (22-30); Chloride 107 mmol/L (98-107); Estimated CRCL calculation 16 ml/min; Estimated Glomerular Filt Rate 20; Glucose 98 mg/dL (65-110); Phosphorus 4.1 mg/dL (2.5-4.5); Potassium 4.7 mmol/L (3.4-5.0); Sodium 136 mmol/L (137-145)
[2024-01-13 05:14] LABS: Hematocrit 19.1 % (42.0-52.0)
[2024-01-13 05:16] LABS: Anisocytosis 2+; Platelet Estimate Decreased (Adequate)
[2024-01-13 05:17] LABS: Poikilocytosis 1+
[2024-01-13 05:18] LABS: Schistocytes Rare
[2024-01-13] MEDS: SODIUM CHLORIDE 0.9% IV 250 ML 30 ML IV CONT (08:09)
--- NOTE | 2024-01-13 08:10 | P.PNIM_ITS ---
Progress Note: A&P Assessment and Plan (1) Acute exacerbation of CHF (congestive heart failure): Code(s): I50.9 - Heart failure, unspecified Status: Acute Assessment and Plan: 01/12/24: * Chest x-ray showing small bilateral pleural effusions * ProBNP 24171 * Troponin negative * Patient was given 2 mg IV push Bumex while in the ED * He was restarted on his metoprolol, Jardiance, Entresto, Lasix * Last echo was reviewed from 12/05/2023 which shown moderately reduced LV systolic function with an estimated EF of 35-40%, reduced right ventricular systolic function, moderate to severe mitral and tricuspid valve regu rgitation. * Cardiology consulted as well for further input 01/13/24: * Awaiting cardiology's recommendation * Creatinine today is worse at 3.0 despite efforts with Lasix 40 mg b.i.d. (2) Ascites: Code(s): R18.8 - Other ascites Status: Acute Assessment and Plan: 01/12/24: * Renal ultrasound was unremarkable however showed a large amount of ascites in all 4 quadrants * Will await Cardiology versus Nephrology recommendations 01/13/24: * Awaiting cardiology verses Nephrology recommendation * Last INR was 1.3 on 01/11/2024, platelet count 39 * ? Paracentesis tomorrow * Will check INR and platelet count in the morning (3) Thrombocytopenia: Code(s): D69.6 - Thrombocytopenia, unspecified Status: Acute Assessment and Plan: 01/12/24: * Patient has myelodysplastic syndrome and chronic thrombocytopenia * Platelet count initially 16, no platelets were given at this time * Platelet count 15 * Will transfuse 2 units of platelets today 01/12/24: * Platelet count 39 * Continue to trend (4) Anemia: Code(s): D64.9 - Anemia, unspecified Status: Acute Assessment and Plan: 01/13/24: * Hemoglobin today is 6.0, hematocrit 19.1 * Will give 2 units of blood today * Continue to trend (5) 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 Status: Acute Assessment and Plan: 01/12/24: * See above (6) Atrial fibrillation: Code(s): I48.91 - Unspecified atrial fibrillation Status: Acute Assessment and Plan: 01/12/24: * Patient was taken off Xarelto due to his myelodysplastic syndrome and severe thrombocytopenia * Continue metoprolol 01/13/24: * No change to current treatment plan (7) GERD (gastroesophageal reflux disease): Code(s): K21.9 - Gastro-esophageal reflux disease without esophagitis Status: Acute Assessment and Plan: 01/12/24: * Continue Protonix 01/13/24: * No change to current treatment plan (8) CKD (chronic kidney disease): Code(s): N18.9 - Chronic kidney disease, unspecified Status: Acute Assessment and Plan: 01/12/24: * Initial creatinine 2.8 * Baseline appears to be 2.2-2.6 * Nephrology was consulted and adding sodium bicarb and will try high dose diur etics for the next few days. 01/13/24: * Creatinine 3.0 today * Bicarb level 19 * Nephrology following Time Spent With Patient Time with patient: Greater than 35 minutes Subjective Date/time seen: 01/13/24 08:10 Interval history: Interval history: This is an 88-year-old male who presented to the hospital on 01/11/2024 with shortness of breath/dyspnea. Patient has a significant past medical history of AFib, coronary artery disease, congestive heart failure, chronic kidney disease, GERD, hypertension, myeloproliferation disorder lik
--- NOTE | 2024-01-13 08:10 | PM.IMPN ---
Progress Note: A&P Assessment and Plan (1) Acute exacerbation of CHF (congestive heart failure): Code(s): I50.9 - Heart failure, unspecified Status: Acute Assessment and Plan: 01/12/24: Chest x-ray showing small bilateral pleural effusions ProBNP 63783 Troponin negative Patient was given 2 mg IV push Bumex while in the ED He was restarted on his metoprolol, Jardiance, Entresto, Lasix Last echo was reviewed from 12/05/2023 which shown moderately reduced LV systolic function with an estimated EF of 35-40%, reduced right ventricular systolic function, moderate to severe mitral and tricuspid valve regurgitation. Cardiology consulted as well for further input 01/13/24: Awaiting cardiology's recommendation Creatinine today is worse at 3.0 despite efforts with Lasix 40 mg b.i.d. (2) Ascites: Code(s): R18.8 - Other ascites Status: Acute Assessment and Plan: 01/12/24: Renal ultrasound was unremarkable however showed a large amount of ascites in all 4 quadrants Will await Cardiology versus Nephrology recommendations 01/13/24: Awaiting cardiology verses Nephrology recommendation Last INR was 1.3 on 01/11/2024, platelet count 39 ? Paracentesis tomorrow Will check INR and platelet count in the morning (3) Thrombocytopenia: Code(s): D69.6 - Thrombocytopenia, unspecified Status: Acute Assessment and Plan: 01/12/24: Patient has myelodysplastic syndrome and chronic thrombocytopenia Platelet count initially 16, no platelets were given at this time Platelet count 15 Will transfuse 2 units of platelets today 01/12/24: Platelet count 39 Continue to trend (4) Anemia: Code(s): D64.9 - Anemia, unspecified Status: Acute Assessment and Plan: 01/13/24: Hemoglobin today is 6.0, hematocrit 19.1 Will give 2 units of blood today Continue to trend (5) 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 Status: Acute Assessment and Plan: 01/12/24: See above (6) Atrial fibrillation: Code(s): I48.91 - Unspecified atrial fibrillation Status: Acute Assessment and Plan: 01/12/24: Patient was taken off Xarelto due to his myelodysplastic syndrome and severe thrombocytopenia Continue metoprolol 01/13/24: No change to current treatment plan (7) GERD (gastroesophageal reflux disease): Code(s): K21.9 - Gastro-esophageal reflux disease without esophagitis Status: Acute Assessment and Plan: 01/12/24: Continue Protonix 01/13/24: No change to current treatment plan (8) CKD (chronic kidney disease): Code(s): N18.9 - Chronic kidney disease, unspecified Status: Acute Assessment and Plan: 01/12/24: Initial creatinine 2.8 Baseline appears to be 2.2-2.6 Nephrology was consulted and adding sodium bicarb and will try high dose diuretics for the next few days. 01/13/24: Creatinine 3.0 today Bicarb level 19 Nephrology following Time Spent With Patient Time with patient: Greater than 35 minutes Subjective Date/time seen: 01/13/24 08:10 Interval history: Interval history: This is an 88-year-old male who presented to the hospital on 01/11/2024 with shortness of breath/dyspnea. Patient has a significant past medical history of AFib, coronary artery disease, congestive heart failure, chronic kidney disease, GERD, hypertension, myeloproliferation disorder likely am myelodysplastic syndrome. He is not on any anticoagulation due to his chronic thrombocytopenia. Workup in the hospital included chest x-ray showed small bilateral pleural effusions. Initial labs showed a normal white blood cell count of 4.7, hemoglobin 8.0, platelet count 16, INR 1.3, sodium 135, potassium 5.4, bicarb 18, creatinine 2.8, EGFR 22, troponin was negative, proBNP 24397. EKG today showed a flutter with RVR with a rate of 112, QTC 473. Last echo from 12/05/2023 was reviewed [facility]
[2024-01-13] MEDS: SPIRONOLACTONE 25 MG TABLET PO (08:14)
[2024-01-13] MEDS: METOPROLOL SUCCINATE EXT REL 50 MG TABCR PO (08:14)
[2024-01-13] MEDS: dilTIAZem HCL CD 240 MG CAP.24HR PO (08:14)
[2024-01-13] MEDS: PANTOPRAZOLE 40 MG TABLET PO (08:14)
[2024-01-13] MEDS: SACUBITRIL/VALSARTAN 12-13 MG TABLET 1 TAB PO ×2 (08:14→20:24)
[2024-01-13] MEDS: oxyBUTYnin CHLORIDE 5 MG TABLET 10 MG PO ×2 (08:15→17:20)
[2024-01-13] MEDS: SODIUM BICARBONATE TAB 650 MG TABLET 1300 MG PO ×2 (08:15→17:20)
[2024-01-13] MEDS: EMPAGLIFLOZIN 10 MG TABLET PO (08:15)
[2024-01-13] MEDS: FUROSEMIDE INJ 40 MG/4 ML VIAL IV PUSH (08:16)
[2024-01-13 10:01] LABS: Albumin Level 3.2 g/dL (3.5-5.1)
--- NOTE | 2024-01-13 10:20 | PM.PNNEP ---
Progress Note: A&P Assessment and Plan (1) CKD (chronic kidney disease): Code(s): N18.9 - Chronic kidney disease, unspecified Status: Acute Assessment and Plan: The patient has chronic kidney disease. His baseline seems to run around 2. Last time he was in the hospital because of diuretics his creatinine roberth to 2.8. I am not sure what happened between that discharge and this admission but the creatinine is stable. CPK is low UA in November showed red cells and white cells. Urine culture was negative Will repeat Urine electrolytes were not pre renal but the patient has been on diuretics. Fractional excretion of urea was only 33% consistent with pre renal azotemia. Sed rate 47 and complement are normal His creatinine is probably from a combination of parenchymal kidney disease from hypertension, and vascular disease and chronic pre renal azotemia due to the cardiac issues. He received diuretics yesterday. He made over 2L without a change in his creatinine. Since it did not worsen I think we can continue the diuretics for now. (2) CHF (congestive heart failure): Code(s): I50.9 - Heart failure, unspecified Status: Acute Assessment and Plan: The patient has mitral regurg, tricuspid regurg, high pulmonary pressures, and reduced LVEF. He sees Dr. Mireles as an outpatient He is on Entresto and metoprolol as well as spironolactone Heart rate is much better Diltiazem is on hold (3) Hypertension: Code(s): I10 - Essential (primary) hypertension Status: Acute Assessment and Plan: Blood pressure is a little bit soft. Will see how he does without the diltiazem (4) GERD (gastroesophageal reflux disease): Code(s): K21.9 - Gastro-esophageal reflux disease without esophagitis Status: Acute Assessment and Plan: The patient is on pantoprazole (5) Atrial fibrillation: Code(s): I48.91 - Unspecified atrial fibrillation Status: Acute Assessment and Plan: Heart rate is a little bit on the high side Consider Cardiology input (6) Hyperkalemia: Code(s): E87.5 - Hyperkalemia Status: Acute Assessment and Plan: Potassium is normal today (7) Metabolic acidosis: Code(s): E87.20 - Acidosis, unspecified Status: Acute Assessment and Plan: CO2 is stable on sodium bicarb (8) Anemia: Code(s): D64.9 - Anemia, unspecified Status: Acute Assessment and Plan: Hemoglobin is 8. TSAT is okay. Hemoglobin dropped and he is getting a transfusion Will start some EPO. I am not sure it will work because of his bone marrow issues Will check a reticulocyte count for baseline Subjective Date/time seen: 01/13/24 10:20 Interval history: Wes is feeling about the same. He seems to be more energetic. He wants to get up but knows he needs help. Review of Systems Cardiovascular: Cardiovascular: Reports no additional cardiovascular complaints Respiratory: Respiratory: Reports no additional respiratory complaints Gastrointestinal: Gastrointestinal: Reports no additional gastrointestinal complaints Genitourinary: Genitourinary: Reports no additional male genitourinary complaints Exam Narrative: WDWN in NAD skin no rash or subcu nodule head ncat lungs clear cor reg no rub abd BS+ nontender and soft. Distended. ext 1 + bilateral edema. Objective Data Vital Signs Vital Signs: Vital Signs - 24 hr 01/12/24 11:30 01/12/24 12:00 01/12/24 12:00 Temperature 97.9 F Pulse Rate 110 H 95 Respiratory Rate 20 Blood Pressure 91/53 L Pulse Oximetry 100 99 Oxygen Delivery Room Air 01/12/24 14:00 01/12/24 15:52 01/12/24 16:00 Temperature 97.9 F Pulse Rate 53 L 64 69 Respiratory Rate 20 Blood Pressure 100/58 L Pulse Oximetry 100 Oxygen Delivery 01/12/24 16:00 01/12/24 18:00 01/12/24 18:34 Temperature 98.0 F Pulse Rate 101 H 89 Respiratory Rate 2
[2024-01-13 10:34] LABS: Immature Reticulocyte Fraction 23.2 % (3.0-15.9); Reticulocyte Hemoglobin Conten 28.8 pg (28.2-36.6); Reticulocyte Percent 2.52 % (0.7-4.3); Reticulocytes Absolute 0.05 10^6/uL (0.02-0.10)
[2024-01-13] MEDS: EPOETIN ALFA-EPBX 10,000 UNITS/ML VIAL 10000 UNITS SUB-Q (11:09)
--- NOTE | 2024-01-13 14:23 | PM.CNCAR ---
Assessment and Plan Assessment and plan (1) Atrial fibrillation: Code(s): I48.91 - Unspecified atrial fibrillation Status: Acute Plan Acute on chronic systolic heart failure ejection fraction 35% likely precipitated with anemia Moderate to severe mitral regurgitation Moderate severe tricuspid regurgitation CML Paroxysmal atrial fibrillation Plan DC IV Lasix start oral diuretic Lasix 40 mg p.o. b.i.d. Can use IV Lasix to maintain euvolemic status with blood transfusion Entresto 24-26 p.o. have a tablet b.i.d. DC diltiazem since it is contraindicated Restart metoprolol XL 25 mg daily when blood pressure permits History of Present Illness History of Present Illness Consult date/time: 01/13/24 14:23 Reason For Visit: sob, chf exacerbation Narrative: 88-year-old male patient with history of CML and chronic pancytopenia presented to the hospital with progressive weakness associated with shortness of breath that has been present for several days. He denies any chest pain. He was noted to have pancytopenia with worsening anemia started on blood transfusion. He has history of prior torque blood transfusions in the past. He had prior similar episodes in the past that partially improved with blood transfusion. Has history of chronic kidney disease. He was admitted with a diagnosis of possible CHF started was blood transfusion and received IV diuretic. His kidney function was stable after diuresis. He feels little bit better today. Review of Systems Review of Systems: All systems reviewed & are unremarkable except as noted in HPI and below PMFSH Past Medical History Medical History Atrial fibrillation CAD (coronary artery disease) CHF (congestive heart failure) CKD (chronic kidney disease) GERD (gastroesophageal reflux disease) Hypertension Myeloproliferative disorder Surgical History Surgical History Surgical history unknown Family History Family History Mother Cerebrovascular accident Sibling Cerebrovascular accident Father Congestive heart failure Sibling Parkinson disease Sibling Diabetes mellitus Other Hypertension Social History Social History Social History: Lives at home with . Full code. Years smoked: 74 Smoking status: Current every day smoker Tobacco type: pipe Additional smoking assessment comments: 2 pipes per day, smoked cigarettes for a few years then quit Alcohol intake: never Drinks per week: 1 Substance use: never Substance use type: does not use Do You Feel Safe in your Home?: Yes Lack of Transportation: No Lack of Food: Never True Current Housing: I Have Housing Concerned About Future Housing: No Difficulty Paying Gas/Electric Bills: No Difficulty Paying for Meds: No Currently Unemployed: No Education: Decline to Answer Difficulty w/ Childcare or Family Care: No Spiritual care concerns: No Meds Home Medications and Allergies Home Medications Medication Instructions Recorded Confirmed Type oxybutynin chloride 5 mg tablet 10 mg PO BID 02/01/20 01/11/24 History tamsulosin 0.4 mg capsule 0.4 mg PO HS 03/01/23 01/11/24 History furosemide 40 mg tablet 40 mg PO DAILY 1 month #30 tabs 03/09/23 01/11/24 Rx pantoprazole 40 mg tablet,delayed 40 mg PO QAM 1 month #30 tabs 03/09/23 01/11/24 Rx release multivitamin 1 tablet PO DAILY 08/10/23 01/11/24 History spironolactone 25 mg tablet 25 mg PO DAILY 08/10/23 01/11/24 History diltiazem HCl 240 mg 240 mg PO DAILY 12/04/23 01/11/24 History capsule,extended release 24 hr, controlled empagliflozin 10 mg tablet 10 mg PO DAILY #30 tabs 12/08/23 01/11/24 Rx (Jardiance) metoprolol succinate 200 mg 200 mg PO DAILY #30 tabs 12/08/23 01/11/24 Rx
[2024-01-13] MEDS: TAMSULOSIN HCL 0.4 MG CAPSULE PO (20:24)
[2024-01-14] VITALS (20 sets, daily range): BP systolic 73–100; BP diastolic 43–62; PULSE 85–119; RESP 14–20; TEMP 36.6–37.4; O2SAT 97–100
--- NOTE | 2024-01-14 04:14 | PC.NURSE ---
Patient's b/p 84/64. hr 117. Call placed to Dr. Holliday. no sob, dizziness, etc. awaiting return call
[2024-01-14 04:33] LABS: Basophils Absolute Auto 0.1 K/mm3 (0.0-0.1); Basophils Percent Auto 1.5 % (0.2-1.2); Eosinophils Absolute Auto 0.1 K/mm3 (0-0.3); Eosinophils Percent Auto 2.5 % (0-4.4); Hematocrit 27.8 % (42.0-52.0); Hemoglobin 9.1 g/dL (14.0-18.0); Immature Granulocyte Absolute 0.57 K/mm3 (0.00-0.031); Immature Platelet Fraction Pct 3.2 % (0.9-11.2); Lymphocytes Absolute Auto 0.33 K/mm3 (0.9-3.2); Lymphocytes Percent Auto 8.1 % (18.3-44.2); Mean Corpuscular HGB Conc 32.7 g/dl (32-36); Mean Corpuscular Hemoglobin 30.6 pg (26-34); Mean Corpuscular Volume 93.6 fl (80-100); Mean Platelet Volume 8.5 fl (7.4-10.4); Monocytes Absolute Auto 0.6 K/mm3 (0.1-0.6); Neutrophils Absolute Auto 2.4 K/mm3 (1.3-6.7); Neutrophils Percent Auto 59.9 % (45.5-73.1); Nucleated Red Blood Cells Perc 10.1 % (0.0-0.2); Platelet Count Result 30 k/mm3 (150-375); Red Blood Count 2.97 M/mm3 (4.6-6.20); Red Cell Distribution Width 18.5 % (11.5-14.5); White Blood Count 4.1 K/mm3 (4.5-10.0)
--- NOTE | 2024-01-14 04:36 | PC.NURSE ---
Received order for 250ml NS bolus. Bolus started.
[2024-01-14 04:40] LABS: INR 1.3; Prothrombin Time 16.6 Seconds (11.1-14.7)
[2024-01-14 04:41] LABS: Partial Thromboplastin Time 39.3 Seconds (22.3-36.8)
[2024-01-14 04:46] LABS: Alanine Aminotransferase 10 U/L (6-50); Albumin Level 3.4 g/dL (3.5-5.1); Alkaline Phosphatase 68 U/L (38-126); Anion Gap 10 mmol/L (4-12); Aspartate Amino Transferase 16 U/L (17-59); Bilirubin,Total 1.8 mg/dL (0.2-1.3); Blood Urea Nitrogen 54 mg/dL (9-20); Calcium 8.4 mg/dL (8.4-10.2); Carbon Dioxide 20 mmol/L (22-30); Chloride 106 mmol/L (98-107); Estimated CRCL calculation 15 ml/min; Estimated Glomerular Filt Rate 18; Glucose 100 mg/dL (65-110); Potassium 4.6 mmol/L (3.4-5.0); Sodium 136 mmol/L (137-145)
[2024-01-14 04:56] LABS: Anisocytosis 1+; Platelet Estimate Decreased (Adequate); Poikilocytosis 1+
[2024-01-14 04:57] LABS: Microcytosis 1+ (NORMAL); Ovalocytes 1+; Schistocytes Rare; Tear Drop Cells 1+
--- NOTE | 2024-01-14 07:53 | P.PNIM_ITS ---
Progress Note: A&P Assessment and Plan (1) Acute exacerbation of CHF (congestive heart failure): Code(s): I50.9 - Heart failure, unspecified Status: Acute Assessment and Plan: 01/12/24: * Chest x-ray showing small bilateral pleural effusions * ProBNP 09632 * Troponin negative * Patient was given 2 mg IV push Bumex while in the ED * He was restarted on his metoprolol, Jardiance, Entresto, Lasix * Last echo was reviewed from 12/05/2023 which shown moderately reduced LV systolic function with an estimated EF of 35-40%, reduced right ventricular systolic function, moderate to severe mitral and tricuspid valve regu rgitation. * Cardiology consulted as well for further input 01/13/24: * Awaiting cardiology's recommendation * Creatinine today is worse at 3.0 despite efforts with Lasix 40 mg b.i.d. 01/14/24: * Blood pressures are still running low however better than yesterday we will go ahead and restart metoprolol 25 mg extended release * Lasix 40 mg b.i.d. still on hold for now * Cardiology following, will await further instruction regarding low blood pressure readings and the use metoprolol versus ? Midodrine * Nephrology following as well (2) Ascites: Code(s): R18.8 - Other ascites Status: Acute Assessment and Plan: 01/12/24: * Renal ultrasound was unremarkable however showed a large amount of ascites in all 4 quadrants * Will await Cardiology versus Nephrology recommendations 01/13/24: * Awaiting cardiology verses Nephrology recommendation * Last INR was 1.3 on 01/11/2024, platelet count 39 * ? Paracentesis tomorrow * Will check INR and platelet count in the morning 01/14/24: * INR 1.3, platelet count 30 * Plan for paracentesis today at 10:30 a.m. (3) Thrombocytopenia: Code(s): D69.6 - Thrombocytopenia, unspecified Status: Acute Assessment and Plan: 01/12/24: * Patient has myelodysplastic syndrome and chronic thrombocytopenia * Platelet count initially 16, no platelets were given at this time * Platelet count 15 * Will transfuse 2 units of platelets today 01/13/24: * Platelet count 39 * Continue to trend 01/14/24: * Platelet count 30 * Continue to trend (4) Anemia: Code(s): D64.9 - Anemia, unspecified Status: Acute Assessment and Plan: 01/13/24: * Hemoglobin today is 6.0, hematocrit 19.1 * Will give 2 units of blood today * Continue to trend 01/14/24: * Hemoglobin 9.1, hematocrit 27.8 (5) 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 Status: Acute Assessment and Plan: 01/12/24: * See above * Chronic pancytopenia (6) Atrial fibrillation: Code(s): I48.91 - Unspecified atrial fibrillation Status: Acute Assessment and Plan: 01/12/24: * Patient was taken off Xarelto due to his myelodysplastic syndrome and severe thrombocytopenia * Continue metoprolol 01/13/24: * No change to current treatment plan (7) GERD (gastroesophageal reflux disease): Code(s): K21.9 - Gastro-esophageal reflux disease without esophagitis Status: Acute Assessment and Plan: 01/12/24: * Continue Protonix 01/13/24: * No change to current treatment plan (8) CKD (chronic kidney disease): Code(s): N18.9 - Chronic kidney disease, unspecified Status: Acute Assessment and Plan: 01/12/24: * Initial creatinine 2.8 * Baseline appears to be 2.2-2.6 * Nephrology was consulted and adding sodium bicarb and will
--- NOTE | 2024-01-14 07:53 | PM.IMPN ---
Progress Note: A&P Assessment and Plan (1) Acute exacerbation of CHF (congestive heart failure): Code(s): I50.9 - Heart failure, unspecified Status: Acute Assessment and Plan: 01/12/24: Chest x-ray showing small bilateral pleural effusions ProBNP 39652 Troponin negative Patient was given 2 mg IV push Bumex while in the ED He was restarted on his metoprolol, Jardiance, Entresto, Lasix Last echo was reviewed from 12/05/2023 which shown moderately reduced LV systolic function with an estimated EF of 35-40%, reduced right ventricular systolic function, moderate to severe mitral and tricuspid valve regurgitation. Cardiology consulted as well for further input 01/13/24: Awaiting cardiology's recommendation Creatinine today is worse at 3.0 despite efforts with Lasix 40 mg b.i.d. 01/14/24: Blood pressures are still running low however better than yesterday we will go ahead and restart metoprolol 25 mg extended release Lasix 40 mg b.i.d. still on hold for now Cardiology following, will await further instruction regarding low blood pressure readings and the use metoprolol versus ? Midodrine Nephrology following as well (2) Ascites: Code(s): R18.8 - Other ascites Status: Acute Assessment and Plan: 01/12/24: Renal ultrasound was unremarkable however showed a large amount of ascites in all 4 quadrants Will await Cardiology versus Nephrology recommendations 01/13/24: Awaiting cardiology verses Nephrology recommendation Last INR was 1.3 on 01/11/2024, platelet count 39 ? Paracentesis tomorrow Will check INR and platelet count in the morning 01/14/24: INR 1.3, platelet count 30 Plan for paracentesis today at 10:30 a.m. (3) Thrombocytopenia: Code(s): D69.6 - Thrombocytopenia, unspecified Status: Acute Assessment and Plan: 01/12/24: Patient has myelodysplastic syndrome and chronic thrombocytopenia Platelet count initially 16, no platelets were given at this time Platelet count 15 Will transfuse 2 units of platelets today 01/13/24: Platelet count 39 Continue to trend 01/14/24: Platelet count 30 Continue to trend (4) Anemia: Code(s): D64.9 - Anemia, unspecified Status: Acute Assessment and Plan: 01/13/24: Hemoglobin today is 6.0, hematocrit 19.1 Will give 2 units of blood today Continue to trend 01/14/24: Hemoglobin 9.1, hematocrit 27.8 (5) 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 Status: Acute Assessment and Plan: 01/12/24: See above Chronic pancytopenia (6) Atrial fibrillation: Code(s): I48.91 - Unspecified atrial fibrillation Status: Acute Assessment and Plan: 01/12/24: Patient was taken off Xarelto due to his myelodysplastic syndrome and severe thrombocytopenia Continue metoprolol 01/13/24: No change to current treatment plan (7) GERD (gastroesophageal reflux disease): Code(s): K21.9 - Gastro-esophageal reflux disease without esophagitis Status: Acute Assessment and Plan: 01/12/24: Continue Protonix 01/13/24: No change to current treatment plan (8) CKD (chronic kidney disease): Code(s): N18.9 - Chronic kidney disease, unspecified Status: Acute Assessment and Plan: 01/12/24: Initial creatinine 2.8 Baseline appears to be 2.2-2.6 Nephrology was consulted and adding sodium bicarb and will try high dose diuretics for the next few days. 01/13/24: Creatinine 3.0 today Bicarb level 19 Nephrology following 01/14/24: Creatinine 3.2 today Bicarb level 20 Nephrology following Time Spent With Patient Time with patient: 25 - 35 minutes Subjective Date/time seen: 01/14/24 07:53 Interval history: Interval history: This is an 88-year-old male who presented to the hospital on 01/11/2024 with shortness of breath/dyspnea. Patient has a significant past medical history of AFib, coronary
[2024-01-14] MEDS: oxyBUTYnin CHLORIDE 5 MG TABLET 10 MG PO (09:06)
[2024-01-14] MEDS: SPIRONOLACTONE 25 MG TABLET PO (09:07)
[2024-01-14] MEDS: HYDROXYUREA (*CHEMO) 500 MG CAPSULE PO (09:07)
[2024-01-14] MEDS: SODIUM BICARBONATE TAB 650 MG TABLET 1300 MG PO ×2 (09:07→18:14)
[2024-01-14] MEDS: SACUBITRIL/VALSARTAN 12-13 MG TABLET 1 TAB PO ×2 (09:07→20:13)
[2024-01-14] MEDS: PANTOPRAZOLE 40 MG TABLET PO (09:07)
[2024-01-14] MEDS: METOPROLOL SUCCINATE EXT REL 25 MG TABCR PO (09:08)
[2024-01-14] MEDS: EMPAGLIFLOZIN 10 MG TABLET PO (09:08)
--- NOTE | 2024-01-14 09:56 | PC.NURSE ---
Pleasant gentleman. Laying in bed on his left side. Complains of shoulder pain related to laying around too long . Assisted patient to sitting position on the side of the bed. Placed two new, clean gowns on and wrapped patients shoulder with warm blanket, as patient complained of I am always cold . Discussed plan of care with including paracentesis scheduled at this time for 1030am. Verbalizes understanding at this time. Discussed medications, and what they are intended for. Verbalizes understanding at this time, denies questions at this time. No acute distress noted at this time. 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
--- NOTE | 2024-01-14 11:51 | PM.PNCARD ---
Progress Note: A&P Assessment and Plan (1) CHF (congestive heart failure): Code(s): I50.9 - Heart failure, unspecified Status: Acute (2) Atrial fibrillation: Code(s): I48.91 - Unspecified atrial fibrillation Status: Acute Plan As stated previously patient has a very difficult combination of comorbidities regarding his management. His diltiazem which was previously being used for rate control despite his low ejection fraction has been stopped. His metoprolol has been markedly reduced and his heart rate is approximately 115 at this time. I will increase the metoprolol at least a 50 mg daily and watch his telemetry. It is obvious we are going to have to except a somewhat faster heart rate than ideally we would like for hemodynamic reasons if diltiazem is going to be stopped. Previously electrophysiology securities consultant has deemed him to be unacceptably high risk for AV node ablation which would be the other modality for rate control and treatment of his myopathy. Yrn Murphy MD [facility] Subjective Date/time seen: Date of service: 01/14/24 11:51 Interval history: Follow-up visit in this 88-year-old man with: Very complicated combination of problems including left ventricular systolic dysfunction, mitral and tricuspid valve regurgitation, chronic atrial fibrillation with difficult rate control and myelodysplastic syndrome with problematic anemia and thrombocytopenia. Patient admitted again last Sunday with symptoms of volume overload abdominal distention and shortness of breath. He is better following diuresis over the weekend. Diltiazem has been stopped by physician covering over the weekend. Metoprolol has been markedly reduced as well. He says he feels better and is breathing more comfortably. Exam Const: General: comfortable and no acute distress Other: Able to lie flat HENMT: Face/Nose/Sinus: Normal nares present and no epistaxis Mouth: Yes moist mucous membranes Eyes: Sclera: sclerae normal Pupils: Equal, round and reactive pupils present Neck: Neck: supple and no JVD Carotids: no bruits Resp: Auscultation: clear to auscultation bilaterally and lung sounds not diminished Other: No chest wall tenderness Cardio: Rate: regular rate Rhythm: regular rhythm Heart sounds: no gallops, no murmurs and no rubs GI: Auscultation: normal bowel sounds Skin: General skin exam: rashes and/or lesions noted, ecchymosis, no erythema and petechiae Other: Warm Neuro: Cranial nerves: Yes Equal, round and reactive pupils present Speech: normal speech Other: No obvious focal deficit or facial asymmetry Extrem: General: no edema Other: Good perfusion, there is no peripheral edema Objective Data Vital Signs Vital Signs: Vital Signs - 24 hr 01/13/24 11:53 01/13/24 13:35 01/13/24 12:30 Temperature 36.6 C 36.4 C L 36.3 C L Pulse Rate 87 53 L 70 Respiratory Rate 18 18 18 Blood Pressure 85/49 L 86/52 L 85/50 L Pulse Oximetry 100 97 98 Oxygen Delivery Fraction of Inspired Oxygen 01/13/24 14:00 01/13/24 15:56 01/13/24 16:00 Temperature 36.6 C Pulse Rate 54 L 54 L 60 Respiratory Rate 18 Blood Pressure 88/51 L Pulse Oximetry 95 Oxygen Delivery Fraction of Inspired Oxygen 01/13/24 18:00 01/13/24 19:48 01/13/24 19:56 Temperature 36.7 C Pulse Rate 56 L 64 64 Respiratory Rate 16 16 Blood Pressure 96/50 L Pulse Oximetry 100 100 Oxygen Delivery Room Air Fraction of Inspired Oxygen 01/13/24 20:00 01/13/24 22:00 01/13/24 23:23 Temperature 37.1 C Pulse Rate 68 115 H 69 Respiratory Rate 14 Blood Pressure 98/58 L Pulse Oximetry 99 Oxygen Delivery Fraction of Inspired Oxygen 01/14/24 00:00 01/14/24 00:00 01/14/24 02:00 Temperature Pulse Rate 111 H 111 H 115 H Respiratory Rate 14 Blood Pressure Pulse Oximetry 99 Oxygen Delivery Room Air Fraction of Inspired Oxygen 01/14/24 04
[2024-01-14 12:07] LABS: Appearance Peritoneal Fluid Clear (Clear); Color Peritoneal Fluid Yellow (Colorless); Source Peritoneal Fluid Peritoneal Fluid
[2024-01-14 12:13] LABS: Kappa\\Lambda Light Chains 1.42 (0.26-1.65); Lambda Light Chain 31.8 mg/L (5.7-26.3)
[2024-01-14 12:13] LABS: RBC Peritoneal Fluid < 2000 /uL (0-10000)
[2024-01-14 12:14] LABS: Mesothelial Cells Peritoneal Fluid 4 %; Neutrophils Peritoneal Fluid 30 % (0-25)
[2024-01-14 12:15] LABS: Macrophages Peritoneal Fluid 18 %; Monocytes Peritoneal Fluid 44 %
[2024-01-14 12:16] LABS: Nucleated Cells Peritoneal Flu 99 /uL (0-500)
[2024-01-14] MEDS: EPOETIN ALFA-EPBX 10,000 UNITS/ML VIAL 10000 UNITS SUB-Q (12:40)
--- NOTE | 2024-01-14 13:20 | PM.PNNEP ---
Progress Note: A&P Assessment and Plan (1) CKD (chronic kidney disease): Code(s): N18.9 - Chronic kidney disease, unspecified Status: Acute Assessment and Plan: The patient has chronic kidney disease. His baseline seems to run around 2. Last time he was in the hospital because of diuretics his creatinine roberth to 2.8. on admission this time his creatinine was 2.8 again but has risen to 3.2 since that CPK is low UA in November showed red cells and white cells. Urine culture was negative Will repeat Urine electrolytes were not pre renal but the patient has been on diuretics. Fractional excretion of urea was only 33% consistent with pre renal azotemia. Sed rate 47 and complement are normal His creatinine is probably from a combination of parenchymal kidney disease from hypertension, and vascular disease and chronic pre renal azotemia due to the cardiac issues. he received diuretics for a couple of days and now his blood pressure is a little soft. Blood pressure meds and cardiac meds are being adjusted. His diltiazem was stopped. His metoprolol was decreased. LAURA Perez is going to ask Cardiology if we should cut down on the Entresto or add midodrine. He probably needs a higher blood pressure for his kidneys to function well. (2) CHF (congestive heart failure): Code(s): I50.9 - Heart failure, unspecified Status: Acute Assessment and Plan: The patient has mitral regurg, tricuspid regurg, high pulmonary pressures, and reduced LVEF. He sees Dr. Mireles as an outpatient He is on Entresto and lower dose metoprolol as well as spironolactone Heart rate running 85-113. (3) Hypertension: Code(s): I10 - Essential (primary) hypertension Status: Acute Assessment and Plan: Blood pressure is soft. Further adjustments per Cardiology (4) GERD (gastroesophageal reflux disease): Code(s): K21.9 - Gastro-esophageal reflux disease without esophagitis Status: Acute Assessment and Plan: The patient is on pantoprazole (5) Atrial fibrillation: Code(s): I48.91 - Unspecified atrial fibrillation Status: Acute Assessment and Plan: Heart rate is variable cardiology is seeing the patient (6) Hyperkalemia: Code(s): E87.5 - Hyperkalemia Status: Acute Assessment and Plan: Potassium is normal today (7) Metabolic acidosis: Code(s): E87.20 - Acidosis, unspecified Status: Acute Assessment and Plan: CO2 is slowly better on sodium bicarb (8) Anemia: Code(s): D64.9 - Anemia, unspecified Status: Acute Assessment and Plan: Hemoglobin was 6. TSAT is okay. Hemoglobin dropped and he received transfusion. Now hemoglobin is up to 9.1. On EPO. reticulocyte ct is 2.52 Subjective Date/time seen: 01/14/24 13:20 Interval history: Wes is hungry. He is NPO for a paracentesis today. He did not eat any dinner. No chest pain or shortness of breath. Belly is distended. Exam Narrative: WDWN in NAD skin no rash or subcu nodule head ncat lungs clear bilaterally cor reg no rub or gallop abd BS+ nontender and soft. Distended. ext 1 + bilateral edema. Objective Data Vital Signs Vital Signs: Vital Signs - 24 hr 01/13/24 13:35 01/13/24 14:00 01/13/24 15:56 Temperature 97.5 F L 98 F Pulse Rate 53 L 54 L 54 L Respiratory Rate 18 18 Blood Pressure 86/52 L 88/51 L Pulse Oximetry 97 95 Oxygen Delivery Fraction of Inspired Oxygen 01/13/24 16:00 01/13/24 18:00 01/13/24 19:48 Temperature 98.0 F Pulse Rate 60 56 L 64 Respiratory Rate 16 Blood Pressure 96/50 L Pulse Oximetry 100 Oxygen Delivery Fraction of Inspired Oxygen 01/13/24 19:56 01/13/24 20:00 01/13/24 22:00 Temperature Pulse Rate 64 68 115 H Respiratory Rate 16 Blood Pressure Pulse Oximetry 100 Oxygen Delivery Room Air Fraction of Inspired Oxygen
[2024-01-14 13:41] LABS: Hepatitis B Surface Antigen Negative (Negative)
[2024-01-14 13:47] LABS: HAV RESULT Negative (Negative); Hepatitis B Core IgM Result Negative (Negative)
[2024-01-14 13:58] LABS: Hepatitis C Virus Antibody Negative (Negative)
[2024-01-14 17:01] LABS: Lymphocytes Peritoneal Fluid 4 %
--- NOTE | 2024-01-14 18:58 | PC.NURSE ---
blood pressure 73/53 right arm, and 82/51 in the left arm. Reported to Shantel (nurse practitioner). Orders received (see MAR). Patient is alert and oriented, denies any symptoms at this time.
[2024-01-14] MEDS: TAMSULOSIN HCL 0.4 MG CAPSULE PO (20:13)
[2024-01-14] MEDS: SODIUM CHLORIDE 0.9% IV 1,000 ML 250 ML IV CONT (20:13)
[2024-01-14 22:15] LABS: Hemoglobin 8.3 g/dL (14.0-18.0); Immature Platelet Fraction Pct 3.4 % (0.9-11.2); Mean Corpuscular HGB Conc 31.9 g/dl (32-36); Mean Corpuscular Hemoglobin 29.6 pg (26-34); Mean Corpuscular Volume 92.9 fl (80-100); Mean Platelet Volume 9.9 fl (7.4-10.4); Red Cell Distribution Width 18.4 % (11.5-14.5); White Blood Count 3.3 K/mm3 (4.5-10.0)
[2024-01-14] MEDS: ACETAMINOPHEN 325 MG TABLET 650 MG PO (22:16)
[2024-01-14 22:57] LABS: Platelet Count Result 23 k/mm3 (150-375)
[2024-01-14 23:04] LABS: Band Neutrophils Percent 5 % (0-6); Eosinophils Absolute Manual 0.06 K/mm3 (0.02-0.50); Eosinophils Percent Manual 2 % (0-4); Lymphocytes Absolute Manual 0.62 K/mm3 (1.1-4.5); Monocytes Absolute Manual 0.13 K/mm3 (0.1-0.90); Monocytes Percent Manual 4 % (3-9); Neutrophils Absolute Manual 2.47 K/mm3 (1.3-6.7); Neutrophils Percent Manual 70 % (46-73); Nucleated Red Blood Cells 9 %; Platelet Estimate Decreased (Adequate); Total Cells Counted 100
[2024-01-14 23:05] LABS: Anisocytosis 1+; Ovalocytes 1+; Polychromasia 1+; Tear Drop Cells 1+
[2024-01-14 23:06] LABS: Schistocytes Rare
[2024-01-15] VITALS (19 sets, daily range): BP systolic 78–95; BP diastolic 46–58; PULSE 87–120; RESP 18–24; TEMP 36.2–37.3; O2SAT 95–100
[2024-01-15 04:37] LABS: Hematocrit 25.2 % (42.0-52.0); Hemoglobin 8.2 g/dL (14.0-18.0); Immature Platelet Fraction Pct 3.1 % (0.9-11.2); Mean Corpuscular HGB Conc 32.5 g/dl (32-36); Mean Corpuscular Hemoglobin 30.5 pg (26-34); Mean Corpuscular Volume 93.7 fl (80-100); Mean Platelet Volume 9.9 fl (7.4-10.4); Red Blood Count 2.69 M/mm3 (4.6-6.20); Red Cell Distribution Width 18.5 % (11.5-14.5); White Blood Count 3.1 K/mm3 (4.5-10.0)
[2024-01-15 04:45] LABS: Alanine Aminotransferase 9 U/L (6-50); Albumin Level 2.7 g/dL (3.5-5.1); Alkaline Phosphatase 55 U/L (38-126); Anion Gap 9 mmol/L (4-12); Aspartate Amino Transferase 13 U/L (17-59); Bilirubin,Total 1.4 mg/dL (0.2-1.3); Blood Urea Nitrogen 49 mg/dL (9-20); Carbon Dioxide 21 mmol/L (22-30); Chloride 105 mmol/L (98-107); Estimated CRCL calculation 16 ml/min; Estimated Glomerular Filt Rate 22; Glucose 114 mg/dL (65-110); Phosphorus 3.9 mg/dL (2.5-4.5); Potassium 4.2 mmol/L (3.4-5.0); Sodium 135 mmol/L (137-145)
[2024-01-15 05:28] LABS: Platelet Count Result 21 k/mm3 (150-375)
[2024-01-15 05:33] LABS: Band Neutrophils Percent 2 % (0-6); Eosinophils Absolute Manual 0.06 K/mm3 (0.02-0.50); Eosinophils Percent Manual 2 % (0-4); Lymphocytes Absolute Manual 0.62 K/mm3 (1.1-4.5); Monocytes Absolute Manual 0.18 K/mm3 (0.1-0.90); Monocytes Percent Manual 6 % (3-9); Neutrophils Absolute Manual 2.23 K/mm3 (1.3-6.7); Neutrophils Percent Manual 70 % (46-73); Nucleated Red Blood Cells 10 %; Platelet Estimate Decreased (Adequate); Total Cells Counted 100
[2024-01-15 05:34] LABS: Anisocytosis 1+; Hypochromasia 1+; Ovalocytes 1+; Polychromasia 1+; Schistocytes Rare; Tear Drop Cells 1+
[2024-01-15] MEDS: ACETAMINOPHEN 325 MG TABLET 650 MG PO (06:02)
--- NOTE | 2024-01-15 08:52 | PCOTNOTE ---
Patient refused treatment this session due to wanting to get some rest.
[2024-01-15] MEDS: PANTOPRAZOLE 40 MG TABLET PO (09:34)
[2024-01-15] MEDS: SPIRONOLACTONE 25 MG TABLET PO (09:34)
[2024-01-15] MEDS: SODIUM BICARBONATE TAB 650 MG TABLET 1300 MG PO (09:34)
[2024-01-15] MEDS: METOPROLOL SUCCINATE EXT REL 50 MG TABCR PO (09:34)
[2024-01-15] MEDS: SACUBITRIL/VALSARTAN 12-13 MG TABLET 1 TAB PO (09:35)
[2024-01-15] MEDS: EMPAGLIFLOZIN 10 MG TABLET PO (09:35)
--- NOTE | 2024-01-15 10:17 | P.PNNP_ITS ---
Progress Note: A&P Assessment and Plan (1) Chronic kidney disease, stage IV (severe): Code(s): N18.4 - Chronic kidney disease, stage 4 (severe) Status: Chronic Assessment and Plan: * creatinine has fluctuate to extremes with recent hospitalizations * at best, his creatinine has been around 2ish but has been as high as 3.2mg/dl * evaluation to date noted: * urine electrolytes non-prerenal by FeNA but prerenal by FeUrea * ESR and complements okay * renal ultrasound okay * moderate proteinuria * CPK low * suspecthis creatinine/CKD is due to a combination of parenchymal kidney disease from hypertension and vascular disease worsened by chronic pre-renal azotemia due to the cardiac issues and necessity of diuretic therapy... * this is probably exacerbated/worsened by his soft BP/relative hypotension * medications are being adjusted but I worry we may be at a point where medical optimization will not make a difference * he probably just needs a higher blood pressure to his kidneys to function better... (2) CHF (congestive heart failure): Code(s): I50.9 - Heart failure, unspecified Status: Acute Assessment and Plan: * known to have MR, TR, high pulmonary pressures, and reduced LVEF * Cardiology following * GMDT limited by his hemodynamics (3) Hypotension: Code(s): I95.9 - Hypotension, unspecified Status: Acute Assessment and Plan: * quite significant at this time * this limits what interventions can be done with regard to his cardiac and renal issues * trial of midodrine? (4) Anemia: Code(s): D64.9 - Anemia, unspecified Status: Acute Assessment and Plan: * drop in H/H noted * PRBC transfusion per protocol * iron studies with evidence of iron deficiency * on Epogen while hospitalized * follow trend of H/H (5) Atrial fibrillation: Code(s): I48.91 - Unspecified atrial fibrillation Status: Acute Assessment and Plan: * heart rate variable at time * rate control limited by BP * Cardiology following (6) Metabolic acidosis: Code(s): E87.20 - Acidosis, unspecified Status: Acute Assessment and Plan: * due to underlying CKD * better with sodium bicarbonate supplementation * follow CO2 levels Unfortunately, I suspect his kidney function will never be good due to his underlying cardiac issues and ongoing relative hypotension despite all medical t herapy that has been instituted to date. I worry we have may have reached a point where no further medical optimization is feasible. I relayed my concerns to the hospitalist And would consider discussing goals of therapy/plan of care as perhaps comfort care measures may be appropriate in this situation. Will continue to follow. Subjective Date/time seen: 01/15/24 10:17 Interval history: Follow-up for acute kidney injury/acute renal failure on chronic kidney disease. Chart reviewed -- assuming care from Dr. Griffin; overall, no apparent distress noted but reports poor appetite and generalize fatigue/malaise; noted large volume paracentesis yesterday (5L removed) but then noted hypotension post- procedure requiring IVFs. Exam Narrative: General: elderly and frail appearing male in NAD Heart: tachycardic; normal S1 and S2; no rub Lungs: clear anteriorly Abdomen: soft, mild distension, hypoactive bowel sounds Extremities: no cyanosis or clubbing; 1+ edema Skin: warm and dry Objective Data Vital Signs
--- NOTE | 2024-01-15 10:17 | PM.PNNEP ---
Progress Note: A&P Assessment and Plan (1) Chronic kidney disease, stage IV (severe): Code(s): N18.4 - Chronic kidney disease, stage 4 (severe) Status: Chronic Assessment and Plan: creatinine has fluctuate to extremes with recent hospitalizations at best, his creatinine has been around 2ish but has been as high as 3.2mg/dl evaluation to date noted: urine electrolytes non-prerenal by FeNA but prerenal by FeUrea ESR and complements okay renal ultrasound okay moderate proteinuria CPK low suspecthis creatinine/CKD is due to a combination of parenchymal kidney disease from hypertension and vascular disease worsened by chronic pre-renal azotemia due to the cardiac issues and necessity of diuretic therapy... this is probably exacerbated/worsened by his soft BP/relative hypotension medications are being adjusted but I worry we may be at a point where medical optimization will not make a difference he probably just needs a higher blood pressure to his kidneys to function better... (2) CHF (congestive heart failure): Code(s): I50.9 - Heart failure, unspecified Status: Acute Assessment and Plan: known to have MR, TR, high pulmonary pressures, and reduced LVEF Cardiology following GMDT limited by his hemodynamics (3) Hypotension: Code(s): I95.9 - Hypotension, unspecified Status: Acute Assessment and Plan: quite significant at this time this limits what interventions can be done with regard to his cardiac and renal issues trial of midodrine? (4) Anemia: Code(s): D64.9 - Anemia, unspecified Status: Acute Assessment and Plan: drop in H/H noted PRBC transfusion per protocol iron studies with evidence of iron deficiency on Epogen while hospitalized follow trend of H/H (5) Atrial fibrillation: Code(s): I48.91 - Unspecified atrial fibrillation Status: Acute Assessment and Plan: heart rate variable at time rate control limited by BP Cardiology following (6) Metabolic acidosis: Code(s): E87.20 - Acidosis, unspecified Status: Acute Assessment and Plan: due to underlying CKD better with sodium bicarbonate supplementation follow CO2 levels Unfortunately, I suspect his kidney function will never be good due to his underlying cardiac issues and ongoing relative hypotension despite all medical therapy that has been instituted to date. I worry we have may have reached a point where no further medical optimization is feasible. I relayed my concerns to the hospitalist And would consider discussing goals of therapy/plan of care as perhaps comfort care measures may be appropriate in this situation. Will continue to follow. Subjective Date/time seen: 01/15/24 10:17 Interval history: Follow-up for acute kidney injury/acute renal failure on chronic kidney disease. Chart reviewed -- assuming care from Dr. Griffin; overall, no apparent distress noted but reports poor appetite and generalize fatigue/malaise; noted large volume paracentesis yesterday (5L removed) but then noted hypotension post-procedure requiring IVFs. Exam Narrative: General: elderly and frail appearing male in NAD Heart: tachycardic; normal S1 and S2; no rub Lungs: clear anteriorly Abdomen: soft, mild distension, hypoactive bowel sounds Extremities: no cyanosis or clubbing; 1+ edema Skin: warm and dry Objective Data Vital Signs Vital Signs: Vital Signs Temp Pulse Resp BP Pulse Ox O2 Del Method FiO2 01/15/24 09:34 112 H 01/15/24 08:25 Room Air 01/15/24 07:23 97.2 F L 116 H 18 84/50 L 01/15/24 06:00 114 H 01/15/24 06:00 86/58 L 01/15/24 04:00 Room Air 01/15/24 04:00 108 H 01/15/24 04:00 99.1 F 114 H 20 78/46 L 97 01/15/24 02:00 108 H 01/15/24 00:00 Room Air 01/15/24 00:00 112 H 01/14/24 23:56 99.4 F 1
--- NOTE | 2024-01-15 12:16 | P.PNIM_ITS ---
Progress Note: A&P Assessment and Plan (1) Acute exacerbation of CHF (congestive heart failure): Code(s): I50.9 - Heart failure, unspecified Status: Acute Assessment and Plan: 01/12/24: * Chest x-ray showing small bilateral pleural effusions * ProBNP 80035 * Troponin negative * Patient was given 2 mg IV push Bumex while in the ED * He was restarted on his metoprolol, Jardiance, Entresto, Lasix * Last echo was reviewed from 12/05/2023 which shown moderately reduced LV systolic function with an estimated EF of 35-40%, reduced right ventricular systolic function, moderate to severe mitral and tricuspid valve regu rgitation. * Cardiology consulted as well for further input 01/13/24: * Awaiting cardiology's recommendation * Creatinine today is worse at 3.0 despite efforts with Lasix 40 mg b.i.d. 01/14/24: * Blood pressures are still running low however better than yesterday we will go ahead and restart metoprolol 25 mg extended release * Lasix 40 mg b.i.d. still on hold for now * Cardiology following, will await further instruction regarding low blood pressure readings and the use metoprolol versus ? 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 complicated with atrial fibrillation and acute renal failure * Cardiology and Nephrology following recommending hospice * Case coordination consulted for hospice referral * Spoke with daughter who is on board for hospice considering comorbidities (2) Ascites: Code(s): R18.8 - Other ascites Status: Acute Assessment and Plan: 01/12/24: * Renal ultrasound was unremarkable however showed a large amount of ascites in all 4 quadrants * Will await Cardiology versus Nephrology recommendations 01/13/24: * Awaiting cardiology verses Nephrology recommendation * Last INR was 1.3 on 01/11/2024, platelet count 39 * ? Paracentesis tomorrow * Will check INR and platelet count in the morning 01/14/24: * INR 1.3, platelet count 30 * Plan for paracentesis today at 10:30 a.m. 01/15/24: * Patient had paracentesis yesterday with 5 L fluid removal however he became hypotensive requiring 1 L fluid bolus over 4 hours C overnight. * Blood pressures remain labile (3) Thrombocytopenia: Code(s): D69.6 - Thrombocytopenia, unspecified Status: Acute Assessment and Plan: 01/12/24: * Patient has myelodysplastic syndrome and chronic thrombocytopenia * Platelet count initially 16, no platelets were given at this time * Platelet count 15 * Will transfuse 2 units of platelets today 01/13/24: * Platelet count 39 * Continue to trend 01/14/24: * Platelet count 30 * Continue to trend 01/15/24: * Platelet count 21 (4) Anemia: Code(s): D64.9 - Anemia, unspecified Status: Acute Assessment and Plan: 01/13/24: * Hemoglobin today is 6.0, hematocrit 19.1 * Will give 2 units of blood today * Continue to trend 01/14/24: * Hemoglobin 9.1, hematocrit 27.8 01/15/24: * Hemoglobin today 8.2 (5) 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 Status: Acute Assessment and Plan: 01/12/24: * See above * Chronic pancytopenia (6) Atrial fibrillation: Code(s): I48.91 - Unspecified atrial fibrillation Status: Acute Assessment and Plan: 01/12/24: * Patient was taken off Xarelto due to his myelodysplastic syndrome and severe thrombocytopenia * Continue metoprolol
--- NOTE | 2024-01-15 12:16 | PM.IMPN ---
Progress Note: A&P Assessment and Plan (1) Acute exacerbation of CHF (congestive heart failure): Code(s): I50.9 - Heart failure, unspecified Status: Acute Assessment and Plan: 01/12/24: Chest x-ray showing small bilateral pleural effusions ProBNP 57250 Troponin negative Patient was given 2 mg IV push Bumex while in the ED He was restarted on his metoprolol, Jardiance, Entresto, Lasix Last echo was reviewed from 12/05/2023 which shown moderately reduced LV systolic function with an estimated EF of 35-40%, reduced right ventricular systolic function, moderate to severe mitral and tricuspid valve regurgitation. Cardiology consulted as well for further input 01/13/24: Awaiting cardiology's recommendation Creatinine today is worse at 3.0 despite efforts with Lasix 40 mg b.i.d. 01/14/24: Blood pressures are still running low however better than yesterday we will go ahead and restart metoprolol 25 mg extended release Lasix 40 mg b.i.d. still on hold for now Cardiology following, will await further instruction regarding low blood pressure readings and the use metoprolol versus ? 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 Paracentesis tomorrow Will check INR and platelet count in the morning 01/14/24: INR 1.3, platelet count 30 Plan for paracentesis today at 10:30 a.m. 01/15/24: Patient had paracentesis yesterday with 5 L fluid removal however he became hypotensive requiring 1 L fluid bolus over 4 hours C overnight. Blood pressures remain labile (3) Thrombocytopenia: Code(s): D69.6 - Thrombocytopenia, unspecified Status: Acute Assessment and Plan: 01/12/24: Patient has myelodysplastic syndrome and chronic thrombocytopenia Platelet count initially 16, no platelets were given at this time Platelet count 15 Will transfuse 2 units of platelets today 01/13/24: Platelet count 39 Continue to trend 01/14/24: Platelet count 30 Continue to trend 01/15/24: Platelet count 21 (4) Anemia: Code(s): D64.9 - Anemia, unspecified Status: Acute Assessment and Plan: 01/13/24: Hemoglobin today is 6.0, hematocrit 19.1 Will give 2 units of blood today Continue to trend 01/14/24: Hemoglobin 9.1, hematocrit 27.8 01/15/24: Hemoglobin today 8.2 (5) 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 Status: Acute Assessment and Plan: 01/12/24: See above Chronic pancytopenia (6) Atrial fibrillation: Code(s): I48.91 - Unspecified atrial fibrillation Status: Acute Assessment and Plan: 01/12/24: Patient was taken off Xarelto due to his myelodysplastic syndrome and severe thrombocytopenia Continue metoprolol 01/13/24: No change to current treatment plan 01/15/24: Patient is unable to tolerate metoprolol due to labile blood pressures Cardiology following and suggesting hospice (7) GERD (gastroesophageal reflux disease): Code(s): K21.9 - Gastro-esophageal reflux disease without esophagitis Status: Acute Assessment and Plan: 01/12/24: Continue Protonix 01/13/24: No change to current treatment plan (8) CKD (chronic kidney disease): Code(s): N18.9 - Chronic kidney diseas
--- NOTE | 2024-01-15 12:40 | PM.PNCARD ---
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 Continue Toprol, Spironolactone, Entresto, Jardaince. (2) Acute on chronic renal failure: Code(s): N17.9 - Acute kidney failure, unspecified; N18.9 - Chronic kidney disease, unspecified Status: Acute Assessment and Plan: Nephrology following (3) Atrial fibrillation: Code(s): I48.91 - Unspecified atrial fibrillation Status: Acute Assessment and Plan: Rates are acceptable at this time. Continue Metoprolol 50mg once daily. (4) Hypertension: Code(s): I10 - Essential (primary) hypertension Status: Acute Assessment and Plan: Continue with current antihypertensive regimen. (5) Acute on chronic anemia: Code(s): D64.9 - Anemia, unspecified Status: Acute Assessment and Plan: S/p blood and platelet transfusions this hospitalization. Plan Overall patient is quite ill with multiorgan dysfunction. I agree with Hospice evaluation. Recommendations and plan discussed with Hospitalist. 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 He denies any chest pain. He was noted to have pancytopenia with worsening anemia started on blood transfusion. He has history of prior torque blood transfusions in the past. He had prior similar episodes in the past that partially improved with blood transfusion. Has history of chronic kidney disease. He was admitted with a diagnosis of possible CHF started was blood transfusion and received IV diuretic. His kidney function was stable after diuresis. He feels little bit better today. Date of service 01/13: Very complicated combination of problems including left ventricular systolic dysfunction, mitral and tricuspid valve regurgitation, chronic atrial fibrillation with difficult rate control and myelodysplastic syndrome with problematic anemia and thrombocytopenia. Patient admitted again last Sunday with symptoms of volume overload abdominal distention and shortness of breath. He is better following diuresis over the weekend. Diltiazem has been stopped by physician covering over the weekend. Metoprolol has been markedly reduced as well. He says he feels better and is breathing more comfortably. Date of service 01/14: Tele with overall rate controlled AFIB. Poor appetite today. Review of Systems Review of Systems: All systems reviewed & are unremarkable except as noted in HPI and below (HPI) Exam Const: General: comfortable and no acute distress HENMT: Mouth: Yes moist mucous membranes Eyes: General: appearance normal, both eyes and all related structures Sclera: sclerae normal Resp: Effort & Inspection: normal respiratory effort Cardio: Rhythm: abnormal rhythm irregularly irregular Skin: General skin exam: normal color Neuro: Speech: normal speech Psych: Mental Status: mental status grossly normal Affect: normal affect Objective Data Vital Signs Vital Signs: Vital Signs - 24 hr 01/14/24 15:51 01/14/24 15:59 01/14/24 16:00 Temperature 36.9 C Pulse Rate 115 H 115 H Respiratory Rate 16 Blood Pressure 74/43 L Pulse Oximetry 100 Oxygen Delivery Room Air Fraction of Inspired Oxygen 01/14/24 16:00 01/14/24 18:00 01/14/24 18:58 Temperature Pulse Rate 115 H 119 H Respiratory Rate 16 Blood Pressure 73/53 L Pulse Oximetry 100 Oxygen Delivery Room Air Fraction of Inspir
--- NOTE | 2024-01-15 12:40 | PCPTNOTE ---
On 01/15/24, the student, [Lamar Osorio], provided care and completed [facility] documentation on this patient. I have reviewed the student's documentation and agree with the findings.
--- NOTE | 2024-01-15 19:09 | PC.NURSE ---
Per Shantel, [employer] call if BP falls into the high 70s systolic.
[2024-01-16] VITALS (9 sets, daily range): BP systolic 83–98; BP diastolic 43–58; PULSE 114–119; RESP 20–24; TEMP 36.4–36.5; O2SAT 95–96
[2024-01-16 04:39] LABS: Basophils Percent Auto 0.7 % (0.2-1.2); Eosinophils Absolute Auto 0.1 K/mm3 (0-0.3); Eosinophils Percent Auto 2.1 % (0-4.4); Hematocrit 26.7 % (42.0-52.0); Hemoglobin 8.3 g/dL (14.0-18.0); Immature Granulocyte Absolute 0.46 K/mm3 (0.00-0.031); Immature Granulocyte Percent A 10.9 % (0-0.5); Immature Platelet Fraction Pct 4.3 % (0.9-11.2); Lymphocytes Absolute Auto 0.31 K/mm3 (0.9-3.2); Lymphocytes Percent Auto 7.3 % (18.3-44.2); Mean Corpuscular HGB Conc 31.1 g/dl (32-36); Mean Corpuscular Hemoglobin 29.2 pg (26-34); Monocytes Absolute Auto 0.6 K/mm3 (0.1-0.6); Neutrophils Absolute Auto 2.8 K/mm3 (1.3-6.7); Nucleated Red Blood Cells Perc 6.9 % (0.0-0.2); Red Blood Count 2.84 M/mm3 (4.6-6.20); Red Cell Distribution Width 18.6 % (11.5-14.5); White Blood Count 4.2 K/mm3 (4.5-10.0)
[2024-01-16 04:48] LABS: Alanine Aminotransferase 9 U/L (6-50); Albumin Level 2.9 g/dL (3.5-5.1); Alkaline Phosphatase 53 U/L (38-126); Anion Gap 11 mmol/L (4-12); Aspartate Amino Transferase 12 U/L (17-59); Bilirubin,Total 1.9 mg/dL (0.2-1.3); Blood Urea Nitrogen 46 mg/dL (9-20); Calcium 7.9 mg/dL (8.4-10.2); Carbon Dioxide 19 mmol/L (22-30); Chloride 105 mmol/L (98-107); Estimated CRCL calculation 17 ml/min; Estimated Glomerular Filt Rate 23; Glucose 98 mg/dL (65-110); Potassium 4.5 mmol/L (3.4-5.0); Sodium 135 mmol/L (137-145)
[2024-01-16 05:04] LABS: Platelet Count Result 15 k/mm3 (150-375)
[2024-01-16 05:05] LABS: Hypochromasia 1+; Platelet Estimate Decreased (Adequate); Tear Drop Cells 1+
[2024-01-16 05:06] LABS: Ovalocytes 1+; Schistocytes None Seen
--- NOTE | 2024-01-16 08:02 | PC.NURSE ---
Sitting up in bed this morning eating breakfast. Asked How is my doing ? This RN explained that she is not aware as his is currently in a penitentiary. He states It's hard to be away from her after 65 years together . This RN asked him how he is feeling this morning about everything, he stated It's not good . There is no good outcome for this, there is nothing more they can do . He is pleasant and kind. Affect is still a bit flat. Family arrived to the bedside. No acute distress noted at this time. Discussed plan of care for today, including possible discharge with Hospice. Verbalizes understanding at this time.
[2024-01-16] MEDS: SACUBITRIL/VALSARTAN 12-13 MG TABLET 1 TAB PO (08:55)
[2024-01-16] MEDS: EMPAGLIFLOZIN 10 MG TABLET PO (08:55)
[2024-01-16] MEDS: SODIUM BICARBONATE TAB 650 MG TABLET 1300 MG PO (08:55)
[2024-01-16] MEDS: PANTOPRAZOLE 40 MG TABLET PO (08:55)
[2024-01-16] MEDS: SPIRONOLACTONE 25 MG TABLET PO (08:55)
[2024-01-16] MEDS: METOPROLOL SUCCINATE EXT REL 50 MG TABCR PO (08:55)
[2024-01-16] MEDS: EPOETIN ALFA-EPBX 10,000 UNITS/ML VIAL 10000 UNITS SUB-Q (09:00)
--- NOTE | 2024-01-16 09:57 | PM.PNCARD ---
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 Continue Toprol, Spironolactone, Entresto, Jardiance. (2) Acute on chronic renal failure: Code(s): N17.9 - Acute kidney failure, unspecified; N18.9 - Chronic kidney disease, unspecified Status: Acute Assessment and Plan: Nephrology following (3) Atrial fibrillation: Code(s): I48.91 - Unspecified atrial fibrillation Status: Acute Assessment and Plan: Rates are acceptable at this time. Continue Metoprolol 50mg once daily. (4) Hypertension: Code(s): I10 - Essential (primary) hypertension Status: Acute Assessment and Plan: Continue with current antihypertensive regimen. (5) Acute on chronic anemia: Code(s): D64.9 - Anemia, unspecified Status: Acute Assessment and Plan: S/p blood and platelet transfusions this hospitalization. (6) Thrombocytopenia: Code(s): D69.6 - Thrombocytopenia, unspecified Status: Acute Assessment and Plan: S/p blood and platelet transfusions this hospitalization. Plan Overall patient is quite ill with multiorgan dysfunction. I agree with Hospice evaluation. Recommendations and plan discussed with Hospitalist. 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 He denies any chest pain. He was noted to have pancytopenia with worsening anemia started on blood transfusion. He has history of prior torque blood transfusions in the past. He had prior similar episodes in the past that partially improved with blood transfusion. Has history of chronic kidney disease. He was admitted with a diagnosis of possible CHF started was blood transfusion and received IV diuretic. His kidney function was stable after diuresis. He feels little bit better today. Date of service 01/13: Very complicated combination of problems including left ventricular systolic dysfunction, mitral and tricuspid valve regurgitation, chronic atrial fibrillation with difficult rate control and myelodysplastic syndrome with problematic anemia and thrombocytopenia. Patient admitted again last Sunday with symptoms of volume overload abdominal distention and shortness of breath. He is better following diuresis over the weekend. Diltiazem has been stopped by physician covering over the weekend. Metoprolol has been markedly reduced as well. He says he feels better and is breathing more comfortably. Date of service 01/14: Tele with overall rate controlled AFIB. Poor appetite today. Date of service 01/15: Daughter at bedside, awaiting meeting with Hospice. Wes still isn't really eating much. Review of Systems Review of Systems: All systems reviewed & are unremarkable except as noted in HPI and below (HPI) Exam Const: General: comfortable and no acute distress HENMT: Mouth: Yes moist mucous membranes Eyes: General: appearance normal, both eyes and all related structures Sclera: sclerae normal Resp: Effort & Inspection: normal respiratory effort Cardio: Rate: tachycardic Rhythm: abnormal rhythm irregularly irregular Skin: General skin exam: normal color Neuro: Speech: normal speech Psych: Mental Status: mental status grossly normal Affect: normal affect Objective Data Vital Signs Vital Signs: Vital Signs - 24 hr 01/15/24 11:12 01/15/24 10:00 01/15/24 12:00 Temperature 36.2 C L Pulse Rate 115 H 110 H 114 H Respiratory Rate 20 Bl
--- NOTE | 2024-01-16 11:19 | PM.DS ---
DS: Admitting Diagnosis Discharge Date 01/16/24 Admitting Diagnosis Acute exacerbation of CHF Thrombocytopenia Myeloproliferative disease AFib GERD Chronic kidney disease Coronary artery disease DS: Discharge Diagnosis Discharge Diagnosis (1) Acute exacerbation of CHF (congestive heart failure): Code(s): I50.9 - Heart failure, unspecified Status: Acute (2) Ascites: Code(s): R18.8 - Other ascites Status: Acute (3) Thrombocytopenia: Code(s): D69.6 - Thrombocytopenia, unspecified Status: Acute (4) Anemia: Code(s): D64.9 - Anemia, unspecified Status: Acute (5) 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 Status: Acute (6) Atrial fibrillation: Code(s): I48.91 - Unspecified atrial fibrillation Status: Acute (7) GERD (gastroesophageal reflux disease): Code(s): K21.9 - Gastro-esophageal reflux disease without esophagitis Status: Acute (8) CKD (chronic kidney disease): Code(s): N18.9 - Chronic kidney disease, unspecified Status: Acute DS: Summary Hospital Course Reason for hospitalization: Acute exacerbation of CHF Thrombocytopenia Myeloproliferative disease AFib GERD Chronic kidney disease Coronary artery disease Hospital Course: This is an 88-year-old male who presented to the hospital on 01/11/2024 with shortness of breath/dyspnea. Patient has a significant past medical history of AFib, coronary artery disease, congestive heart failure, chronic kidney disease, GERD, hypertension, myeloproliferation disorder likely am myelodysplastic syndrome. He is not on any anticoagulation due to his chronic thrombocytopenia. Workup in the hospital included chest x-ray showed small bilateral pleural effusions. Initial labs showed a normal white blood cell count of 4.7, hemoglobin 8.0, platelet count 16, INR 1.3, sodium 135, potassium 5.4, bicarb 18, creatinine 2.8, EGFR 22, troponin was negative, proBNP 35959. EKG today showed a flutter with RVR with a rate of 112, QTC 473. Last echo from 12/05/2023 was reviewed which shown moderately reduced LV systolic function with an estimated EF of 35-40% right atrium severely enlarged, moderate to severe mitral and tricuspid valve regurgitation. Patient was given 2 mg IV push of Bumex while in the ED. on 01/11 he had a renal ultrasound which was unremarkable other than showing ascites in all 4 quadrants. He received 2 units of platelets as well. On 01/12 hemoglobin dropped to 6.0 and he was given 2 units of blood. On 01/13 patient went and had a paracentesis with 5 L fluid removal and went back to IMU. Over night that night his blood pressure dropped to systolics in the 70s and we had to give him 1 L of fluid back. Spoke with Cardiology and Nephrology who both feel that the patient is at a point where we can no longer optimize him. On 01/15/2024 we spoke with his daughter María Elena who is agreeable to hospice care at this point. Case coordination was called for hospice consultation and patient will be returning back to his assisted living facility with [facility] hospice. He he will be discharged today on hospice. Final diagnosis: Acute exacerbation of CHF, pancytopenia, myeloproliferative disease, AFib, acute on chronic kidney disease, cardiorenal syndrome, myelodysplastic syndrome Status at Discharge Cognitive/behavioral status at discharge: Alert oriented x3 Functional status at discharge: uses cane/walker Overall status at discharge: patient is not back to baseline Time Spent with Patient Time attestation: Total time spent providing and/or coordinating discharge services: Time spent: Greater than 30 minutes Exam Narrative: General: In no acute distress, malnourished Cardiac: Normal S1 and S2. Tachycardic No murmur, gallops or friction rubs, peripheral pulses intact. Respiratory: Lungs course in bases, currently on room air Gastrointestinal: Taunt, distended
[2024-01-16 17:14] LABS: Complement Total CH50 34
[2024-01-19 17:43] LABS: Albumin Peritoneal Fluid 1.9 g/dL; Amylase Peritoneal Fluid <10 U/L; Glucose Peritoneal Fluid 99 mg/dL; Total Protein Peritoneal Fluid 3.1 g/dL
[2024-01-19 19:59] LABS: LDH Peritoneal Fluid 126 U/L (<63)
[2024-01-22 17:07] LABS: Immunofixation, Serum Normal pattern.
== END 2024-01-16 12:35 | disposition hospice, home (50) | DRG 291 ==
LOC: ANHED 18:27 → ANHIMU 21:23
PROVIDERS: Emergency Medicine; Internal Medicine Nephrology; Nurse Practitioner Acute Care; Admitting Provider Internal Medicine; Emergency Provider Student in an Organized Health Care Education/Training Program; PCP Internal Medicine; Visit Provider General Practice
DX: I13.0 Hypertensive heart and chronic kidney disease with heart failure and stage 1 through stage 4 chronic kidney disease, or unspecified chronic kidney disease (principal); I50.23 Acute on chronic systolic (congestive) heart failure; D47.1 Chronic myeloproliferative disease; R18.8 Other ascites; I48.20 Chronic atrial fibrillation, unspecified; N17.9 Acute kidney failure, unspecified; K21.9 Gastro-esophageal reflux disease without esophagitis; I25.10 Atherosclerotic heart disease of native coronary artery without angina pectoris; N18.9 Chronic kidney disease, unspecified; F17.210 Nicotine dependence, cigarettes, uncomplicated; E87.5 Hyperkalemia; I48.0 Paroxysmal atrial fibrillation; I34.0 Nonrheumatic mitral (valve) insufficiency; I07.1 Rheumatic tricuspid insufficiency
CPT/HCPCS: 36415; 36430; 49083; 71046; 76775; 80053; 80069; 80074; 82040; 82042; 82150; 82533; 82550; 82570; 82945; 82948; 83615; 83880; 83883; 84100; 84156; 84157; 84300; 84484; 84540; 85025; 85046; 85055; 85610; 85652; 85730; 86038; 86039; 86160; 86162; 86334; 86850; 86900; 86901; 86923; 87070; 87075; 87205; 87493; 88108; 88305; 89051; 93005; 96374; 96375; 96376; 97161; 97165; 99285; A9270; G0378; J1939; J1940; J7030; J7050; P9016; P9034; P9047; Q5105